=== PATIENT | male | born 1960 | race Caucasian/White ===

== ENCOUNTER 2021-07-13 00:08 | Inpatient (IN) | payer OTHER, SELFPAY ==
[2021-07-13] VITALS (15 sets, daily range): BP systolic 120–165; BP diastolic 79–102; PULSE 98–128; RESP 14–19; TEMP 36.1–37.1; O2SAT 91–96; BMI 22.8; BMI 21.0
--- NOTE | 2021-07-13 00:17 | CTR_ITS ---
PROCEDURE INFORMATION: Exam: CT Head Without Contrast Exam date and time: 07/13/2021 12:17 AM Age: 60 years old Clinical indication: Altered mental status/memory loss; Confusion or disorientation; Patient HX: AMS. Confusion and lethargy. TECHNIQUE: Imaging protocol: Computed tomography of the head without contrast. Radiation optimization: All CT scans at this facility use at least one of these dose optimization techniques: automated exposure control; mA and/or kV adjustment per patient size (includes targeted exams where dose is matched to clinical indication); or iterative reconstruction. COMPARISON: No relevant prior studies available. RADIATION DOSE METRICS: Total DLP (mGy-cm): 787.43 FINDINGS: Brain: Age appropriate atrophy and small vessel ischemic change. No evidence of intracranial hemorrhage, mass effect, midline shift or extra-axial fluid collections. Midline structures are normal. Pena-white matter differentiation is normal. Cerebral ventricles: No ventriculomegaly. Paranasal sinuses: Visualized sinuses are unremarkable. No fluid levels. Mastoid air cells: Visualized mastoid air cells are well aerated. Vasculature: Carotid atherosclerotic calcification. Bones/joints: Unremarkable. No acute fracture. Soft tissues: Unremarkable. CT/CT head wo con* [id number] IMPRESSION: No acute intracranial abnormality. Radiation Dose CTDIVOL = (mGy): DLP = 787.43 (mGy-cm)
--- NOTE | 2021-07-13 00:17 | XRR_ITS ---
PROCEDURE INFORMATION: Exam: XR Chest Exam date and time: 07/13/2021 12:17 AM Age: 60 years old Clinical indication: Patient HX: General weakness. Tachycardic. Ng tube placed in er. ; Additional info: AMS TECHNIQUE: Imaging protocol: XR of the chest. Views: 1 view. COMPARISON: CR Chest 1 [place] [id number] 01/06/2019 8:18 PM FINDINGS: Tubes, catheters and devices: NG tube present, passing beneath the diaphragm. The tip of the tube appears to lie in the proximal body of the stomach. Lungs: No CHF/pulmonary edema. Stable small calcified granuloma in the left mid lung. Visible lungs otherwise appear essentially clear. Pleural spaces: No visible pneumothorax. No definite pleural fluid. Heart/Mediastinum: Heart size is within normal limits. Stable calcified lymph nodes in the left AP window and left hilar region. Vasculature: Mild to moderate aortic tortuosity, similar to the prior exam. Bones/joints: No significant acute finding. XR/XR chest 1V portable [id number] IMPRESSION: 1. No definite CHF or pneumonia. 2. NG tube as above. 3. Other findings discussed above.
--- NOTE | 2021-07-13 00:18 | ECG_ITS ---
[facility] Test Date: 2021-07-13 Pat Name: Daniel Vázquez Department: Room: 259 Gender: Male [employer]: : 1960 Requested By: Sherine Li Order Number: [id number] Alberto MD: Miladis Goldman M.D. Measurements Intervals [place] Rate: 128 P: -5 PA: 137 QRS: 43 QRSD: 92 T: 246 QT: 321 QTc: 469 Interpretive Statements SINUS TACH[address] DEVIATION AND MARKED T-WAVE ABNORMALITY, CONSIDER ANTEROLATERAL ISCHEMIA [-0.5+ mV T WAVE IN I/aVL/V3-V6] ST DEVIATION AND MODERATE T-WAVE ABNORMALITY, CONSIDER INFERIOR ISCHEMIA [-0.1+ mV T WAVE IN II/aVF] Compared to ECG 01/02/2019 14:19:48 T-wave abnormality now present Possible ischemia now present Sinus rhythm no longer present ST (T wave) deviation no longer present Electronically Signed On 07-13-2021 16:13:01 CDT by Miladis Goldman M.D. [id number]
--- NOTE | 2021-07-13 00:27 | ED_ITS ---
HPI - Altered Mental Status General: Chief Complaint: Altered Mental Status Stated Complaint: WEAKNESS Time Seen by Provider: 07/13/21 00:12 Source: family and EMS Mode of arrival: EMS Limitations: altered mental status History of Present Illness: HPI narrative: 60-year-old male has a history of chronic alcoholism along with cirrhosis. Patient has had increasing weakness and confusion. He is only able to tell me his name but no other history. Patient's granddaughter is here and is giving full history. She states that he is a chronic alcoholic and has known cirrhosis and has been having increasing weakness and altered male status for months but is gotten much worse over a day. She states that she concern he had bloody vomitus but is unsure if he actually vomited blood but did see some blood in the house. He has had no known blood in his stool. He is quite jaundiced here and tachycardic. She states that his health has deteriorated over the last 2 months. Patient here is able to only tell me his name and really unable to give me other any other history and is quite frail appearing. Review of Systems General: Reports: ROS unobtainable due to mental status PFSH ED PFSH: Medical History (Updated 07/13/21 @ 04:26 by Lu Lin MD) Alcoholic cirrhosis Alcoholism Hypertension Hyponatremia admission 2019 with sodium as low as 114 due to HCTZ and beer potomania Surgical History (Updated 07/13/21 @ 04:27 by Lu Lin MD) No pertinent past surgical history Family History (Updated 07/13/21 @ 04:28 by Lu Lin MD) Other Dementia Hypertension Rheumatoid arthritis Physical Exam Const: COMMON NORMALS: negative for patient oriented x3 EXAM LIMITATIONS: altered mental status GENERAL APPEARANCE: disheveled, ill appearing and frail appearing HENMT: COMMON NORMALS: normocephalic and atraumatic HEAD & SCALP: normocephalic and atraumatic Eye: COMMON NORMALS: Equal, round and reactive pupils present and EOMs intact bilaterally PUPIL: Yes Equal, round and reactive pupils present Neck/C-Spine: COMMON NORMALS: full ROM and supple Chest: COMMONS NORMALS: normal inspection of the chest and normal palpation of entire chest wall Resp: COMMON NORMALS: normal respiratory effort, No retractions, No use of accessory muscles and clear to auscultation bilaterally AUSCULTATION: clear to auscultation bilaterally Cardio: COMMON NORMALS: regular rate, regular rhythm and No murmurs present (Cardio) RATE: regular rate RHYTHM: regular rhythm GI: COMMON NORMALS: Normal to inspection, nondistended, normoactive bowel sounds present, Soft to palpation, non-tender and no masses PALPATION: Yes Soft to palpation RECTAL EXAM: Yes heme negative stool Extremity: COMMON NORMALS: normal to inspection and full ROM Neuro: COMMON NORMALS: moves all extremities and no focal motor deficits; negative for patient oriented x3 Psych: COMMON NORMALS: cooperative; negative for mental status grossly normal Skin: COMMON NORMALS: no rashes or lesions noted and no wounds NARRATIVE SKIN EXAM: jaundiced GENERAL SKIN EXAM: no rashes or lesions noted Course Vital Signs: Vital signs: Vital Signs Temperature 98.7 F 07/13/21 00:12 Pulse Rate 119 H 07/13/21 04:09 Respiratory Rate 17 07/13/21 04:09 Blood Pressure 165/100 07/13/21 04:09 Pulse Oximetry 95 07/13/21 04:09 MDM - Altered Mental Status MDM Narrative: Medical decision making narrative: Patient presents here with altered mental status. Is likely due to his alcohol withdrawal and likely cirrhosis. Patient's abdominal CT shows no acute findings. I spoke to the hospitalist and will admit. Patient has been stable here in the ER. Lab Data: Labs: Lab Results 07/13/21 07/13/21 07/13/21 Range/Units 00:24 00:24 00:24 WBC 14.5 H (4.0-10.0) 10^3/ uL RBC 3.12 L (4.1-5.3) 10^6/u L Hgb 11.0 L (11.7-16.6) g/dL Hct 31.1 L (42.0-52.0) % MCV 99.7 H (80-94) fl MCH 35.3 H (28.0-34.0) pg MCHC 35.4 (30.0-36.0) g/dL RDW 14.3 (12.1-15.1) % Plt Count 93 L (130-400) 10^3/c mm MPV 9.9 (7.4-10.4) fL Neut % (Auto) 86.4 % Lymph % (Auto) 6.9 % Josephine % (Auto) 4.5 % Eos % (Auto) 0.0 % Baso % (Auto) 0.6 % Neut # (Auto) 12.56 H (1.8-7.7) 10^3/u L Lymph # (Auto) 1.0 (0.8-4.8) 10^3/u L Josephine # (Auto) 0.7 (0.2-0.9) 10^3/u L Eos # (Auto) 0.0 (0.0-0.8) 10^3/u L Baso # (Auto) 0.1 (0.0-0.1) 10^3/u L Nucleated RBC % (a uto) 0 % Nucleated RBCs # 0.0 /100WBC PT (12.1-14.9) SECO NDS INR (0.8-1.2) Sodium 134 L (136-145) mmol/L Potassium 2.8 L* (3.5-5.1) mmol/L Chloride 78 L (98-107) mmol/L Carbon Dioxide 35 H (22-29) mmol/L Anion Gap 23.8 H (5-19) BUN 55 H (8-23) mg/dL Creatinine 1.2 (0.7-1.2) mg/dL GFR Calculation 61.3 L (90-130) mL/min Glucose 145 H (65-115) mg/dL POC Glucose (70-110) mg/dL Calculated Osmolal ity 296 H (285-295) mOsm/k g Lactate 3.4 H (0.5-2.2) mmol/L Calcium 9.8 (8.5-10.5) mg/dL Magnesium 2.1 (1.7-2.3) mg/dL Total Bilirubin 1.9 H (0.15-1.2) mg/dL AST 27 (0-40) U/L ALT 27 (0-41) U/L Alkaline Phosphata se 71 (40-130) IU/L Ammonia (16-60) umol/L Creatine Kinase 9 L (39-308) U/L Troponin T Baselin e (0-15) ng/L Troponin T 120 Min da (0-15) ng/L Delta Troponin T (0-10) ABS# Total Protein 7.6 (6.6-8.7) g/dL Albumin 4.6 (3.5-5.2) g/dL Globulin 3.0 (1.3-4.6) g/dL Lipase 54 (13-60) U/L Urine Color (Yellow) Urine Appearance (CLEAR) Urine pH (5-7) Ur Specific Gravit y (1.005-1.030) Urine Protein (Negative) Urine Glucose (UA) (Normal) Urine Ketones (Negative) Urine Blood (Negative) Urine Nitrate (Negative) Urine Bilirubin (Negative) Urine Urobilinogen (Negative) mg/dL Ur Leukocyte Glenna ase (Negative) Urine RBC (0-2) /hpf Urine WBC (0-5) /hpf Ur Squamous Epith Cells (0-5) /hpf Ur Transition Epit h Cell /hpf Amorphous Sediment Urine Bacteria (NONE) /hpf Hyaline Casts /lpf Salicylates < 0.3 L (3-10) mg/dL Urine Opiates Scre en (Negative) ng/mL Acetaminophen < 5.0 L (10-30) ug/mL Ur Barbiturates Sc reen (Negative) ng/mL Ur Phencyclidine S crn (Negative) ng/mL Ur Amphetamines Sc reen (Negative) ng/mL U Benzodiazepines Scrn (Negative) ng/mL Urine Cocaine Scre en (Negative) ng/mL U Marijuana (THC) Screen (Negative) ng/mL Ethyl Alcohol < 10 (0-10) mg/dL Blood Type Rho(D) Type Antibody Screen 07/13/21 07/13/21 07/13/21 Range/Units 00:24 00:24 00:35 WBC (4.0-10.0) 10^3/ uL RBC (4.1-5.3) 10^6/u L Hgb (11.7-16.6) g/dL Hct (42.0-52.0) % MCV (80-94) fl MCH (28.0-34.0) pg MCHC (30.0-36.0) g/dL RDW (12.1-15.1) % Plt Count (130-400) 10^3/c mm MPV (7.4-10.4) fL Neut % (Auto) % Lymph % (Auto) % Josephine % (Auto) % Eos % (Auto) % Baso % (Auto) % Neut # (Auto) (1.8-7.7) 10^3/u L Lymph # (Auto) (0.8-4.8) 10^3/u L Josephine # (Auto) (0.2-0.9) 10^3/u L Eos # (Auto) (0.0-0.8) 10^3/u L Baso # (Auto) (0.0-0.1) 10^3/u L Nucleated RBC % (a uto) % Nucleated RBCs # /100WBC PT (12.1-14.9) SECO NDS INR (0.8-1.2) Sodium (136-145) mmol/L Potassium (3.5-5.1) mmol/L Chloride (98-107) mmol/L Carbon Dioxide (22-29) mmol/L Anion Gap (5-19) BUN (8-23) mg/dL Creatinine (0.7-1.2) mg/dL GFR Calculation (90-130) mL/min Glucose (65-115) mg/dL POC Glucose 155 H (70-110) mg/dL Calculated Osmolal ity (285-295) mOsm/k g Lactate (0.5-2.2) mmol/L Calcium (8.5-10.5) mg/dL Magnesium (1.7-2.3) mg/dL Total Bilirubin (0.15-1.2) mg/dL AST (0-40) U/L ALT (0-41) U/L Alkaline Phosphata se (40-130) IU/L Ammonia 27 (16-60) umol/L Creatine Kinase (39-308) U/L Troponin T Baselin e 25 H (0-15) ng/L Troponin T 120 Min da (0-15) ng/L Delta Troponin T (0-10) ABS# Total Protein (6.6-8.7) g/dL Albumin (3.5-5.2) g/dL Globulin (1.3-4.6) g/dL Lipase (13-60) U/L Urine Color (Yellow) Urine Appearance (CLEAR) Urine pH (5-7) Ur Specific Gravit y (1.005-1.030) Urine Protein (Negative) Urine Glucose (UA) (Normal) Urine Ketones (Negative) Urine Blood (Negative) Urine Nitrate (Negative) Urine Bilirubin (Negative) Urine Urobilinogen (Negative) mg/dL Ur Leukocyte Glenna ase (Negative) Urine RBC (0-2) /hpf Urine WBC (0-5) /hpf Ur Squamous Epith Cells (0-5) /hpf Ur Transition Epit h Cell /hpf Amorphous Sediment Urine Bacteria (NONE) /hpf Hyaline Casts /lpf Salicylates (3-10) mg/dL Urine Opiates Scre en (Negative) ng/mL Acetaminophen (10-30) ug/mL Ur Barbiturates Sc reen (Negative) ng/mL Ur Phencyclidine S crn (Negative) ng/mL Ur Amphetamines Sc reen (Negative) ng/mL U Benzodiazepines Scrn (Negative) ng/mL Urine Cocaine Scre en (Negative) ng/mL U Marijuana (THC) Screen (Negative) ng/mL Ethyl Alcohol (0-10) mg/dL Blood Type Rho(D) Type Antibody Screen 07/13/21 07/13/21 07/13/21 Range/Units 01:05 01:57 02:20 WBC (4.0-10.0) 10^3/ uL RBC (4.1-5.3) 10^6/u L Hgb (11.7-16.6) g/dL Hct (42.0-52.0) % MCV (80-94) fl MCH (28.0-34.0) pg MCHC (30.0-36.0) g/dL RDW (12.1-15.1) % Plt Count (130-400) 10^3/c mm MPV (7.4-10.4) fL Neut % (Auto) % Lymph % (Auto) % Josephine % (Auto) % Eos % (Auto) % Baso % (Auto) % Neut # (Auto) (1.8-7.7) 10^3/u L Lymph # (Auto) (0.8-4.8) 10^3/u L Josephine # (Auto) (0.2-0.9) 10^3/u L Eos # (Auto) (0.0-0.8) 10^3/u L Baso # (Auto) (0.0-0.1) 10^3/u L Nucleated RBC % (a uto) % Nucleated RBCs # /100WBC PT 13.40 (12.1-14.9) SECO NDS INR 0.99 (0.8-1.2) Sodium (136-145) mmol/L Potassium (3.5-5.1) mmol/L Chloride (98-107) mmol/L Carbon Dioxide (22-29) mmol/L Anion Gap (5-19) BUN (8-23) mg/dL Creatinine (0.7-1.2) mg/dL GFR Calculation (90-130) mL/min Glucose (65-115) mg/dL POC Glucose (70-110) mg/dL Calculated Osmolal ity (285-295) mOsm/k g Lactate (0.5-2.2) mmol/L Calcium (8.5-10.5) mg/dL Magnesium (1.7-2.3) mg/dL Total Bilirubin (0.15-1.2) mg/dL AST (0-40) U/L ALT (0-41) U/L Alkaline Phosphata se (40-130) IU/L Ammonia (16-60) umol/L Creatine Kinase (39-308) U/L Troponin T Baselin e (0-15) ng/L Troponin T 120 Min da (0-15) ng/L Delta Troponin T (0-10) ABS# Total Protein (6.6-8.7) g/dL Albumin (3.5-5.2) g/dL Globulin (1.3-4.6) g/dL Lipase (13-60) U/L Urine Color Hoa (Yellow) Urine Appearance Clear (CLEAR) Urine pH 5 (5-7) Ur Specific Gravit y 1.010 (1.005-1.030) Urine Protein Neg (Negative) Urine Glucose (UA) Norm (Normal) Urine Ketones 1+ H (Negative) Urine Blood 3+ H (Negative) Urine Nitrate Negative (Negative) Urine Bilirubin 1+ H (Negative) Urine Urobilinogen 4 H (Negative) mg/dL Ur Leukocyte Glenna ase Negative (Negative) Urine RBC 0-4 H (0-2) /hpf Urine WBC 0-4 H (0-5) /hpf Ur Squamous Epith Cells 0-4 H (0-5) /hpf Ur Transition Epit h Cell 0-4 /hpf Amorphous Sediment Not Reportable Urine Bacteria 1+ H (NONE) /hpf Hyaline Casts 5-10 H /lpf Salicylates (3-10) mg/dL Urine Opiates Scre en (Negative) ng/mL Acetaminophen (10-30) ug/mL Ur Barbiturates Sc reen (Negative) ng/mL Ur Phencyclidine S crn (Negative) ng/mL Ur Amphetamines Sc reen (Negative) ng/mL U Benzodiazepines Scrn (Negative) ng/mL Urine Cocaine Scre en (Negative) ng/mL U Marijuana (THC) Screen (Negative) ng/mL Ethyl Alcohol (0-10) mg/dL Blood Type A Positive Rho(D) Type Positive Antibody Screen Negative 07/13/21 07/13/21 Range/Units 02:20 03:05 WBC (4.0-10.0) 10^3/ uL RBC (4.1-5.3) 10^6/u L Hgb (11.7-16.6) g/dL Hct (42.0-52.0) % MCV (80-94) fl MCH (28.0-34.0) pg MCHC (30.0-36.0) g/dL RDW (12.1-15.1) % Plt Count (130-400) 10^3/c mm MPV (7.4-10.4) fL Neut % (Auto) % Lymph % (Auto) % Josephine % (Auto) % Eos % (Auto) % Baso % (Auto) % Neut # (Auto) (1.8-7.7) 10^3/u L Lymph # (Auto) (0.8-4.8) 10^3/u L Josephine # (Auto) (0.2-0.9) 10^3/u L Eos # (Auto) (0.0-0.8) 10^3/u L Baso # (Auto) (0.0-0.1) 10^3/u L Nucleated RBC % (a uto) % Nucleated RBCs # /100WBC PT (12.1-14.9) SECO NDS INR (0.8-1.2) Sodium (136-145) mmol/L Potassium (3.5-5.1) mmol/L Chloride (98-107) mmol/L Carbon Dioxide (22-29) mmol/L Anion Gap (5-19) BUN (8-23) mg/dL Creatinine (0.7-1.2) mg/dL GFR Calculation (90-130) mL/min Glucose (65-115) mg/dL POC Glucose (70-110) mg/dL Calculated Osmolal ity (285-295) mOsm/k g Lactate (0.5-2.2) mmol/L Calcium (8.5-10.5) mg/dL Magnesium (1.7-2.3) mg/dL Total Bilirubin (0.15-1.2) mg/dL AST (0-40) U/L ALT (0-41) U/L Alkaline Phosphata se (40-130) IU/L Ammonia (16-60) umol/L Creatine Kinase (39-308) U/L Troponin T Baselin e (0-15) ng/L Troponin T 120 Min da 23.10 H (0-15) ng/L Delta Troponin T -1.90 L (0-10) ABS# Total Protein (6.6-8.7) g/dL Albumin (3.5-5.2) g/dL Globulin (1.3-4.6) g/dL Lipase (13-60) U/L Urine Color (Yellow) Urine Appearance (CLEAR) Urine pH (5-7) Ur Specific Gravit y (1.005-1.030) Urine Protein (Negative) Urine Glucose (UA) (Normal) Urine Ketones (Negative) Urine Blood (Negative) Urine Nitrate (Negative) Urine Bilirubin (Negative) Urine Urobilinogen (Negative) mg/dL Ur Leukocyte Glenna ase (Negative) Urine RBC (0-2) /hpf Urine WBC (0-5) /hpf Ur Squamous Epith Cells (0-5) /hpf Ur Transition Epit h Cell /hpf Amorphous Sediment Urine Bacteria (NONE) /hpf Hyaline Casts /lpf Salicylates (3-10) mg/dL Urine Opiates Scre en Negative (Negative) ng/mL Acetaminophen (10-30) ug/mL Ur Barbiturates Sc reen Negative (Negative) ng/mL Ur Phencyclidine S crn Negative (Negative) ng/mL Ur Amphetamines Sc reen Negative (Negative) ng/mL U Benzodiazepines Scrn Negative (Negative) ng/mL Urine Cocaine Scre en Negative (Negative) ng/mL U Marijuana (THC) Screen Positive H (Negative) ng/mL Ethyl Alcohol (0-10) mg/dL Blood Type Rho(D) Type Antibody Screen Imaging Data^: CT Head: Attestation: I personally reviewed and interpreted this imaging study as follows: Radiologist's impression: [facility] [address] [place] [address] CT Scan Report Signed Patient: Daniel Vázquez Unit #: [id number] : 1960 Age/Sex: 60 / M ADM Date: 07/13/21 Loc: ER Room/Bed: Attending Dr: Ordering Provider/Ordering MD: Sherine Li MD Date of Service: 07/13/21 Procedure(s): CT head wo con* [id number] Accession Number(s): [id number] Report Number: [id number] PROCEDURE INFORMATION: Exam: CT Head Without Contrast Exam date and time: 07/13/2021 12:17 AM Age: 60 years old Clinical indication: Altered mental status/memory loss; Confusion or disorientation; Patient HX: AMS. Confusion and lethargy. TECHNIQUE: Imaging protocol: Computed tomography of the head without contrast. Radiation optimization: All CT scans at this facility use at least one of these dose optimization techniques: automated exposure control; mA and/or kV adjustment per patient size (includes targeted exams where dose is matched to clinical indication); or iterative reconstruction. COMPARISON: No relevant prior studies available. RADIATION DOSE METRICS: Total DLP (mGy-cm): 787.43 FINDINGS: Brain: Age appropriate atrophy and small vessel ischemic change. No evidence of intracranial hemorrhage, mass effect, midline shift or extra-axial fluid collections. Midline structures are normal. Pena-white matter differentiation is normal. Cerebral ventricles: No ventriculomegaly. Paranasal sinuses: Visualized sinuses are unremarkable. No fluid levels. Mastoid air cells: Visualized mastoid air cells are well aerated. Vasculature: Carotid atherosclerotic calcification. Bones/joints: Unremarkable. No acute fracture. Soft tissues: Unremarkable. CT/CT head wo con* [id number] IMPRESSION: No acute intracranial abnormality. Radiation Dose CTDIVOL = (mGy): DLP = 787.43 (mGy-cm) Dictated By: Damian Edge MD Signed By: Damian Edge MD Signed Date/Time: 07/13/21256 DD/ 5 CXR: Attestation: I personally reviewed and interpreted this imaging study as follows: Radiologist's impression: [facility] [address] [place] [address] XRay Report Signed Patient: Daniel Vázquez Unit #: [id number] : [id number] Age/Sex: 60 / M ADM Date: 07/13/21 Loc: ER Room/Bed: Attending Dr: Ordering Provider/Ordering MD: Sherine Li MD Date of Service: 07/13/21 Procedure(s): XR chest 1V portable [id number] Accession Number(s): [id number] Report Number: [id number] PROCEDURE INFORMATION: Exam: XR Chest Exam date and time: 07/13/2021 12:17 AM Age: 60 years old Clinical indication: Patient HX: General weakness. Tachycardic. Ng tube placed in er. ; Additional info: AMS TECHNIQUE: Imaging protocol: XR of the chest. Views: 1 view. COMPARISON: CR Chest 1 [place] [id number] 01/06/2019 8:18 PM FINDINGS: Tubes, catheters and devices: NG tube present, passing beneath the diaphragm. The tip of the tube appears to lie in the proximal body of the stomach. Lungs: No CHF/pulmonary edema. Stable small calcified granuloma in the left mid lung. Visible lungs otherwise appear essentially clear. Pleural spaces: No visible pneumothorax. No definite pleural fluid. Heart/Mediastinum: Heart size is within normal limits. Stable calcified lymph nodes in the left AP window and left hilar region. Vasculature: Mild to moderate aortic tortuosity, similar to the prior exam. Bones/joints: No significant acute finding. XR/XR chest 1V portable [id number] IMPRESSION: 1. No definite CHF or pneumonia. 2. NG tube as above. 3. Other findings discussed above. Dictated By: Thanh Jacob MD Signed By: Thanh Jacob MD Signed Date/Time: 07/13/21237 DD/ 6 CT Abd/Pel: Attestation: I personally reviewed and interpreted this imaging study as follows: Radiologist's impression: [facility] [address] [place] [address] CT Scan Report Signed Patient: Daniel Vázquez Unit #: [id number] : 1960 Age/Sex: 60 / M ADM Date: 07/13/21 Loc: ER Room/Bed: Attending Dr: Ordering Provider/Ordering MD: Sherine Li MD Date of Service: 07/13/21 Procedure(s): CT abdomen pelvis w con* [id number] Accession Number(s): [id number] Report Number: [id number] PROCEDURE INFORMATION: Exam: CT Abdomen And Pelvis With Contrast Exam date and time: 07/13/2021 1:14 AM Age: 60 years old Clinical indication: Patient HX: Hematemesis. Coffe ground contents suctioned from ng tube in er. Per family patient habitually consumes whiskey. ; Additional info: Abd pain TECHNIQUE: Imaging protocol: Computed tomography of the abdomen and pelvis with contrast. Radiation optimization: All CT scans at this facility use at least one of these dose optimization techniques: automated exposure control; mA and/or kV adjustment per patient size (includes targeted exams where dose is matched to clinical indication); or iterative reconstruction. Contrast material: OMNI 300; Contrast volume: 95 ml; Contrast route: INTRAVENOUS (IV); COMPARISON: No relevant prior studies available. RADIATION DOSE METRICS: Total DLP (mGy-cm): 1292.87 FINDINGS: Tubes, catheters and devices: NG tube present, tip in the proximal body of the stomach. Lungs: The lung bases are clear. Liver: There is fatty infiltration of the liver. Gallbladder and bile ducts: No visible gallstones by CT. Ultrasound would be more sensitive for detecting gallstones, if clinically needed. No biliary tree dilation. Pancreas: Unremarkable. Spleen: Unremarkable. Adrenal glands: Unremarkable. Kidneys and ureters: No hydronephrosis of either kidney. No visible ureteral calculus. Stomach and bowel: Possibility of somewhat thickened mucosa/wall in the distal antrum of the stomach. This is a nonspecific appearance, and could be transient on CT, but could also represent evidence for gastritis or peptic ulcer disease. Please correlate clinically. There are no CT findings to strongly suggest diverticulitis. Appendix: The appendix is visualized and appears normal. Intraperitoneal space: No free air, ascites, or bowel distention. Mild, subtle increased attenuation in the central mesenteric fat, especially around the root of the mesentery. This appearance is nonspecific and of unknown significance. Some type of mesenteritis might be considered. Please correlate clinically. Vasculature: No evidence for abdominal aortic aneurysm. Lymph nodes: No retroperitoneal adenopathy. Urinary bladder: Unremarkable as visualized. Reproductive: Essentially unremarkable for age. Bones/joints: Moderate to severe degenerative/arthritic changes throughout the lumbar spine. Moderate bulging disc at L3-L4, causing moderate central canal stenosis. Moderate/severe bulging/protruding discs at L4-L5 and L5-S1. Severe central spinal canal stenosis at L4-L5. Moderate central canal stenosis at L5-S1. Moderate compression deformity of L2, mild compression deformity of L1. These fractures appear to likely be old. Soft tissues: No significant acute finding. CT/CT abdomen pelvis w con* [id number] IMPRESSION: 1. No free air or bowel distention. 2. Possible thickened mucosa/wall in the distal stomach, see above discussion. 3. Normal appendix. 4. Nonspecific mesenteric findings, see above. 5. Moderate to severe degenerative/arthritic changes in the lumbar spine, with significant spinal canal stenosis at several levels. See above details. 6. Presumed old lumbar spine compression fractures, see above. 7. Other findings discussed above. Radiation Dose CTDIVOL = (mGy): DLP = 1292.87 (mGy-cm) Dictated By: Thanh Jacob MD Signed By: Thanh Jacob MD Signed Date/Time: 07/13/21310 DD/ 0309 EKG Data^: EKG 1: Attestation: I personally reviewed and interpreted this EKG as follows: EKG interpretation date: 07/13/21 EKG interpretation time: 00:25 Interpretation: sinus tach hr 128 st depression in lateral leads no st elevation qrs 92 qtc 397 EKG 2: Attestation: I personally reviewed and interpreted this EKG as follows: EKG interpretation date: 07/13/21 EKG interpretation time: 02:30 Interpretation: sinus tach hr [address] st depression laterally qrs 98 qtc 430 Discharge Plan Discharge Patient Disposition: Admitted As Inpatient Admit Provider: Lu Lin Clinical Impression: Alcoholism, Acute upper GI bleed Altered mental status Qualifiers: Altered mental status type: unspecified Qualified Code(s): R41.82 - Altered mental status, unspecified Condition: Stable Coding Level of Care Code ED Pastoral Counselor for g Fwd Exam Comprehensive
[2021-07-13 00:39] LABS: Glucose Point of Care 155 mg/dL (70-110)
[2021-07-13 00:43] LABS: Basophils # 0.1 10^3/uL (0.0-0.1); Basophils % 0.6 %; Hematocrit 31.1 % (42.0-52.0); Lymphocytes % 6.9 %; Mean Corpuscular HGB Conc 35.4 g/dL (30.0-36.0); Mean Corpuscular Hemoglobin 35.3 pg (28.0-34.0); Mean Corpuscular Volume 99.7 fl (80-94); Mean Platelet Volume 9.9 fL (7.4-10.4); Monocytes # 0.7 10^3/uL (0.2-0.9); Monocytes % 4.5 %; Neutrophils # 12.56 10^3/uL (1.8-7.7); Neutrophils % 86.4 %; Nucleated Red Blood Cells % 0 %; Platelet Count 93 10^3/cmm (130-400); Red Blood Count 3.12 10^6/uL (4.1-5.3); Red Cell Distribution Width 14.3 % (12.1-15.1); White Blood Count 14.5 10^3/uL (4.0-10.0)
[2021-07-13 00:57] LABS: Troponin(5th) Baseline 25 ng/L (0-15)
[2021-07-13 01:02] LABS: Alanine Aminotransferase 27 U/L (0-41); Albumin Level 4.6 g/dL (3.5-5.2); Alkaline Phosphatase 71 IU/L (40-130); Ammonia 27 umol/L (16-60); Anion Gap 23.8 (5-19); Aspartate Amino Transferase 27 U/L (0-40); Blood Urea Nitrogen 55 mg/dL (8-23); Calcium 9.8 mg/dL (8.5-10.5); Carbon Dioxide 35 mmol/L (22-29); Chloride 78 mmol/L (98-107); Creatine Phosphokinase 9 U/L (39-308); Glomerular Filtration Rate 61.3 mL/min (90-130); Glucose 145 mg/dL (65-115); Lactate (Lactic Acid level) 3.4 mmol/L (0.5-2.2); Lipase 54 U/L (13-60); Magnesium 2.1 mg/dL (1.7-2.3); Osmolality Calculated 296 mOsm/kg (285-295); Sodium 134 mmol/L (136-145); Total Bilirubin 1.9 mg/dL (0.15-1.2); Total Protein 7.6 g/dL (6.6-8.7)
[2021-07-13] MEDS: sodium chloride 0.9% 1,000 ML 999 ML IV (01:02)
[2021-07-13 01:03] LABS: Acetaminophen < 5.0 ug/mL (10-30); Alcohol Level < 10 mg/dL (0-10); Salicylate < 0.3 mg/dL (3-10)
[2021-07-13 01:04] LABS: Potassium 2.8 mmol/L (3.5-5.1)
--- NOTE | 2021-07-13 01:14 | CTR_ITS ---
PROCEDURE INFORMATION: Exam: CT Abdomen And Pelvis With Contrast Exam date and time: 07/13/2021 1:14 AM Age: 60 years old Clinical indication: Patient HX: Hematemesis. Coffe ground contents suctioned from ng tube in er. Per family patient habitually consumes whiskey. ; Additional info: Abd pain TECHNIQUE: Imaging protocol: Computed tomography of the abdomen and pelvis with contrast. Radiation optimization: All CT scans at this facility use at least one of these dose optimization techniques: automated exposure control; mA and/or kV adjustment per patient size (includes targeted exams where dose is matched to clinical indication); or iterative reconstruction. Contrast material: OMNI 300; Contrast volume: 95 ml; Contrast route: INTRAVENOUS (IV); COMPARISON: No relevant prior studies available. RADIATION DOSE METRICS: Total DLP (mGy-cm): 1292.87 FINDINGS: Tubes, catheters and devices: NG tube present, tip in the proximal body of the stomach. Lungs: The lung bases are clear. Liver: There is fatty infiltration of the liver. Gallbladder and bile ducts: No visible gallstones by CT. Ultrasound would be more sensitive for detecting gallstones, if clinically needed. No biliary tree dilation. Pancreas: Unremarkable. Spleen: Unremarkable. Adrenal glands: Unremarkable. Kidneys and ureters: No hydronephrosis of either kidney. No visible ureteral calculus. Stomach and bowel: Possibility of somewhat thickened mucosa/wall in the distal antrum of the stomach. This is a nonspecific appearance, and could be transient on CT, but could also represent evidence for gastritis or peptic ulcer disease. Please correlate clinically. There are no CT findings to strongly suggest diverticulitis. Appendix: The appendix is visualized and appears normal. Intraperitoneal space: No free air, ascites, or bowel distention. Mild, subtle increased attenuation in the central mesenteric fat, especially around the root of the mesentery. This appearance is nonspecific and of unknown significance. Some type of mesenteritis might be considered. Please correlate clinically. Vasculature: No evidence for abdominal aortic aneurysm. Lymph nodes: No retroperitoneal adenopathy. Urinary bladder: Unremarkable as visualized. Reproductive: Essentially unremarkable for age. Bones/joints: Moderate to severe degenerative/arthritic changes throughout the lumbar spine. Moderate bulging disc at L3-L4, causing moderate central canal stenosis. Moderate/severe bulging/protruding discs at L4-L5 and L5-S1. Severe central spinal canal stenosis at L4-L5. Moderate central canal stenosis at L5-S1. Moderate compression deformity of L2, mild compression deformity of L1. These fractures appear to likely be old. Soft tissues: No significant acute finding. CT/CT abdomen pelvis w con* [id number] IMPRESSION: 1. No free air or bowel distention. 2. Possible thickened mucosa/wall in the distal stomach, see above discussion. 3. Normal appendix. 4. Nonspecific mesenteric findings, see above. 5. Moderate to severe degenerative/arthritic changes in the lumbar spine, with significant spinal canal stenosis at several levels. See above details. 6. Presumed old lumbar spine compression fractures, see above. 7. Other findings discussed above. Radiation Dose CTDIVOL = (mGy): DLP = 1292.87 (mGy-cm)
[2021-07-13 01:19] LABS: INR 0.99 (0.8-1.2)
--- NOTE | 2021-07-13 01:25 | PC.NURSE ---
Gastrocult sample tested; was positive for blood. MD Li notified.
[2021-07-13] MEDS: iohexol 300 mg/mL 100 mL Btl IV (01:29)
[2021-07-13] MEDS: potassium chloride ER 20 mEq Tablet 40 MEQ PO (01:46)
--- NOTE | 2021-07-13 02:31 | ECG_ITS ---
[facility] Test Date: 2021-07-13 Pat Name: Daniel Vázquez Department: Room: Gender: Male Speech Clinician: : 1960 Requested By: Sherine Li Order Number: [id number] Alberto MD: Miladis Goldman M.D. Measurements Intervals [place] Rate: 108 P: -23 MI: 136 QRS: 65 QRSD: 98 T: 265 QT: 366 QTc: 493 Interpretive Statements SINUS TACHYCARDIA ST DEVIATION AND MODERATE T-WAVE ABNORMALITY, CONSIDER ANTEROLATERAL ISCHEMIA [-0.1+ mV T WAVE IN V3-V6] ST DEVIATION AND MODERATE T-WAVE ABNORMALITY, CONSIDER INFERIOR ISCHEMIA [-0.1+ mV T WAVE IN II/aVF] Compared to ECG 01/02/2019 14:19:48 T-wave abnormality now present Possible ischemia now present Sinus rhythm no longer present ST (T wave) deviation no longer present Electronically Signed On 07-13-2021 16:42:46 CDT by Miladis Goldman M.D. [id number]
[2021-07-13] MEDS: LORazepam 2 mg/mL INJ 1 mL IVP (02:35)
--- NOTE | 2021-07-13 02:35 | PC.NURSE ---
Niece Crystal is leaving for the night. Sitter placed outside room for pt safety, as he is confused.
[2021-07-13 02:36] LABS: Add Urine Microscopic? YES; Bilirubin Urine 1+ (Negative); Blood Urine 3+ (Negative); Glucose Urine UA Norm (Normal); Ketones Urine 1+ (Negative); Leukocyte Esterase Urine Negative (Negative); Nitrate Urine Negative (Negative); Protein Urine Neg (Negative); RBC Urine 0-4 /hpf (0-2); Squamous Epithelial Cell Urine 0-4 /hpf (0-5); Transitional Epi Cells Urine 0-4 /hpf; Urine Appearance Clear (CLEAR); Urine Color Amber (Yellow); Urobilinogen Urine 4 mg/dL (Negative); WBC Urine 0-4 /hpf (0-5); pH Urine 5 (5-7)
[2021-07-13 02:37] LABS: Add Urine Culture? No; Amphetamines Screen Urine Negative (Negative); Bacteria Urine 1+ /hpf; Barbiturates Screen Urine Negative (Negative); Benzodiazepines Screen Urine Negative (Negative); Cocaine Screen Urine Negative (Negative); Opiate Screen Urine Negative (Negative); PCP Screen Urine Negative (Negative); THC Screen Urine Positive (Negative)
--- NOTE | 2021-07-13 04:10 | PC.NURSE ---
pt snoring in bed at this time.
--- NOTE | 2021-07-13 04:17 | PM.HP ---
Providers/Chief Complaint Admitting Physician: Lu Lin MD Primary Care Provider: Unknown Chief Complaint: WEAKNESS History of Present Illness Daniel Vázquez is a 60 year old male known to be an alcoholic with a history of alcoholic cirrhosis according to available information. He himself can tell me that his name is Daniel but I am not able to get any other direct answers from him. He occasionally shakes his head yes or no but is quite lethargic. Per ER records he has had increasing weakness and confusion for a while now but has acutely worsened over the last 1 to 2 days. A granddaughter was present in the emergency room and indicated that he had had some bloody vomitus on him although none was seen around the house. No known blood in his stool. In the emergency room stool was checked and was Hemoccult negative per the ER provider. Stool was brown in color. NG tube was placed and coffee-ground material was obtained, black in color. No bright red blood was noted. Patient had CT of the head as well as abdomen and pelvis with results as noted below. Chest x-ray was unremarkable. He continued to be quite altered. He was restless at one point in time and did receive some Ativan. Heart rate was elevated. Blood alcohol level was ten. Historically patient drinks beer. Patient's granddaughter was not available here or on phone at the time of my evaluation limiting information obtainable. What is shown below was obtained from old records. Review of Systems General: Reports: ROS unobtainable due to medical condition and ROS unobtainable due to mental status Medications/Allergies Home Medications Medication Instructions Recorded Confirmed Last Taken Type No Known Home Medications 07/13/21 07/13/21 Unknown History Allergies Allergy/AdvReac Type Severity Reaction Status Date / Time No Known Allergies Allergy Verified 07/13/21 01:12 PFSH Acute PFSH: Medical History (Updated 07/13/21 @ 07:24 by Lu Lin MD) Alcoholic cirrhosis Alcoholism Hypertension Hyponatremia admission 2018 with sodium as low as 114 due to HCTZ and beer potomania Surgical History (Updated 07/13/21 @ 04:27 by Lu Lin MD) No pertinent past surgical history Family History (Updated 07/13/21 @ 04:28 by Lu Lin MD) Other Dementia Hypertension Rheumatoid arthritis Social History (Updated 07/13/21 @ 07:17 by Lu Lin MD) Alcohol intake: current Supplemental [facility] Information: Extent of current alcohol use unknown, unknown if he smokes or uses drugs Vitals/I&O/Wt Last Vital Signs Temp 98.7 F 07/13/21 00:12 Pulse 119 H 07/13/21 04:09 Resp 17 07/13/21 04:09 BP 165/100 07/13/21 04:09 Pulse Ox 95 07/13/21 04:09 07/12/21 07/12/21 07/13/21 14:59 22:59 06:59 Intake Total 1000 / 1000 Balance 1000 / 1000 Weight last 48 hrs Weight 68.039 kg Physical Exam Narrative: EXAM NARRATIVE: Constitutional: Asleep, awakens and will briefly make eye contact, can state his name but not verbally answer other questions. Will shake his head yes or no to a couple of questions but not many. Looks chronically and acutely ill. HEENT: Some bitemporal wasting noted, eyes are sunken a bit, pupils are equally reactive bilaterally, extraocular movements are grossly intact, sclera muddy, nasopharynx is clear, oropharynx with dentures noted, dry mucous membranes Neck: Supple Respiratory: Clear to auscultation bilaterally without any rales rhonchi or wheezes noted, no current accessory muscle use Cardiovascular: Tachycardic, regular rhythm, no obvious murmurs, 2+ radial pulses, 1+ dorsalis pedis pulses bilaterally Abdomen: Soft, nontender, decreased bowel sounds : Normal external genitalia, Martinez catheter in place Extremities: No pitting edema, no calf tenderness, no clubbing Skin: Dry, scattered bruises and abrasions primarily on extensor surfaces Neuro: Face is symmetric, speech was understandable but a little tongue-tied, toes are downgoing bilaterally, no asterixis appreciated nor any other involuntary movements, grossly moves both upper extremities though not cooperative with full examination Psych: Flat affect, lethargic but is oriented to person Urinary Catheter Management^: Martinez: Cath Placed During This Visit: yes Urinary Catheter Date of Insertion: 07/13/21 Urinary Catheter Time of Insertion: 02:00 Data : 07/13/21 00:24 07/13/21 00:24 Other data: Laboratory Results WBC 14.5 10^3/uL (4.0-10.0) H 07/13/21 00:24 RBC 3.12 10^6/uL (4.1-5.3) L 07/13/21 00:24 Hgb 11.0 g/dL (11.7-16.6) L 07/13/21 00:24 Hct 31.1 % (42.0-52.0) L 07/13/21 00:24 MCV 99.7 fl (80-94) H 07/13/21 00:24 MCH 35.3 pg (28.0-34.0) H 07/13/21 00:24 MCHC 35.4 g/dL (30.0-36.0) 07/13/21 00:24 RDW 14.3 % (12.1-15.1) 07/13/21 00:24 Plt Count 93 10^3/cmm (130-400) L 07/13/21 00:24 MPV 9.9 fL (7.4-10.4) 07/13/21 00:24 Neut % (Auto) 86.4 % 07/13/21 00:24 Lymph % (Auto) 6.9 % 07/13/21 00:24 [place] % (Auto) 4.5 % 07/13/21 00:24 Eos % (Auto) 0.0 % 07/13/21 00:24 Baso % (Auto) 0.6 % 07/13/21 00:24 Neut # (Auto) 12.56 10^3/uL (1.8-7.7) H 07/13/21 00:24 Lymph # (Auto) 1.0 10^3/uL (0.8-4.8) 07/13/21 00:24 [place] # (Auto) 0.7 10^3/uL (0.2-0.9) 07/13/21 00:24 Eos # (Auto) 0.0 10^3/uL (0.0-0.8) 07/13/21 00:24 Baso # (Auto) 0.1 10^3/uL (0.0-0.1) 07/13/21 00:24 Nucleated RBC % (auto) 0 % 07/13/21 00:24 Nucleated RBCs # 0.0 /100WBC 07/13/21 00:24 PT 13.40 SECONDS (12.1-14.9) 07/13/21 01:05 INR 0.99 (0.8-1.2) 07/13/21 01:05 Sodium 134 mmol/L (136-145) L 07/13/21 00:24 Potassium 2.8 mmol/L (3.5-5.1) L* 07/13/21 00:24 Chloride 78 mmol/L (98-107) L 07/13/21 00:24 Carbon Dioxide 35 mmol/L (22-29) H 07/13/21 00:24 Anion Gap 23.8 (5-19) H 07/13/21 00:24 BUN 55 mg/dL (8-23) H 07/13/21 00:24 Creatinine 1.2 mg/dL (0.7-1.2) 07/13/21 00:24 GFR Calculation 61.3 mL/min (90-130) L 07/13/21 00:24 Glucose 145 mg/dL (65-115) H 07/13/21 00:24 POC Glucose 155 mg/dL (70-110) H 07/13/21 00:35 Calculated Osmolality 296 mOsm/kg (285-295) H 07/13/21 00:24 Lactate 3.4 mmol/L (0.5-2.2) H 07/13/21 00:24 Calcium 9.8 mg/dL (8.5-10.5) 07/13/21 00:24 Magnesium 2.1 mg/dL (1.7-2.3) 07/13/21 00:24 Total Bilirubin 1.9 mg/dL (0.15-1.2) H 07/13/21 00:24 AST 27 U/L (0-40) 07/13/21 00:24 ALT 27 U/L (0-41) 07/13/21 00:24 Alkaline Phosphatase 71 IU/L (40-130) 07/13/21 00:24 Ammonia 27 umol/L (16-60) 07/13/21 00:24 Creatine Kinase 9 U/L (39-308) L 07/13/21 00:24 Troponin T Baseline 25 ng/L (0-15) H 07/13/21 00:24 Troponin T 120 Minute 23.10 ng/L (0-15) H 07/13/21 03:05 Delta Troponin T -1.90 ABS# (0-10) L 07/13/21 03:05 Total Protein 7.6 g/dL (6.6-8.7) 07/13/21 00:24 Albumin 4.6 g/dL (3.5-5.2) 07/13/21 00:24 Globulin 3.0 g/dL (1.3-4.6) 07/13/21 00:24 Lipase 54 U/L (13-60) 07/13/21 00:24 Urine Color [place] (Yellow) 07/13/21 02:20 Urine Appearance Clear (CLEAR) 07/13/21 02:20 Urine pH 5 (5-7) 07/13/21 02:20 Ur Specific [place] 1.010 (1.005-1.030) 07/13/21 02:20 Urine Protein Neg (Negative) 07/13/21 02:20 Urine Glucose (UA) Norm (Normal) 07/13/21 02:20 Urine Ketones 1+ (Negative) H 07/13/21 02:20 Urine Blood 3+ (Negative) H 07/13/21 02:20 Urine Nitrate Negative (Negative) 07/13/21 02:20 Urine Bilirubin 1+ (Negative) H 07/13/21 02:20 Urine Urobilinogen 4 mg/dL (Negative) H 07/13/21 02:20 Ur Leukocyte Esterase Negative (Negative) 07/13/21 02:20 Urine RBC 0-4 /hpf (0-2) H 07/13/21 02:20 Urine WBC 0-4 /hpf (0-5) H 07/13/21 02:20 Ur Squamous Epith Cells 0-4 /hpf (0-5) H 07/13/21 02:20 Ur Transition Epith Cell 0-4 /hpf 07/13/21 02:20 Amorphous Sediment Not Reportable 07/13/21 02:20 Urine Bacteria 1+ /hpf (NONE) H 07/13/21 02:20 Hyaline Casts 5-10 /lpf H 07/13/21 02:20 Salicylates < 0.3 mg/dL (3-10) L 07/13/21 00:24 Urine Opiates Screen Negative ng/mL (Negative) 07/13/21 02:20 Acetaminophen < 5.0 ug/mL (10-30) L 07/13/21 00:24 Ur Barbiturates Screen Negative ng/mL (Negative) 07/13/21 02:20 Ur Phencyclidine Scrn Negative ng/mL (Negative) 07/13/21 02:20 Ur Amphetamines Screen Negative ng/mL (Negative) 07/13/21 02:20 U Benzodiazepines Scrn Negative ng/mL (Negative) 07/13/21 02:20 Urine Cocaine Screen Negative ng/mL (Negative) 07/13/21 02:20 U Marijuana (THC) Screen Positive ng/mL (Negative) H 07/13/21 02:20 Ethyl Alcohol < 10 mg/dL (0-10) 07/13/21 00:24 Blood Type A Positive 07/13/21 01:57 Rho(D) Type Positive 07/13/21 01:57 Antibody Screen Negative 07/13/21 01:57 Impressions Chest X-Ray 07/13/21 00:17 IMPRESSION: 1. No definite CHF or pneumonia. 2. NG tube as above. 3. Other findings discussed above. Head CT 07/13/21 00:17 IMPRESSION: No acute intracranial abnormality. Radiation Dose CTDIVOL = (mGy): DLP = 787.43 (mGy-cm) Abdomen/Pelvis CT 07/13/21 01:14 IMPRESSION: 1. No free air or bowel distention. 2. Possible thickened mucosa/wall in the distal stomach, see above discussion. 3. Normal appendix. 4. Nonspecific mesenteric findings, see above. 5. Moderate to severe degenerative/arthritic changes in the lumbar spine, with significant spinal canal stenosis at several levels. See above details. 6. Presumed old lumbar spine compression fractures, see above. 7. Other findings discussed above. Radiation Dose CTDIVOL = (mGy): DLP = 1292.87 (mGy-cm) A&P Assessment and plan (1) Acute encephalopathy: Multifactorial, from chronic alcohol use, a degree of alcoholic ketoacidosis, medication administration in the emergency room, possible infection with leukocytosis with left shift noted Status: Acute (2) Acute upper GI bleed: Status: Acute (3) Macrocytic anemia: Status: Acute (4) Thrombocytopenia: Status: Acute (5) Alcoholism: Status: Chronic (6) Alcoholic cirrhosis: Status: Chronic Qualifiers: Ascites presence: without ascites Qualified Code(s): K70.30 - Alcoholic cirrhosis of liver without ascites (7) Hypertension: Status: Chronic Qualifiers: Hypertension type: other secondary hypertension Qualified Code(s): I15.8 - Other secondary hypertension Additional A&P Information Evidence of THC use Inpatient admission Continue NG tube to low intermittent suction PPI IV Serial H&H Has been typed and screened Repeat hemocult of stool Check coags Serial neuro exams Thiamine, folate, multivitamin [facility] protocol Sitter for safety Check TSH Serial troponins and EKGd Empiric antibiotic coverage with vancomycin and Zosyn given leukocytosis with left shift Bloods cultures and procalcitonin IV fluids Check serum ketones and ABG Received potassium replacement in the emergency room Repeat laboratory studies in the morning including magnesium and phosphorus Additional electrolyte replacement as needed Monitor closely for hypoglycemia Ammonia level was checked and was normal SCDs for DVT prophylaxis Monitor platelet count When family available get more information about presentation, goals of care and CODE STATUS as able Martinez catheter was placed in the emergency room I believe to obtain urine specimen, will continue for now until we get a bit more information to allow close monitoring of overall volume status although would like to discontinue as soon as feasible Briefly reviewed plan of care with patient although I am not sure he understood much of any of it Anticipated Disposition: Depending on clinical course but currently anticipate back home with family Code Status: Full code presently as I am unable to discuss with patient or family Attestations Medical Necessity Statement*: Currently anticipate a stay greater than two midnights in a known alcoholic presenting with significant alteration of mental status and looks to be upper GI bleed with coffee-ground emesis in addition to acute multifactorial encephalopathy. Plans are as noted above. At high risk of rapid clinical decline up to and including the possibility of given comorbid conditions and baseline status of late. Coding Level of Care Code Acute Correctional Security Officer for [facility] Fwd Diagnoses Acute encephalopathy G93.40 Acute upper GI bleed K92.2 Macrocytic anemia D53.9 Thrombocytopenia D69.6 Alcoholism F10.20 Alcoholic cirrhosis K70.30 Ascites presence: without ascites Hypertension I15.8 Hypertension type: other secondary hypertension
--- NOTE | 2021-07-13 06:31 | ECG_ITS ---
[facility] Test Date: 2021-07-13 Pat Name: Daniel Vázquez Department: Room: 259 Gender: Male Cork Insulator: : 1960 Requested By: Sherine Li Order Number: [id number] Alberto MD: Miladis Goldman M.D. Measurements Intervals [place] Rate: 120 P: 25 VT: 150 QRS: 60 QRSD: 92 T: 248 QT: 350 QTc: 494 Interpretive Statements SINUS TACHYCARDIA WITH OCCASIONAL SUPRAVENTRICULAR PREMATURE COMPLEXES ST DEVIATION AND MODERATE T-WAVE ABNORMALITY, CONSIDER ANTEROLATERAL ISCHEMIA [-0.1+ mV T WAVE IN V3-V6] ST DEVIATION AND MODERATE T-WAVE ABNORMALITY, CONSIDER INFERIOR ISCHEMIA [-0.1+ mV T WAVE IN II/aVF] Compared to ECG 07/13/2021 02:25:19 No significant changes Electronically Signed On 07-14-2021 12:51:06 CDT by Miladis Goldman M.D. [id number]
--- NOTE | 2021-07-13 08:27 | PC.CHAP ---
Pastoral Care Encounter/Spiritual Assessment Type of Contact [] Declined bed machine operator visit [] Patient/Family/Request visit [] Outpatient visit [] Follow-up visit [] Physician referral [] Code/Alert x[] Routine visit [] Staff referral [] Actively dying [x] Patient sleeping [] Family support [] [] Out of room [] Palliative care [] [] Receiving care in room [] Pre-surgical visit [] Trauma [] Long length of stay [] ICU visit [] Other: Relational/Emotional Strength [] Patient feels connected with others/family/visitors/staff [] Distress [] Loneliness/isolation [] Abandonment Spirituality of Patient [] Person of Lilibeth [] Attends Christianity of their Lilibeth [] Believes in Prayer [] Reads Bible or Hinduism materials [] There are Spiritual issues to be addressed Paper Tube Machine Operator Interventions [] Prayer [] Active listening [] Non-anxious presence [] Spiritual/emotional support [] Crisis/trauma care [] Spiritual counseling [] Bereavement support [] Provided bereavement packet [] Provided Bible/devotional materials [] Provided toy/stuffed animal, coloring book to patient or family member [] Provided Communion [] Anointing/[place]chells [] Salvation [] Completed spiritual assessment [] Other: Impact on Illness or Injury [] Angry [] Fearful [] Anxious [] Often cries [] Exhaustion [] Unable to work [] Unable to attend anabaptism [] Unable to walk/stand [] Unable to read [] Unable to drive [] Unable to eat/drink [] Unable to sleep [] Unable to be with family [] Patient intubated [] Other: Summary Time spent with patient
[2021-07-13] MEDS: pantoprazole 40 mg SDV IVP ×2 (09:26→18:53)
[2021-07-13] MEDS: sodium chlor 0.9% + KCl 20 mEq 20 MEQ/1,000 ML BAG 100 MEQ IV ×2 (09:28→19:28)
[2021-07-13 09:29] LABS: Blood Gas Allen Test Pos; Blood Gas Operator Identificat CAK; Blood Gas Sample Site Brachial, left; Blood Gas Sample Type Arterial; Oxygen Device ROOM AIR
[2021-07-13] MEDS: vancomycin 1,000 MG in sodium chloride 0.9% 250 ML 250 MG IV (09:42)
[2021-07-13] MEDS: thiamine 100 mg Tablet PO (09:55)
[2021-07-13] MEDS: multivitamin therapeutic Tablet 1 TAB PO (09:55)
[2021-07-13] MEDS: folic acid 1 mg Tablet PO (09:55)
[2021-07-13 10:14] LABS: Basophils # 0.1 10^3/uL (0.0-0.1); Basophils % 0.4 %; Hematocrit 26.6 % (42.0-52.0); Hemoglobin 9.3 g/dL (11.7-16.6); Lymphocytes % 7.1 %; Mean Corpuscular Hemoglobin 35.4 pg (28.0-34.0); Mean Corpuscular Volume 101.1 fl (80-94); Mean Platelet Volume 9.4 fL (7.4-10.4); Monocytes # 0.9 10^3/uL (0.2-0.9); Monocytes % 6.2 %; Neutrophils # 11.51 10^3/uL (1.8-7.7); Neutrophils % 84.3 %; Nucleated Red Blood Cells % 0 %; Platelet Count 66 10^3/cmm (130-400); Red Blood Count 2.63 10^6/uL (4.1-5.3); Red Cell Distribution Width 14.5 % (12.1-15.1); White Blood Count 13.7 10^3/uL (4.0-10.0)
[2021-07-13 10:22] LABS: Ketone (Acetest) Serum Negative (Negative)
--- NOTE | 2021-07-13 10:22 | PM.PN ---
Subjective Subjective: Interval history: He is awake, but with sluggish responses, does not know where he is. Does not know where he is. Cannot tell me the year. Denies having pain or discomfort. Denies trouble breathing. Takes several problems to follow some commands. Does not really follow commands to track, although does kind of track my face with shifting from side to side. Inconsistently follows other commands. Lifts his hands and squeezes my hands weakly. After several prompts lifts left leg weakly off the surface of the bed. I could not get him to follow other commands after that. Vitals/I&O/Wt Last Vital Signs Temp 97.6 F 07/13/21 07:42 Pulse 120 H 07/13/21 07:42 Resp 18 07/13/21 07:42 BP 149/81 07/13/21 07:42 Pulse Ox 96 07/13/21 07:42 07/12/21 07/13/21 07/13/21 22:59 06:59 14:59 Intake Total 1000 / 1000 Balance 1000 / 1000 Weight last 48 hrs Weight 62.794 kg Weight 68.039 kg Physical Exam Const: COMMON NORMALS: no acute distress; negative for patient oriented x3 EXAM LIMITATIONS: altered mental status GENERAL APPEARANCE: cooperative (To very limited extent) and frail appearing ORIENTATION/CONSCIOUSNESS: Yes confused HENMT: COMMON NORMALS: oropharynx normal Neck/C-Spine: COMMON NORMALS: no JVD Resp: COMMON NORMALS: normal respiratory effort and clear to auscultation bilaterally AUSCULTATION: clear to auscultation bilaterally Cardio: COMMON NORMALS: no JVD, regular rhythm, S1 normal heart sound present, S2 normal heart sound present and No murmurs present (Cardio) RHYTHM: regular rhythm HEART SOUNDS: S1 normal heart sound present and S2 normal heart sound present GI: COMMON NORMALS: Normal to inspection, nondistended, normoactive bowel sounds present, Soft to palpation and non-tender PALPATION: Yes Soft to palpation Extremity: COMMON NORMALS: no joint enlargement and no pedal edema OTHER: Bruises on shins Neuro: COMMON NORMALS: negative for patient oriented x3 MENINGEAL SIGNS: No nuccal rigidity SPEECH: abnormal speech and Other neuro speech findings (Unable to get much from him difficult to assess whether in fact as aphasia) MOTOR EXAM: Normal motor muscle tone present throughout, Abnormal motor strength present (2+ - 3- throughout) and Other motor observations present (No myoclonus) OTHER: Does not follow commands well to assess tracking well, although does appear to track my face with shifting from side to side. Cannot assess visual edwards. Skin: COMMON NORMALS: no rashes or lesions noted GENERAL SKIN EXAM: no rashes or lesions noted Urinary Catheter Management^: Martinez: Cath Placed During This Visit: yes Urinary Catheter Date of Insertion: 07/13/21 Urinary Catheter Time of Insertion: 02:00 Data : 07/13/21 09:50 07/13/21 00:24 Micro: Microbiology 07/13/21 09:50 Blood Culture - Preliminary Blood SPECIMEN COLLECTED A&P Assessment and plan (1) Acute encephalopathy: Multifactorial, from chronic alcohol use, a degree of alcoholic ketoacidosis, medication administration in the emergency room, possible infection with leukocytosis with left shift noted By comparison from documentation from yesterday, appears lethargic, however, still unable to provide much information, answer questions or follow commands well. Requires several prompts for simple questions and commands. Provides his name. Does not know where he is or what year it is. Denies pain or discomfort. Not a clear source of encephalopathy at this time. Does have noted worsening thrombocytopenia. We will additionally investigate with LDH, haptoglobin, peripheral smear. His medications at this time are unknown. I could not reach his son for additional discussion today, although it appears he did visit him at bedside earlier this morning. Spleen appears unremarkable on CT. With known cirrhosis, however, ammonia is normal. With GI bleeding with cirrhosis may be at risk of SBP, although is covered currently with antibiotics. No ascites noted on CT as well. Continue empiric antibiotics. Follow blood cultures. At this time no obvious infection on chest x-ray, UA, does not appear to show meningeal signs, is afebrile. No headache. No photophobia. Did not see any signs of cellulitis. We'll request additional assessment by MRI of the brain given I cannot complete a good neurological examination to exclude focal abnormality. Monitor for signs of withdrawal. Continue thiamine, folic acid, multivitamin. At this time no seizure-like activity is noted. Monitor for any changes. TSH is normal. Globulin normal. Lipase normal. We'll give gentle IV hydration as he does appear dehydrated, with ketoacidosis, suspect may be in starvation ketosis with liver cirrhosis. Diabetic ketoacidosis not suggested. Requesting tick panel. Check ESR, CRP. At home at least in the past used to be on gabapentin. But does not appear to have had any prescriptions for this in 2020. Toxic encephalopathy another possibility with THC positive urine drug screen. Status: Acute (2) Acute upper GI bleed: Continue PPI. Recheck CBC. Monitor for any worsening of thrombocytopenia. Status: Acute (3) Macrocytic anemia: Status: Acute (4) Thrombocytopenia: As above Status: Acute (5) Alcoholism: As above Status: Chronic (6) Alcoholic cirrhosis: Status: Chronic Qualifiers: Ascites presence: without ascites Qualified Code(s): K70.30 - Alcoholic cirrhosis of liver without ascites (7) Hypertension: Status: Chronic Qualifiers: Hypertension type: other secondary hypertension Qualified Code(s): I15.8 - Other secondary hypertension Additional A&P Information Evidence of THC use Current kidney disease: Creatinine appears at oral bit lower than baseline, currently 1.3. Hypokalemia: Replace EKG abnormalities: Denies chest pain. Troponin with mild rise, no definitive peak. Not suggestive to have acute [place] at this time, but may benefit from additional risk stratification on less urgent basis. Attestations Medical Necessity Statement*: Continue admission for additional assessment of acute encephalopathy in a gentleman with underlying alcoholism, liver cirrhosis, upper GI bleeding. 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
[2021-07-13 10:28] LABS: Lactic Sepsis W/Reflex 3.4 mmol/L (0.5-2.2)
[2021-07-13 10:31] LABS: C Reactive Protein 2.1 mg/L (0.0-4.9)
[2021-07-13 10:32] LABS: Troponin 5 6HR 29.65 ng/L (0-15)
[2021-07-13 10:35] LABS: Troponin 5 6HR Delta 4.65 ng/L (0-12)
[2021-07-13 10:36] LABS: Glucose Point of Care 214 mg/dL (70-110)
[2021-07-13 10:38] LABS: LAB Peripheral Smear Sent for Review; Procalcitonin 0.86 ng/mL (0-0.5)
[2021-07-13 10:41] LABS: Alanine Aminotransferase 23 U/L (0-41); Albumin Level 3.8 g/dL (3.5-5.2); Alkaline Phosphatase 62 IU/L (40-130); Aspartate Amino Transferase 21 U/L (0-40); Blood Urea Nitrogen 57 mg/dL (8-23); Carbon Dioxide 33 mmol/L (22-29); Chloride 81 mmol/L (98-107); Globulin 2.8 g/dL (1.3-4.6); Glomerular Filtration Rate 55.9 mL/min (90-130); Glucose 137 mg/dL (65-115); Magnesium 1.9 mg/dL (1.7-2.3); Osmolality Calculated 296 mOsm/kg (285-295); Phosphorus 3.2 mg/dL (2.5-4.5); Sodium 134 mmol/L (136-145); Total Bilirubin 1.4 mg/dL (0.15-1.2); Total Protein 6.6 g/dL (6.6-8.7)
[2021-07-13 10:50] LABS: Lactate Dehydrogenase 88 U/L (135-225)
[2021-07-13 11:43] LABS: Erythrocyte Sedimentation Rate 43 mm/hr (0-10)
[2021-07-13 11:52] LABS: Reflex Lactate Order REFLEX LACTIC ORDERD
[2021-07-13 13:58] LABS: Hematocrit 26.1 % (42.0-52.0)
[2021-07-13 14:21] LABS: Lactic Acid level (Lactate) 1.2 mmol/L (0.5-2.2)
[2021-07-13] MEDS: piperacillin-tazobactam 3.375 GM in sodium chloride 0.9% (plus) 50 ML IV ×2 (14:35→21:14)
[2021-07-13 16:56] LABS: Basophils # 0.1 10^3/uL (0.0-0.1); Basophils % 0.5 %; Eosinophils % 0.1 %; Hematocrit 25.1 % (42.0-52.0); Hemoglobin 8.6 g/dL (11.7-16.6); Lymphocytes # 1.4 10^3/uL (0.8-4.8); Lymphocytes % 11.2 %; Mean Corpuscular HGB Conc 34.3 g/dL (30.0-36.0); Mean Corpuscular Hemoglobin 34.8 pg (28.0-34.0); Mean Corpuscular Volume 101.6 fl (80-94); Monocytes # 0.9 10^3/uL (0.2-0.9); Monocytes % 7.3 %; Nucleated Red Blood Cells % 0 %; Platelet Count 62 10^3/cmm (130-400); Red Blood Count 2.47 10^6/uL (4.1-5.3); Red Cell Distribution Width 14.6 % (12.1-15.1); White Blood Count 12.8 10^3/uL (4.0-10.0)
[2021-07-13 16:59] LABS: Glucose Point of Care 156 mg/dL (70-110)
[2021-07-13 17:43] LABS: ABG PCO2 51.6 mmHg (35-45); ABG PH Result 7.49 (7.35-7.45); Arterial Blood Gas Hematocrit 30.8 % (42-52); Base Excess ABG 14.3 mmol/L (-2.0-2.0); HCO3 ABG 39.4 mmol/L (22-26); PO2 ABG 28.1 mmHg (80.0-100.0)
[2021-07-13 20:16] LABS: Glucose Point of Care 133 mg/dL (70-110)
[2021-07-14] VITALS (7 sets, daily range): BP systolic 121–150; BP diastolic 70–83; PULSE 91–105; RESP 16–18; TEMP 36.1–36.7; O2SAT 90–99
[2021-07-14] MEDS: vancomycin 1,000 MG in sodium chloride 0.9% 250 ML 250 MG IV (01:34)
[2021-07-14] MEDS: piperacillin-tazobactam 3.375 GM in sodium chloride 0.9% (plus) 50 ML IV ×3 (05:19→21:04)
[2021-07-14] MEDS: sodium chlor 0.9% + KCl 20 mEq 20 MEQ/1,000 ML BAG 100 MEQ IV ×2 (05:19→17:46)
[2021-07-14] MEDS: pantoprazole 40 mg SDV IVP ×2 (05:52→17:38)
[2021-07-14 05:53] LABS: Basophils % 0.4 %; Eosinophils % 0.3 %; Hematocrit 24.7 % (42.0-52.0); Hemoglobin 8.2 g/dL (11.7-16.6); Lymphocytes # 1.2 10^3/uL (0.8-4.8); Lymphocytes % 11.2 %; Mean Corpuscular HGB Conc 33.2 g/dL (30.0-36.0); Mean Corpuscular Volume 105.6 fl (80-94); Mean Platelet Volume 9.6 fL (7.4-10.4); Monocytes # 0.5 10^3/uL (0.2-0.9); Neutrophils # 8.16 10^3/uL (1.8-7.7); Neutrophils % 79.8 %; Nucleated Red Blood Cells % 0 %; Platelet Count 55 10^3/cmm (130-400); Red Blood Count 2.34 10^6/uL (4.1-5.3); Red Cell Distribution Width 14.9 % (12.1-15.1); White Blood Count 10.2 10^3/uL (4.0-10.0)
[2021-07-14 06:07] LABS: INR 0.93 (0.8-1.2)
[2021-07-14 06:16] LABS: Alanine Aminotransferase 17 U/L (0-41); Albumin Level 3.5 g/dL (3.5-5.2); Alkaline Phosphatase 53 IU/L (40-130); Aspartate Amino Transferase 20 U/L (0-40); Blood Urea Nitrogen 53 mg/dL (8-23); Calcium 8.5 mg/dL (8.5-10.5); Carbon Dioxide 33 mmol/L (22-29); Chloride 90 mmol/L (98-107); Globulin 2.4 g/dL (1.3-4.6); Glucose 112 mg/dL (65-115); Magnesium 1.9 mg/dL (1.7-2.3); Osmolality Calculated 303 mOsm/kg (285-295); Phosphorus 2.1 mg/dL (2.5-4.5); Sodium 139 mmol/L (136-145); Total Protein 5.9 g/dL (6.6-8.7)
[2021-07-14 06:33] LABS: Glucose Point of Care 114 mg/dL (70-110)
--- NOTE | 2021-07-14 09:43 | PC.CHAP ---
Pastoral Care Encounter/Spiritual Assessment Type of Contact [] Declined tare man visit [] Patient/Family/Request visit [] Outpatient visit [] Follow-up visit [] Physician referral [] Code/Alert [x] Routine visit [] Staff referral [] Actively dying [] Patient sleeping [] Family support [] [] Out of room [] Palliative care [] [x] Receiving care in room [] Pre-surgical visit [] Trauma [] Long length of stay [] ICU visit [] Other: Relational/Emotional Strength [] Patient feels connected with others/family/visitors/staff [] Distress [] Loneliness/isolation [] Abandonment Spirituality of Patient [] Person of Lilibeth [] Attends Confucianism of their Lilibeth [] Believes in Prayer [] Reads Bible or Yazdanism materials [] There are Spiritual issues to be addressed Chain Maker Hand Interventions [] Prayer [] Active listening [] Non-anxious presence [] Spiritual/emotional support [] Crisis/trauma care [] Spiritual counseling [] Bereavement support [] Provided bereavement packet [] Provided Bible/devotional materials [] Provided toy/stuffed animal, coloring book to patient or family member [] Provided Communion [] Anointing/[place] [] Salvation [] Completed spiritual assessment [] Other: Impact on Illness or Injury [] Angry [] Fearful [] Anxious [] Often cries [] Exhaustion [] Unable to work [] Unable to attend episcopal [] Unable to walk/stand [] Unable to read [] Unable to drive [] Unable to eat/drink [] Unable to sleep [] Unable to be with family [] Patient intubated [] Other: Summary Time spent with patient
--- NOTE | 2021-07-14 10:14 | MR_ITS ---
WS: [id number] MRI BRAIN WITHOUT CONTRAST HISTORY: AMS COMPARISON: None available. TECHNIQUE: Diffusion imaging, multiplanar T1, T2 and FLAIR imaging obtained. MRI evaluation is extremely limited by significant motion artifact on several sequences. No diffusion-weighted abnormality. No evidence for hemorrhage. There is mild bilateral atrophy and chronic ischemic changes in the white matter. No mass effect is i dentified. Ventricles and extra-axial spaces are normal. No inferior displacement of cerebellar tonsils. The sella turcica and pituitary gland are unremarkabl e. Very limited evaluation of the venous structures and arterial structures. Paranasal sinuses: Clear. Mastoid air cells: Normal. Calvarium and scalp: Intact. MR/MR head wo con* [id number] IMPRESSION: 1. Extremely limited evaluation of the brain due to motion artifact. 2. No large infarcts are identified. 3. Mild cerebral atrophy with chronic ischemic disease.
--- NOTE | 2021-07-14 11:13 | P.PN_ITS ---
Subjective Subjective: Interval history: He is much more alert today interactive, when I coming exclaims well who in the world are you? . He does not remember where he is or what year it is. He denies any complaints, however. When asked if he is hungry and could eat something, states yes, says he would like to have a coffee and a couple of beers. He denies any trouble breathing, chest pain or abdominal pain. Vitals/I&O/Wt Last Vital Signs Temp 97.7 F 07/14/21 07:40 Pulse 103 H 07/14/21 07:40 Resp 16 07/14/21 07:40 BP 150/82 07/14/21 07:40 Pulse Ox 95 07/14/21 07:40 07/13/21 07/14/21 07/14/21 22:59 06:59 14:59 Intake Total 1050 / 1300 1008.333 / 2308.333 50 / 50 Output Total 450 / 450 Balance 600 / 850 1008.333 / 1858.333 50 / 50 Weight last 48 hrs Weight 64.495 kg Weight 64.495 kg Weight 62.794 kg Weight 68.039 kg Physical Exam Const: COMMON NORMALS: no acute distress and alert; negative for patient oriented x3 GENERAL APPEARANCE: cooperative and frail appearing ORIENTATION/CONSCIOUSNESS: Yes awake and Yes confused HENMT: COMMON NORMALS: oropharynx normal Neck/C-Spine: COMMON NORMALS: no JVD Resp: COMMON NORMALS: normal respiratory effort and clear to auscultation bilaterally AUSCULTATION: clear to auscultation bilaterally Cardio: COMMON NORMALS: no JVD, regular rhythm, S1 normal heart sound present, S2 normal heart sound present and No murmurs present (Cardio) RHYTHM: regular rhythm HEART SOUNDS: S1 normal heart sound present and S2 normal heart sound present GI: COMMON NORMALS: Normal to inspection, nondistended, normoactive bowel sounds present, Soft to palpation and non-tender PALPATION: Yes Soft to pal pation Extremity: COMMON NORMALS: no joint enlargement and no pedal edema OTHER: Bruises on shins Neuro: COMMON NORMALS: negative for patient oriented x3 SENSORIUM/ORIENTATION: Yes alert MENINGEAL SIGNS: No nuccal rigidity SPEECH: Other neuro speech findings (Minimal dysarthria) MOTOR EXAM: Normal motor muscle tone present throughout, Abnormal motor strength present (Improving, 3 throughout) and Other motor observations present (No myoclonus) Skin: COMMON NORMALS: no rashes or lesions noted GENERAL SKIN EXAM: no rashes or lesions noted Urinary Catheter Management^: Martinez: Cath Placed During This Visit: yes Reason for Continuing Indwelling Catheter: Acute Urinary Retention or Obstruction Urinary Catheter Date of Insertion: 07/13/21 Urinary Catheter Time of Insertion: 02:00 Data : 07/14/21 05:17 07/14/21 05:17 Micro: Microbiology 07/13/21 09:50 Blood Culture - Preliminary Blood NEGATIVE TO DATE 07/13/21 13:32 Blood Culture - Preliminary Blood SPECIMEN COLLECTED A&P Assessment and plan (1) Acute encephalopathy: Improving encephalopathy, today he is much more alert, interactive. Not oriented currently. Does not know where he is or why he is here. Denies any pain or discomfort or any complaints. Asked for some coffee and beer. Discussing with his son he continues to drink alcohol at home. Alcohol withdrawal in addition to dehydration, possibly mild aspiration after noted coffee-ground emesis preadmission, with sepsis, aspiration pneumonia which curre ntly is improving. Leukocytosis decreasing. Tachycardia improving. Suspect combination of metabol ic and toxic encephalopathy with acute infection, continued alcohol intake at home despite liver cirrhosis. Discussed with him that he needs to stop drinking otherwise it will lead to life-threatening complications. Continue supportive care. Continue to reorient. Chronic alcohol use, a degree of alcoholic ketoacidosis Does have noted worsening thrombocytopenia. Does not appear to have hemolysis. Plasmic score low for TTP. Peripheral smear has been requested. Suspect this may be related secondary to bone marrow suppression from continued alcohol intake. Possibly related to sepsis. With GI bleeding with cirrhosis may be at risk of SBP, although is covered currently with antibiotics. No ascites noted on CT as well. Noted thickening of distal stomach wall/mucosa, suspect alcohol induced gastritis. Continue PPI. Trial of clear liquids. Continue empiric antibiotics for possible sepsis present on admission. So far negative blood cultures. Does not appear to show meningeal signs, is afebrile. No headache. No photophobia. MRI brain -motion artifact, generalized chronic atrophy, but otherwise no noted major acute abnormality. Monitor for signs of withdrawal. Continue thiamine, folic acid, multivitamin. Monitor recovery. Consider Warnicke encephalopathy. At this time no seizure-like activity is noted. Monitor for any changes. TSH is normal. Globulin normal. Lipase normal. Dehydration: Continue gentle IV hydration. CLD trial. Requesting tick panel. ESR moderately elevated, CRP normal Prescription of his son is supposed to be taking some medicines for h ypertension, but has not been taking those, and does not take any other medicines. Toxic encephalopathy another possibility with THC positive urine drug screen. PT, OT Status: Acute (2) TERRANCE (acute kidney injury): Appears to have acute kidney injury on chronic kidney disease, creatinine up to 1.7. Stop vancomycin, switch to linezolid for now. Check MRSA PCR. Continue gentle rehydration. Status: Acute (3) Acute upper GI bleed: Continue PPI. Recheck CBC. Monitor for any worsening of thrombocytopenia. Has never had an EGD. I do not suspect variceal bleed at this time, but has never had an evaluation, and discussed with his son would benefit from EGD at least once. Noted thickening of gastric wall, mucosa in the distal stomach. Suspect alcohol induced gastritis. Will need EGD at some point to evaluate and exclude malignancy. Status: Acute (4) Macrocytic anemia: Status: Acute (5) Thrombocytopenia: Does not appear to have hemolysis. Plasma score low for TTP. Possible bone marrow suppression secondary to continued alcohol intake. Possibly secondary to sepsis. Monitor. Status: Acute (6) Alcoholism: As above Status: Chronic (7) Alcoholic cirrhosis: Status: Chronic Qualifiers: Ascites presence: without ascites Qualified Code(s): K70.30 - Alcoholic cirrhosis of liver without ascites (8) Hypertension: Add amlodipine Status: Chronic Qualifiers: Hypertension type: other secondary hypertension Qualified Code(s): I15.8 - Other secondary hypertension Additional A&P Information Evidence of THC use Chronic kidney disease: Baseline creatinine difficulty solid food may be some around 1.5-1.6. Hypokalemia: Continue replacement EKG abnormalities: Denies chest pain. Troponin with mild rise, no definitive peak. Not suggestive to have acute [place] at this time, but may benefit from additional risk stratification on less urgent basis. Discussed his condition and concerns as above with his son. Attestations Medical Necessity Statement*: Continue admission for assessment of management of acute encephalopathy, GI bleeding, and gentleman with chronic alcohol use despite underlying liver cirrhosis, resolving possible sepsis. 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
[2021-07-14 11:32] LABS: Glucose Point of Care 112 mg/dL (70-110)
[2021-07-14] MEDS: linezolid 600 mg Tablet PO (12:11)
[2021-07-14] MEDS: amlodipine 5 mg Tablet PO (12:11)
[2021-07-14] MEDS: folic acid 1 mg Tablet PO (12:12)
[2021-07-14] MEDS: thiamine 100 mg Tablet PO (12:12)
[2021-07-14] MEDS: multivitamin therapeutic Tablet 1 TAB PO (12:12)
--- NOTE | 2021-07-14 13:21 | PC.NURSE ---
Patient's son has been turning off the IV pumps when they alarm rather than alerting nursing. I went in and rounded with the patient and his family and spoke with his son, Dheeraj, and asked that he call nursing when the pumps alarm rather than shut them off. He verbalizes understanding and states he won't turn the pumps off any longer. They deny any further questions or concerns at this time.
--- NOTE | 2021-07-14 14:19 | PC.OT ---
OT unable to complete evaluation as patient was unavailable. Will attempt tomorrow.
[2021-07-14 17:00] LABS: Glucose Point of Care 130 mg/dL (70-110)
[2021-07-14 20:23] LABS: Glucose Point of Care 144 mg/dL (70-110)
[2021-07-15] VITALS (11 sets, daily range): BP systolic 118–136; BP diastolic 73–91; PULSE 95–100; RESP 14–17; TEMP 36.3–37.1; O2SAT 94–97
[2021-07-15] MEDS: linezolid 600 mg Tablet PO ×2 (00:33→12:22)
[2021-07-15] MEDS: sodium chlor 0.9% + KCl 20 mEq 20 MEQ/1,000 ML BAG 100 MEQ IV ×2 (03:18→13:25)
[2021-07-15] MEDS: piperacillin-tazobactam 3.375 GM in sodium chloride 0.9% (plus) 50 ML IV ×3 (05:31→22:29)
[2021-07-15] MEDS: pantoprazole 40 mg SDV IVP ×2 (06:08→17:39)
[2021-07-15 06:15] LABS: Basophils % 0.5 %; Eosinophils # 0.1 10^3/uL (0.0-0.8); Eosinophils % 0.6 %; Hematocrit 21.4 % (42.0-52.0); Lymphocytes # 1.4 10^3/uL (0.8-4.8); Lymphocytes % 15.3 %; Mean Corpuscular HGB Conc 32.7 g/dL (30.0-36.0); Mean Platelet Volume 9.6 fL (7.4-10.4); Monocytes # 0.5 10^3/uL (0.2-0.9); Monocytes % 5.8 %; Neutrophils # 6.51 10^3/uL (1.8-7.7); Neutrophils % 73.6 %; Nucleated Red Blood Cells % 0 %; Platelet Count 50 10^3/cmm (130-400); Red Cell Distribution Width 15.3 % (12.1-15.1); White Blood Count 8.8 10^3/uL (4.0-10.0)
--- NOTE | 2021-07-15 06:34 | PC.NURSE ---
shift note patient rested in bed throughout the night, shift uneventful, patient spoke and speech was clear, c/o wanting something cold to drink, multiple drinks offered to patient and patient stated I would ratherr have a beer . dhaval given and patient drank half of the can. urine remains dark in color. ABT and fluids continue
[2021-07-15 06:41] LABS: Alanine Aminotransferase 14 U/L (0-41); Albumin Level 3.1 g/dL (3.5-5.2); Alkaline Phosphatase 50 IU/L (40-130); Anion Gap 18.9 (5-19); Aspartate Amino Transferase 16 U/L (0-40); Blood Urea Nitrogen 41 mg/dL (8-23); Calcium 8.6 mg/dL (8.5-10.5); Carbon Dioxide 29 mmol/L (22-29); Chloride 98 mmol/L (98-107); Globulin 2.5 g/dL (1.3-4.6); Glomerular Filtration Rate 55.9 mL/min (90-130); Glucose 124 mg/dL (65-115); Osmolality Calculated 308 mOsm/kg (285-295); Sodium 143 mmol/L (136-145); Total Bilirubin 0.7 mg/dL (0.15-1.2); Total Protein 5.6 g/dL (6.6-8.7)
[2021-07-15 06:45] LABS: Glucose Point of Care 163 mg/dL (70-110)
[2021-07-15 06:54] LABS: Potassium 2.9 mmol/L (3.5-5.1)
[2021-07-15] MEDS: potassium chloride oral liq 20 mEq/15 mL UDC 40 MEQ PO (09:21)
[2021-07-15] MEDS: multivitamin therapeutic Tablet 1 TAB PO (09:21)
[2021-07-15] MEDS: thiamine 100 mg Tablet PO (09:21)
[2021-07-15] MEDS: folic acid 1 mg Tablet PO (09:21)
[2021-07-15] MEDS: amlodipine 5 mg Tablet PO (09:21)
[2021-07-15 10:54] LABS: Glucose Point of Care 217 mg/dL (70-110)
[2021-07-15 13:23] LABS: Lyme AB Screen <0.90 index
--- NOTE | 2021-07-15 14:29 | P.PN_ITS ---
Subjective Subjective: Interval history: He is awake, alert, fumbling with the JellO container. Denies any complaints. No headache, chest pain or pressure, no trouble breathing. No abdominal pain. No nausea or vomiting. Asks to have the Jell-O, the apple juice and the Romansh dessert. Says does not want the broth. Does not remember where he is or the year. Vitals/I&O/Wt Last Vital Signs Temp 97.9 F 07/15/21 11:58 Pulse 99 07/15/21 11:58 Resp 16 07/15/21 11:58 BP 118/74 07/15/21 11:58 Pulse Ox 94 07/15/21 11:58 07/14/21 07/15/21 07/15/21 22:59 06:59 14:59 Intake Total 1290 / 1392 1003.333 / 2395.333 1050 / 1050 Output Total 600 / 600 360 / 960 Balance 690 / 792 643.333 / 4713.773 4077 / 1050 Weight last 48 hrs Weight 65.091 kg Weight 64.495 kg Weight 64.495 kg Physical Exam Const: COMMON NORMALS: no acute distress and alert; negative for patient oriented x3 EXAM LIMITATIONS: altered mental status GENERAL APPEARANCE: cooperative and frail appearing ORIENTATION/CONSCIOUSNESS: Yes awake and Yes confused HENMT: COMMON NORMALS: oropharynx normal Neck/C-Spine: COMMON NORMALS: no JVD Resp: COMMON NORMALS: normal respiratory effort and clear to auscultation bilaterally AUSCULTATION: clear to auscultation bilaterally Cardio: COMMON NORMALS: no JVD, regular rhythm, S1 normal heart sound present, S2 normal heart sound present and No murmurs present (Cardio) RHYTHM: regular rhythm HEART SOUNDS: S1 normal heart sound present and S2 normal heart sound present GI: COMMON NORMALS: Normal to inspection, nondistended, normoactive bowel sounds present, Soft to palpation and non-tender PALPATION: Yes Soft to palpation Extremity: COMMON NORMALS: no joint enlargement and no pedal edema OTHER: Bruises on shins Neuro: COMMON NORMALS: negative for patient oriented x3 SENSORIUM/ORIENTATION: Yes alert MENINGEAL SIGNS: No nuccal rigidity SPEECH: Other neuro speech findings (Minimal dysarthria. Loses train of thought.) MOTOR EXAM: Normal motor muscle tone present throughout, Abnormal motor strength present (Improving, 3 throughout) and Other motor observations present (No myoclonus) Skin: COMMON NORMALS: no rashes or lesions noted GENERAL SKIN EXAM: no rashes or lesions noted Urinary Catheter Management^: Martinez: Cath Placed During This Visit: yes Reason for Continuing Indwelling Catheter: Acute Urinary Retention or Obstructi on Urinary Catheter Date of Insertion: 07/13/21 Urinary Catheter Time of Insertion: 02:00 Data : 07/15/21 05:53 07/15/21 05:53 Micro: Microbiology 07/14/21 16:10 MRSA Culture - Final Nose 07/13/21 13:32 Blood Culture - Preliminary Blood NEGATIVE TO DATE 07/13/21 09:50 Blood Culture - Preliminary Blood NEGATIVE TO DATE A&P Assessment and plan (1) Acute encephalopathy: Overall doing little bit better, more alert, interactive. Proactively choosing items of his liking for breakfast. Denies any complaints. Still confused, however. Losing train of thought easily. Not oriented to place or year. Unable to provide history. Continue treatment of possible underlying infection. Continue supportive care. Continue monitoring for alcohol withdrawal. Discussed with his son concern for possible chronic brain damage secondary to continued alcohol intake also in the setting of cirrhosis. Concern of possible Warnicke encephalopathy. Continue thiamine, folic acid. Leukocytosis resolved. Tachycardia improving. Does have noted worsening thrombocytopenia. Does not appear to have hemolysis. Plasmic score low for TTP. Peripheral smear has been requested. Suspect this may be related secondary to bone marrow suppression from continued alcohol intake. Possibly related to sepsis. With GI bleeding with cirrhosis may be at risk of SBP, although is covered c urrently with antibiotics. No ascites noted on CT as well. Noted thickening of distal stomach wall/mucosa, suspect alcohol induced gastritis. Continue PPI. Trial of full liquids. Continue empiric antibiotics for possible sepsis present on admission. So far negative blood cultures. Does not appear to show meningeal signs, is afebrile. No headache. No photophobia. MRI brain -motion artifact, generalized chronic atrophy, but otherwise no noted major acute abnormality. Monitor for signs of withdrawal. Continue thiamine, folic acid, multivitamin. Monitor recovery. Consider Warnicke encephalopathy. At this time no seizure-like activity is noted. Monitor for any changes. TSH is normal. Globulin normal. Lipase normal. Dehydration: Continue gentle IV hydration. Liquid diet trial. Pending tick panel. ESR moderately elevated, CRP normal Prescription of his son is supposed to be taking some medicines for hypertension, but has not been taking those, and does not take any other medicines. Toxic encephalopathy another possibility with THC positive urine drug screen. PT, OT Status: Acute (2) TERRANCE (acute kidney injury): Better, creatinine down to 1.3. Stopped vancomycin on 07/14, switched to linezolid for now. Check MRSA PCR. Continue gentle rehydration. Status: Acute (3) Acute upper GI bleed: Discussed with his son. 1 unit PBC transfusion. Continue PPI. Recheck CBC. Monitor for any worsening of thrombocytopenia. Discussed also with surgery for consideration of EGD to exclude malignancy with thickening of distal stomach, in the setting of chronic alcohol consumption, never has had an EGD. Assessment for other source of bleeding. Assessment for esophageal/gastric varices. Noted thickening of gastric wall, mucosa in the distal stomach. Suspect alcohol induced gastritis. Status: Acute (4) Macrocytic anemia: Status: Acute (5) Thrombocytopenia: Does not appear to have hemolysis. Plasmic score low for TTP. Possible bone marrow suppression secondary to continued alcohol intake. Less likely secondary to sepsis as this is resolving. Monitor. Status: Acute (6) Alcoholism: As above Status: Chronic (7) Alcoholic cirrhosis: Status: Chronic Qualifiers: Ascites presence: without ascites Qualified Code(s): K70.30 - Alcoholic cirrhosis of liver without ascites (8) Hypertension: Add amlodipine Status: Chronic Qualifiers: Hypertension type: other secondary hypertension Qualified Code(s): I15.8 - Other secondary hypertension Additional A&P Information Evidence of THC use Chronic kidney disease: Baseline creatinine difficulty solid food may be some around 1.5-1.6. Hypokalemia: Continue replacement EKG abnormalities: Denies chest pain. Troponin with mild rise, no definitive peak. Not suggestive to have acute DE at this time, but may benefit from additional risk stratification on less urgent basis. Discussed his condition and concerns as above with his son. Attestations Medical Necessity Statement*: Continue admission for assessment of management of acute blood loss anemia, in the setting of suspected bone marrow suppression with chronic alcohol intake, encephalopathy, resolving sepsis. 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
[2021-07-15 14:53] LABS: Retic Production Index 0.21; Reticulocyte % 0.4 % (0.5-2.0)
[2021-07-15 16:49] LABS: Glucose Point of Care 152 mg/dL (70-110)
--- NOTE | 2021-07-15 16:52 | PM.CONSULT ---
Providers/Reason For Consult Consulting Physician/Specialty*: Santana Richards MD Reason for Consult*: Coffee-ground emesis Requesting Physician: Dr. Forrest Attending Physician: Ray Forrest Primary Care Provider: Tristan Flowers History of Present Illness History of Present Illness Chief Complaint: Vomited blood History of present illness: Mr. Daniel Vázquez is a pleasant 60 year old male presented to the emergency department with lethargy, confusion and weakness. It was reported that the patient had some vomitus of bloody aspirate per description of his granddaughter. No evidence of hematochezia. And Hemoccult was tested being negative in the ER. In fact stool was normal colored. Patient had an NG that was placed and showed coffee-ground material. Patient is well-known with history of alcoholic liver cirrhosis and was admitted to the hospitalist service for further evaluation and care. Patient undergone CT scan of the abdomen and pelvis on 07/13/2021 and showed; 1. No free air or bowel distention. 2. Possible thickened mucosa/wall in the distal stomach, see above discussion. 3. Normal appendix. 4. Nonspecific mesenteric findings, see above. 5. Moderate to severe degenerative/arthritic changes in the lumbar spine, with significant spinal canal stenosis at several levels. See above details. 6. Presumed old lumbar spine compression fractures, see above. 7. Other findings discussed above. General surgery was consulted for consideration of EGD. Unfortunately very limited history is obtained from the patient as his lethargic and seems to be confused. Review of Systems General: Reports: 10 or more systems reviewed and unremarkable except in HPI and below Meds/Allergies Home Medications and Allergies Home Medications Medication Instructions Recorded Confirmed Last Taken Type No Known Home Medications 07/13/21 07/13/21 Unknown History Allergies Allergy/AdvReac Type Severity Reaction Status Date / Time No Known Allergies Allergy Verified 07/15/21 17:10 Current Medications Current Medications Generic Name Dose Route Start Last Admin Trade Name Freq PRN Reason Stop Dose Admin Amlodipine Besylate 5 mg 07/14/21 11:35 07/15/21 09:21 Amlodipine 5 Mg Tablet PO 5 mg DAILY BECKIE Administration Folic Acid 1 mg 07/13/21 09:00 07/15/21 09:21 Folic Acid 1 Mg Tablet PO 1 mg DAILY BECKIE Administration Potassium Chloride/Sodium Chloride 20 meq in 1,000 mls @ 100 mls/hr 07/13/21 07:00 07/15/21 13:25 Sodium Chlor 0.9% + Kcl 20 Meq IV 100 mls/hr .Q10H BECKIE Administration Piperacillin Sod/Tazobactam 50 mls @ 12.5 mls/hr 07/13/21 09:00 07/15/21 13:25 Sod 3.375 gm/ Sodium Chloride IV 12.5 mls/hr Q8H BECKIE Administration Protocol Linezolid 600 mg 07/14/21 12:00 07/15/21 12:22 Linezolid 600 Mg Tablet PO 600 mg Q12H BECKIE Administration Protocol Multivitamins Therapeutic 1 tab 07/13/21 09:00 07/15/21 09:21 Multivitamin Therapeutic Tablet PO 1 tab DAILY BECKIE Administration Pantoprazole Sodium 40 mg 07/13/21 06:45 07/15/21 06:08 Pantoprazole 40 Mg Sdv IVP 40 mg Q12H BECKIE Administration Thiamine Mononitrate 100 mg 07/13/21 09:00 07/15/21 09:21 Thiamine 100 Mg Tablet PO 100 mg DAILY BECKIE Administration PFSH Acute PFSH: Medical History Alcoholic cirrhosis Alcoholism Hypertension Hyponatremia admission 2018 with sodium as low as 114 due to HCTZ and beer potomania Surgical History No pertinent past surgical history Family History Other Dementia Hypertension Rheumatoid arthritis Social History Alcohol intake: current Vitals/I&O/Wt Last Vital Signs Temp 97.5 F L 07/15/21 16:00 Pulse 96 07/15/21 16:00 Resp 16 07/15/21 16:00 BP 132/79 07/15/21 16:00 Pulse Ox 95 07/15/21 16:00 07/15/21 07/15/21 07/15/21 06:59 14:59 22:59 Intake Total 1003.333 / 2395.333 1050 / 1050 Output Total 360 / 960 Balance 643.333 / 2030.290 9077 / 1050 Weight last 48 hrs Weight 143 lb 8 oz Weight 142 lb 3 oz Weight 142 lb 3 oz Physical Exam Narrative: EXAM NARRATIVE: Patient is conscious yet confused BMI 22 Head and neck examination PERRLA no masses no cervical lymphadenopathy no jaundice Cardiac examination audible S1-S2 no murmurs no gallops no arrhythmias Chest is clear bilateral,abscence of Rhonchi or wheezes,no surgical emphysema Abdomen nontender nondistended soft no organomegaly guarding or rigidity/no signs of peritonitis Extremities no cyanosis no clubbing no edema Urinary Catheter Management^: Martinez: Cath Placed During This Visit: yes Reason for Continuing Indwelling Catheter: Acute Urinary Retention or Obstruction Urinary Catheter Date of Insertion: 07/13/21 Urinary Catheter Time of Insertion: 02:00 Data Micro: Micro: Microbiology 07/14/21 16:10 MRSA Culture - Fin al Nose 07/13/21 13:32 Blood Culture - Pr eliminary Blood NEGATIVE TO LISA E A&P Assessment and plan (1) Acute upper GI bleed: After limited history physical examination and reviewing the chart and images with my personal interpretation, there is a concerning appearance of proximal gastric varices on the CT scan. And given the fact that there is history of hematemesis in the presence of low hemoglobin and lower platelet count of 50. Concerning for underlying hypersplenism associated with portal hypertension due to liver cirrhosis. Recommend to check serum ammonia to rule out an underlying cause of the confusion Patient would benefit from diagnostic EGD once medically appropriate Thank you for consulting general surgery to participate taking care Mr. Garland Status: Acute Consult Attestations Medical Necessity Statement: Per admitting service Time Spent in Patient Care: (>than 50% of time spent in counselling and/or direct pt care on unit). Coding Level of Care Code Acute Recruiting And Selection Consultant for g Fwd Diagnoses Acute upper GI bleed K92.2
[2021-07-15 18:50] LABS: Basophils # 0.1 10^3/uL (0.0-0.1); Basophils % 0.7 %; Eosinophils # 0.1 10^3/uL (0.0-0.8); Eosinophils % 0.6 %; Hematocrit 21.8 % (42.0-52.0); Hemoglobin 7.4 g/dL (11.7-16.6); Lymphocytes # 1.5 10^3/uL (0.8-4.8); Lymphocytes % 12.5 %; Mean Corpuscular HGB Conc 33.9 g/dL (30.0-36.0); Mean Corpuscular Hemoglobin 36.1 pg (28.0-34.0); Mean Corpuscular Volume 106.3 fl (80-94); Mean Platelet Volume 9.8 fL (7.4-10.4); Monocytes # 0.6 10^3/uL (0.2-0.9); Neutrophils # 9.13 10^3/uL (1.8-7.7); Neutrophils % 78.2 %; Nucleated Red Blood Cells % 0 %; Platelet Count 58 10^3/cmm (130-400); Red Blood Count 2.05 10^6/uL (4.1-5.3); Red Cell Distribution Width 15.1 % (12.1-15.1); White Blood Count 11.7 10^3/uL (4.0-10.0)
[2021-07-15] MEDS: sodium chloride 0.9% (100 ml) 100 ML 50 ML (19:46)
[2021-07-15 20:28] LABS: Glucose Point of Care 181 mg/dL (70-110)
--- NOTE | 2021-07-15 22:30 | PC.NURSE ---
PT CARE TAKEN OVER FROM NURSE JOHN Hinton LPN
[2021-07-16] VITALS (9 sets, daily range): BP systolic 101–141; BP diastolic 66–88; PULSE 82–116; RESP 14–18; TEMP 36.3–37.1; O2SAT 95–98; BMI 21.7
[2021-07-16 00:44] LABS: Hemoglobin 9.7 g/dL (11.7-16.6)
[2021-07-16] MEDS: linezolid 600 mg Tablet PO ×2 (00:52→11:33)
[2021-07-16] MEDS: pantoprazole 40 mg SDV IVP ×2 (06:11→18:47)
[2021-07-16] MEDS: sodium chlor 0.9% + KCl 20 mEq 20 MEQ/1,000 ML BAG 100 MEQ IV (06:11)
[2021-07-16 06:57] LABS: Alanine Aminotransferase 15 U/L (0-41); Albumin Level 3.2 g/dL (3.5-5.2); Alkaline Phosphatase 58 IU/L (40-130); Blood Urea Nitrogen 25 mg/dL (8-23); Calcium 8.6 mg/dL (8.5-10.5); Carbon Dioxide 27 mmol/L (22-29); Chloride 106 mmol/L (98-107); Globulin 2.6 g/dL (1.3-4.6); Glomerular Filtration Rate 75.7 mL/min (90-130); Glucose 131 mg/dL (65-115); Osmolality Calculated 306 mOsm/kg (285-295); Sodium 145 mmol/L (136-145); Total Bilirubin 0.9 mg/dL (0.15-1.2); Total Protein 5.8 g/dL (6.6-8.7)
[2021-07-16 07:03] LABS: Anion Gap 15.4 (5-19); Aspartate Amino Transferase 24 U/L (0-40); Potassium 3.4 mmol/L (3.5-5.1)
[2021-07-16 07:24] LABS: Basophils # 0.1 10^3/uL (0.0-0.1); Basophils % 0.6 %; Eosinophils # 0.1 10^3/uL (0.0-0.8); Eosinophils % 0.5 %; Hemoglobin 9.8 g/dL (11.7-16.6); Lymphocytes # 1.2 10^3/uL (0.8-4.8); Lymphocytes % 10.8 %; Mean Corpuscular HGB Conc 34.1 g/dL (30.0-36.0); Mean Corpuscular Hemoglobin 34.5 pg (28.0-34.0); Mean Corpuscular Volume 101.1 fl (80-94); Mean Platelet Volume 9.2 fL (7.4-10.4); Monocytes # 0.6 10^3/uL (0.2-0.9); Monocytes % 5.1 %; Neutrophils # 8.71 10^3/uL (1.8-7.7); Neutrophils % 79.4 %; Nucleated Red Blood Cells % 0 %; Platelet Count 63 10^3/cmm (130-400); Red Blood Count 2.84 10^6/uL (4.1-5.3); Red Cell Distribution Width 18.4 % (12.1-15.1)
[2021-07-16 07:58] LABS: Hematocrit 28.7 % (42.0-52.0)
[2021-07-16] MEDS: piperacillin-tazobactam 3.375 GM in sodium chloride 0.9% (plus) 50 ML IV ×3 (08:06→22:33)
[2021-07-16] MEDS: folic acid 1 mg Tablet PO (08:06)
[2021-07-16] MEDS: thiamine 100 mg Tablet PO (08:06)
[2021-07-16] MEDS: amlodipine 5 mg Tablet PO (08:06)
[2021-07-16] MEDS: multivitamin therapeutic Tablet 1 TAB PO (08:07)
[2021-07-16 10:43] LABS: Glucose Point of Care 146 mg/dL (70-110)
--- NOTE | 2021-07-16 10:46 | P.PN_ITS ---
Subjective Subjective: Interval history: Today he denies any changes, but appears little bit less able to express his condition. Perhaps slightly more confused. On examination feels abdomen is distended. Vitals/I&O/Wt Last Vital Signs Temp 98.4 F 07/16/21 08:00 Pulse 101 H 07/16/21 08:00 Resp 16 07/16/21 08:00 BP 141/82 07/16/21 08:00 Pulse Ox 96 07/16/21 07:23 07/15/21 07/16/21 07/16/21 22:59 06:59 14:59 Intake Total 150 / 1200 1350 / 2550 50 / 50 Output Total 350 / 350 200 / 550 Balance -200 / 850 1150 / 2000 50 / 50 Weight last 48 hrs Weight 64.637 kg Weight 65.091 kg Physical Exam Const: COMMON NORMALS: no acute distress and alert; negative for patient oriented x3 EXAM LIMITATIONS: altered mental status GENERAL APPEARANCE: cooperative and frail appearing ORIENTATION/CONSCIOUSNESS: Yes awake and Yes confused OTHER: Harder time expressing thoughts HENMT: COMMON NORMALS: oropharynx normal Neck/C-Spine: COMMON NORMALS: no JVD Resp: COMMON NORMALS: normal respiratory effort and clear to auscultation bilaterally AUSCULTATION: clear to auscultation bilaterally Cardio: COMMON NORMALS: no JVD, regular rhythm, S1 normal heart sound present, S2 normal heart sound present and No murmurs present (Cardio) RHYTHM: regular rhythm HEART SOUNDS: S1 normal heart sound present and S2 normal heart sound present GI: COMMON NORMALS: Soft to palpation and non-tender INSPECTION: Yes abdominal distension PALPATION: Yes Soft to palpation Extremity: COMMON NORMALS: no joint enlargement and no pedal edema Neuro: COMMON NORMALS: negative for patient oriented x3 SENSORIUM/ORIENTATION: Yes alert MENINGEAL SIGNS: No nuccal rigidity SPEECH: Other neuro speech findings (Minimal dysarthria. Loses train of thought.) MOTOR EXAM: Normal motor muscle tone present throughout, Abnormal motor strength present (Improving, 3 throughout) and Other motor observations present (No myoclonus) Skin: COMMON NORMALS: no rashes or lesions noted GENERAL SKIN EXAM: no rashes or lesions noted Urinary Catheter Management^: Martinez: Cath Placed During This Visit: yes Reason for Continuing Indwelling Catheter: Acute Urinary Retention or Obstru ction Urinary Catheter Date of Insertion: 07/13/21 Urinary Catheter Time of Insertion: 02:00 Data : 07/16/21 07:00 07/16/21 05:51 Micro: Microbiology 07/14/21 16:10 MRSA Culture - Final Nose A&P Assessment and plan (1) Acute encephalopathy: To get bit of a step back and appears since yesterday, today having a bit more difficult time expressing his thoughts. Still awake, alert, cooperative, answering questions, but trails off, sometimes difficult to understand. Mild slurring. Generally weaker. No appetite. Abdomen today appears distended. Stop IVF. Will check for ascites. No ascites initially, but was also dehydrated, malnourished. Ammonia was normal on presentation, but will repeat. Continue treatment of possible underlying infection. Continue supportive care. Continue monitoring for alcohol withdrawal. Additionally possible chronic brain damage secondary to continued alcohol intake also in the setting of cirrhosis. Concern of possible Warnicke encephalopathy. Continue thiamine, folic acid. Blood counts appear to have leveled off, with some improvement. Thrombocytopenia slightly better. Does not appear to have hemolysis. Plasmic score low for TTP. Peripheral smear has been requested. Suspect this may be related secondary to bone marrow suppression from continued alcohol intake. Possibly related to sepsis. With GI bleeding with cirrhosis may be at risk of SBP, although is covered currently with antibiotics. No ascites noted on CT initially. Noted thickening of distal stomach wall/mucosa, suspect alcohol induced gastritis. Continue PPI. Trial of clear liquids. Continue empiric antibiotics for possible sepsis present on admission. So far negative blood cultures. Does not appear to show meningeal signs, is afebrile. No headache. No photophobia. MRI brain -motion artifact, generalized chronic atrophy, but otherwise no noted major acute abnormality. At this time no seizure-like activity is noted. Monitor for any changes. TSH is normal. Globulin normal. Lipase normal. Pending tick panel. ESR moderately elevated, CRP normal Per son is supposed to be taking some medicines for hypertension, but has not been taking those, and does not take any other medicines. Toxic encephalopathy another possibility with THC positive urine drug screen. PT, OT Status: Acute (2) TERRANCE (acute kidney injury): Better, creatinine down to 1. Stopped vancomycin on 07/14, switched to linezolid for now. Negative MRSA PCR. Consider stopping linezolid. Continue gentle rehydration. Status: Acute (3) Acute upper GI bleed: Received 1 unit PBC transfusion. Continue PPI. Some stabilization of blood counts. Hemoglobin today 9.8. Discussed with surgery, with upper GI bleed at presentation, thickening of distal stomach mucosa, history of alcohol intake, cirrhosis, would benefit from EGD for additional assessment. Tentatively planned over this weekend. Noted thickening of gastric wall, mucosa in the distal stomach. Suspect alcohol induced gastritis. Status: Acute (4) Macrocytic anemia: Status: Acute (5) Thrombocytopenia: Does not appear to have hemolysis. Plasmic score low for TTP. Possible bone marrow suppression secondary to continued alcohol intake. Less likely secondary to sepsis as this is resolving. Monitor. Multifactorial. With pulmonary suppression noted per reticulocyte index. Check B12, folic acid. Perhaps might improve while staying away from alcohol. Status: Acute (6) Alcoholism: As above Status: Chronic (7) Alcoholic cirrhosis: Status: Chronic Qualifiers: Ascites presence: without ascites Qualified Code(s): K70.30 - Alcoholic cirrhosis of liver without ascites (8) Hypertension: Amlodipine Status: Chronic Qualifiers: Hypertension type: other secondary hypertension Qualified Code(s): I15.8 - Other secondary hypertension Additional A&P Information Evidence of THC use Chronic kidney disease: Baseline creatinine difficulty solid food may be some around 1.5-1.6. Dehydration: Received IV hydration, discontinue currently due to abdominal distention. Check for ascites. Hypokalemia: Replace. Add spironolactone. EKG abnormalities: Denies chest pain. Troponin with mild rise, no definitive peak. Not suggestive to have acute ME at this time, but may benefit from a dditional risk stratification on less urgent basis. Attestations Medical Necessity Statement*: Continue admission for assessment of management of acute encephalopathy, anemia in the setting of GI bleeding, pancytopenia, bone marrow suppression due to alcoholism, with underlying liver cirrhosis. Coding Level of Care Code Acute Mastic Sprayer for [facility] Fwd Diagnoses Acute encephalopathy G93.40 TERRANCE (acute kidney injury) N17.9 Acute upper GI bleed K92.2 Macrocytic anemia D53.9 Thrombocytopenia D69.6 Alcoholism F10.20 Alcoholic cirrhosis K70.30 Ascites presence: without ascites Hypertension I15.8 Hypertension type: other secondary hypertension
--- NOTE | 2021-07-16 10:46 | US_ITS ---
WS: [id number] ULTRASOUND ABDOMEN LIMITED CLINICAL INFORMATION: Ascites check COMPARISON: None. FINDINGS: No significant ascites. US/US abdomen limited [id number] IMPRESSION: No significant ascites.
[2021-07-16] MEDS: lidocaine 1% 5 ML in potassium chloride premix 100 ML 50 ML IV (11:33)
[2021-07-16 12:16] LABS: Vitamin B12 1101 pg/mL (232-1245)
[2021-07-16 13:13] LABS: Folate Level 15.5 ng/mL (4.5-32.2)
[2021-07-16 16:36] LABS: Glucose Point of Care 197 mg/dL (70-110)
[2021-07-16] MEDS: ondansetron 2 mg/ML SDV 2 mL 4 MG IVP (20:25)
[2021-07-16] MEDS: LORazepam 2 mg Tablet PO (20:25)
[2021-07-17] VITALS (10 sets, daily range): BP systolic 101–169; BP diastolic 76–113; PULSE 104–115; RESP 16–20; TEMP 36.2–37.1; O2SAT 95–100; BMI 21.3
[2021-07-17] MEDS: linezolid 600 mg Tablet PO (00:27)
[2021-07-17] MEDS: piperacillin-tazobactam 3.375 GM in sodium chloride 0.9% (plus) 50 ML IV ×3 (05:19→22:50)
--- NOTE | 2021-07-17 05:33 | PC.NURSE ---
Patient unable to answer questions, confused, no orientation, will wake up spontaneously but go back to sleep. BP elevated, remains without telemetry d/t no box available. Patient has had 6 or more episodes of emesis throughout shift---green to hall in color with scant amount of tarry stools incontinent. Physician notified no orders at this time. Will continue hourly rounding or more until oncoming nurse takes report. Patient has had very little urine output with output being very concentrated and tea color. No new safety events. Will continue to monitor until end of shift and nurse handoff.
[2021-07-17] MEDS: pantoprazole 40 mg SDV IVP ×2 (06:09→17:53)
--- NOTE | 2021-07-17 07:07 | P.PN_ITS ---
Subjective Subjective: Interval history: Patient overall is about the same. The procedure was explained for patient's son and an informed consent was obtained over the phone. Ultrasound of the abdomen was done and showed No significant ascites. Vitals/I&O/Wt Last Vital Signs Temp 97.5 F L 07/17/21 04:00 Pulse 107 H 07/17/21 04:00 Resp 16 07/17/21 04:00 BP 157/99 07/17/21 04:00 Pulse Ox 96 07/17/21 04:00 07/16/21 07/17/21 07/17/21 22:59 06:59 14:59 Intake Total 50 / 755 50 / 805 Output Total 250 / 250 675 / 925 Balance -200 / 505 -625 / -120 Weight last 48 hrs Weight 140 lb 2 oz Weight 142 lb 8 oz Physical Exam Narrative: EXAM NARRATIVE: Patient is conscious alert confused BMI 21.3 Head and neck examination PERRLA no masses no cervical lymphadenopathy no jaundice Abdomen nontender moderately distended soft no organomegaly guarding or rigidity/no signs of peritonitis Urinary Catheter Management^: Martinez: Cath Placed During This Visit: yes Reason for Continuing Indwelling Catheter: Acute Urinary Retention or Obstructio n Urinary Catheter Date of Insertion: 07/13/21 Urinary Catheter Time of Insertion: 02:00 Data : 07/16/21 07:00 07/16/21 05:51 A&P Assessment and plan (1) Acute upper GI bleed: Plan of care; After thorough history and physical examination and reviewing the chart, plan to perform a diagnostic esophagogastroduodenoscopy with possible biopsy in the GI lab. I discussed with the patient's son Mr. Dheeraj Melara in detail the risk,benefits,alternatives and indications.The risk of aspiration, bleeding, soft tissue injury, perforation of the stomach/esophagus and other potential concomitant complications were explained to the patient's son in details,aslo t he potential need for Thoracic and or Abdominal surgery to repair any complications.The patient's understood this well and did agree to proceed. Also I shared with with the son my concerns about potential fundic gastric varices on the CT scan that may require future intervention. GI service in [facility] area for potential rubber band ligation if and when indicated. Rationale was carefully and clearly discussed with the patient.Appropriate informed consent have been reviewed and signed All questions have been answered and all concerns have been addressed to patient's satisfaction. Thank you for consulting general surgery to participate taking care Mr. Garland Status: Acute Attestations Medical Necessity Statement*: Per admitting service Time Spent in Patient Care: (>than 50% of time spent in counselling and/or direct pt care on unit) . 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
--- NOTE | 2021-07-17 07:30 | PC.NURSE ---
Patient to GI lab at this time.
--- NOTE | 2021-07-17 07:47 | ANES.PREANE2 ---
Pre-Anesthetic Assessment Pre-Anesthetic Assessment: Height/Weight: Height 1.73 m Weight 63.56 kg Temp Pulse Resp BP Pulse Ox 97.5 F L 107 H 16 157/99 96 07/17/21 04:00 07/17/21 04:00 07/17/21 04:00 07/17/21 04:00 07/17/21 04:00 Preop Diagnosis: Hematemesis Proposed Procedure: Operation Date: 07/17/21 08:00 Proposed Procedures p EGD(Not Applicable) - Santana Richards MD Familial anesthetic complications: Unable to obtain hx Last intake: NPO > 8 hrs Social: Social History: Alcohol Exam: Pre-Anes Outpt Exam: alert, clear to auscultation bilaterally and regular rate & rhythm Airway: Cervical ROM: WNL Additional comments: uncooperative with exam CV/HEM: CV/HEM: HTN : Comments: TERRANCE Hepatic: Hepatic: Cirrohsis Comments: No ascites GI: Comments: GI bleed Metabolic: Comments: alcoholism Anesthetic Plan: ASA status: 4 Anesthesia: MAC Risk of > 500 ml blood loss (7ml/kg in children): No Other Pertinent Information: unable to contact son for consent or history Meds/Allergies Current Medications: Current Medications Generic Name Dose Route Start Last Admin Trade Name Freq PRN Reason Stop Dose Admin Amlodipine Besylat e 5 mg 07/14/21 11:35 07/16/21 08:06 Amlodipine 5 Mg Tablet PO 5 mg DAILY BECKIE Administration Folic Acid 1 mg 07/13/21 09:00 07/16/21 08:06 Folic Acid 1 Mg Tablet PO 1 mg DAILY BECKIE Administration Piperacillin Sod/T azobactam 50 mls @ 12.5 mls /hr 07/13/21 09:00 07/17/21 05:19 Sod 3.375 gm/ So dium Chloride IV 12.5 mls/hr Q8H BECKIE Administration Protocol Linezolid 600 mg 07/14/21 12:00 07/17/21 00:27 Linezolid 600 Mg Tablet PO 600 mg Q12H BECKIE Administration Protocol Multivitamins Ther apeutic 1 tab 07/13/21 09:00 07/16/21 08:07 Multivitamin The rapeutic Tablet PO 1 tab DAILY BECKIE Administration Ondansetron HCl 4 mg 07/13/21 06:52 07/16/21 20:25 Ondansetron 2 Mg /Ml Sdv 2 Ml IVP 4 mg Q8H PRN Administration vomiting, or N/V if npo Pantoprazole Sodiu m 40 mg 07/13/21 06:45 07/17/21 06:09 Pantoprazole 40 Mg Sdv IVP 40 mg Q12H BECKIE Administration Thiamine Mononitra te 100 mg 07/13/21 09:00 07/16/21 08:06 Thiamine 100 Mg Tablet PO 100 mg DAILY BECKIE Administration PFSH Anesthesia PFSH: Medical History Alcoholic cirrhosis Alcoholism Hypertension Hyponatremia admission 2018 with sodium as low as 114 due to HCTZ and beer potomania Surgical History No pertinent past surgical history Family History Other Dementia Hypertension Rheumatoid arthritis Social History Alcohol intake: current Supplemental PFSH Information: Extent of current alcohol use unknown, unknown if he smokes or uses drugs Data Anesthesia CBC & Chem 7: 07/16/21 07:00 07/16/21 05:51 Other Labs: Laboratory Results - last 48 hr 07/13/21 07/13/21 07/15/21 01:57 09:50 05:53 WBC Corrected WBC RBC Hgb Hct 21.0 L MCV MCH MCHC RDW Plt Count MPV Gran % Neut % (Auto) Lymph % (Auto) [place] % (Auto) Eos % (Auto) Baso % (Auto) Reticulocyte % (Auto) 0.4 L Neut # (Auto) Lymph # (Auto) [place] # (Auto) Eos # (Auto) Baso # (Auto) Absolute Gran (auto) Nucleated RBC % (auto) Nucleated RBCs # Retic Production Index 0.21 Sodium Potassium Chloride Carbon Dioxide Anion Gap BUN Creatinine GFR Calculation Glucose POC Glucose Calculated Osmolality Calcium Magnesium Total Bilirubin AST ALT Alkaline Phosphatase Total Protein Albumin Globulin Vitamin B12 Folate Lyme Ab (Western Blot) <0.90 Blood Type A Positive Rho(D) Type Positive Antibody Screen Negative Crossmatch See Detail 07/15/21 07/15/21 07/15/21 10:51 16:45 18:44 WBC 11.7 H Corrected WBC RBC 2.05 L Hgb 7.4 L Hct 21.8 L MCV 106.3 H MCH 36.1 H MCHC 33.9 RDW 15.1 Plt Count 58 L MPV 9.8 Gran % Neut % (Auto) 78.2 Lymph % (Auto) 12.5 [place] % (Auto) 5.0 Eos % (Auto) 0.6 Baso % (Auto) 0.7 Reticulocyte % (Auto) Neut # (Auto) 9.13 H Lymph # (Auto) 1.5 [place] # (Auto) 0.6 Eos # (Auto) 0.1 Baso # (Auto) 0.1 Absolute Gran (auto) Nucleated RBC % (auto) 0 Nucleated RBCs # 0.0 Retic Production Index Sodium Potassium Chloride Carbon Dioxide Anion Gap BUN Creatinine GFR Calculation Glucose POC Glucose 217 H 152 H Calculated Osmolality Calcium Magnesium Total Bilirubin AST ALT Alkaline Phosphatase Total Protein Albumin Globulin Vitamin B12 Folate Lyme Ab (Western Blot) Blood Type Rho(D) Type Antibody Screen Crossmatch 07/15/21 07/16/21 07/16/21 20:12 00:20 05:51 WBC Cancelled Corrected WBC Cancelled RBC Cancelled Hgb 9.7 L D Cancelled Hct Cancelled MCV Cancelled MCH Cancelled MCHC Cancelled RDW Cancelled Plt Count Cancelled MPV Cancelled Gran % Cancelled Neut % (Auto) Cancelled Lymph % (Auto) Cancelled [place] % (Auto) Cancelled Eos % (Auto) Cancelled Baso % (Auto) Cancelled Reticulocyte % (Auto) Neut # (Auto) Cancelled Lymph # (Auto) Cancelled [place] # (Auto) Cancelled Eos # (Auto) Cancelled Baso # (Auto) Cancelled Absolute Gran (auto) Cancelled Nucleated RBC % (auto) Cancelled Nucleated RBCs # Cancelled Retic Production Index Sodium Potassium Chloride Carbon Dioxide Anion Gap BUN Creatinine GFR Calculation Glucose POC Glucose 181 H Calculated Osmolality Calcium Magnesium Total Bilirubin AST ALT Alkaline Phosphatase Total Protein Albumin Globulin Vitamin B12 Folate Lyme Ab (Western Blot) Blood Type Rho(D) Type Antibody Screen Crossmatch 07/16/21 07/16/21 07/16/21 05:51 07:00 10:33 WBC 11.0 H Corrected WBC RBC 2.84 L Hgb 9.8 L Hct 28.7 L D MCV 101.1 H MCH 34.5 H MCHC 34.1 RDW 18.4 H Plt Count 63 L MPV 9.2 Gran % Neut % (Auto) 79.4 Lymph % (Auto) 10.8 [place] % (Auto) 5.1 Eos % (Auto) 0.5 Baso % (Auto) 0.6 Reticulocyte % (Auto) Neut # (Auto) 8.71 H Lymph # (Auto) 1.2 [place] # (Auto) 0.6 Eos # (Auto) 0.1 Baso # (Auto) 0.1 Absolute Gran (auto) Nucleated RBC % (auto) 0 Nucleated RBCs # 0.0 Retic Production Index Sodium 145 Potassium 3.4 L Chloride 106 Carbon Dioxide 27 Anion Gap 15.4 BUN 25 H Creatinine 1.0 GFR Calculation 75.7 L Glucose 131 H POC Glucose 146 H Calculated Osmolality 306 H Calcium 8.6 Magnesium 2.0 Total Bilirubin 0.9 AST 24 ALT 15 Alkaline Phosphatase 58 Total Protein 5.8 L Albumin 3.2 L Globulin 2.6 Vitamin B12 Folate Lyme Ab (Western Blot) Blood Type Rho(D) Type Antibody Screen Crossmatch 07/16/21 07/16/21 07/16/21 10:57 10:57 16:32 WBC Corrected WBC RBC Hgb Hct MCV MCH MCHC RDW Plt Count MPV Gran % Neut % (Auto) Lymph % (Auto) [place] % (Auto) Eos % (Auto) Baso % (Auto) Reticulocyte % (Auto) Neut # (Auto) Lymph # (Auto) [place] # (Auto) Eos # (Auto) Baso # (Auto) Absolute Gran (auto) Nucleated RBC % (auto) Nucleated RBCs # Retic Production Index Sodium Potassium Chloride Carbon Dioxide Anion Gap BUN Creatinine GFR Calculation Glucose POC Glucose 197 H Calculated Osmolality Calcium Magnesium Total Bilirubin AST ALT Alkaline Phosphatase Total Protein Albumin Globulin Vitamin B12 1101 Folate 15.5 Lyme Ab (Western Blot) Blood Type Rho(D) Type Antibody Screen Crossmatch Cardiac Studies: No Data to Display
[2021-07-17] MEDS: sodium chloride 0.9% 1,000 ML 30 ML IV (07:55)
[2021-07-17 09:50] LABS: Basophils # 0.1 10^3/uL (0.0-0.1); Basophils % 0.7 %; Eosinophils % 0.1 %; Hematocrit 33.3 % (42.0-52.0); Lymphocytes # 1.7 10^3/uL (0.8-4.8); Mean Corpuscular Hemoglobin 33.4 pg (28.0-34.0); Mean Corpuscular Volume 101.2 fl (80-94); Mean Platelet Volume 9.7 fL (7.4-10.4); Monocytes % 6.1 %; Neutrophils # 13.46 10^3/uL (1.8-7.7); Neutrophils % 80.2 %; Nucleated Red Blood Cells # 0.1 /100WBC; Nucleated Red Blood Cells % 0.3 %; Platelet Count 102 10^3/cmm (130-400); Red Blood Count 3.29 10^6/uL (4.1-5.3); White Blood Count 16.8 10^3/uL (4.0-10.0)
--- NOTE | 2021-07-17 10:06 | PC.OT ---
OT TREATMENT ATTEMPTED TWICE THIS A.M. PATIENT IS TOO LETHARGIC TO STAY AWAKE FOR TREATMENT.
[2021-07-17 10:11] LABS: Ammonia 24 umol/L (16-60)
[2021-07-17 10:40] LABS: Glucose Point of Care 131 mg/dL (70-110)
[2021-07-17 10:47] LABS: Alanine Aminotransferase 16 U/L (0-41); Albumin Level 3.2 g/dL (3.5-5.2); Alkaline Phosphatase 72 IU/L (40-130); Anion Gap 15.1 (5-19); Aspartate Amino Transferase 24 U/L (0-40); Blood Urea Nitrogen 33 mg/dL (8-23); Calcium 9.3 mg/dL (8.5-10.5); Carbon Dioxide 28 mmol/L (22-29); Chloride 106 mmol/L (98-107); Globulin 3.1 g/dL (1.3-4.6); Glomerular Filtration Rate 38.4 mL/min (90-130); Glucose 133 mg/dL (65-115); Osmolality Calculated 309 mOsm/kg (285-295); Potassium 4.1 mmol/L (3.5-5.1); Sodium 145 mmol/L (136-145); Total Bilirubin 0.9 mg/dL (0.15-1.2); Total Protein 6.3 g/dL (6.6-8.7)
[2021-07-17 11:31] LABS: Glucose Point of Care 200 mg/dL (70-110)
--- NOTE | 2021-07-17 12:00 | ANE.PACU2 ---
Inpatient post-anesthesia follow up: Airway intact: Yes Vital signs: Temperature 98.6 F Pulse Rate [Right] 128 Pulse Rate 101 Respiratory Rate 16 Blood Pressure 143/76 Pulse Oximetry 95 Oxygen Delivery Me thod Room Air Oxygen Flow Rate 3 Fraction of Inspir ed Oxygen Hydration adequate: Yes Nausea and vomiting: No Pain level: 1 Mental status: Baseline
[2021-07-17 17:55] LABS: Glucose Point of Care 143 mg/dL (70-110)
--- NOTE | 2021-07-17 18:50 | PC.NURSE ---
Bladder scan completed which showed no urine in the bladder at this time. Patient Martinez catheter is draining but patient has only had 100 mls of urine out today. Dr. Forrest notified and stats will monitor overnight.
--- NOTE | 2021-07-17 19:24 | PC.NURSE ---
Report to Radha VALENTINO at this time.
--- NOTE | 2021-07-17 20:27 | P.PN_ITS ---
Subjective Subjective: Interval history: He is alert, not oriented to place or time, provides limited review of systems. Denies chest pain or pressure. Denies trouble breathing. Poor appetite and reports some abdominal tenderness. Vitals/I&O/Wt Last Vital Signs Temp 97.8 F 07/17/21 20:00 Pulse 115 H 07/17/21 20:00 Resp 17 07/17/21 20:00 BP 145/87 07/17/21 20:00 Pulse Ox 97 07/17/21 20:00 07/17/21 07/17/21 07/17/21 06:59 14:59 22:59 Intake Total 50 / 805 150 / 150 200 / 350 Output Total 675 / 925 100 / 100 Balance -625 / -120 150 / 150 100 / 250 Weight last 48 hrs Weight 63.56 kg Weight 64.637 kg Physical Exam Const: COMMON NORMALS: no acute distress and alert; negative for patient oriented x3 EXAM LIMITATIONS: altered mental status GENERAL APPEARANCE: cooperative and frail appearing ORIENTATION/CONSCIOUSNESS: Yes awake and Yes confused HENMT: COMMON NORMALS: oropharynx normal Neck/C-Spine: COMMON NORMALS: no JVD Resp: COMMON NORMALS: normal respiratory effort and clear to auscultation bilaterally AUSCULTATION: clear to auscultation bilaterally Cardio: COMMON NORMALS: no JVD, regular rhythm, S1 normal heart sound present, S2 normal heart sound present and No murmurs present (Cardio) RHYTHM: regular rhythm HEART SOUNDS: S1 normal heart sound present and S2 normal heart sound present GI: COMMON NORMALS: Soft to palpation INSPECTION: Yes normal to inspection PALPATION: Yes Soft to palpation and Yes Tenderness to palpation present (GI) (mildly) Extremity: COMMON NORMALS: no joint enlargement and no pedal edema Neuro: COMMON NORMALS: negative for patient oriented x3 SENSORIUM/ORIENTATION: Yes alert MENINGEAL SIGNS: No nuccal rigidity SPEECH: Other neuro speech findings (Minimal dysarthria. Loses train of thought.) MOTOR EXAM: Normal motor muscle tone present throughout, Abnormal motor strength present (Improving, 3 throughout) and Other motor observations present (No myoclonus) Skin: COMMON NORMALS: no rashes or lesions noted GENERAL SKIN EXAM: no rashes or lesions noted Urinary Catheter Management^: Martinez: Cath Placed During This Visit: yes Reason for Continuing Indwelling Catheter: Acute Urinary Retention or Obst ruction Urinary Catheter Date of Insertion: 07/13/21 Urinary Catheter Time of Insertion: 02:00 Data : 07/17/21 09:33 07/17/21 09:33 A&P Assessment and plan (1) Acute encephalopathy: Abdominal tenderness. Repeated ultrasound for ascites check, no ascites, however, with GI bleed, may be still at risk of SBP. Continue Zosyn. No growth on blood culture so far. Bone marrow appears to be rebounding, with improvement in platelet level, hemoglobin, as well as noted increasing WBC count. Worsening renal function: Consider hepatorenal syndrome. As below. Rechecked ammonia level and is normal. So far no additional improvement in mental status beyond limited improvement compared to admission. Continue treatment of possible underlying infection. Continue supportive care. Continue monitoring for alcohol withdrawal. Additionally possible chronic brain damage secondary to continued alcohol intake also in the setting of cirrhosis. Concern of possible Warnicke encephalopathy. Continue thiamine, folic acid. Blood counts appear to have leveled off, with some improvement. Thrombocytopenia better. Does not appear to have hemolysis. Plasmic score low for TTP. Peripheral smear has been requested. Suspect this may be related secondary to bone marrow suppression from continued alcohol intake. Possibly related to sepsis. Continue empiric antibiotics for possible sepsis present on admission. So far negative blood cultures. Does not appear to show meningeal signs, is afebrile. No headache. No photophobia. MRI brain -motion artifact, generalized chronic atrophy, but otherwise no noted major acute abnormality. At this time no seizure-like activity is noted. Monitor for any changes. TSH is normal. Globulin normal. Lipase normal. Pending tick panel. ESR moderately elevated, CRP normal Per son is supposed to be taking some medicines for hypertension, but has not been taking those, and does not take any other medicines. Toxic encephalopathy another possibility with THC positive urine drug screen. PT, OT Status: Acute (2) TERRANCE (acute kidney injury): Creatinine worsened today up to 1.8. I do not see any obvious nephrotoxins. He has not received any Aldactone either. This is discontinued. We will change from Protonix to famotidine. Possibly hepatorenal syndrome. Will give a dose of albumin. Consider repeat tomorrow. Continue gentle rehydration. Status: Acute (3) Acute upper GI bleed: Received 1 unit PBC transfusion. Continue PPI. Some stabilization of blood counts. Hemoglobin today 9.8. Discussed with surgery, with upper GI bleed at presentation, thickening of distal stomach mucosa, history of alcohol intake, cirrhosis, would benefit from EGD for additional assessment. Tentatively planned over this weekend. Noted thickening of gastric wall, mucosa in the distal stomach. Suspect alcohol induced gastritis. Status: Acute (4) Macrocytic anemia: Status: Acute (5) Thrombocytopenia: Does not appear to have hemolysis. Plasmic score low for TTP. Possible bone marrow suppression secondary to continued alcohol intake. Less likely secondary to sepsis as this is resolving. Monitor. Multifactorial. With pulmonary suppression noted per reticulocyte index. Check B12, folic acid. Perhaps might improve while staying away from alcohol. Status: Acute (6) Alcoholism: As above Status: Chronic (7) Alcoholic cirrhosis: Status: Chronic Qualifiers: Ascites presence: without ascites Qualified Code(s): K70.30 - Alcoholic cirrhosis of liver without ascites (8) Hypertension: Amlodipine Status: Chronic Qualifiers: Hypertension type: other secondary hypertension Qualified Code(s): I15.8 - Other secondary hypertension Additional A&P Information Evidence of THC use Chronic kidney disease: Baseline creatinine difficulty solid food may be somewhere around 1.5-1.6. Dehydration: Received IV hydration, discontinue currently due to abdominal distention. No significant ascites on ultrasound check. Hypokalemia: Replace. Spironolactone discontinued without any doses given due to noted again worsening in renal function. EKG abnormalities: Denies chest pain. Troponin with mild rise, no definitive peak. Not suggestive to have acute NE at this time, but may benefit from additional risk stratification on less urgent basis. Attestations Medical Necessity Statement*: Continue admission for assessment management of persistent encephalopathy, possible SBP, with underlying liver cirrhosis, continued alcohol intake, acute kidney injury on chronic kidney disease. Coding Level of Care Code Acute Field Marketing Coordinator for [facility] Fwd Diagnoses Acute encephalopathy G93.40 TERRANCE (acute kidney injury) N17.9 Acute upper GI bleed K92.2 Macrocytic anemia D53.9 Thrombocytopenia D69.6 Alcoholism F10.20 Alcoholic cirrhosis K70.30 Ascites presence: without ascites Hypertension I15.8 Hypertension type: other secondary hypertension
[2021-07-17 20:38] LABS: Glucose Point of Care 154 mg/dL (70-110)
[2021-07-17] MEDS: famotidine 20 mg/2 mL INJ IVP (21:14)
[2021-07-17 21:23] LABS: E. Chaffeensis AB IGG <1:64; E. Chaffeensis AB IGM <1:20
[2021-07-18] VITALS (7 sets, daily range): BP systolic 126–150; BP diastolic 76–88; PULSE 95–111; RESP 14–18; TEMP 36.4–37; O2SAT 94–97
--- NOTE | 2021-07-18 05:19 | PC.NURSE ---
Patient alert and oriented to self at times. Patient sentences unclear and confused. VSS, fidgety and all over bed, pulling off telemetry. Patient is incontinent, fecal sample obtained. Little to no urine being produce and no urine in bladder. Urine output is very concentrated and dark. Patient has not slept throughout the night. Remains on CIWA however ativan has fallen off MAR. No new events throughout shift, no safety events over night, room clutter free, call light within reach, frequent rounding and turning as patient tolerates without lashing out and thrashing. Will continue to monitor until oncoming nurse receives handoff at shift change.
[2021-07-18] MEDS: piperacillin-tazobactam 3.375 GM in sodium chloride 0.9% (plus) 50 ML IV ×3 (05:30→21:12)
[2021-07-18 06:40] LABS: Glucose Point of Care 135 mg/dL (70-110)
[2021-07-18] MEDS: multivitamin therapeutic Tablet 1 TAB PO (08:32)
[2021-07-18] MEDS: amlodipine 5 mg Tablet PO (08:32)
[2021-07-18] MEDS: thiamine 100 mg Tablet PO (08:32)
[2021-07-18] MEDS: famotidine 20 mg/2 mL INJ IVP ×2 (08:32→19:49)
[2021-07-18] MEDS: folic acid 1 mg Tablet PO (08:32)
[2021-07-18 10:29] LABS: Basophils # 0.1 10^3/uL (0.0-0.1); Basophils % 0.5 %; Eosinophils # 0.1 10^3/uL (0.0-0.8); Eosinophils % 0.9 %; Hematocrit 27.8 % (42.0-52.0); Hemoglobin 9.1 g/dL (11.7-16.6); Lymphocytes % 11.2 %; Mean Corpuscular HGB Conc 32.7 g/dL (30.0-36.0); Mean Corpuscular Volume 103.7 fl (80-94); Mean Platelet Volume 9.1 fL (7.4-10.4); Monocytes # 0.5 10^3/uL (0.2-0.9); Monocytes % 5.2 %; Neutrophils # 7.29 10^3/uL (1.8-7.7); Neutrophils % 79.7 %; Nucleated Red Blood Cells % 0 %; Platelet Count 93 10^3/cmm (130-400); Red Blood Count 2.68 10^6/uL (4.1-5.3); Red Cell Distribution Width 19.3 % (12.1-15.1); White Blood Count 9.2 10^3/uL (4.0-10.0)
[2021-07-18 10:55] LABS: Glucose Point of Care 133 mg/dL (70-110)
--- NOTE | 2021-07-18 11:15 | PC.CHAP ---
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 visit [] Patient/Family/Request visit [] Outpatient visit [] Follow-up visit [] Physician referral [] Code/Alert [x] Routine visit [] Staff referral [] Actively dying [] Patient sleeping [] Family support [] [] Out of room [] Palliative care [] [] Receiving care in room [] Pre-surgical visit [] Trauma [] Long length of stay [] ICU visit [] Other: Relational/Emotional Strength [x] Patient feels connected with others/family/visitors/staff [] Distress [] Loneliness/isolation [] Abandonment Spirituality of Patient [x] Person of Lilibeth [] Attends Oriental Orthodox of their Lilibeth [x] Believes in Prayer [] Reads Bible or Rastafarian materials [] There are Spiritual issues to be addressed Hazmat Cdl Driver Interventions [x] Prayer [x] Active listening [x] Non-anxious presence [x] Spiritual/emotional support [] Crisis/trauma care [] Spiritual counseling [] Bereavement support [] Provided bereavement packet [] Provided Bible/devotional materials [] Provided toy/stuffed animal, coloring book to patient or family member [] Provided Communion [] Anointing/[place] [] Salvation [x] Completed spiritual assessment [] Other: Impact on Illness or Injury [] Angry [] Fearful [] Anxious [] Often cries [] Exhaustion [] Unable to work [] Unable to attend latter-day [] Unable to walk/stand [] Unable to read [] Unable to drive [] Unable to eat/drink [] Unable to sleep [] Unable to be with family [] Patient intubated [] Other: Summary Hazmat Cdl Driver prayed with patient. Time spent with patient 9 minutes.
[2021-07-18 11:16] LABS: Alanine Aminotransferase 13 U/L (0-41); Albumin Level 3.6 g/dL (3.5-5.2); Alkaline Phosphatase 55 IU/L (40-130); Anion Gap 15.2 (5-19); Aspartate Amino Transferase 23 U/L (0-40); Blood Urea Nitrogen 38 mg/dL (8-23); Calcium 8.8 mg/dL (8.5-10.5); Carbon Dioxide 28 mmol/L (22-29); Chloride 108 mmol/L (98-107); Globulin 2.1 g/dL (1.3-4.6); Glomerular Filtration Rate 27.6 mL/min (90-130); Glucose 131 mg/dL (65-115); Osmolality Calculated 317 mOsm/kg (285-295); Potassium 3.2 mmol/L (3.5-5.1); Sodium 148 mmol/L (136-145); Total Bilirubin 0.7 mg/dL (0.15-1.2); Total Protein 5.7 g/dL (6.6-8.7)
--- NOTE | 2021-07-18 12:24 | P.PN_ITS ---
Subjective Subjective: Interval history: He does not remember where he is called here it is. He drank apple juice, had a little bit of Jell-O. Did not want broth. No vomiting today. Has had bowel movements, with decreasing melena. He is still somewhat bothered by discomfort in his belly. He loses train of thought easily, trails off to some things I cannot understand. Vitals/I&O/Wt Last Vital Signs Temp 98.4 F 07/18/21 11:23 Pulse 102 H 07/18/21 11:23 Resp 18 07/18/21 11:23 BP 126/79 07/18/21 11:23 Pulse Ox 96 07/18/21 11:23 07/17/21 07/18/21 07/18/21 22:59 06:59 14:59 Intake Total 200 / 350 250 / 600 240 / 240 Output Total 100 / 100 100 / 200 Balance 100 / 250 150 / 400 240 / 240 Weight last 48 hrs Weight 73.845 kg Weight 63.56 kg Physical Exam Const: COMMON NORMALS: no acute distress and alert; negative for patient oriented x3 EXAM LIMITATIONS: altered mental status GENERAL APPEARANCE: cooperative and frail appearing ORIENTATION/CONSCIOUSNESS: Yes awake and Yes confused OTHER: No additional improvement in encephalopathy. Not back to baseline. HENMT: COMMON NORMALS: oropharynx normal Neck/C-Spine: COMMON NORMALS: no JVD Resp: COMMON NORMALS: normal respiratory effort and clear to auscultation bilaterally AUSCULTATION: clear to auscultation bilaterally Cardio: COMMON NORMALS: no JVD, regular rhythm, S1 normal heart sound present, S2 normal heart sound present and No murmurs present (Cardio) RHYTHM: regular rhythm HEART SOUNDS: S1 normal heart sound present and S2 normal heart sound present GI: COMMON NORMALS: Soft to palpation INSPECTION: Yes normal to inspection PALPATION: Yes Soft to palpation and Yes Tenderness to palpation present (GI) (mildly) Extremity: COMMON NORMALS: no joint enlargement and no pedal edema Neuro: COMMON NORMALS: negative for patient oriented x3 SENSORIUM/ORIENTATION: Yes alert MENINGEAL SIGNS: No nuccal rigidity SPEECH: Other neuro speech findings (Minimal dysarthria. Loses train of thought.) MOTOR EXAM: Normal motor muscle tone present throughout, Abnormal motor strength present (Improving, 3 throughout) and Other motor observations present (No myoclonus) Skin: COMMON NORMALS: no rashes or lesions noted GENERAL SKIN EXAM: no rashes or lesions noted Urinary Catheter Management^: Martinez: Cath Placed During This Visit: yes Reason for Continuing Indwelling Catheter: Accurate Measurement of Urinary Output in Critically Ill Patients Urinary Catheter Date of Insertion: 07/13/21 Urinary Catheter Time of Insertion: 02:00 Data : 07/18/21 10:09 07/18/21 10:09 Micro: Microbiology 07/13/21 09:50 Blood Culture - Final Blood NO GROWTH AFTER 5 DAYS 07/18/21 04:28 Occult Blood (FIT) - Final Stool 07/17/21 21:57 Blood Culture - Preliminary Blood SPECIMEN COLLECTED 07/17/21 21:50 Blood Culture - Preliminary Blood SPECIMEN COLLECTED A&P Assessment and plan (1) Acute encephalopathy: Encephalopathy persists. So far no additional improvement beyond initial improvement from presentation. No appears to be also going to acute kidney injury, and with worsening sodium level. Possibly contributing to metabolic encephalopathy. Some abdominal discomfort, tenderness. Nonspecific mesenteritis noted on CT abdomen pelvis at presentation. If not improving consider repeat noncontrast study. Bone marrow appears to be rebounding, with improvement in platelet level, hemoglobin, as well as WBC count. Rechecked ammonia level and is normal. Continue treatment of possible underlying infection. Discussed with his son, SBP less likely, but cannot be entirely excluded. Continue Zosyn. Continue supportive care. Continue monitoring for alcohol withdrawal. Additionally possible chronic brain damage secondary to continued alcohol intake also in the setting of cirrhosis. Concern of possible Warnicke encephalopathy. Continue thiamine, folic acid. Thrombocytopenia better. Does not appear to have hemolysis. Plasmic score low for TTP. Peripheral smear has been requested. Suspect this may be related secondary to bone marrow suppression from continued alcohol intake. Possibly related to sepsis. Continue empiric antibiotics for possible sepsis present on admission. So far negative blood cultures. Repeated on 07/17 due to leukocytosis. Tick panel partially back, negative Lyme, early Wilda serologies. Rickettsia pending. Does not appear to show meningeal signs, is afebrile. No headache. No photophobia. MRI brain -motion artifact, generalized chronic atrophy, but otherwise no noted major acute abnormality. At this time no seizure-like activity is noted. Monitor for any changes. TSH is normal. Globulin normal. Lipase normal. ESR moderately elevated, CRP normal Per son is supposed to be taking some medicines for hypertension, but has not been taking those, and does not take any other medicines. Toxic encephalopathy another possibility with THC positive urine drug screen. PT, OT Status: Acute (2) TERRANCE (acute kidney injury): Creatinine worsened up to 2.4. I suspect he might have contrast-induced nephropathy, as he does not appear to have other nephrotoxic agents currently. Was transiently on vancomycin initially. Additional volume challenge with albumin repeat today. Less likely hepatorenal syndrome. He has not received any Aldactone either before it was discontinued. Changed from Protonix to famotidine. Renal ultrasound obtained, unremarkable. Continue gentle rehydration. Status: Acute (3) Acute upper GI bleed: Melanotic stools decreasing. Hemoglobin with some fluctuation, but overall pulmonary function appears to be returning. Improvement in platelet counts. Hemoglobin 9.1. Received 1 unit PBC transfusion. PPI changed to famotidine. EGD with esophagitis, gastritis. Noted thickening of gastric wall, mucosa in the distal stomach. Suspect alcohol induced gastritis. Status: Acute (4) Macrocytic anemia: Status: Acute (5) Thrombocytopenia: Does not appear to have hemolysis. Plasmic score low for TTP. Peripheral smear was requested. Bone marrow suppression suggested at that time with reticulocyte index. Suspected secondary to EtOH. Currently improving. Less likely secondary to sepsis. Monitor. B12, folic acid levels normal. Status: Acute (6) Alcoholism: As above Status: Chronic (7) Alcoholic cirrhosis: Status: Chronic Qualifiers: Ascites presence: without ascites Qualified Code(s): K70.30 - Alcoholic cirrhosis of liver without ascites (8) Hypertension: Amlodipine Status: Chronic Qualifiers: Hypertension type: other secondary hypertension Qualified Code(s): I15.8 - Other secondary hypertension Additional A&P Information Evidence of THC use Chronic kidney disease: Baseline creatinine difficulty solid food may be somewhere around 1.5-1.6. Dehydration: Has been having poor appetite. Poor oral intake. Son states that a lot of times this to make him eat something at home, otherwise see wound. Sodium up to 148 no ascites noted on ultrasound check. Resume some gentle IV hydration. Monitor for signs of third spacing. Hypokalemia: Replace. Spironolactone discontinued without any doses given due to noted again worsening in renal function. EKG abnormalities: Denies chest pain. Troponin with mild rise, no definitive peak. Not suggestive to have acute [place] at this time, but may benefit from additional risk stratification on less urgent basis. Attestations Medical Necessity Statement*: Continue admission for assessment of management of worsening renal function with acute kidney injury on chronic disease, and gentleman with ongoing metabolic encephalopathy, possibly toxic encephalopathy, with underlying liver cirrhosis. Coding Level of Care Code Acute [employer] Director for [facility] Fwd Exam Comprehensive Diagnoses Acute encephalopathy G93.40 TERRANCE (acute kidney injury) N17.9 Acute upper GI bleed K92.2 Macrocytic anemia D53.9 Thrombocytopenia D69.6 Alcoholism F10.20 Alcoholic cirrhosis K70.30 Ascites presence: without ascites Hypertension I15.8 Hypertension type: other secondary hypertension
[2021-07-18] MEDS: dextrose 5% 1,000 ML 30 ML IV (14:03)
[2021-07-18] MEDS: lidocaine 1% 5 ML in potassium chloride premix 100 ML 50 ML IV (14:49)
[2021-07-18 16:51] LABS: Glucose Point of Care 123 mg/dL (70-110)
--- NOTE | 2021-07-18 17:24 | PC.NUTR ---
Nutrition assessment completed for LOS. 34% average intake of clear liquid meals since admit. Abd tenderness/discomfort per MD notes. Recommend Ensure Clear or Boost breeze with meals to provide additional kcal/protein while on Clear liquid diet. When medically appropriate, recommend advance diet as tolerated to better meet nutritional needs. Recommend encourage po intake and provide preferences as appropriate. See full RD assessment for further details.
--- NOTE | 2021-07-18 19:21 | PC.NURSE ---
Report to Fanny VALENTINO at this time
--- NOTE | 2021-07-18 20:20 | USR_ITS ---
PROCEDURE INFORMATION: Exam: US Retroperitoneal; Complete; Kidneys and Bladder Exam date and time: 07/18/2021 8:20 PM Age: 60 years old Clinical indication: Abnormal findings; Abnormal lab test; Abnormal kidney function lab tests; Additional info: Pedro, patient has adan cath TECHNIQUE: Imaging protocol: Real-time ultrasound of the retroperitoneum with image documentation. Complete exam focused on the kidneys and bladder. COMPARISON: US abdomen limited [id number] 07/16/2021 1:13 PM FINDINGS: Right kidney: Normal. No stones. No hydronephrosis. Left kidney: Normal. No stones. No hydronephrosis. Urinary bladder: Unremarkable. US/US renal BI* [id number] IMPRESSION: Unremarkable kidneys and bladder.
[2021-07-19 03:48] VITALS: BP 147/91; PULSE 99; RESP 18; TEMP 36.5; O2SAT 98
[2021-07-19] MEDS: piperacillin-tazobactam 3.375 GM in sodium chloride 0.9% (plus) 50 ML IV ×3 (05:45→23:38)
[2021-07-19 07:26] LABS: Basophils # 0.1 10^3/uL (0.0-0.1); Basophils % 0.7 %; Eosinophils # 0.1 10^3/uL (0.0-0.8); Eosinophils % 1.5 %; Hematocrit 28.4 % (42.0-52.0); Hemoglobin 9.1 g/dL (11.7-16.6); Lymphocytes # 0.9 10^3/uL (0.8-4.8); Lymphocytes % 10.7 %; Mean Corpuscular Hemoglobin 33.6 pg (28.0-34.0); Mean Corpuscular Volume 104.8 fl (80-94); Mean Platelet Volume 8.8 fL (7.4-10.4); Monocytes # 0.5 10^3/uL (0.2-0.9); Monocytes % 5.4 %; Neutrophils # 6.71 10^3/uL (1.8-7.7); Neutrophils % 79.9 %; Nucleated Red Blood Cells % 0 %; Platelet Count 107 10^3/cmm (130-400); Red Blood Count 2.71 10^6/uL (4.1-5.3); Red Cell Distribution Width 19.4 % (12.1-15.1); White Blood Count 8.4 10^3/uL (4.0-10.0)
[2021-07-19 07:44] LABS: Alanine Aminotransferase 10 U/L (0-41); Albumin Level 3.8 g/dL (3.5-5.2); Alkaline Phosphatase 51 IU/L (40-130); Anion Gap 17.2 (5-19); Aspartate Amino Transferase 21 U/L (0-40); Blood Urea Nitrogen 29 mg/dL (8-23); Calcium 8.9 mg/dL (8.5-10.5); Carbon Dioxide 27 mmol/L (22-29); Chloride 109 mmol/L (98-107); Globulin 2.1 g/dL (1.3-4.6); Glucose 130 mg/dL (65-115); Osmolality Calculated 318 mOsm/kg (285-295); Potassium 3.2 mmol/L (3.5-5.1); Sodium 150 mmol/L (136-145); Total Bilirubin 0.7 mg/dL (0.15-1.2); Total Protein 5.9 g/dL (6.6-8.7)
[2021-07-19 08:12] VITALS: BP 161/97; PULSE 73; RESP 16; TEMP 36.6; O2SAT 95
[2021-07-19] MEDS: famotidine 20 mg/2 mL INJ IVP ×2 (08:30→19:55)
[2021-07-19] MEDS: thiamine 100 mg Tablet PO (08:30)
[2021-07-19] MEDS: amlodipine 5 mg Tablet PO (08:30)
[2021-07-19 10:14] LABS: Magnesium 1.7 mg/dL (1.7-2.3)
[2021-07-19] MEDS: lidocaine 1% 5 ML in potassium chloride premix 100 ML 25 ML IV (10:35)
[2021-07-19 10:45] LABS: Glucose Point of Care 142 mg/dL (70-110)
[2021-07-19 10:45] LABS: Glucose Point of Care 134 mg/dL (70-110)
[2021-07-19 11:37] LABS: Glucose Point of Care 164 mg/dL (70-110)
[2021-07-19 11:47] VITALS: BP 123/81; PULSE 98; RESP 14; TEMP 36.8; O2SAT 98
--- NOTE | 2021-07-19 13:05 | PM.PN ---
Subjective Subjective: Interval history: Daniel awakens easily but appears confused. He cannot tell me the date, really where he is. He can tell me he does not have any discomfort, and we can have a brief conversation. Medications: Reviewed: Yes Vitals/I&O/Wt Last Vital Signs Temp 98.2 F 07/19/21 11:47 Pulse 98 07/19/21 11:47 Resp 14 07/19/21 11:47 BP 123/81 07/19/21 11:47 Pulse Ox 98 07/19/21 11:47 07/18/21 07/19/21 07/19/21 22:59 06:59 14:59 Intake Total 555 / 845 50 / 895 50 / 50 Output Total 350 / 350 275 / 625 Balance 205 / 495 -225 / 270 50 / 50 Weight last 48 hrs Weight 70.987 kg Weight 73.845 kg Physical Exam Narrative: EXAM NARRATIVE: General exam is a confused male in no distress. Neck is supple no lymphadenopathy thyromegaly Cardiovascular regular rate and rhythm without murmur Lungs clear Abdomen slightly protuberant. Bowel sounds are noted Extremities no cyanosis clubbing or edema Urinary Catheter Management^: Martinez: Cath Placed During This Visit: yes Reason for Continuing Indwelling Catheter: Acute Urinary Retention or Obstruction Urinary Catheter Date of Insertion: 07/13/21 Urinary Catheter Time of Insertion: 02:00 Data : 07/19/21 06:38 07/19/21 06:38 Micro: Microbiology 07/17/21 21:57 Blood Culture - Preliminary Blood NEGATIVE TO DATE 07/17/21 21:50 Blood Culture - Preliminary Blood NEGATIVE TO DATE 07/13/21 13:32 Blood Culture - Final Blood NO GROWTH AFTER 5 DAYS 07/13/21 09:50 Blood Culture - Final Blood NO GROWTH AFTER 5 DAYS A&P Assessment and plan (1) Acute encephalopathy: Continues to be encephalopathic. This may be secondary to alcoholism or possibly Warnicke's. He is not back to baseline. Hypernatremia could be contributing. MRI head no acute changes. Ammonia level has been checked and normal. TSH, folate, B12 level all normal. Continue Zosyn secondary to concern of possible infection on admission. This could have played a role with encephalopathy. Cultures are negative to date Continue empiric antibiotics for possible sepsis present on admission. So far negative blood cultures. Tick panel negative other than [place] spotted fever titer which is pending Status: Acute (2) TERRANCE (acute kidney injury): Renal function improving. Creatinine down to 1.6. Avoid nephrotoxic agents. Protonix changed to famotidine. Renal ultrasound without obstruction. Status: Acute (3) Acute upper GI bleed: Melanotic stools resolved. Hemoglobin stable at 9.1. EGD with esophagitis and gastritis and currently on Pepcid. Received 1 unit packed red blood cells during this hospitalization. Diagnosis consistent with alcoholic gastritis Status: Acute (4) Macrocytic anemia: Status: Acute (5) Thrombocytopenia: No evidence of hemolysis. Likely secondary to alcoholism. Some evidence of bone marrow suppression from alcohol. Status: Acute (6) Alcoholism: As above Status: Chronic (7) Alcoholic cirrhosis: Status: Chronic Qualifiers: Ascites presence: without ascites Qualified Code(s): K70.30 - Alcoholic cirrhosis of liver without ascites (8) Hypertension: Amlodipine Status: Chronic Qualifiers: Hypertension type: other secondary hypertension Qualified Code(s): I15.8 - Other secondary hypertension Additional A&P Information Nonspecific mesenteritis. No significant ascites on ultrasound or CT. Hypernatremia. Increase D5W. Check BMP later this afternoon. THC use Dehydration, resolved Hypokalemia. Persistent. Replace with potassium IV, and reevaluate with lab work this afternoon. SCDs for DVT prophylaxis Full code Attestations Medical Necessity Statement*: Needs continued hospital stay for treatment of acute encephalopathy and hypernatremia pending improvement and ultimately placement. Coding Level of Care Code Acute Director Counseling Bureau for [facility] Diagnoses Acute encephalopathy G93.40 TERRANCE (acute kidney injury) N17.9 Acute upper GI bleed K92.2 Macrocytic anemia D53.9 Thrombocytopenia D69.6 Alcoholism F10.20 Alcoholic cirrhosis K70.30 Ascites presence: without ascites Hypertension I15.8 Hypertension type: other secondary hypertension
--- NOTE | 2021-07-19 13:24 | PC.NURSE ---
A friend stopped by today for this patient named Tristan Escamilla [phone]. Tristan states that he used to take care of the patient at his home. Patient did talk with Tristan an asked as though he knew him. They had a conversation about big screen TV that the patient has at his house. Tristan states that if we need him to come and visit with the patient to just call him.
[2021-07-19] MEDS: dextrose 5% 1,000 ML 50 ML IV ×2 (14:40→23:42)
[2021-07-19 17:15] LABS: Glucose Point of Care 155 mg/dL (70-110)
[2021-07-19 17:36] LABS: Anion Gap 17.2 (5-19); Blood Urea Nitrogen 26 mg/dL (8-23); Carbon Dioxide 27 mmol/L (22-29); Chloride 109 mmol/L (98-107); Glomerular Filtration Rate 55.9 mL/min (90-130); Glucose 105 mg/dL (65-115); Osmolality Calculated 315 mOsm/kg (285-295); Potassium 3.2 mmol/L (3.5-5.1); Sodium 150 mmol/L (136-145)
[2021-07-19 17:44] VITALS: BP 120/77; PULSE 105; RESP 16; TEMP 36.9; O2SAT 98
--- NOTE | 2021-07-19 19:26 | PC.NURSE ---
Report to Celia VALENTINO at this time. Patient was given a bed bath today. Patient had 2 large liquid bowel movements.
--- NOTE | 2021-07-19 19:35 | PC.NURSE ---
Spoke with patient's son gera regarding shaving patient. Son states that the patient usually only has a mustache and that it is oaky to shave the rest off.
[2021-07-19 19:55] VITALS: BP 127/77; PULSE 106; RESP 17; TEMP 36.8; O2SAT 94
[2021-07-19 20:09] LABS: Glucose Point of Care 130 mg/dL (70-110)
[2021-07-19] MEDS: potassium chloride oral liq 20 mEq/15 mL UDC 40 MEQ PO (23:38)
[2021-07-20] VITALS (7 sets, daily range): BP systolic 116–155; BP diastolic 62–89; PULSE 78–113; RESP 16–20; TEMP 36.4–36.7; O2SAT 95–100
[2021-07-20] MEDS: lidocaine 1% 5 ML in potassium chloride premix 100 ML 25 ML IV
[2021-07-20] MEDS: piperacillin-tazobactam 3.375 GM in sodium chloride 0.9% (plus) 50 ML IV ×3 (05:34→23:24)
--- NOTE | 2021-07-20 06:11 | PC.NURSE ---
patient got a total bed bath due to finger painting himself with his BM. bedding and gown changed.
[2021-07-20 06:42] LABS: Glucose Point of Care 128 mg/dL (70-110)
[2021-07-20] MEDS: amlodipine 5 mg Tablet PO (08:23)
[2021-07-20] MEDS: famotidine 20 mg/2 mL INJ IVP ×2 (08:23→20:05)
[2021-07-20] MEDS: multivitamin therapeutic Tablet 1 TAB PO (08:23)
[2021-07-20] MEDS: thiamine 100 mg Tablet PO (08:23)
[2021-07-20] MEDS: folic acid 1 mg Tablet PO (08:24)
--- NOTE | 2021-07-20 09:36 | PC.OT ---
OT tx attempted at 0830. Pt lying in bed with eyes closed and minimally responds to therapists voice. Nurse present and reports pt did not sleep all night. OT tx to be attempted again later today if possible.
[2021-07-20 10:03] LABS: Basophils % 0.3 %; Eosinophils # 0.2 10^3/uL (0.0-0.8); Eosinophils % 1.8 %; Hematocrit 29.2 % (42.0-52.0); Hemoglobin 9.3 g/dL (11.7-16.6); Lymphocytes # 1.2 10^3/uL (0.8-4.8); Mean Corpuscular HGB Conc 31.8 g/dL (30.0-36.0); Mean Corpuscular Hemoglobin 33.7 pg (28.0-34.0); Mean Corpuscular Volume 105.8 fl (80-94); Mean Platelet Volume 9.3 fL (7.4-10.4); Monocytes # 0.6 10^3/uL (0.2-0.9); Monocytes % 6.2 %; Neutrophils # 7.05 10^3/uL (1.8-7.7); Neutrophils % 77.6 %; Nucleated Red Blood Cells % 0 %; Platelet Count 111 10^3/cmm (130-400); Red Blood Count 2.76 10^6/uL (4.1-5.3); Red Cell Distribution Width 19.1 % (12.1-15.1); White Blood Count 9.1 10^3/uL (4.0-10.0)
--- NOTE | 2021-07-20 10:24 | PM.PN ---
Subjective Subjective: Interval history: Daniel awakens when I entered the room. He can answer few questions but appears confused. He denies any complaints. Medications: Reviewed: Yes Vitals/I&O/Wt Last Vital Signs Temp 97.8 F 07/20/21 08:00 Pulse 90 07/20/21 08:00 Resp 18 07/20/21 08:00 BP 138/89 07/20/21 08:00 Pulse Ox 96 07/20/21 08:00 07/19/21 07/20/21 07/20/21 22:59 06:59 14:59 Intake Total 155 / 943.5 606.667 / 1550.167 50 / 50 Output Total 500 / 500 200 / 700 Balance -345 / 443.5 406.667 / 850.167 50 / 50 Weight last 48 hrs Weight 70.171 kg Weight 70.987 kg Physical Exam Narrative: EXAM NARRATIVE: General exam no distress Neck is supple no lymphadenopathy thyromegaly Cardiovascular regular rate and rhythm without murmur Lungs clear Abdomen slightly protuberant. Bowel sounds are noted Extremities no cyanosis clubbing or edema Urinary Catheter Management^: Martinez: Cath Placed During This Visit: yes Reason for Continuing Indwelling Catheter: Acute Urinary Retention or Obstruction Urinary Catheter Date of Insertion: 07/13/21 Urinary Catheter Time of Insertion: 02:00 Data : 07/20/21 09:50 07/19/21 16:33 A&P Assessment and plan (1) Acute encephalopathy: Continues to be encephalopathic. This may be secondary to alcoholism or possibly Wernicke's. He is not back to baseline. Hypernatremia could be contributing. Awaiting repeat sodium level today. MRI head no acute changes. Ammonia level has been checked and normal. TSH, folate, B12 level all normal. Continue Zosyn secondary to concern of possible infection on admission. This could have played a role with encephalopathy. Cultures are negative to date Continue empiric antibiotics for possible sepsis present on admission. So far negative blood cultures. Tick panel negative other than [place] spotted fever titer which is still pending Status: Acute (2) TERRANCE (acute kidney injury): Renal function improving. Creatinine down to 1.3 yesterday. Awaiting laboratory today.. Avoid nephrotoxic agents. Protonix changed to famotidine. Renal ultrasound without obstruction. Status: Acute (3) Acute upper GI bleed: Melanotic stools resolved. Hemoglobin is stable. EGD with esophagitis and gastritis and currently on Pepcid. Received 1 unit packed red blood cells during this hospitalization. Diagnosis consistent with alcoholic gastritis Status: Acute (4) Macrocytic anemia: Status: Acute (5) Thrombocytopenia: No evidence of hemolysis. Likely secondary to alcoholism. Some evidence of bone marrow suppression from alcohol. Platelet count is stable. Status: Acute (6) Alcoholism: As above Status: Chronic (7) Alcoholic cirrhosis: Status: Chronic Qualifiers: Ascites presence: without ascites Qualified Code(s): K70.30 - Alcoholic cirrhosis of liver without ascites (8) Hypertension: Amlodipine. Fair control. Status: Chronic Qualifiers: Hypertension type: other secondary hypertension Qualified Code(s): I15.8 - Other secondary hypertension Additional A&P Information Nonspecific mesenteritis. No significant ascites on ultrasound or CT. Hypernatremia. D5W increased yesterday. Awaiting level today. THC use Dehydration, resolved Hypokalemia. Persistent. Replace with potassium IV, and reevaluate with lab work this afternoon. SCDs for DVT prophylaxis Full code Needs placement secondary to persistent encephalopathy. Attestations Medical Necessity Statement*: Needs continued hospitalization for management hyponatremia, adjustment of medication. Will need placement. Coding Level of Care Code Acute Documentation Supervisor for [facility] Fwd Diagnoses Acute encephalopathy G93.40 TERRANCE (acute kidney injury) N17.9 Acute upper GI bleed K92.2 Macrocytic anemia D53.9 Thrombocytopenia D69.6 Alcoholism F10.20 Alcoholic cirrhosis K70.30 Ascites presence: without ascites Hypertension I15.8 Hypertension type: other secondary hypertension
[2021-07-20 10:29] LABS: Alanine Aminotransferase 12 U/L (0-41); Albumin Level 3.3 g/dL (3.5-5.2); Alkaline Phosphatase 52 IU/L (40-130); Aspartate Amino Transferase 20 U/L (0-40); Blood Urea Nitrogen 18 mg/dL (8-23); Calcium 8.7 mg/dL (8.5-10.5); Carbon Dioxide 26 mmol/L (22-29); Chloride 112 mmol/L (98-107); Globulin 2.1 g/dL (1.3-4.6); Glomerular Filtration Rate 75.7 mL/min (90-130); Glucose 124 mg/dL (65-115); Magnesium 1.5 mg/dL (1.7-2.3); Osmolality Calculated 305 mOsm/kg (285-295); Sodium 146 mmol/L (136-145); Total Bilirubin 0.6 mg/dL (0.15-1.2); Total Protein 5.4 g/dL (6.6-8.7)
[2021-07-20 11:52] LABS: Glucose Point of Care 102 mg/dL (70-110)
[2021-07-20] MEDS: dextrose 5% 1,000 ML 30 ML IV (13:39)
[2021-07-20 16:32] LABS: RMSF IGG DETECTED; RMSF IGM NOT DETECTED
[2021-07-20 17:37] LABS: Glucose Point of Care 134 mg/dL (70-110)
[2021-07-20 18:42] LABS: Anion Gap 11.8 (5-19); Blood Urea Nitrogen 18 mg/dL (8-23); Calcium 8.7 mg/dL (8.5-10.5); Carbon Dioxide 28 mmol/L (22-29); Chloride 107 mmol/L (98-107); Glomerular Filtration Rate 85.5 mL/min (90-130); Glucose 133 mg/dL (65-115); Osmolality Calculated 300 mOsm/kg (285-295); Potassium 3.8 mmol/L (3.5-5.1); Sodium 143 mmol/L (136-145)
[2021-07-20 20:45] LABS: Glucose Point of Care 131 mg/dL (70-110)
[2021-07-21] VITALS: BP 138/73; PULSE 102; RESP 16; TEMP 36.8; O2SAT 97
[2021-07-21 03:56] VITALS: BP 158/76; PULSE 100; RESP 16; TEMP 36.7; O2SAT 95
[2021-07-21] MEDS: piperacillin-tazobactam 3.375 GM in sodium chloride 0.9% (plus) 50 ML IV ×3 (05:26→22:16)
[2021-07-21 05:44] LABS: Basophils # 0.1 10^3/uL (0.0-0.1); Basophils % 0.4 %; Eosinophils # 0.1 10^3/uL (0.0-0.8); Hematocrit 28.6 % (42.0-52.0); Hemoglobin 9.2 g/dL (11.7-16.6); Lymphocytes # 1.1 10^3/uL (0.8-4.8); Lymphocytes % 7.6 %; Mean Corpuscular HGB Conc 32.2 g/dL (30.0-36.0); Mean Corpuscular Hemoglobin 34.1 pg (28.0-34.0); Mean Corpuscular Volume 105.9 fl (80-94); Mean Platelet Volume 9.8 fL (7.4-10.4); Monocytes # 0.9 10^3/uL (0.2-0.9); Monocytes % 6.3 %; Neutrophils # 11.78 10^3/uL (1.8-7.7); Neutrophils % 83.9 %; Nucleated Red Blood Cells % 0 %; Platelet Count 118 10^3/cmm (130-400)
[2021-07-21 05:58] LABS: Alanine Aminotransferase 14 U/L (0-41); Albumin Level 3.2 g/dL (3.5-5.2); Alkaline Phosphatase 58 IU/L (40-130); Aspartate Amino Transferase 24 U/L (0-40); Blood Urea Nitrogen 18 mg/dL (8-23); Calcium 8.5 mg/dL (8.5-10.5); Carbon Dioxide 24 mmol/L (22-29); Chloride 108 mmol/L (98-107); Globulin 2.4 g/dL (1.3-4.6); Glucose 115 mg/dL (65-115); Magnesium 1.7 mg/dL (1.7-2.3); Osmolality Calculated 297 mOsm/kg (285-295); Sodium 142 mmol/L (136-145); Total Bilirubin 0.5 mg/dL (0.15-1.2); Total Protein 5.6 g/dL (6.6-8.7)
[2021-07-21 06:14] LABS: Anion Gap 13.8 (5-19); Potassium 3.8 mmol/L (3.5-5.1)
[2021-07-21 06:28] LABS: Glucose Point of Care 121 mg/dL (70-110)
[2021-07-21 08:00] VITALS: BP 182/94; PULSE 120; RESP 22; TEMP 37; O2SAT 100
[2021-07-21] MEDS: multivitamin therapeutic Tablet 1 TAB PO (08:11)
[2021-07-21] MEDS: amlodipine 5 mg Tablet PO (08:11)
[2021-07-21] MEDS: famotidine 20 mg/2 mL INJ IVP ×2 (08:11→20:22)
[2021-07-21] MEDS: folic acid 1 mg Tablet PO (08:11)
[2021-07-21] MEDS: thiamine 100 mg Tablet PO (08:11)
--- NOTE | 2021-07-21 08:49 | PM.PN ---
Subjective Subjective: Interval history: Daniel is a little bit more awake. He still appears very weak. Currently being fed. Medications: Reviewed: Yes Vitals/I&O/Wt Last Vital Signs Temp 98.1 F 07/21/21 03:56 Pulse 100 07/21/21 03:56 Resp 16 07/21/21 03:56 BP 158/76 07/21/21 03:56 Pulse Ox 95 07/21/21 03:56 07/20/21 07/21/21 07/21/21 22:59 06:59 14:59 Intake Total 1343 / 1513 50 / 1563 Output Total 300 / 300 100 / 400 Balance 1043 / 1213 -50 / 1163 Weight last 48 hrs Weight 70.08 kg Weight 70.171 kg Physical Exam Narrative: EXAM NARRATIVE: General exam no distress Neck is supple no lymphadenopathy thyromegaly Cardiovascular regular rate and rhythm without murmur Lungs clear Abdomen slightly protuberant. Bowel sounds are noted Extremities no cyanosis clubbing or edema Urinary Catheter Management^: Martinez: Cath Placed During This Visit: yes Reason for Continuing Indwelling Catheter: Acute Urinary Retention or Obstruction Urinary Catheter Date of Insertion: 07/13/21 Urinary Catheter Time of Insertion: 02:00 Data : 07/21/21 05:08 07/21/21 05:08 A&P Assessment and plan (1) Acute encephalopathy: Continues to be encephalopathic. This may be secondary to alcoholism or possibly Wernicke's. He is not back to baseline. Hypernatremia is resolved. He is a little bit more alert but still confused, and still needing total care. MRI head no acute changes. Ammonia level has been checked and normal. TSH, folate, B12 level all normal. Continue Zosyn secondary to concern of possible infection on admission. This could have played a role with encephalopathy. Cultures are negative to date. Likely will not need at discharge. Continue empiric antibiotics for possible sepsis present on admission. So far negative blood cultures. Tick panel negative other than [place] spotted fever titer which is still pending Status: Acute (2) TERRANCE (acute kidney injury): Resolved. Avoid nephrotoxic agents. Protonix changed to famotidine. Renal ultrasound without obstruction. Status: Acute (3) Acute upper GI bleed: Melanotic stools resolved. Hemoglobin is stable. EGD with esophagitis and gastritis and currently on Pepcid. Received 1 unit packed red blood cells during this hospitalization. Diagnosis consistent with alcoholic gastritis Status: Acute (4) Macrocytic anemia: Status: Acute (5) Thrombocytopenia: No evidence of hemolysis. Likely secondary to alcoholism. Some evidence of bone marrow suppression from alcohol. Platelet count is stable. Status: Acute (6) Alcoholism: As above Status: Chronic (7) Alcoholic cirrhosis: Status: Chronic Qualifiers: Ascites presence: without ascites Qualified Code(s): K70.30 - Alcoholic cirrhosis of liver without ascites (8) Hypertension: Amlodipine. Fair control. Status: Chronic Qualifiers: Hypertension type: other secondary hypertension Qualified Code(s): I15.8 - Other secondary hypertension Additional A&P Information Nonspecific mesenteritis. No significant ascites on ultrasound or CT. Hypernatremia. Resolved THC use Dehydration, resolved Hypokalemia. Persistent. Replace with potassium IV, and reevaluate with lab work this afternoon. SCDs for DVT prophylaxis Full code Needs placement secondary to persistent encephalopathy. Discontinue Martinez Attestations Medical Necessity Statement*: Needs continued hospital stay pending placement. Coding Level of Care Code Acute [employer] Develop[employer] Machine Operator for [facility] Fwd Diagnoses Acute encephalopathy G93.40 TERRANCE (acute kidney injury) N17.9 Acute upper GI bleed K92.2 Macrocytic anemia D53.9 Thrombocytopenia D69.6 Alcoholism F10.20 Alcoholic cirrhosis K70.30 Ascites presence: without ascites Hypertension I15.8 Hypertension type: other secondary hypertension
--- NOTE | 2021-07-21 09:08 | PC.NURSE ---
Nurse notified of bp: 182/94 Nurse notified of Pulse: 120
[2021-07-21 11:49] LABS: Glucose Point of Care 105 mg/dL (70-110)
[2021-07-21 12:00] VITALS: BP 148/89; PULSE 100; RESP 17; TEMP 37; O2SAT 93
[2021-07-21 16:00] VITALS: BP 123/80; PULSE 108; RESP 18; TEMP 36.4; O2SAT 95
[2021-07-21 18:09] LABS: Glucose Point of Care 99 mg/dL (70-110)
[2021-07-21 20:00] VITALS: BP 110/72; PULSE 118; RESP 16; TEMP 36.8; O2SAT 94
[2021-07-21 20:49] LABS: Glucose Point of Care 181 mg/dL (70-110)
[2021-07-22] VITALS (8 sets, daily range): BP systolic 108–143; BP diastolic 70–84; PULSE 65–119; RESP 16–18; TEMP 36.2–37.1; O2SAT 93–97
[2021-07-22 04:02] LABS: Basophils % 0.2 %; Eosinophils # 0.1 10^3/uL (0.0-0.8); Eosinophils % 0.5 %; Lymphocytes # 1.1 10^3/uL (0.8-4.8); Lymphocytes % 7.6 %; Mean Corpuscular HGB Conc 33.3 g/dL (30.0-36.0); Mean Corpuscular Hemoglobin 34.6 pg (28.0-34.0); Mean Corpuscular Volume 103.8 fl (80-94); Mean Platelet Volume 10.4 fL (7.4-10.4); Monocytes # 0.8 10^3/uL (0.2-0.9); Neutrophils # 12.81 10^3/uL (1.8-7.7); Nucleated Red Blood Cells % 0 %; Platelet Count 133 10^3/cmm (130-400); White Blood Count 14.9 10^3/uL (4.0-10.0)
[2021-07-22 04:29] LABS: Alanine Aminotransferase 86 U/L (0-41); Albumin Level 2.9 g/dL (3.5-5.2); Alkaline Phosphatase 423 IU/L (40-130); Anion Gap 12.4 (5-19); Aspartate Amino Transferase 214 U/L (0-40); Blood Urea Nitrogen 20 mg/dL (8-23); Calcium 8.3 mg/dL (8.5-10.5); Carbon Dioxide 26 mmol/L (22-29); Chloride 110 mmol/L (98-107); Globulin 2.5 g/dL (1.3-4.6); Glomerular Filtration Rate 75.7 mL/min (90-130); Glucose 104 mg/dL (65-115); Osmolality Calculated 303 mOsm/kg (285-295); Potassium 3.4 mmol/L (3.5-5.1); Sodium 145 mmol/L (136-145); Total Bilirubin 2.2 mg/dL (0.15-1.2); Total Protein 5.4 g/dL (6.6-8.7)
[2021-07-22] MEDS: piperacillin-tazobactam 3.375 GM in sodium chloride 0.9% (plus) 50 ML IV ×2 (05:33→14:16)
[2021-07-22 06:33] LABS: Glucose Point of Care 109 mg/dL (70-110)
--- NOTE | 2021-07-22 08:33 | US_ITS ---
WS: [id number] RIGHT UPPER QUADRANT ULTRASOUND HISTORY: increasing LFT's COMPARISON: 07/18/2021 Liver: 18.7 cm in length. Moderately enlarged liver. Diffuse coarsened echotexture. The entire liver is not well seen due to hepatic steatosis and attenuation. No mass or bile duct dilatation. Gallbladder: Slightly contracted gallbladder. There is a stone present within the lumen. Gallbladder wall is top normal at 3 mm. CBD: 0.6 cm Pancreas: Obscured by bowel gas. Right kidney: 11.1 cm in length. Normal size and echogenicity. No hydronephrosis or mass. Aorta and IVC: Not visualized. There is a small amount of ascites in the RIGHT abdomen surrounding the liver and in Morison's pouch. US/US gall bladder [id number] IMPRESSION: 1. Cholelithiasis without evidence for acute cholecystitis. 2. Marked hepatic steatosis and moderate hepatomegaly. 3. Small amount of ascites in the RIGHT abdomen. Ascites was not present on a prior ultrasound of 07/16/[address] of 07/13/2021.
--- NOTE | 2021-07-22 11:00 | PC.CHAP ---
Pastoral Care Encounter/Spiritual Assessment Type of Contact [] Declined dock operations supervisor visit [] Patient/Family/Request visit [] Outpatient visit [] Follow-up visit [] Physician referral [] Code/Alert [x] Routine visit [] Staff referral [] Actively dying [] Patient sleeping [] Family support [] [] Out of room [] Palliative care [] [x] Receiving care in room [] Pre-surgical visit [] Trauma [] Long length of stay [] ICU visit [] Other: Relational/Emotional Strength [x] Patient feels connected with others/family/visitors/staff [] Distress [] Loneliness/isolation [] Abandonment Spirituality of Patient [] Person of Lilibeth [] Attends Oriental Orthodox of their Lilibeth [] Believes in Prayer [] Reads Bible or Mu-Ism materials [] There are Spiritual issues to be addressed Senior Environmental Consultant Interventions [] Prayer [] Active listening [] Non-anxious presence [] Spiritual/emotional support [] Crisis/trauma care [] Spiritual counseling [] Bereavement support [] Provided bereavement packet [] Provided Bible/devotional materials [] Provided toy/stuffed animal, coloring book to patient or family member [] Provided Communion [] Anointing/[place] [] Salvation [] Completed spiritual assessment [] Other: Impact on Illness or Injury [] Angry [] Fearful [] Anxious [] Often cries [] Exhaustion [] Unable to work [] Unable to attend yarsanism [] Unable to walk/stand [] Unable to read [] Unable to drive [] Unable to eat/drink [] Unable to sleep [] Unable to be with family [] Patient intubated [] Other: Summary negative response about his health Time spent with patient 5 mins
[2021-07-22] MEDS: folic acid 1 mg Tablet PO (11:27)
[2021-07-22] MEDS: thiamine 100 mg Tablet PO (11:27)
[2021-07-22] MEDS: potassium chloride ER 20 mEq Tablet 40 MEQ PO (11:27)
[2021-07-22] MEDS: multivitamin therapeutic Tablet 1 TAB PO (11:27)
[2021-07-22] MEDS: amlodipine 5 mg Tablet PO (11:28)
[2021-07-22] MEDS: famotidine 20 mg/2 mL INJ IVP ×2 (11:47→20:44)
[2021-07-22 12:53] LABS: Glucose Point of Care 111 mg/dL (70-110)
--- NOTE | 2021-07-22 15:36 | PM.PN ---
Subjective Subjective: Interval history: Daniel reports he is doing okay today. Confusion persists but he is more verbal. Medications: Reviewed: Yes Vitals/I&O/Wt Last Vital Signs Temp 98.7 F 07/22/21 15:29 Pulse 77 07/22/21 15:29 Resp 17 07/22/21 15:29 BP 143/77 07/22/21 15:29 Pulse Ox 94 07/22/21 15:29 07/22/21 07/22/21 07/22/21 06:59 14:59 22:59 Intake Total 50 / 390 290 / 290 Output Total 250 / 450 Balance -200 / -60 290 / 290 Weight last 48 hrs Weight 71.668 kg Weight 70.08 kg Physical Exam Narrative: EXAM NARRATIVE: General exam no distress Neck is supple no lymphadenopathy thyromegaly Cardiovascular regular rate and rhythm without murmur Lungs clear Abdomen slightly protuberant. Bowel sounds are noted Extremities no cyanosis clubbing or edema Urinary Catheter Management^: Martinez: Cath Placed During This Visit: yes, but has since been removed by the nurse Reason for Continuing Indwelling Catheter: Acute Urinary Retention or Obstruction Urinary Catheter Date of Insertion: 07/13/21 Urinary Catheter Time of Insertion: 02:00 Date Urinary Catheter Removed: 07/22/21 Time Urinary Catheter Discontinued: 06:17 Data : 07/22/21 02:45 07/22/21 02:45 A&P Assessment and plan (1) Acute encephalopathy: Continues to be encephalopathic. This may be secondary to alcoholism or possibly Wernicke's. He is not back to baseline. Hypernatremia is resolved. He has improved with still needs total care. MRI head no acute changes. Ammonia level has been checked and normal. TSH, folate, B12 level all normal. Continue Zosyn secondary to concern of possible infection on admission. This could have played a role with encephalopathy. Cultures are negative to date. Likely will not need at discharge. Continue empiric antibiotics for possible sepsis present on admission. So far negative blood cultures. Discontinue Zosyn at this time. Tick panel negative other than [place] spotted fever titer. This is come back today and IgG is positive. Even though IgM is negative we will go ahead and give a course of doxycycline. Status: Acute (2) TERRANCE (acute kidney injury): Resolved. Avoid nephrotoxic agents. Protonix changed to famotidine. Renal ultrasound without obstruction. Status: Acute (3) Acute upper GI bleed: Melanotic stools resolved. Hemoglobin is stable. EGD with esophagitis and gastritis and currently on Pepcid. Received 1 unit packed red blood cells during this hospitalization. Diagnosis consistent with alcoholic gastritis Status: Acute (4) Macrocytic anemia: Status: Acute (5) Thrombocytopenia: No evidence of hemolysis. Likely secondary to alcoholism. Some evidence of bone marrow suppression from alcohol. Platelet count is stable. Status: Acute (6) Alcoholism: As above LFTs worse today. Gallbladder ultrasound shows fatty liver, cholelithiasis. No evidence of dilated ducts or cholecystitis. Very small amount of ascites. Status: Chronic (7) Alcoholic cirrhosis: Status: Chronic Qualifiers: Ascites presence: without ascites Qualified Code(s): K70.30 - Alcoholic cirrhosis of liver without ascites (8) Hypertension: Amlodipine. Fair control. Status: Chronic Qualifiers: Hypertension type: other secondary hypertension Qualified Code(s): I15.8 - Other secondary hypertension Additional A&P Information Nonspecific mesenteritis. No significant ascites on ultrasound or CT. Mild hypokalemia, supplement Hypernatremia. Resolved THC use Dehydration, resolved Hypokalemia. Persistent. Replace with potassium IV, and reevaluate with lab work this afternoon. SCDs for DVT prophylaxis Full code Needs placement secondary to persistent encephalopathy. Attestations Medical Necessity Statement*: Need hospitalization pending placement. Coding Level of Care Code Acute Custom Leather Products Maker for [facility] Fwd Diagnoses Acute encephalopathy G93.40 TERRANCE (acute kidney injury) N17.9 Acute upper GI bleed K92.2 Macrocytic anemia D53.9 Thrombocytopenia D69.6 Alcoholism F10.20 Alcoholic cirrhosis K70.30 Ascites presence: without ascites Hypertension I15.8 Hypertension type: other secondary hypertension
[2021-07-22 16:51] LABS: Glucose Point of Care 147 mg/dL (70-110)
[2021-07-22] MEDS: doxycycline 100 mg Tablet PO (18:21)
[2021-07-22 20:27] LABS: Glucose Point of Care 159 mg/dL (70-110)
[2021-07-23 03:50] VITALS: BP 148/82; PULSE 105; RESP 16; TEMP 36.4; O2SAT 98
--- NOTE | 2021-07-23 06:04 | PC.NURSE ---
shift note patient rested throughout the night, incontinent of B&B, dependent on staff for positioning and hygiene. no s/s of pain noted.
[2021-07-23 06:05] LABS: Basophils # 0.1 10^3/uL (0.0-0.1); Basophils % 0.5 %; Eosinophils # 0.2 10^3/uL (0.0-0.8); Hematocrit 27.3 % (42.0-52.0); Hemoglobin 8.8 g/dL (11.7-16.6); Lymphocytes # 1.1 10^3/uL (0.8-4.8); Lymphocytes % 9.9 %; Mean Corpuscular HGB Conc 32.2 g/dL (30.0-36.0); Mean Corpuscular Hemoglobin 34.5 pg (28.0-34.0); Mean Corpuscular Volume 107.1 fl (80-94); Mean Platelet Volume 10.1 fL (7.4-10.4); Monocytes # 0.6 10^3/uL (0.2-0.9); Monocytes % 5.6 %; Neutrophils # 8.76 10^3/uL (1.8-7.7); Neutrophils % 81.1 %; Nucleated Red Blood Cells % 0 %; Platelet Count 174 10^3/cmm (130-400); Red Blood Count 2.55 10^6/uL (4.1-5.3); Red Cell Distribution Width 19.2 % (12.1-15.1); White Blood Count 10.8 10^3/uL (4.0-10.0)
[2021-07-23 06:20] LABS: Alanine Aminotransferase 62 U/L (0-41); Albumin Level 2.7 g/dL (3.5-5.2); Alkaline Phosphatase 353 IU/L (40-130); Anion Gap 13.1 (5-19); Aspartate Amino Transferase 98 U/L (0-40); Blood Urea Nitrogen 17 mg/dL (8-23); Calcium 8.1 mg/dL (8.5-10.5); Carbon Dioxide 25 mmol/L (22-29); Chloride 112 mmol/L (98-107); Globulin 2.7 g/dL (1.3-4.6); Glomerular Filtration Rate 85.5 mL/min (90-130); Glucose 117 mg/dL (65-115); Osmolality Calculated 307 mOsm/kg (285-295); Potassium 3.1 mmol/L (3.5-5.1); Sodium 147 mmol/L (136-145); Total Bilirubin 1.1 mg/dL (0.15-1.2); Total Protein 5.4 g/dL (6.6-8.7)
[2021-07-23 06:30] LABS: Glucose Point of Care 118 mg/dL (70-110)
[2021-07-23 08:00] VITALS: BP 123/73; PULSE 105; RESP 16; TEMP 36.6; O2SAT 97
[2021-07-23] MEDS: doxycycline 100 mg Tablet PO ×2 (09:45→18:04)
[2021-07-23] MEDS: folic acid 1 mg Tablet PO (09:45)
[2021-07-23] MEDS: thiamine 100 mg Tablet PO (09:45)
[2021-07-23] MEDS: multivitamin therapeutic Tablet 1 TAB PO (09:45)
[2021-07-23] MEDS: famotidine 20 mg/2 mL INJ IVP ×2 (09:45→21:24)
[2021-07-23] MEDS: amlodipine 5 mg Tablet PO (09:45)
[2021-07-23 10:42] LABS: Glucose Point of Care 236 mg/dL (70-110)
[2021-07-23] MEDS: potassium chloride ER 20 mEq Tablet 40 MEQ PO ×2 (11:30→12:39)
[2021-07-23 12:00] VITALS: BP 138/91; PULSE 105; RESP 16; TEMP 36.6; O2SAT 99
--- NOTE | 2021-07-23 14:01 | PM.PN ---
Subjective Subjective: Interval history: Daniel reports he is doing okay. Confusion is evident. Medications: Reviewed: Yes Vitals/I&O/Wt Last Vital Signs Temp 97.9 F 07/23/21 12:00 Pulse 105 H 07/23/21 12:00 Resp 16 07/23/21 12:00 BP 138/91 07/23/21 12:00 Pulse Ox 99 07/23/21 12:00 07/22/21 07/23/21 07/23/21 22:59 06:59 14:59 Intake Total 290 / 580 Balance 290 / 580 Weight last 48 hrs Weight 69.626 kg Weight 71.668 kg Physical Exam Narrative: EXAM NARRATIVE: General exam no distress Neck is supple no lymphadenopathy thyromegaly Cardiovascular regular rate and rhythm without murmur Lungs clear Abdomen nontender. Positive bowel sounds. Extremities no cyanosis clubbing or edema Urinary Catheter Management^: Martinez: Cath Placed During This Visit: yes, but has since been removed by the nurse Reason for Continuing Indwelling Catheter: Acute Urinary Retention or Obstruction Urinary Catheter Date of Insertion: 07/13/21 Urinary Catheter Time of Insertion: 02:00 Date Urinary Catheter Removed: 07/22/21 Time Urinary Catheter Discontinued: 06:17 Data : 07/23/21 05:20 07/23/21 05:20 Micro: Microbiology 07/17/21 21:57 Blood Culture - Final Blood NO GROWTH AFTER 5 DAYS 07/17/21 21:50 Blood Culture - Final Blood NO GROWTH AFTER 5 DAYS A&P Assessment and plan (1) Acute encephalopathy: Continues to be encephalopathic. This may be secondary to alcoholism or possibly Wernicke's. He is not back to baseline. Improved but still needs intermediate facility care MRI head no acute changes. Ammonia level has been checked and normal. TSH, folate, B12 level all normal. Zosyn initiated on admission has been discontinued Tick panel negative other than [place] spotted fever titer. This is come back today and IgG is positive. Even though IgM is negative we will go ahead and give a course of doxycycline. Status: Acute (2) TERRANCE (acute kidney injury): Resolved. Avoid nephrotoxic agents. Protonix changed to famotidine. Renal ultrasound without obstruction. Status: Acute (3) Acute upper GI bleed: Melanotic stools resolved. Hemoglobin is stable. EGD with esophagitis and gastritis and currently on Pepcid. Received 1 unit packed red blood cells during this hospitalization. Diagnosis consistent with alcoholic gastritis Status: Acute (4) Macrocytic anemia: Status: Acute (5) Thrombocytopenia: No evidence of hemolysis. Likely secondary to alcoholism. Some evidence of bone marrow suppression from alcohol. Platelet count is stable. Status: Acute (6) Alcoholism: As above . Gallbladder ultrasound shows fatty liver, cholelithiasis. No evidence of dilated ducts or cholecystitis. Very small amount of ascites. Liver function testing improved Status: Chronic (7) Alcoholic cirrhosis: Status: Chronic Qualifiers: Ascites presence: without ascites Qualified Code(s): K70.30 - Alcoholic cirrhosis of liver without ascites (8) Hypertension: Amlodipine. Fair control. Status: Chronic Qualifiers: Hypertension type: other secondary hypertension Qualified Code(s): I15.8 - Other secondary hypertension Additional A&P Information Nonspecific mesenteritis. No significant ascites on ultrasound or CT. Mild hypokalemia, supplement Hypernatremia. Some recurrence. Increase p.o. fluid intake. Discussed with nursing. THC use Dehydration, resolved Hypokalemia. Persistent. Replace with potassium IV, and reevaluate with lab work this afternoon. SCDs for DVT prophylaxis Full code Needs placement secondary to persistent encephalopathy. BMP tomorrow to recheck sodium. Increase fluids. Attestations Medical Necessity Statement*: Needs continued hospitalization pending placement. Coding Level of Care Code Acute Clerical Aide Teacher for [facility] Fwd Diagnoses Acute encephalopathy G93.40 TERRANCE (acute kidney injury) N17.9 Acute upper GI bleed K92.2 Macrocytic anemia D53.9 Thrombocytopenia D69.6 Alcoholism F10.20 Alcoholic cirrhosis K70.30 Ascites presence: without ascites Hypertension I15.8 Hypertension type: other secondary hypertension
--- NOTE | 2021-07-23 15:10 | PC.CHAP ---
Pastoral Care Encounter/Spiritual Assessment Type of Contact [] Declined stroke belt sander operator visit [] Patient/Family/Request visit [] Outpatient visit [xx] Follow-up visit [] Physician referral [] Code/Alert [xx] Routine visit [] Staff referral [] Actively dying [] Patient sleeping [] Family support [] [] Out of room [] Palliative care [] [] Receiving care in room [] Pre-surgical visit [] Trauma [xx] Long length of stay [] ICU visit [] Other: Relational/Emotional Strength [] Patient feels connected with others/family/visitors/staff [] Distress [] Loneliness/isolation [] Abandonment Spirituality of Patient [] Person of Lilibeth [] Attends Gnosticism of their Lilibeth [] Believes in Prayer [] Reads Bible or Gnosticist materials [xx] There are Spiritual issues to be addressed. Not Nondenominational and did not want prayer Replenishment Buyer Interventions [] Prayer [xx] Active listening [xx] Non-anxious presence [] Spiritual/emotional support [] Crisis/trauma care [] Spiritual counseling [] Bereavement support [] Provided bereavement packet [] Provided Bible/devotional materials [] Provided toy/stuffed animal, coloring book to patient or family member [] Provided Communion [] Anointing/[place] [] Salvation [] Completed spiritual assessment [] Other: Impact on Illness or Injury [] Angry [] Fearful [] Anxious [] Often cries [] Exhaustion [] Unable to work [] Unable to attend cheondoism [] Unable to walk/stand [] Unable to read [] Unable to drive [] Unable to eat/drink [] Unable to sleep [] Unable to be with family [] Patient intubated [] Other: Summary Patient confused and not too coherent. Slow of speech. He did ask stroke belt sander operator to find him some ice. Replenishment Buyer mentioned this to nurse who said she would get him some of allowed. Time spent with patient 4 minutes
[2021-07-23 16:00] VITALS: BP 137/83; PULSE 103; RESP 16; TEMP 36.8; O2SAT 98
[2021-07-23 16:42] LABS: Glucose Point of Care 140 mg/dL (70-110)
[2021-07-23 19:39] VITALS: BP 133/84; PULSE 106; RESP 16; TEMP 36.7; O2SAT 97
[2021-07-23 20:41] LABS: Glucose Point of Care 99 mg/dL (70-110)
[2021-07-23 23:59] VITALS: BP 129/85; PULSE 101; RESP 18; TEMP 36.7; O2SAT 96
[2021-07-24] VITALS (8 sets, daily range): BP systolic 116–159; BP diastolic 73–79; PULSE 97–107; RESP 16–18; TEMP 36.6–36.8; O2SAT 95–99
[2021-07-24 06:23] LABS: Glucose Point of Care 92 mg/dL (70-110)
[2021-07-24 07:05] LABS: Alanine Aminotransferase 43 U/L (0-41); Albumin Level 2.8 g/dL (3.5-5.2); Alkaline Phosphatase 297 IU/L (40-130); Anion Gap 13.4 (5-19); Aspartate Amino Transferase 49 U/L (0-40); Blood Urea Nitrogen 13 mg/dL (8-23); Calcium 8.1 mg/dL (8.5-10.5); Carbon Dioxide 23 mmol/L (22-29); Chloride 110 mmol/L (98-107); Globulin 2.6 g/dL (1.3-4.6); Glomerular Filtration Rate 136.5 mL/min (90-130); Glucose 84 mg/dL (65-115); Magnesium 1.6 mg/dL (1.7-2.3); Osmolality Calculated 295 mOsm/kg (285-295); Potassium 3.4 mmol/L (3.5-5.1); Sodium 143 mmol/L (136-145); Total Bilirubin 0.8 mg/dL (0.15-1.2); Total Protein 5.4 g/dL (6.6-8.7)
--- NOTE | 2021-07-24 07:30 | PM.PN ---
Subjective Subjective: Interval history: Daniel reports he is doing okay. Still with some confusion. Medications: Reviewed: Yes Vitals/I&O/Wt Last Vital Signs Temp 98.2 F 07/24/21 07:18 Pulse 100 07/24/21 07:18 Resp 17 07/24/21 07:18 BP 147/77 07/24/21 07:18 Pulse Ox 98 07/24/21 07:18 07/23/21 07/24/21 07/24/21 22:59 06:59 14:59 Intake Total 100 / 100 Balance 100 / 100 Weight last 48 hrs Weight 71.577 kg Weight 69.626 kg Physical Exam Narrative: EXAM NARRATIVE: General exam no distress Neck is supple no lymphadenopathy thyromegaly Cardiovascular regular rate and rhythm without murmur Lungs clear Abdomen nontender. Positive bowel sounds. Extremities no cyanosis clubbing or edema Urinary Catheter Management^: Martinez: Cath Placed During This Visit: yes, but has since been removed by the nurse Reason for Continuing Indwelling Catheter: Acute Urinary Retention or Obstruction Urinary Catheter Date of Insertion: 07/13/21 Urinary Catheter Time of Insertion: 02:00 Date Urinary Catheter Removed: 07/22/21 Time Urinary Catheter Discontinued: 06:17 Data : 07/23/21 05:20 07/24/21 05:59 A&P Assessment and plan (1) Acute encephalopathy: Continues to be encephalopathic. This may be secondary to alcoholism or possibly Wernicke's. He is not back to baseline. Improved but still needs detention facility care. Awaiting placement. MRI head no acute changes. Ammonia level has been checked and normal. TSH, folate, B12 level all normal. Zosyn initiated on admission has been discontinued Tick panel negative other than [place] spotted fever titer. This is come back today and IgG is positive. Even though IgM is negative course of doxycycline was initiated. Status: Acute (2) TERRANCE (acute kidney injury): Resolved. Avoid nephrotoxic agents. Protonix changed to famotidine. Renal ultrasound without obstruction. Status: Acute (3) Acute upper GI bleed: Melanotic stools resolved. Hemoglobin is stable. EGD with esophagitis and gastritis and currently on Pepcid. Received 1 unit packed red blood cells during this hospitalization. Diagnosis consistent with alcoholic gastritis Status: Acute (4) Macrocytic anemia: Status: Acute (5) Thrombocytopenia: No evidence of hemolysis. Likely secondary to alcoholism. Some evidence of bone marrow suppression from alcohol. Platelet count is stable. Status: Acute (6) Alcoholism: As above . Gallbladder ultrasound shows fatty liver, cholelithiasis. No evidence of dilated ducts or cholecystitis. Very small amount of ascites. Liver function testing improved further Status: Chronic (7) Alcoholic cirrhosis: Status: Chronic Qualifiers: Ascites presence: without ascites Qualified Code(s): K70.30 - Alcoholic cirrhosis of liver without ascites (8) Hypertension: Amlodipine. Fair control. Status: Chronic Qualifiers: Hypertension type: other secondary hypertension Qualified Code(s): I15.8 - Other secondary hypertension Additional A&P Information Nonspecific mesenteritis. No significant ascites on ultrasound or CT. Mild hypokalemia, supplement Hypernatremia. Improved with increased p.o. fluid intake. THC use Dehydration, resolved Hypokalemia. Persistent. Replace with potassium IV, and reevaluate with lab work this afternoon. SCDs for DVT prophylaxis Full code Needs placement secondary to persistent encephalopathy. Attestations Medical Necessity Statement*: Needs continued hospitalization pending placement. Coding Level of Care Code Acute Auto Bumper Straightener for [facility] Fwd Diagnoses Acute encephalopathy G93.40 TERRANCE (acute kidney injury) N17.9 Acute upper GI bleed K92.2 Macrocytic anemia D53.9 Thrombocytopenia D69.6 Alcoholism F10.20 Alcoholic cirrhosis K70.30 Ascites presence: without ascites Hypertension I15.8 Hypertension type: other secondary hypertension
[2021-07-24] MEDS: famotidine 20 mg Tablet PO ×2 (10:59→17:30)
[2021-07-24] MEDS: doxycycline 100 mg Tablet PO ×2 (10:59→17:30)
[2021-07-24] MEDS: folic acid 1 mg Tablet PO (11:00)
[2021-07-24] MEDS: thiamine 100 mg Tablet PO (11:00)
[2021-07-24] MEDS: amlodipine 5 mg Tablet PO (11:00)
[2021-07-24] MEDS: multivitamin therapeutic Tablet 1 TAB PO (11:00)
[2021-07-24 11:04] LABS: Glucose Point of Care 96 mg/dL (70-110)
[2021-07-24 17:14] LABS: Glucose Point of Care 110 mg/dL (70-110)
[2021-07-24 20:44] LABS: Glucose Point of Care 123 mg/dL (70-110)
[2021-07-25 03:07] VITALS: BP 148/73; PULSE 92; RESP 18; TEMP 36.7; O2SAT 98
[2021-07-25 06:34] LABS: Glucose Point of Care 97 mg/dL (70-110)
[2021-07-25 08:00] VITALS: BP 129/71; PULSE 100; RESP 16; TEMP 36.6; O2SAT 98
[2021-07-25] MEDS: famotidine 20 mg Tablet PO ×2 (08:00→16:37)
[2021-07-25] MEDS: amlodipine 5 mg Tablet PO (08:00)
[2021-07-25] MEDS: thiamine 100 mg Tablet PO (08:00)
[2021-07-25] MEDS: folic acid 1 mg Tablet PO (08:00)
[2021-07-25] MEDS: multivitamin therapeutic Tablet 1 TAB PO (08:00)
[2021-07-25] MEDS: doxycycline 100 mg Tablet PO ×2 (08:00→16:37)
[2021-07-25 11:59] LABS: Glucose Point of Care 98 mg/dL (70-110)
[2021-07-25 12:00] VITALS: BP 115/73; PULSE 100; RESP 16; TEMP 37.1; O2SAT 100
[2021-07-25 12:56] LABS: Basophils % 0.5 %; Eosinophils # 0.1 10^3/uL (0.0-0.8); Eosinophils % 1.2 %; Hematocrit 29.3 % (42.0-52.0); Hemoglobin 9.6 g/dL (11.7-16.6); Lymphocytes # 1.2 10^3/uL (0.8-4.8); Mean Corpuscular HGB Conc 32.8 g/dL (30.0-36.0); Mean Corpuscular Hemoglobin 34.5 pg (28.0-34.0); Mean Corpuscular Volume 105.4 fl (80-94); Mean Platelet Volume 10.1 fL (7.4-10.4); Monocytes # 0.7 10^3/uL (0.2-0.9); Monocytes % 7.4 %; Neutrophils # 6.77 10^3/uL (1.8-7.7); Neutrophils % 76.3 %; Nucleated Red Blood Cells % 0 %; Platelet Count 252 10^3/cmm (130-400); Red Blood Count 2.78 10^6/uL (4.1-5.3); Red Cell Distribution Width 18.7 % (12.1-15.1); White Blood Count 8.9 10^3/uL (4.0-10.0)
--- NOTE | 2021-07-25 13:00 | PM.PN ---
Subjective Subjective: Interval history: He is awake, alert, he cannot exactly tell me where he is, does not remember the year. Denies any current complaints. Does not seem to be very hungry, denies that he will have more of his lunch. Vitals/I&O/Wt Last Vital Signs Temp 97.8 F 07/25/21 08:00 Pulse 100 07/25/21 08:00 Resp 16 07/25/21 08:00 BP 129/71 07/25/21 08:00 Pulse Ox 98 07/25/21 08:00 07/24/21 07/25/21 07/25/21 22:59 06:59 14:59 Intake Total 100 / 100 Output Total 1050 / 1050 Balance -950 / -950 Weight last 48 hrs Weight 81.374 kg Weight 71.577 kg Physical Exam Const: COMMON NORMALS: no acute distress and alert; negative for patient oriented x3 EXAM LIMITATIONS: altered mental status GENERAL APPEARANCE: cooperative and frail appearing ORIENTATION/CONSCIOUSNESS: Yes awake and Yes confused OTHER: Not back to baseline. HENMT: COMMON NORMALS: oropharynx normal Neck/C-Spine: COMMON NORMALS: no JVD Resp: COMMON NORMALS: normal respiratory effort and clear to auscultation bilaterally AUSCULTATION: clear to auscultation bilaterally Cardio: COMMON NORMALS: no JVD, regular rhythm, S1 normal heart sound present, S2 normal heart sound present and No murmurs present (Cardio) RHYTHM: regular rhythm HEART SOUNDS: S1 normal heart sound present and S2 normal heart sound present GI: COMMON NORMALS: Soft to palpation INSPECTION: Yes normal to inspection PALPATION: Yes Soft to palpation and Yes Tenderness to palpation present (GI) (mildly) Extremity: COMMON NORMALS: no joint enlargement and no pedal edema Neuro: COMMON NORMALS: moves all extremities; negative for patient oriented x3 SENSORIUM/ORIENTATION: Yes alert SPEECH: Other neuro speech findings (Minimal dysarthria. Loses train of thought.) MOTOR EXAM: Normal motor muscle tone present throughout, Abnormal motor strength present (Improving, 3 throughout) and Other motor observations present (No myoclonus) Skin: COMMON NORMALS: no rashes or lesions noted GENERAL SKIN EXAM: no rashes or lesions noted Urinary Catheter Management^: Martinez: Cath Placed During This Visit: yes, but has since been removed by the nurse Reason for Continuing Indwelling Catheter: Acute Urinary Retention or Obstruction Urinary Catheter Date of Insertion: 07/13/21 Urinary Catheter Time of Insertion: 02:00 Date Urinary Catheter Removed: 07/22/21 Time Urinary Catheter Discontinued: 06:17 Data : 07/25/21 12:16 07/24/21 05:59 A&P Assessment and plan (1) Acute encephalopathy: He is doing better since last time I had seen him. He is awake, alert, but remains not oriented. Has not come back to his prior baseline. Does not appear at this time to have ongoing infection. Continues on doxycycline for possible RMSF after abnormal serologic test, although did not show other symptoms. Awaiting placement. MRI head no acute changes. Ammonia normal. TSH, folate, B12 level all normal. Zosyn initiated on admission has been discontinued Status: Acute (2) TERRANCE (acute kidney injury): Resolved. Status: Acute (3) Acute upper GI bleed: Improving. Melanotic stools resolved. Hemoglobin is stable. EGD with esophagitis and gastritis and currently on Pepcid. Received 1 unit packed red blood cells during this hospitalization. Diagnosis consistent with alcoholic gastritis Status: Acute (4) Macrocytic anemia: Status: Acute (5) Thrombocytopenia: Resolved. No evidence of hemolysis. Likely secondary to alcoholism. Some evidence of bone marrow suppression from alcohol. Platelet count is stable. Status: Acute (6) Alcoholism: As above Gallbladder ultrasound shows fatty liver, cholelithiasis. No evidence of dilated ducts or cholecystitis. Very small amount of ascites. Liver function testing improved further Status: Chronic (7) Alcoholic cirrhosis: Status: Chronic Qualifiers: Ascites presence: without ascites Qualified Code(s): K70.30 - Alcoholic cirrhosis of liver without ascites (8) Hypertension: Amlodipine. Fair control. Status: Chronic Qualifiers: Hypertension type: other secondary hypertension Qualified Code(s): I15.8 - Other secondary hypertension Additional A&P Information Nonspecific mesenteritis. No significant ascites on ultrasound or CT. Mild hypokalemia, supplement Hypernatremia. Improved with increased p.o. fluid intake. THC use Dehydration, resolved Hypokalemia. Persistent. Replace with potassium IV, and reevaluate with lab work this afternoon. SCDs for DVT prophylaxis Full code Needs placement secondary to persistent encephalopathy. Attestations Medical Necessity Statement*: Continue admission for close management of persistent encephalopathy, treatment of possible tick related illness, arrangements for posthospitalization rehabilitation. Coding Level of Care Code Acute Traffic Checker for [facility] Fwd Diagnoses Acute encephalopathy G93.40 TERRANCE (acute kidney injury) N17.9 Acute upper GI bleed K92.2 Macrocytic anemia D53.9 Thrombocytopenia D69.6 Alcoholism F10.20 Alcoholic cirrhosis K70.30 Ascites presence: without ascites Hypertension I15.8 Hypertension type: other secondary hypertension
[2021-07-25 13:09] LABS: Alanine Aminotransferase 32 U/L (0-41); Alkaline Phosphatase 273 IU/L (40-130); Anion Gap 11.1 (5-19); Aspartate Amino Transferase 37 U/L (0-40); Blood Urea Nitrogen 9 mg/dL (8-23); Calcium 8.4 mg/dL (8.5-10.5); Carbon Dioxide 25 mmol/L (22-29); Chloride 109 mmol/L (98-107); Globulin 3.1 g/dL (1.3-4.6); Glomerular Filtration Rate 136.5 mL/min (90-130); Glucose 87 mg/dL (65-115); Osmolality Calculated 292 mOsm/kg (285-295); Potassium 3.1 mmol/L (3.5-5.1); Sodium 142 mmol/L (136-145); Total Bilirubin 0.6 mg/dL (0.15-1.2); Total Protein 6.1 g/dL (6.6-8.7)
[2021-07-25 16:00] VITALS: BP 150/88; PULSE 99; TEMP 36.6; O2SAT 100
[2021-07-25 17:17] LABS: Glucose Point of Care 102 mg/dL (70-110)
[2021-07-25 20:00] VITALS: BP 149/89; PULSE 95; RESP 16; TEMP 36.7; O2SAT 100
[2021-07-25 20:09] LABS: Glucose Point of Care 93 mg/dL (70-110)
[2021-07-26] VITALS (7 sets, daily range): BP systolic 134–156; BP diastolic 81–91; PULSE 75–101; RESP 16; TEMP 36.4–36.8; O2SAT 98–100; BMI 22.8
[2021-07-26 05:33] LABS: Basophils # 0.1 10^3/uL (0.0-0.1); Basophils % 0.7 %; Eosinophils # 0.1 10^3/uL (0.0-0.8); Eosinophils % 1.8 %; Hematocrit 24.6 % (42.0-52.0); Lymphocytes # 1.4 10^3/uL (0.8-4.8); Lymphocytes % 19.4 %; Mean Corpuscular HGB Conc 32.5 g/dL (30.0-36.0); Mean Corpuscular Hemoglobin 33.9 pg (28.0-34.0); Mean Corpuscular Volume 104.2 fl (80-94); Mean Platelet Volume 9.9 fL (7.4-10.4); Monocytes # 0.5 10^3/uL (0.2-0.9); Monocytes % 6.1 %; Neutrophils # 5.26 10^3/uL (1.8-7.7); Neutrophils % 71.5 %; Nucleated Red Blood Cells % 0 %; Platelet Count 230 10^3/cmm (130-400); Red Blood Count 2.36 10^6/uL (4.1-5.3); Red Cell Distribution Width 18.3 % (12.1-15.1); White Blood Count 7.4 10^3/uL (4.0-10.0)
[2021-07-26 06:30] LABS: Glucose Point of Care 109 mg/dL (70-110)
--- NOTE | 2021-07-26 06:32 | PC.NURSE ---
Shift Summary: Patient rested in bed most of the night with no acute events. No change noted in patient during shift.
[2021-07-26] MEDS: multivitamin therapeutic Tablet 1 TAB PO (09:09)
[2021-07-26] MEDS: doxycycline 100 mg Tablet PO ×2 (09:09→17:50)
[2021-07-26] MEDS: famotidine 20 mg Tablet PO ×2 (09:09→17:50)
[2021-07-26] MEDS: amlodipine 5 mg Tablet PO (09:09)
[2021-07-26] MEDS: folic acid 1 mg Tablet PO (09:09)
[2021-07-26] MEDS: thiamine 100 mg Tablet PO (09:09)
[2021-07-26 11:12] LABS: Glucose Point of Care 98 mg/dL (70-110)
--- NOTE | 2021-07-26 11:48 | PC.NUTR ---
Nutrition note: Changed supplement from Ensure Clear to Ensure Plus per nurse request. Will follow up 07/27/21.
--- NOTE | 2021-07-26 12:51 | PC.NURSE ---
redness noted to groin. barrier cream applied.
--- NOTE | 2021-07-26 13:09 | P.DS_ITS ---
Discharge Providers Date of Admission: 07/13/21 03:30 Date of Discharge: July 26, 2021 Attending Provider at Admission: Lu Lin MD Attending Provider at Discharge: Hilario Alvarez MD Primary Care Provider: Tristan Flowers Diagnoses at Discharge Discharge Diagnosis (1) Acute encephalopathy: Status: Acute (2) TERRANCE (acute kidney injury): Status: Acute (3) Acute upper GI bleed: Status: Acute (4) Macrocytic anemia: Status: Acute (5) Thrombocytopenia: Status: Acute (6) Alcoholism: Status: Chronic (7) Alcoholic cirrhosis: Status: Chronic Qualifiers: Ascites presence: without ascites Qualified Code(s): K70.30 - Alcoholic cirrhosis of liver without ascites (8) Hypertension: Status: Chronic Qualifiers: Hypertension type: other secondary hypertension Qualified Code(s): I15.8 - Other secondary hypertension Reason for Visit Reason for Visit: WEAKNESS Hospital Course Hospital Course Daniel is a 60-year-old white male who originally presented on July 13. He presented with a history of coffee ground material in his NG, lethargy, significant alcohol intake, and history of alcoholic cirrhosis. Proton pump inhibitor was initiated, empiric antibiotic coverage with vancomycin and Zosyn, and CIWA protocol initiated. Thrombocytopenia worsened during his hospital stay as well as some renal insufficiency. Medication adjustments occurred but this was likely secondary to alcohol induced bone marrow suppression and the acute kidney injury responded to fluids. Medication was adjusted for this as well such as discontinue his vancomycin, changing to linezolid. Consultation with surgery occurred on July 15, and endoscopy on July 17. At that point gastritis with no active bleeding was found. He continued to improve throughout the rest of his hospitalization but also continued to have confusion consistent with encephalopathy. Later in his hospital course his tick titers came back and [place] spotted fever immunoglobulin G was elevated and doxycycline was initiated. However, this was not thought to likely be the cause of his encephalopathy. By the end of his hospital stay he was alert and cooperative b ut not oriented. Creatinine was 0.6 on July 25. Ammonia level was checked during his hospital stay 2 times and both were normal. Patient did receive significant antibiotics during his hospital course that were amended to only doxycycline within. Contemplation of SBP occurred with no significant ascites was present on admission. Gallbladder ultrasound demonstrated cholelithiasis with no evidence of cholecystitis. Renal ultrasound was unremarkable. Had MRI demonstrated no evidence of CVA, some mild atrophy was noted. CT scan of abdomen and pelvis when he came in demonstrated thickened mucosal wall distal stomach, nonspecific mesenteritis. Physical Exam Narrative: EXAM NARRATIVE: General exam no apparent distress Neck is supple Cardiovascular regular rate and rhythm Lungs clear Abdomen is soft Extremities no cyanosis clubbing or edema Urinary Catheter Management^: Martinez: Cath Placed During This Visit: yes, but has since been removed by the nurse Reason for Continuing Indwelling Catheter: Acute Urinary Retention or Obstruction Urinary Catheter Date of Insertion: 07/13/21 Urinary Catheter Time of Insertion: 02:00 Date Urinary Catheter Removed: 07/22/21 Time Urinary Catheter Discontinued: 06:17 Discharge Data Data Completed and Pending: Completed Studies During Hospitalization Category Date Time Status CT abdomen pelvis w con* [id number] Urge nt Cat Scan 07/13/21 01:[address] head wo con* 7 0450 Urgent Cat Scan 07/13/21 00:17 Completed XR chest 1V andry ble [id number] Urgent Exams 07/13/21 00:17 Completed MR head wo con* 7 0551 Routine MRI 07/14/21 10:14 Completed Pathology: Surgic al [PTH] Routine Pth 07/17/21 08:19 Completed US abdomen limite d [id number] Routine Ultrasound 07/16/21 10:46 Completed US gall bladder 7 6705 Routine Ultrasound 07/22/21 08:33 Completed US renal BI* [id number] Routine Ultrasound 07/18/21 20:20 Completed Pending at discharge Category Date Time Status Basic Metabolic P melania Routine Lab 07/26/21 08:03 Ordered Hemoglobin and He matocrit Routine Lab 07/26/21 08:04 Ordered Magnesium Routine Lab 07/26/21 08:03 Ordered SARS Covid-2 Anti gen Routine Lab 07/26/21 12:38 Uncollected MR head wo con* 7 0551 Routine MRI 07/14/21 10:15 Unverified Labs from last 24 hours 07/26/21 07/26/21 07/26/21 10:59 06:25 05:22 WBC 7.4 RBC 2.36 L Hgb 8.0 L Hct 24.6 L MCV 104.2 H MCH 33.9 MCHC 32.5 RDW 18.3 H Plt Count 230 MPV 9.9 Neut % (Auto) 71.5 Lymph % (Auto) 19.4 Mcduffie % (Auto) 6.1 Eos % (Auto) 1.8 Baso % (Auto) 0.7 Neut # (Auto) 5.26 Lymph # (Auto) 1.4 Mcduffie # (Auto) 0.5 Eos # (Auto) 0.1 Baso # (Auto) 0.1 Nucleated RBC % (a uto) 0 Nucleated RBCs # 0.0 Sodium Potassium Chloride Carbon Dioxide Anion Gap BUN Creatinine GFR Calculation Glucose POC Glucose 98 109 Calculated Osmolal ity Calcium Total Bilirubin AST ALT Alkaline Phosphata se Total Protein Albumin Globulin 07/25/21 07/25/21 07/25/21 20:06 17:09 12:16 WBC RBC Hgb Hct MCV MCH MCHC RDW Plt Count MPV Neut % (Auto) Lymph % (Auto) Mcduffie % (Auto) Eos % (Auto) Baso % (Auto) Neut # (Auto) Lymph # (Auto) Mcduffie # (Auto) Eos # (Auto) Baso # (Auto) Nucleated RBC % (a uto) Nucleated RBCs # Sodium 142 Potassium 3.1 L Chloride 109 H Carbon Dioxide 25 Anion Gap 11.1 BUN 9 Creatinine 0.6 L GFR Calculation 136.5 H Glucose 87 POC Glucose 93 102 Calculated Osmolal ity 292 Calcium 8.4 L Total Bilirubin 0.6 AST 37 ALT 32 Alkaline Phosphata se 273 H Total Protein 6.1 L Albumin 3.0 L Globulin 3.1 Vitals: Last Vital Signs Temp 97.6 F 07/26/21 12:00 Pulse 93 07/26/21 12:00 Resp 16 07/26/21 12:00 BP 136/91 07/26/21 12:00 Pulse Ox 98 07/26/21 12:00 Discharge Plan Discharge Patient Disposition: Xfer SNF Condition: Stable Prescriptions: New multivitamin with folic acid [Thera] 400 mcg Tablet 1 tab PO DAILY Qty: 30 RF: 0 thiamine mononitrate (vit B1) [Vitamin B-1 (mononitrate)] 100 mg Tablet 100 mg PO DAILY Qty: 30 RF: 0 amlodipine 5 mg Tablet 5 mg PO DAILY Qty: 30 RF: 0 famotidine 20 mg Tablet 20 mg PO BID Qty: 60 RF: 0 folic acid 1 mg Tablet 1 mg PO DAILY Qty: 30 RF: 0 doxycycline monohydrate 100 mg Tablet 100 mg PO BID Qty: 10 RF: 0 No Action No Known Home Medications RF: 0 Discharge Orders: Discharge Order (Routine); Ordered 07/26/21 Ordered By: Hilario Alvarez Referrals: Tristan Flowers FNP [Primary Care Provider] - 4-7 days Discharge Diet: As Directed Patient Instructions: GI Discharge Instructions Activity Restrictions/Additional Instructions: Dysphagia level 2 diet Follow-up with primary care provider at [facility] in the next 3 to 5 days CBC and CMP in 3 days Avoid all alcohol. Take all medicine as prescribed. Discharge Attestations Time Spent in Discharge Care*: greater than 30 min Quality Metrics Clinical Quality Measures During this hospital stay, did patient experience: None Coding Level of Care Code Acute Chg FW DC note Diagnoses Acute encephalopathy G93.40 TERRANCE (acute kidney injury) N17.9 Acute upper GI bleed K92.2 Macrocytic anemia D53.9 Thrombocytopenia D69.6 Alcoholism F10.20 Alcoholic cirrhosis K70.30 Ascites presence: without ascites Hypertension I15.8 Hypertension type: other secondary hypertension
[2021-07-26 13:56] LABS: SARS Covid-2 Antigen Negative (Negative)
[2021-07-26 14:02] LABS: Hematocrit 27.5 % (42.0-52.0); Hemoglobin 9.2 g/dL (11.7-16.6)
[2021-07-26 14:34] LABS: Blood Urea Nitrogen 5 mg/dL (8-23); Calcium 8.4 mg/dL (8.5-10.5); Carbon Dioxide 23 mmol/L (22-29); Chloride 104 mmol/L (98-107); Glucose 113 mg/dL (65-115); Magnesium 1.4 mg/dL (1.7-2.3); Osmolality Calculated 282 mOsm/kg (285-295); Sodium 137 mmol/L (136-145)
[2021-07-26 14:37] LABS: Anion Gap 13.1 (5-19); Potassium 3.1 mmol/L (3.5-5.1)
[2021-07-26] MEDS: potassium chloride ER 20 mEq Tablet 40 MEQ PO (14:52)
[2021-07-26] MEDS: magnesium sulfate premix 2 GM/50 ML PIGGYBACK IV (14:52)
--- NOTE | 2021-07-26 15:39 | PC.NURSE ---
Report called to [facility] [phone]. Report given to CHICHO Martinez. Patient waiting on ride to SNF. PCS faxed to [facility].
[2021-07-26 17:09] LABS: Glucose Point of Care 103 mg/dL (70-110)
[2021-07-26 20:28] LABS: Glucose Point of Care 95 mg/dL (70-110)
[2021-07-27 03:55] VITALS: BP 156/77; PULSE 90; RESP 16; TEMP 36.8; O2SAT 97
[2021-07-27 06:39] LABS: Glucose Point of Care 99 mg/dL (70-110)
--- NOTE | 2021-07-27 07:09 | PC.NURSE ---
Shift report: No acute events over night. Rested well.
--- NOTE | 2021-07-27 08:39 | PC.NURSE ---
patient taken to private vehicle via wheelchair and assisted into vehicle by and CHICHO Nova. Patient's seat belt put on patient in vehicle. patient's family transporting patient to SNF.
[2021-07-27 08:42] VITALS: BP 156/77; PULSE 90; RESP 16; TEMP 36.8; O2SAT 97
--- NOTE | 2021-07-27 13:40 | PC.NURSE ---
Report given to [facility], spoke with HEBER Rousseau
== END 2021-07-27 08:42 | disposition skilled nursing facility (03) | DRG 377 ==
LOC: ER 03:51 → MEDSURG 04:39
PROVIDERS: Internal Medicine; Surgery; Admitting Provider Hospitalist; Emergency Provider Emergency Medicine; PCP Nurse Practitioner Family; Visit Provider Internal Medicine
PROC: 0DJ08ZZ Inspection of Upper Intestinal Tract, Via Natural or Artificial Opening Endoscopic (ICD-10-PCS; CPT 43235; principal; 2021-07-17 08:00)
DX: K92.2 Gastrointestinal hemorrhage, unspecified (principal); G92 Toxic encephalopathy; J69.0 Pneumonitis due to inhalation of food and vomit; K65.2 Spontaneous bacterial peritonitis; F10.239 Alcohol dependence with withdrawal, unspecified; E87.2 Acidosis; D62 Acute posthemorrhagic anemia; N17.9 Acute kidney failure, unspecified; E46 Unspecified protein-calorie malnutrition; K65.4 Sclerosing mesenteritis; A77.0 Spotted fever due to Rickettsia rickettsii; K29.20 Alcoholic gastritis without bleeding; K70.30 Alcoholic cirrhosis of liver without ascites; I12.9 Hypertensive chronic kidney disease with stage 1 through stage 4 chronic kidney disease, or unspecified chronic kidney disease; N18.9 Chronic kidney disease, unspecified; D69.59 Other secondary thrombocytopenia; F12.90 Cannabis use, unspecified, uncomplicated; E87.6 Hypokalemia; E86.0 Dehydration; Z68.24 Body mass index [BMI] 24.0-24.9, adult; Z91.128 Patient's intentional underdosing of medication regimen for other reason; D75.89 Other specified diseases of blood and blood-forming organs; K80.20 Calculus of gallbladder without cholecystitis without obstruction; N14.1 Nephropathy induced by other drugs, medicaments and biological substances; T50.8X5A Adverse effect of diagnostic agents, initial encounter; K21.00 Gastro-esophageal reflux disease with esophagitis, without bleeding
CPT/HCPCS: 36415; 36416; 36430; 36600; 43239; 51702; 70450; 70551; 71045; 74177; 76705; 76770; 76857; 80048; 80053; 80306; 80307; 80500; 81001; 82009; 82140; 82274; 82550; 82607; 82746; 82803; 82962; 83010; 83605; 83615; 83690; 83735; 84100; 84145; 84443; 84484; 85014; 85018; 85025; 85045; 85610; 85651; 85730; 86140; 86618; 86666; 86757; 86850; 86900; 86920; 87040; 87426; 87641; 88305; 92523; 92526; 92610; 93005; 96361; 96372; 96374; 97161; 97166; 97530; 97535; 99285; C9113; J2060; J2405; J2543; J2704; J3370; J3411; J3475; J3480; J3490; J7030; J7050; P9016; P9047; Q9967

== ENCOUNTER → 2021-08-23 10:33 | Outpatient (BNVA) | payer OTHER, SELFPAY | PROVIDERS: PCP Registered Nurse; Visit Provider Registered Nurse | DX: I15.8 Other secondary hypertension (principal); R60.0 Localized edema | CPT/HCPCS: 80048; 83880 ==

== ENCOUNTER → 2021-11-23 15:05 | Outpatient (BNVA) | payer OTHER, SELFPAY | PROVIDERS: PCP Registered Nurse; Referring Provider Registered Nurse; Visit Provider Orthopaedic Surgery | DX: M48.061 Spinal stenosis, lumbar region without neurogenic claudication (principal); M54.16 Radiculopathy, lumbar region; M48.56XA Collapsed vertebra, not elsewhere classified, lumbar region, initial encounter for fracture; M51.36 Other intervertebral disc degeneration, lumbar region | CPT/HCPCS: 72110 ==

== ENCOUNTER 2022-07-01 08:11 | Day surgery (SDC) | payer OTHER, SELFPAY ==
[2022-06-30 12:34] VITALS: BMI 28.8
[2022-07-01] VITALS (12 sets, daily range): BP systolic 151–172; BP diastolic 81–131; PULSE 75–104; RESP 16–20; TEMP 36.1–36.8; O2SAT 95–100
--- NOTE | 2022-07-01 | SCC_ITS ---
Procedure: 1. L4/5 laminectomy with partial facetectomy 2. L5/S1 laminectomy with partial facetectomy 34.3 seconds of fluoroscopic guidance, for a cumulative dose of 17.58 mGy, was provided to Dr. Crane by the radiology department. C-arm images of the lumbar spine were saved for the patient's permanent record. [facility]
--- NOTE | 2022-07-01 | XR_ITS ---
WS: [id number] Lumbar spine, C-arm fluoroscopy, 07/01/2022 Clinical Data: decompression Comparison: None. Findings: Dr. Crane performed a lumbar decompression. XR/XR lumbar spine 2-3V* [id number] Impression: Lumbar decompression.
--- NOTE | 2022-07-01 07:18 | P.HP_ITS ---
Providers/Chief Complaint Primary Care Provider: THEA Smith Chief Complaint: LUMBAR SPINE DECOMPRESSION L4/5 L5/S1 88407/[id number] History of Present Illness Daniel Vázquez is a 61 year old male ?L4/5 GERARDO injection at [facility] received 12/14/2021.? He rates his pain? 8/10 at todays visit. He states the injections provided no relief. He states his lower back pain has been gradually getting worse. He reports weakness, numbness and tingling in his bilateral lower extremities. He presents to clinic with cane for ambulation. He states his back pain is not as bad as his lower extremity pain and numbness.? Review of Systems General: Reports: 10 or more systems reviewed and unremarkable except in HPI and below Const: Denies: fever(s) Eyes: Denies: eye discharge ENMT: Denies: throat pain Card: Denies: chest pain Resp: Denies: dyspnea GI: Denies: nausea or vomiting : Denies: urinary incontinence Musc: Reports: back pain and limited range of motion Skin/Breast: Denies: rash Neuro: Reports: numbness in extremities and weakness in extremities Psych: Denies: anxiety Endo: Denies: polyuria Yung/Lymph: Denies: easy bruising All/Imm: Denies: facial swelling Medications/Allergies Home Medications Medication Instructions Recorded Confirmed Last Taken Type folic acid 1 mg tablet 1 mg PO DAILY #30 tabs 07/26/21 06/30/22 Unknown Rx losartan 25 mg tablet 25 mg PO DAILY #90 tabs 09/16/21 06/30/22 Unknown Rx Allergies Allergy/AdvReac Type Severity Reaction Status Date / Time NKDA Allergy Unknown Unknown Uncoded 05/24/22 13:06 PFSH Acute PFSH: Medical History Alcoholic cirrhosis Alcoholism Hypertension Hyponatremia admission 2019 with sodium as low as 114 due to HCTZ and beer potomania Surgical History No pertinent past surgical history Family History Other Dementia Hypertension Rheumatoid arthritis Social History Smoking and tobacco status: light tobacco smoker smokeless tobacco Alcohol intake: current Adopted: No Caregiver/support person: No Lives independently: No Household members: children Current gender identity: Male Vitals/I&O/Wt Weight last 48 hrs Weight 190 lb Physical Exam Const: COMMON NORMALS: no acute distress and alert; negative for patient oriented x3 EXAM LIMITATIONS: altered mental status GENERAL APPEARANCE: cooperative and frail appearing ORIENTATION/CONSCIOUSNESS: Yes awake and Yes confused OTHER: Not back to baseline. HENMT: COMMON NORMALS: oropharynx normal Neck/C-Spine: COMMON NORMALS: no JVD Resp: COMMON NORMALS: normal respiratory effort and clear to auscultation bilaterally AUSCULTATION: clear to auscultation bilaterally Cardio: COMMON NORMALS: no JVD, regular rhythm, S1 normal heart sound present, S2 normal heart sound present and No murmurs present (Cardio) RHYTHM: regular rhythm HEART SOUNDS: S1 normal heart sound present and S2 normal heart sound present GI: COMMON NORMALS: Soft to palpation INSPECTION: Yes normal to inspection PALPATION: Yes Soft to palpation and Yes Tenderness to palpation present (GI) (mildly) Extremity: COMMON NORMALS: no joint enlargement and no pedal edema Neuro: COMMON NORMALS: moves all extremities; negative for patient oriented x3 SENSORIUM/ORIENTATION: Yes alert SPEECH: Other neuro speech findings (Minimal dysarthria. Loses train of thought.) MOTOR EXAM: Normal motor muscle tone present throughout, Abnormal motor strength present (Improving, 3 throughout) and Other motor observations present (No myoclonus) Skin: COMMON NORMALS: no rashes or lesions noted GENERAL SKIN EXAM: no rashes or lesions noted Urinary Catheter Management: Martinez: Cath Placed During This Visit: yes, but has since been removed by the nurse Reason for Continuing Indwelling Catheter: Acute Urinary Retention or Obstruction Urinary Catheter Date of Insertion: 07/13/21 Urinary Catheter Time of Insertion: 02:00 Date Urinary Catheter Removed: 07/22/21 Time Urinary Catheter Discontinued: 06:17 A&P Assessment and plan (1) Lumbar stenosis with neurogenic claudication: L4/5 and L5/S1 MIS decompression Status: Acute Attestations Medical Necessity Statement*: failed conservative tx Coding Level of Care Code 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
--- NOTE | 2022-07-01 08:30 | ANES.PREANE2 ---
Pre-Anesthetic Assessment Height/Weight: Height 1.73 m Weight 86.183 kg Preop Diagnosis: Lumbar stenosis with neurogenic claudication Operation Date: 07/01/22 10:05 Proposed Procedures p Lumbar Spine Decompression wants to stand on the left side(Bilateral) - Jez Crane DO Familial anesthetic complications: none Was Beta Nathaly taken within 24 hours: N/A Was Clonidine taken within 24 hours: N/A Last intake: Nothing to eat/drink since 06/30/22 Last chewing tobacco at 0700 07/01/22, did not swallow tobacco Social Alcohol and Tobacco Exam alert, oriented x 3, clear to auscultation bilaterally and regular rate & rhythm Airway Submandibular: within normal limits Cervical ROM: within normal limits Mallampati: Class II Dentition: false Pulmonary Denies KAMALJIT, COPD CV/HEM METS > 4 Denies arrhythmia, CAD, [place] hx Macrocytic anemia Hepatic Cirrhosis (Alchoholic cirrhosis ) GI Gastroesophageal Reflux Disease (Well controlled ) Metabolic None reported Musc/skel Lower Back Pain Compression fx L2 Lumbar stenosis Neuropsych Neuropathy (Tingling in hands and feet ) Lumbar stenosis with claudication Anesthetic Plan ASA status: 3 (61 year old male with hx of alchohol abuse, tobacco use, neuropathy, and liver cirrhosis ) Anesthesia: Anesthesia Evaluation and General Other: We discussed risk and benefits of general anesthesia including PONV, sore throat (sometimes severe), corneal abrasion, positioning and peripheral nerve injuries, life threatening allergic reaction, post operative ICU admission requiring prolonged intubation, aspiration, stroke, heart attack, , and rare incidences of recall. Patient consents to proceed with general anesthesia. Risk of > 500 ml blood loss (7ml/kg in children): No Medications/Allergies Home Medications Medication Instructions Recorded Confirmed Last Taken Type folic acid 1 mg tablet 1 mg PO DAILY #30 tabs 07/26/21 06/30/22 06/30/22 Rx losartan 25 mg tablet 25 mg PO DAILY #90 tabs 09/16/21 06/30/22 06/30/22 Rx Allergies Allergy/AdvReac Type Severity Reaction Status Date / Time NKDA Allergy Unknown Unknown Uncoded 05/24/22 13:06 [facility] Anesthesia Medical History Alcoholic cirrhosis Alcoholism Hypertension Hyponatremia admission 2018 with sodium as low as 114 due to HCTZ and beer potomania Surgical History No pertinent past surgical history Family History Other Dementia Hypertension Rheumatoid arthritis Social History Smoking and tobacco status: light tobacco smoker smokeless tobacco Alcohol intake: current Adopted: No Caregiver/support person: No Lives independently: No Household members: children Current gender identity: Male Data Anesthesia Cardiac Studies: No Data to Display
[2022-07-01] MEDS: sodium chloride 0.9% 1,000 ML 30 ML IV (08:57)
[2022-07-01 09:42] LABS: Blood Urea Nitrogen 7 mg/dL (8-23); Calcium 8.9 mg/dL (8.5-10.5); Carbon Dioxide 24 mmol/L (22-29); Chloride 98 mmol/L (98-107); Glomerular Filtration Rate 113.9 mL/min (90-130); Glucose 124 mg/dL (65-115); Osmolality Calculated 281 mOsm/kg (285-295); Sodium 136 mmol/L (136-145)
[2022-07-01 09:50] LABS: Anion Gap 18.5 (5-19); Potassium 4.5 mmol/L (3.5-5.1)
[2022-07-01] MEDS: ceFAZolin 2,000 MG in sodium chloride 0.9% (plus) 50 ML 100 MG IV (10:34)
--- NOTE | 2022-07-01 12:33 | PM.OP ---
Operative Report Date of procedure: July 01, 2022 Pre-op diagnosis: Preop Diagnosis Lumbar stenosis with neurogenic claudication Post-op diagnosis: same Procedure done: 1. L4/5 laminectomy with partial facetectomy 2. L5/S1 laminectomy with partial facetectomy Surgeon: Jez Crane Estimated blood loss (mL): 10 Procedure: 1. L4/5 laminectomy with partial facetectomy 2. L5/S1 laminectomy with partial facetectomy Patient is brought to the operative suite. After undergoing anesthesia they are placed in the prone position. All areas of impingement are well padded. Patient is then prepped and draped in the normal sterile fashion. A skin incision is made over the L4/5 level. This is confirmed under c-arm guidance. A series of dilators are passed and the tubular retractor is docked on the L4 lamina. A bovie is used to clear the soft tissue off the lamina and the L 4/5 facet joint. A high speed orlin is then used to perform the laminectomy and take down the medial aspect of the L 4/5 facet joint. A kerrison rongeure was then used to take down the remaining lamina and smooth the edged of the laminectomy up to the point where the ligamentum flavum attaches. Attention was then brought to the medial aspect of the facet joint. The remaining medial aspect of the superior and inferior aspect of the facet joint were taken down with the kerrison from the pedicle of L4 to L 5. The facet joint had significant hypertrophy. Attention was then brought to the Ligamentum Flavum. The ligament was taken down from the lamina of L4 to L5 and out medially to the remaining facet joint. The ligament was thick. The dura was then exposed. The dura was in good repair. The L4 nerve was then traced with a curette out the L4/5 foramen and found to be adequately decompressed. The L5 nerve was traced with a curette around the L5 pedicle. The lateral recess was opened with a kerrison helping to further decompress the L5 nerve. The tubular retractor was then tilted to the contralateral side. The bovie was used to take down the soft tissue on the spinous process. The high speed orlin was used to take down the spinous process and then the contralateral lamina of L4. The kerrison rongeur was used to take down the remaining lamina to the point where the ligamentum flavum attached and the ligamentum flavum was taken down from L4 to L5. The kerrison rongeur was then used to reach across and take down the medial aspect of the contralateral L4/5 facet joint.The currete was used to trace the contralateral L4 nerve out the L4/5 foramen to make sure it was decompressed adequatesly and the L5 was traced around the L5 pedicle. The lateral recess was opened further with the kerrison to ensure the L5 is adequately decompressed. Wound is then irrigated copiously with saline and surgiflo is used to stop any bleeding. The tubular retractor is removed and A skin incision is made over the L5/S1 level. This is confirmed under c-arm guidance. A series of dilators are passed and the tubular retractor is docked on the L5 lamina. A bovie is used to clear the soft tissue off the lamina and the L 5/S1 facet joint. A high speed orlin is then used to perform the laminectomy and take down the medial aspect of the L 5/S1 facet joint. A kerrison rongeure was then used to take down the remaining lamina and smooth the edged of the laminectomy up to the point where the ligamentum flavum attaches. Attention was then brought to the medial aspect of the facet joint. The remaining medial aspect of the superior and inferior aspect of the facet joint were taken down with the kerrison from the pedicle of L5 to S1. The facet joint had significant hypertrophy. Attention was then brought to the Ligamentum Flavum. The ligament was taken down from the lamina of L5 to S1 and out medially to the remaining facet joint. The ligament was thick. The dura was then exposed. The dura was in good repair. The L5 nerve was then traced with a curette out the L5/S1 foramen and found to be adequately decompressed. The S1 nerve was traced with a curette around the S1 pedicle. The lateral recess was opened with a kerrison helping to further decompress the S1 nerve. The tubular retractor was then tilted to the contralateral side. The bovie was used to take down the soft tissue on the spinous process. The high speed orlin was used to take down the spinous process and then the contralateral lamina of L5. The kerrison rongeur was used to take down the remaining lamina to the point where the ligamentum flavum attached and the ligamentum flavum was taken down from L5 to s1. The kerrison rongeur was then used to reach across and take down the medial aspect of the contralateral L5/s1 facet joint.The currete was used to trace the contralateral L5 nerve out the L5/S1 foramen to make sure it was decompressed adequatesly and the S1 was traced around the s1 pedicle. The lateral recess was opened further with the kerrison to ensure the S1 is adequately decompressed. Wound is then irrigated copiously with saline and surgiflo is used to stop any bleeding. The tubular retractor is removed and the wound is closed with vicryl and monocryl suture. Glue is then used to protect the wound. A sterile dressing is then placed. Patient was then placed in the supine position and transferred to the PACU in stable condition.
[2022-07-01] MEDS: HYDROcodone-acetaminophen 5-325 mg Tablet 1 TAB PO ×2 (13:24)
--- NOTE | 2022-07-01 13:30 | ANE.PACU2 ---
Inpatient post-anesthesia follow up: Airway intact: Yes Vital signs: Temperature 97 F Pulse Rate 81 Respiratory Rate 18 Blood Pressure 151/81 Pulse Oximetry 96 Oxygen Delivery Me thod Room Air Oxygen Flow Rate 3 Fraction of Inspir ed Oxygen Hydration adequate: Yes Nausea and vomiting: No Pain level: 5 Mental status: Baseline
== END 2022-07-01 13:45 | disposition home or self-care (01) ==
PROVIDERS: Anesthesiology; PCP Registered Nurse; Visit Provider Orthopaedic Surgery
PROC: (CPT 63005; principal; 2022-07-01 10:05)
DX: M48.062 Spinal stenosis, lumbar region with neurogenic claudication (principal); F17.220 Nicotine dependence, chewing tobacco, uncomplicated; K21.9 Gastro-esophageal reflux disease without esophagitis; I10 Essential (primary) hypertension
CPT/HCPCS: 63047; 63048; 36415; 72100; 76000; 80048; J1100; J2370; J2405; J2704; J2710; J3010; J3490; J7030

== ENCOUNTER 2023-05-09 16:04 | Inpatient (IN) | payer OTHER, SELFPAY ==
[2023-05-09] VITALS (7 sets, daily range): BP systolic 78–123; BP diastolic 58–89; PULSE 95–108; RESP 12–19; TEMP 36.4; O2SAT 92–97; BMI 25.8
--- NOTE | 2023-05-09 16:39 | W.ED.WEAKNES ---
HPI - Weakness General: Chief complaint: Weakness Stated complaint: Weakness Time Seen by Provider: 05/09/23 16:25 Source: EMS Mode of arrival: EMS Limitations: altered mental status History of Present Illness: This 62-year-old male with a history of hypertension and lumbar spinal stenosis was brought in by EMS for evaluation after the daughter found him at home covered with feces. Patient is very lethargic and unable to provide any useful history. He could barely tell me his name and date of . He is confused, hypotensive and tachycardic. Report obtained from EMS is scanty. There is no family here to provide additional history. Review of Systems General: Reports: ROS unobtainable due to mental status PFSH ED PFSH: Medical History Alcoholic cirrhosis Alcoholism Hypertension Hyponatremia admission 2019 with sodium as low as 114 due to HCTZ and beer potomania Surgical History No pertinent past surgical history Family History Other Dementia Hypertension Rheumatoid arthritis Social History Smoking and tobacco status: never smoked Alcohol intake: current Substance/Drug Use: never Adopted: No Caregiver/support person: No Lives independently: No Household members: children Do you think of yourself as: Straight/Heterosexual Current gender identity: Male Physical Exam Const: GENERAL APPEARANCE: disheveled, lethargic, ill appearing and frail appearing ORIENTATION/CONSCIOUSNESS: Yes lethargic OTHER: Lethargic and unable to provide any history. Oriented to person only. HENMT: COMMON NORMALS: normocephalic HEAD & SCALP: normocephalic Eye: COMMON NORMALS: EOMs intact bilaterally Neck/C-Spine: COMMON NORMALS: full ROM and supple Chest: COMMONS NORMALS: normal inspection of the chest Resp: COMMON NORMALS: normal respiratory effort, No retractions, No use of accessory muscles and clear to auscultation bilaterally AUSCULTATION: clear to auscultation bilaterally Cardio: COMMON NORMALS: regular rhythm RATE: tachycardic RHYTHM: regular rhythm GI: COMMON NORMALS: Normal to inspection, nondistended, normoactive bowel sounds present and non-tender : COMMON NORMALS: Yes no CVA tenderness BLADDER/KIDNEY EXAM: Yes no CVA tenderness Back/Pelvis: COMMON NORMALS: no CVA tenderness and no thoracic nor lumbar tenderness Extremity: GENERAL: Yes normal exam except as noted Neuro: COMMON NORMALS: no focal motor deficits SENSORIUM/ORIENTATION: Yes lethargic Psych: COMMON NORMALS: mental status grossly normal and cooperative Course Reevaluation(s): Reevaluation #1: I was able to get hold of patient's son (Dheeraj) who tells me that patient is a chronic alcoholic and would occasionally become hyponatremic, become confused and deconditoned. Son notes that patient has gone through these cycles multiple times in the past. He does not eat much, drinks all the time and refuses to take care of himself. He could go for weeks without showering. Because of his history of spinal stenosis, patient has poor ambulation and mostly stays around the house. The last time Dheeraj saw him was about a week ago and at that time he was not eating much and was not taking care of himself either. Consultations: Consultation #1: Case discussed with Dr. Medel who accepted patient for admission. Vital Signs: Vital signs: Vital Signs Temperature 97.5 F L 05/09/23 16:05 Pulse Rate 102 H 05/09/23 20:38 Respiratory Rate 17 05/09/23 20:38 Blood Pressure 101/61 05/09/23 20:38 Pulse Oximetry 94 05/09/23 20:38 Oxygen Delivery Me thod Room Air 05/09/23 21:00 MDM - Weakness Medical Decision Making Medical decision making: Patient was brought in after daughter found him on the couch with urine and feces all over him. He is hypotensive and altered. He is unable to provide any useful history. Work-up reveals acute renal failure with hyponatremia and hypokalemia. His white count is markedly elevated. IV fluids were given and blood cultures drawn. IV antibiotics started. He will be admitted for further evaluation and treatment. Case discussed with Dr. Medel who accepted patient for admission. Lab Data 05/09/23 16:21 05/09/23 16:21 Laboratory Results WBC 25.4 10^3/uL (4.0-10.0) H 05/09/23 16:21 RBC 4.15 10^6/uL (4.1-5.3) 05/09/23 16:21 Hgb 15.2 g/dL (11.7-16.6) 05/09/23 16:21 Hct 42.2 % (42.0-52.0) 05/09/23 16:21 MCV 101.7 fl (80-94) H 05/09/23 16:21 MCH 36.6 pg (28.0-34.0) H 05/09/23 16:21 MCHC 36.0 g/dL (30.0-36.0) 05/09/23 16:21 RDW 15.6 % (12.1-15.1) H 05/09/23 16:21 Plt Count 177 10^3/cmm (130-400) 05/09/23 16:21 MPV 10.8 fL (7.4-10.4) H 05/09/23 16:21 Neut % (Auto) 92.0 % 05/09/23 16:21 Lymph % (Auto) 3.4 % 05/09/23 16:21 Schuyler % (Auto) 2.6 % 05/09/23 16:21 Eos % (Auto) 0.2 % 05/09/23 16:21 Baso % (Auto) 0.6 % 05/09/23 16:21 Neut # (Auto) 23.38 10^3/uL (1.8-7.7) H 05/09/23 16:21 Lymph # (Auto) 0.9 10^3/uL (0.8-4.8) 05/09/23 16:21 Schuyler # (Auto) 0.7 10^3/uL (0.2-0.9) 05/09/23 16:21 Eos # (Auto) 0.0 10^3/uL (0.0-0.8) 05/09/23 16:21 Baso # (Auto) 0.1 10^3/uL (0.0-0.1) 05/09/23 16:21 Nucleated RBC % (auto) 0.1 % 05/09/23 16:21 Nucleated RBCs # 0.0 /100WBC 05/09/23 16:21 PT 12.70 SECONDS (12.1-14.9) 05/09/23 16:21 INR 0.93 (0.8-1.2) 05/09/23 16:21 Sodium 127 mmol/L (136-145) L 05/09/23 16:21 Potassium 2.9 mmol/L (3.5-5.1) L 05/09/23 16:21 Chloride 60 mmol/L (98-107) L 05/09/23 16:21 Carbon Dioxide 41 mmol/L (22-29) H 05/09/23 16:21 Anion Gap 28.9 (5-19) H 05/09/23 16:21 BUN 110 mg/dL (8-23) H* D 05/09/23 16:21 Creatinine 5.1 mg/dL (0.7-1.2) H 05/09/23 16:21 GFR Calculation 11.5 mL/min (90-130) L 05/09/23 16:21 Glucose 134 mg/dL (65-115) H 05/09/23 16:21 Calculated Osmolality 301 mOsm/kg (285-295) H 05/09/23 16:21 Lactic Acid 4.0 mmol/L (0.5-2.2) H 05/09/23 16:21 Calcium 8.8 mg/dL (8.5-10.5) 05/09/23 16:21 Total Bilirubin 1.7 mg/dL (0.15-1.2) H 05/09/23 16:21 AST 32 U/L (0-40) 05/09/23 16:21 ALT 17 U/L (0-41) 05/09/23 16:21 Alkaline Phosphatase 109 U/L (40-130) 05/09/23 16:21 Total Protein 8.8 g/dL (6.6-8.7) H 05/09/23 16:21 Albumin 4.2 g/dL (3.5-5.2) 05/09/23 16:21 Globulin 4.6 g/dL (1.3-4.6) 05/09/23 16:21 Lipase 77 U/L (13-60) H 05/09/23 16:21 EKG Data EKG 1: Interpretation: 1725 hrs.: A-fib, rate of 108, normal axis, normal QRS, no STEMI. Critical Care Time Critical Care Time: Critical Care Time: Yes Total Critical Care Time: 56 Attestation: Patient is tachycardic, hypotensive and altered. He required 2 peripheral IV lines, IV bolus, blood cultures and IV antibiotics. Blood tests revealed acute renal failure with hyponatremia and hypokalemia. He will be admitted to [facility]. Discharge Plan Discharge Patient Disposition: Admitted As Inpatient Admit Provider: Yovana Gambino Clinical Impression: Sepsis, Sepsis associated hypotension, Acute hypokalemia, Acute renal failure (ARF), Chronic hyponatremia Condition: Stable Coding Level of Care Code ED Surveillance Inspector for Ivett Hennessy
--- NOTE | 2023-05-09 16:44 | XRR_ITS ---
PROCEDURE INFORMATION: Exam: XR Chest Exam date and time: 05/09/2023 4:55 PM Age: 62 years old Clinical indication: Other: Weakness; Additional info: Hypotension TECHNIQUE: Imaging protocol: Radiologic exam of the chest. Views: 1 view. COMPARISON: CR XR chest 1V portable [id number] 07/13/2021 12:46 AM FINDINGS: Lungs: Unremarkable. No consolidation. Pleural spaces: Unremarkable. No pleural effusion. No pneumothorax. Heart/Mediastinum: Unremarkable. No cardiomegaly. Bones/joints: Unremarkable. XR/XR chest 1V portable [id number] IMPRESSION: No acute findings.
[2023-05-09 17:04] LABS: Basophils # 0.1 10^3/uL (0.0-0.1); Basophils % 0.6 %; Eosinophils % 0.2 %; Hematocrit 42.2 % (42.0-52.0); Hemoglobin 15.2 g/dL (11.7-16.6); Lymphocytes # 0.9 10^3/uL (0.8-4.8); Lymphocytes % 3.4 %; Mean Corpuscular Hemoglobin 36.6 pg (28.0-34.0); Mean Corpuscular Volume 101.7 fl (80-94); Mean Platelet Volume 10.8 fL (7.4-10.4); Monocytes # 0.7 10^3/uL (0.2-0.9); Monocytes % 2.6 %; Neutrophils # 23.38 10^3/uL (1.8-7.7); Nucleated Red Blood Cells % 0.1 %; Platelet Count 177 10^3/cmm (130-400); Red Blood Count 4.15 10^6/uL (4.1-5.3); Red Cell Distribution Width 15.6 % (12.1-15.1); White Blood Count 25.4 10^3/uL (4.0-10.0)
[2023-05-09] MEDS: sodium chloride 0.9% 1,000 ML 999 ML IV ×4 (17:05→23:18)
[2023-05-09 17:54] LABS: INR 0.93 (0.8-1.2)
[2023-05-09 18:02] LABS: Alanine Aminotransferase 17 U/L (0-41); Albumin Level 4.2 g/dL (3.5-5.2); Alkaline Phosphatase 109 U/L (40-130); Calcium 8.8 mg/dL (8.5-10.5); Chloride 60 mmol/L (98-107); Globulin 4.6 g/dL (1.3-4.6); Glomerular Filtration Rate 11.5 mL/min (90-130); Glucose 134 mg/dL (65-115); Lipase 77 U/L (13-60); Sodium 127 mmol/L (136-145); Total Bilirubin 1.7 mg/dL (0.15-1.2); Total Protein 8.8 g/dL (6.6-8.7)
[2023-05-09 18:09] LABS: Osmolality Calculated 301 mOsm/kg (285-295)
[2023-05-09 18:10] LABS: Anion Gap 28.9 (5-19); Aspartate Amino Transferase 32 U/L (0-40); Carbon Dioxide 41 mmol/L (22-29)
[2023-05-09 18:13] LABS: Blood Urea Nitrogen 110 mg/dL (8-23); Potassium 2.9 mmol/L (3.5-5.1)
[2023-05-09] MEDS: vancomycin 1,000 MG in sodium chloride 0.9% 250 ML 250 MG IV (18:30)
[2023-05-09] MEDS: cefepime 2,000 MG in sodium chloride 0.9% (plus) 50 ML 100 MG IV (18:31)
[2023-05-09 19:26] LABS: Reflex Lactate Order REFLEX LACTIC ORDERD
[2023-05-09 20:15] LABS: Alcohol Level < 10 mg/dL (0-10)
--- NOTE | 2023-05-09 21:40 | PC.NURSE ---
Spoke with Dr. Gambino regarding patient with bp 87/[address] Gambino gave orders for 2L bolus of NS and start fluids at 100ml/hr after that.
--- NOTE | 2023-05-09 23:01 | PC.NURSE ---
Spoke to regarding low potassium of 2.9 no replacement given in ED. ordered IV potassium X 2 doses.
[2023-05-09] MEDS: potassium chloride premix 100 ML 25 MEQ IV (23:19)
--- NOTE | 2023-05-09 23:21 | PM.HP ---
Providers/Chief Complaint Admitting Physician: Yovana Gambino MD Primary Care Provider: THEA Smith Chief Complaint: altered mental status History of Present Illness Daniel Vázquez is a 62 year old male with h/o chronic alcoholism, alcoholic cirrhosis, HTN, acute encephalopathy, lumbar spinal stenosis, non compliant behavior, LE edema was BIB EMS after daughter found him unresposive at home and covered with feces. As per the ER, he was unresponsive on arrival and found to be hypotensive, tachycardic and with WBC of 25, Creatinine of 5.1. As per the ER physician he was able to get hold of patient's son (Dheeraj) who tells him that patient is a chronic alcoholic and would occasionally become hyponatremic, become confused and deconditoned.? Son notes that patient has gone through these cycles multiple times in the past.? He does not eat much, drinks all the time and refuses to take care of himself.? He could go for weeks without showering. Because of his history of spinal stenosis, patient has poor ambulation and mostly stays around the house.? The last time Dheeraj saw him was about a week ago and at that time he was not eating much and was not taking care of himself either. On being further evaluated after IV fluids, he was still drowsy, not oriented, hence was unable to obtain history. Review of Systems General: Reports: ROS unobtainable due to mental status Medications/Allergies Home Medications Medication Instructions Recorded Confirmed Last Taken Type folic acid 1 mg tablet 1 mg PO DAILY #30 tabs 07/26/21 08/23/22 06/30/22 Rx hydrocodone 5 mg-acetaminophen 325 1 - 2 tab PO .Q4-6H #40 tabs 07/01/22 08/23/22 Unknown Rx mg tablet losartan 50 mg tablet See Rx Instructions .Route 02/03/23 Unknown Rx .COMPLEX #90 tabs Allergies Allergy/AdvReac Type Severity Reaction Status Date / Time NKDA Allergy Unknown Unknown Uncoded 05/09/23 16:12 PFSH Acute PFSH: Medical History Alcoholic cirrhosis Alcoholism Hypertension Hyponatremia admission 2018 with sodium as low as 114 due to HCTZ and beer potomania Surgical History No pertinent past surgical history Family History Other Dementia Hypertension Rheumatoid arthritis Social History Smoking and tobacco status: never smoked Alcohol intake: current Substance/Drug Use: never Adopted: No Caregiver/support person: No Lives independently: No Household members: children Do you think of yourself as: Straight/Heterosexual Current gender identity: Male Vitals/I&O/Wt Last Vital Signs Temp 97.5 F L 05/09/23 16:05 Pulse 99 05/09/23 21:37 Resp 17 05/09/23 21:37 BP 87/59 05/09/23 21:37 Pulse Ox 94 05/09/23 20:38 O2 Del Method Room Air 05/09/23 21:37 05/09/23 05/09/23 05/10/23 14:59 22:59 06:59 Intake Total 1599.7 / 1599.7 Balance 1599.7 / 1599.7 Weight last 48 hrs Weight 77.111 kg Physical Exam Narrative: awake, but not alert, oriented to self, disheveled, frail Chest clear to ascultation B/L CVS S1S2 normal, no murmurs heard Abd soft NT ND normal bowel sounds Ext b/l ankle edema, skin lacerations and ecchymosis seen. Urinary Catheter Management: Martinez: Cath Placed During This Visit: yes Urinary Catheter Date of Insertion: 05/09/23 Urinary Catheter Time of Insertion: 19:47 Data 05/09/23 16:21 05/09/23 16:21 CXR: My impression: no acute cardio-pulmonary abnormalities. EKG 1: My Interpretation: normal A&P Assessment and plan (1) Acute hypokalemia: likely secondary to alcoholic ketoacidosis (2) Acute renal failure (ARF): secondary to alcoholic ketoacidosis and dehydration. (3) Fluctuating mental status: seconday to alcoholic encephalopathy (4) Acute encephalopathy: due to alcoholic intoxication and cirrhosis (5) Alcoholic cirrhosis: Qualifiers: Ascites presence: without ascites Qualified Code(s): K70.30 - Alcoholic cirrhosis of liver without ascites (6) Altered mental status: Qualifiers: Altered mental status type: unspecified Qualified Code(s): R41.82 - Altered mental status, unspecified Plan Admit to [facility] will give IV pantoprazole 40mg bid po MVI daily PO thiamine 100mg daily PO folate daily Serial neuro exams IV fluids normal saline at 100ml/hr recheck labs in am Leucocytosis with left shift likely secondary to alcohol intoxication, no signs of active infection.but will give IV cefepime 1g q12h Attestations Medical Necessity Statement*: altered mental status and hemodynamically unstable Time Spent in Patient Care: 30 Coding Level of Care Code 91548 Diagnoses Acute hypokalemia E87.6 Acute renal failure (ARF) N17.9 Fluctuating mental status R41.82 Acute encephalopathy G93.40 Alcoholic cirrhosis K70.30 Ascites presence: without ascites Altered mental status R41.82 Altered mental status type: unspecified Time Spent (min) 30
[2023-05-10] VITALS (38 sets, daily range): BP systolic 78–145; BP diastolic 46–98; PULSE 75–99; RESP 11–25; TEMP 36.2; O2SAT 86–100
[2023-05-10] MEDS: pantoprazole 40 mg SDV IVP ×3 (00:42→22:40)
[2023-05-10] MEDS: sodium chloride 0.9% 1,000 ML 100 ML IV (00:43)
[2023-05-10 05:41] LABS: Basophils # 0.1 10^3/uL (0.0-0.1); Basophils % 0.3 %; Eosinophils % 0.1 %; Hematocrit 31.9 % (42.0-52.0); Hemoglobin 11.2 g/dL (11.7-16.6); Lymphocytes # 0.8 10^3/uL (0.8-4.8); Lymphocytes % 3.8 %; Mean Corpuscular HGB Conc 35.1 g/dL (30.0-36.0); Mean Corpuscular Hemoglobin 36.4 pg (28.0-34.0); Mean Corpuscular Volume 103.6 fl (80-94); Mean Platelet Volume 9.9 fL (7.4-10.4); Monocytes # 0.6 10^3/uL (0.2-0.9); Monocytes % 2.8 %; Neutrophils # 18.23 10^3/uL (1.8-7.7); Nucleated Red Blood Cells % 0 %; Platelet Count 118 10^3/cmm (130-400); Red Blood Count 3.08 10^6/uL (4.1-5.3); Red Cell Distribution Width 15.8 % (12.1-15.1); White Blood Count 19.8 10^3/uL (4.0-10.0)
[2023-05-10 06:01] LABS: Lactic Acid level (Lactate) 1.6 mmol/L (0.5-2.2)
[2023-05-10 06:03] LABS: Ammonia 15 umol/L (16-60)
[2023-05-10 06:13] LABS: Alanine Aminotransferase 14 U/L (0-41); Albumin Level 3.1 g/dL (3.5-5.2); Alkaline Phosphatase 80 U/L (40-130); Anion Gap 19.8 (5-19); Aspartate Amino Transferase 23 U/L (0-40); Calcium 7.5 mg/dL (8.5-10.5); Carbon Dioxide 36 mmol/L (22-29); Chloride 79 mmol/L (98-107); Globulin 3.2 g/dL (1.3-4.6); Glomerular Filtration Rate 15.6 mL/min (90-130); Glucose 104 mg/dL (65-115); Magnesium 1.5 mg/dL (1.7-2.3); NT Pro B Type Natriuretic Pept 1738 pg/mL (0-125); Osmolality Calculated 306 mOsm/kg (285-295); Phosphorus 3.2 mg/dL (2.5-4.5); Sodium 132 mmol/L (136-145); Total Protein 6.3 g/dL (6.6-8.7)
[2023-05-10 06:17] LABS: Blood Urea Nitrogen 102 mg/dL (8-23); Potassium 2.8 mmol/L (3.5-5.1)
--- NOTE | 2023-05-10 06:24 | PC.NURSE ---
Spoke with regarding patients critical labs of BUN 102 nd Potassium 2.8. ordered to give 2nd dose of IV potassium now and start daily PO potassium 40MEQ x 4 doses and recheck potassium at noon today.
[2023-05-10] MEDS: cefepime 1,000 MG in sodium chloride 0.9% (plus) 50 ML 100 MG IV (06:25)
--- NOTE | 2023-05-10 07:52 | PC.NURSE ---
Patient pulled out left ac IV. He is unable to tell me his name, date of , and told me he believes he is in [place]. When nurse asked him to pull himself up in bed he mimed doing it.
[2023-05-10] MEDS: potassium chloride ER 20 mEq Tablet 40 MEQ PO (08:47)
[2023-05-10] MEDS: thiamine 100 mg Tablet PO (08:47)
[2023-05-10] MEDS: folic acid 1 mg Tablet PO (08:47)
[2023-05-10] MEDS: multivitamin therapeutic Tablet 1 TAB PO (08:47)
--- NOTE | 2023-05-10 08:50 | CT_ITS ---
WS: [id number] CT CHEST, ABDOMEN AND PELVIS NONCONTRAST. HISTORY: Acute renal insufficiency, possible aspiration pneumonia. TECHNIQUE: Contiguous 5 mm axial imaging performed through the chest, abdomen and pelvis without IV c ontrast, oral contrast has not been provided. Coronal and sagittal reformats chest. Coronal and sagit marianela reformats through the abdomen and pelvis. All CT scans at [facility] use at least one of these dose optimization techniques: automated exposure control; mA and/or kV adjustment per patient s ize (includes targeted exams where dose is matched to clinical indication); or iterative reconstructi on. CONTRAST: None DLP: 598.22 mGy.cm COMPARISON: 07/13/[address]: Vague area of mild increased attenuation and haziness at the RIGHT lung base may be an area of pneumonitis. There is very mild pleural thickening or atelectasis along the confluence of the RIG HT fissures. Benign granuloma LEFT upper lobe. Mild atherosclerosis aorta. Normal size pulmonary júnior ry. Heart is normal size. No adenopathy. Straightening of the thoracic spine. No destructive bone les ions. Abdomen CT: Normal size liver and spleen. Cholelithiasis without acute cholecystitis. Normal size johnson creas. Normal bile duct and adrenal glands. Mild atherosclerosis aorta with no aneurysm. Mild bilater al perinephric stranding with no obstruction. LEFT kidney is mildly atrophied at 8.0 cm in length. RI GHT kidney normal length 9.7 cm. Possible very distal 2 mm RIGHT ureteral calcification not causing o bstruction. Nonobstructing bilateral renal calcifications. Mild perinephric stranding. No obstruction of either kidney. Stomach is moderately distended with air and fluid. No small bowel obstruction. Normal appendix. Mild fluid and air distention of the ascending colon. No transition point. No obstruction. No ascites or free air. Mesenteric panniculitis. There is mild hazy attenuation in the central mesentery with a few very smal l lymph nodes. Pelvic CT: Well-distended urinary bladder. In the dependent portion of the bladder is increased densi ty which are probably small bladder stones or gravel-like deposition. These may be recently passed ca lcifications from the RIGHT ureter. There may be a 2 mm residual calcifications very distal RIGHT ure ter. No adenopathy within the pelvis. Straightening of the normal lumbar lordosis. 60% anterior compression fracture L2. Mild anterior wedg ing of L1. Sclerotic changes involving the femoral heads. Early changes of osteonecrosis. CT/[place] [id number] IMPRESSION: 1. Urinary bladder calcifications. Some these calcifications are closely assoc iated with the distal RIGHT ureter. Possible 2 mm calcification remains in the distal RIGHT ureter but no obstruction. 2. No renal obstruction. 3. Cholelithiasis without acute cholecystitis. 4. No GI tract obstruction. 5. Normal appendix. 6. Stable mesenteric panniculitis. 7. Bilateral femoral head changes of early osteonecrosis.
--- NOTE | 2023-05-10 09:10 | CT_ITS ---
WS: [id number] CT HEAD NONCONTRAST HISTORY: Ams TECHNIQUE: Contiguous axial imaging performed through the brain in 2.5 mm imaging. Bone and soft tiss ue windows. Sagittal and coronal reformats reviewed. All CT scans at [facility] use at least one of these dose optimization techniques: automated exposure control; mA and/or kV adjustment per pa tient size (includes targeted exams where dose is matched to clinical indication); or iterative recon struction. DLP: 1250.03 mGy.cm COMPARISON: 07/13/2021. Study is compromised by significant motion artifact. No acute blood products are identified. Small areas of hemorrhage within either be obscured with this amount of motion. Moderate symmetric atrophy bilaterally with extensive small vessel ischemic type changes throughout t he white matter. The extent of atrophy and white matter disease is greater than expected for age. Ventricles: Ventriculomegaly is mild on the basis of atrophy. No inferior displacement of cerebellar tonsils. Paranasal sinuses: As visualized are clear. Mastoid air cells: Well pneumatized. Calvarium and scalp: Skull is intact with no soft tissue edema or swelling. CT/CT head wo con* [id number] IMPRESSION: 1. Study is compromised by significant motion artifact. 2. No areas of hemorrhage or edema are identified. 3. Moderate atrophy and small vessel ischemic disease. More than expected for a patient of this age.
[2023-05-10 09:36] LABS: Iron 102 ug/dL (59-158); Percent Saturation 58.9 % (20-50); Thyroid Stimulating Hormone 0.85 uIU/mL (0.27-4.20); Total Iron Binding Capacity 173 mcg/dl; Unsaturated Iron Binding 71 ug/dL (112-347); Vitamin B12 591 pg/mL (232-1245)
--- NOTE | 2023-05-10 09:52 | PC.PHAR ---
PHARMACY TO DOSE CONSULT - ZOSYN The patient's current renal function of 19.5 gives the indication of 3.375g every 12 hours. If renal function improves above 20, we will extend to every 8 hour dosing. Regardless, this will be an extended-infusion, over 4 hours. Please let us know if there is anything else we can do in the care of this patient. Thanks, Yusuf Odom, Pharm.D
[2023-05-10] MEDS: potassium chloride ER 20 mEq Tablet 80 MEQ PO (10:41)
--- NOTE | 2023-05-10 10:55 | PC.NURSE ---
Patient unable to hold anything down. Just had emesis of breakfast this morning when I tried to give him his potassium tablets. Not alert nor oriented. Two IVs needed via ultrasound. pump servicer supervisor called.
[2023-05-10] MEDS: folic acid 1 MG, multivitamin inj 10 ML, thiamine 100 MG in sodium chloride 0.9% 1,000 ML 252.8 MG IV (11:17)
[2023-05-10 12:09] LABS: Glucose Urine UA Norm (Normal); Protein Urine 1+ (Negative); Urine Appearance Cloudy (CLEAR); Urine Color Brown (Yellow); pH Urine 5 (5-7)
[2023-05-10 12:10] LABS: Add Urine Culture? No; Add Urine Microscopic? YES; Amorphous Sediment Urine 3+ /hpf; Bacteria Urine 2+ /hpf; Bilirubin Urine 2+ (Negative); Blood Urine 3+ (Negative); Ketones Urine 1+ (Negative); Leukocyte Esterase Urine 1+ (Negative); Nitrate Urine Negative (Negative); RBC Urine >100 /hpf (0-2); Urobilinogen Urine 1 mg/dL (Negative); WBC Urine 15-25 /hpf (0-5)
[2023-05-10 12:11] LABS: Amphetamines Screen Urine Negative (Negative); Barbiturates Screen Urine Negative (Negative); Benzodiazepines Screen Urine Negative (Negative); Cocaine Screen Urine Negative (Negative); Opiate Screen Urine Negative (Negative); PCP Screen Urine Negative (Negative); THC Screen Urine Negative (Negative)
[2023-05-10 12:16] LABS: Potassium, Radom Urine 47 mmol/L; Urine Creatinine 178 mg/dL (39-259)
[2023-05-10 12:18] LABS: Urine Random Chloride 10 mmol/L; Urine Random Sodium 19 mmol/L
[2023-05-10] MEDS: piperacillin-tazobactam 3.375 GM in sodium chloride 0.9% (plus) 50 ML IV ×2 (12:56→22:40)
[2023-05-10] MEDS: sodium chlor 0.9% + KCl 20 mEq 20 MEQ/1,000 ML BAG 75 MEQ IV ×2 (12:56→16:04)
--- NOTE | 2023-05-10 13:00 | XR_ITS ---
WS: [id number] XR chest 1V portable [id number] REASON FOR EXAM: Post PICC placement FINDINGS: Left arm PICC line placement. Left arm PICC line tip is within the superior vena cava at the cavoatri al junction. XR/XR chest 1V portable [id number] IMPRESSION: Right arm PICC line with the tip in the superior vena cava.
[2023-05-10 13:04] LABS: Calcium 7.5 mg/dL (8.5-10.5); Carbon Dioxide 35 mmol/L (22-29); Chloride 80 mmol/L (98-107); Glomerular Filtration Rate 14.8 mL/min (90-130); Glucose 108 mg/dL (65-115); Osmolality Calculated 310 mOsm/kg (285-295); Sodium 133 mmol/L (136-145)
[2023-05-10 13:10] LABS: Anion Gap 20.5 (5-19)
[2023-05-10 13:11] LABS: Potassium 2.5 mmol/L (3.5-5.1)
[2023-05-10 13:12] LABS: Blood Urea Nitrogen 107 mg/dL (8-23)
[2023-05-10 13:17] LABS: HIV 1 & 2 Antibody Non-Reactive (Non-Reactiv); HIV 1 & 2 Antigen Non-Reactive (Non-Reactiv)
[2023-05-10 13:25] LABS: Hepatitis A Antibody IgM Non-Reactive (Nonreactive)
--- NOTE | 2023-05-10 13:30 | PC.NURSE ---
Triple lumen PICC placed to right basilic vein with difficulty. Referral from hospitalist made for PICC placement due to poor peripheral access and probable need for pressors. Informed consent obtained from patient. Pt able to state name, , and verbalized understanding of procedure. Right arm basilic vein assessed and noted to be 3 mm. Able to obtain access x2 but unable to pass guide wire. Third attempt proximal to other attempts successful at passing guide wire. Moderate difficulty getting catheter to pass beyond clavicular area. Chest xray shows tip in SVC near cavoatrial junction, in good position for use per radiologist. Trimmed cath length 41 cm with 1 cm external length noted. Mid-arm circumference 29 cm measured 10 cm from right AC. Line secured with stat lock. Insertion site covered with Biopatch and TSM. Report given to bedside nurse, Farida.
[2023-05-10 14:01] LABS: Hepatitis B Core AB, Total Non-Reactive (Nonreactive); Hepatitis B Surface Antigen Non-Reactive (Nonreactive); Hepatitis C Virus Antibody Non-Reactive (Nonreactive)
[2023-05-10 14:26] LABS: Hepatitis B Surface AB 3.5 (11.5-1000)
[2023-05-10] MEDS: FUROsemide 10 mg/mL SDV 10mL 100 MG IVP (17:43)
--- NOTE | 2023-05-10 18:15 | P.PN_ITS ---
Subjective Subjective: Patient admitted overnight. Seen multiple times in a day. Today morning when first seen patient was awake, alert to self and being in the hospital. Slow to respond. Having episode of emesis after having his clear liquid diet. Not sure why he is in the hospital. States he does not consume alcohol anymore. Overnight patient has had no urine output. Vitals appreciated for systolic blood pressures ranging from high 70 systolics to low 100s systolics. Mean arterial pressure has been as low as 56 mmHg. Has remained stable on room air. Patient complaining of nausea without abdominal pain. During the day because of hypotension patient was transitioned to the ICU for Levophed drip for better renal perfusion, given fluid boluses and PICC line was placed for poor IV access. Vitals/I&O/Wt Last Vital Signs Temp 97.5 F L 05/09/23 16:05 Pulse 94 05/10/23 16:25 Resp 11 L 05/10/23 16:25 BP 140/98 05/10/23 16:25 Pulse Ox 100 05/10/23 16:25 O2 Del Method Room Air 05/10/23 12:00 05/10/23 05/10/23 05/10/23 06:59 14:59 22:59 Intake Total 2100 / 3699.7 1530 / 1530 240.08 / 1770.08 Balance 2100 / 3699.7 1530 / 1530 240.08 / 1770.08 Weight last 48 hrs Weight 77.111 kg Physical Exam Narrative: General: No acute distress, slow to respond, AO x2, alert and oriented to self a nd being in the hospital, on room air, pallor present HEENT: PERRLA, pupils bilaterally equal and reactive Chest: Bilateral Novosel breath sounds all over lung edwards without any added sounds CVS: S1-S2 regular, no murmurs, no tachycardia, no gallops, no rubs Abdomen: Soft, nontender, no organomegaly, bowel sounds present, morbidly obese Neuro: Moving all limbs, power 3/5 Urinary Catheter Management: Martinez: Cath Placed During This Visit: yes Reason for Continuing Indwelling Catheter: Accurate Measurement of Urinary Output in Critically Ill Patients Urinary Catheter Date of Insertion: 05/09/23 Urinary Catheter Time of Insertion: 19:47 Data 05/10/23 05:30 05/10/23 12:30 Micro: Microbiology 05/09/23 12:30 Blood Culture - Preliminary Blood SPECIMEN COLLECTED 05/09/23 05:30 Blood Culture - Preliminary Blood SPECIMEN COLLECTED A&P Assessment and plan (1) Septic shock: Ruled on admission with hypotension, leukocytosis, elevated lactate with endorgan damage of renal failure. Source unknown for now. Check MRSA swab, blood culture, urinalysis, CT chest abdomen pelvis. Check echocardiogram. For now start patient on IV Zosyn. Patient already received vancomycin on admission. Will check Vanco random level in AM. If low will start on vancomycin. If MRSA negative will discontinue vancomycin. Lactate has resolved since then. Patient has received around 3 l of IV fluids since admission. Banana bag. After that normal saline with 20 mEq of potassium at 70 cc/h. (2) Acute renal failure (ARF): With oliguria. Most likely in setting of ATN. Check urine lites, urine analysis, urine creatinine, urine eosinophils. CT chest abdomen pelvis to rule out obstructive nephropathy. Martinez catheterization. Fluid as above. After maintaining mean artery pressure of around 70 we will try 100 mg of IV Lasix. Strict and proper charting. Nephrology consult. Check hepatitis panel, CPK, HIV. (3) Acute encephalopathy: Most likely in setting of chronic alcohol abuse. Cannot rule out Warnicke's. Patient does have septic shock right now. Continue to monitor. CIWA protocol. Check ammonia levels. (4) Acute hypokalemia: In setting of acute renal failure. IV fluid as above. 80 mg of oral potassium. Monitor BMP every 6 hours. (5) Chronic hyponatremia: Fluid as above. (6) Oliguria: (7) Macrocytic anemia: (8) Thrombocytopenia: Most likely in setting of chronic alcohol abuse with liver cirrhosis. No site of bleeding. Continue to monitor daily. (9) Alcoholic cirrhosis: Qualifiers: Ascites presence: without ascites Qualified Code(s): K70.30 - Alcoholic cirrhosis of liver without ascites (10) Hypertension: Qualifiers: Hypertension type: other secondary hypertension Qualified Code(s): I15.8 - Other secondary hypertension Plan Full code. Clear liquid diet. Heparin 5000 every 12 hourly. Protonix for PUD prophylaxis. Transfer to ICU. Attestations Medical Necessity Statement*: Requires further hospitalization of management of acute renal failure with oliguria in setting of shock Coding Level of Care Code Critical Care >/= 30 minutes Critical care time (in minutes): 90 The high probability of a clinically significant, sudden or life threatening deterioration, as referenced in this documentation, required my full and direct attention, intervention and personal management. The critical care time shown is in addition to time spent performing any reported separately billable procedures and includes the following: [x] Data and vital sign review and interpretation [x ] Patient assessment, examination and intervention [x] Medication orders and management [x] Patient/Family updates as able [x] Care Coordination and Documentation. Diagnoses Septic shock A41.9; R65.21 Acute renal failure (ARF) N17.9 Acute encephalopathy G93.40 Acute hypokalemia E87.6 Chronic hyponatremia E87.1 Oliguria R34 Macrocytic anemia D53.9 Thrombocytopenia D69.6 Alcoholic cirrhosis K70.30 Ascites presence: without ascites Hypertension I15.8 Hypertension type: other secondary hypertension
--- NOTE | 2023-05-10 18:18 | USCV_ITS ---
Daniel Vázquez Age: 62 Gender: M : 1960 Exam Date: 05/10/2023 19:24 Ordering Phys: Rishi Christianson MD Technologist: GRIFFIN [place]am Location[place] [facility] [place]: ETOH withdrawl, shock. Patient is unresponsive in ICU-9 BP: 140 / 98 HR: 117 Rhythm: Sinus Technical Quality: Adequate MEASUREMENTS (Male / Female) Normal Values 2D ECHO LV Diastolic Diameter PLAX 4.2 cm 4.2 - 5.9 / 3.9 - 5.3 cm LV Systolic Diameter PLAX 2.7 cm IVS Diastolic Thickness 1.1 cm 0.6 - 1.0 / 0.6 - 0.9 cm IVS Systolic Thickness 1.8 cm LVPW Diastolic Thickness 1.7 cm 0.6 - 1.0 / 0.6 - 0.9 cm LVPW Systolic Thickness 1.6 cm LVOT Diameter 1.8 cm LV Ejection Fraction 2D Teich 66.5 % LV Ejection Fraction MOD 2C 61.7 % LV Ejection Fraction 2C AL 63.8 % LA Diameter 2.7 cm LA Width 2.8 cm LA Height 3.2 cm RA Width 3.3 cm RA Height 4.0 cm Aorta at Sinotubular Diameter 3.0 cm IVC Diameter 1.2 cm M-MODE Aortic Annulus Diameter 3.1 cm LA Ao Ratio MM 0.9 MV E Point Septal Separation 0.0 cm DOPPLER AV Peak Velocity 102.0 cm/s LVOT Peak Velocity 80.0 cm/s AV Area Cont Eq vti 1.9 cm squared AV Area Cont Eq pk 2.1 cm squared MV Peak Velocity 74.0 cm/s MV Area PHT 3.3 cm squared Mitral E to A Ratio 0.9 MV E' Velocity 31.0 cm/s Mitral E to MV E' Ratio 9.8 Mitral E to LV E' Lateral Ratio 8.2 Mitral E to LV E' Septal Ratio 12.2 TV Peak E Velocity 52.0 cm/s PV Peak Velocity 74.0 cm/s RV Acceleration Time 0.1 s RV Ejection Time 0.3 s RV AcT/ET 0.2 FINDINGS Left Ventricle Normal left ventricular size, systolic function and wall thickness, with no regional wall motion abnormalities. Left ventricular ejection fraction is estimated at 70 %. Normal diastolic function. Right Ventricle Normal right ventricular size and systolic function. RVSP could not be calculated due to incomplete tricuspid regurgitation velocity profile. Right Atrium Normal right atrial size. Left Atrium Normal left atrial size. Mitral Valve Structurally normal mitral valve. No mitral valve stenosis. No significant mitral valve regurgitation. Aortic Valve Structurally normal trileaflet aortic valve. No aortic valve stenosis. No aortic valve regurgitation. Tricuspid Valve Structurally normal tricuspid valve. No tricuspid valve stenosis. Trace tricuspid valve regurgitation. Pulmonic Valve Structurally normal pulmonic valve. No pulmonary valve stenosis. Pericardium No pericardial effusion. Aorta Normal size aortic root and proximal ascending aorta. IVC Normal IVC dimension with >50% respiratory change of the inferior vena cava. CONCLUSIONS 1. Normal left ventricular size, systolic function and wall thickness, with no regional wall motion abnormalities. Left ventricular ejection fraction is estimated at 70 %. Normal diastolic function. 2. Normal right ventricular size and systolic function. 3. No significant valvular abnormality. 4. No prior similar studies to compare. Miladis Goldman MD (Electronically Signed) Final Date: 11 May 2023 10:55 S
[2023-05-10 18:37] LABS: Anion Gap 17.4 (5-19); Carbon Dioxide 34 mmol/L (22-29); Chloride 84 mmol/L (98-107); Creatine Phosphokinase 20 U/L (39-308); Glomerular Filtration Rate 16.1 mL/min (90-130); Glucose 140 mg/dL (65-115); Osmolality Calculated 307 mOsm/kg (285-295); Sodium 133 mmol/L (136-145)
[2023-05-10 18:42] LABS: Blood Urea Nitrogen 94 mg/dL (8-23); Potassium 2.4 mmol/L (3.5-5.1)
[2023-05-10 19:11] LABS: Ammonia 32 umol/L (16-60); Anion Gap 16.7 (5-19); Calcium 6.9 mg/dL (8.5-10.5); Carbon Dioxide 32 mmol/L (22-29); Chloride 90 mmol/L (98-107); Glucose 141 mg/dL (65-115); Osmolality Calculated 309 mOsm/kg (285-295); Potassium 3.7 mmol/L (3.5-5.1); Sodium 135 mmol/L (136-145)
[2023-05-10 19:22] LABS: Blood Urea Nitrogen 88 mg/dL (8-23)
--- NOTE | 2023-05-10 20:02 | PC.NURSE ---
Spoke to Dr. Gambino. Reported current potassium level of 3.7. Orders to hold the one time dose of oral KCL.
--- NOTE | 2023-05-10 21:51 | PM.CONSULT ---
Providers/Reason For Consult Consulting Physician/Specialty*: [facility]/Nephrology Reason for Consult*: TERRANCE Attending Physician: Rishi Christiasnon MD Primary Care Provider: THEA Smith History of Present Illness History of Present Illness Daniel Vázquez is a 62 year old male Patient is a 62-year-old male with past medical history of alcoholic liver disease, cirrhosis, hypertension was brought to the emergency department 05/09/2023 after he was found unresponsive at home and covered in feces. In the ER he was found to be hypotensive tachycardic with WBC count of 25,000 and has TERRANCE with a creatinine of 5.1. His baseline creatinine is normal at 0.7 previously. Other lab data significant for sodium of 127 potassium of 2.9 BUN of 110. Has metabolic alkalosis with a bicarb of 41 on presentation. He received IV fluids and currently on low-dose pressors and his renal function has improved, creatinine of 3.[address]uric. [address] chest abdomen pelvis was done that showed no evidence of renal obstruction urinary bladder calcifications, possible pneumonitis and pleural thickening. Review of Systems Narrative: cannot obtain Medications/Allergies Home Medications Medication Instructions Recorded Confirmed Last Taken Type folic acid 1 mg tablet 1 mg PO DAILY #30 tabs 07/26/21 05/10/23 06/30/22 Rx hydrocodone 5 mg-acetaminophen 325 1 - 2 tab PO .Q4-6H #40 tabs 07/01/22 05/10/23 Unknown Rx mg tablet losartan 50 mg tablet See Rx Instructions .Route 02/03/23 05/10/23 Unknown Rx .COMPLEX #90 tabs Allergies Allergy/AdvReac Type Severity Reaction Status Date / Time No Known Allergies Allergy Verified 05/10/23 07:59 Current Medications Generic Name Dose Route Start Last Admin Trade Name Freq PRN Reason Stop Dose Admin Folic Acid 1 mg 05/10/23 09:00 05/10/23 08:47 Folic Acid 1 Mg Tablet PO 1 mg DAILY BECKIE Administration Potassium Chloride/Sodium Chloride 20 meq in 1,000 mls @ 75 mls/hr 05/10/23 09:00 05/10/23 16:04 Sodium Chlor 0.9% + Kcl 20 Meq IV 75 mls/hr .[id number] BECKIE Administration Piperacillin Sod/Tazobactam 50 mls @ 12.5 mls/hr 05/10/23 10:00 05/10/23 12:56 Sod 3.375 gm/ Sodium Chloride IV 12.5 mls/hr Q12H BECKIE Administration Norepinephrine Bitartrate 4 mg 254 mls @ 0 mls/hr 05/10/23 14:00 05/10/23 19:00 / Dextrose IV 2 mcg/min .Q0M BECKIE 7.62 mls/hr Titration Protocol Per Protocol Multivitamins Therapeutic 1 tab 05/10/23 09:00 05/10/23 08:47 Multivitamin Therapeutic Tablet PO 1 tab DAILY BECKIE Administration Pantoprazole Sodium 40 mg 05/09/23 23:15 05/10/23 10:43 Pantoprazole 40 Mg Sdv IVP 40 mg Q12H BECKIE Administration Thiamine Mononitrate 100 mg 05/10/23 09:00 05/10/23 08:47 Thiamine 100 Mg Tablet PO 100 mg DAILY BECKIE Administration PFSH Acute PFSH: Medical History (Updated 05/10/23 @ 18:21 by Rishi Christianson MD) Alcoholic cirrhosis Alcoholism Hypertension Hyponatremia admission 2018 with sodium as low as 114 due to HCTZ and beer potomania Lumbar stenosis with neurogenic claudication Nontraumatic compression fracture of L2 vertebra Spinal stenosis of lumbar region with radiculopathy Surgical History (Updated 05/10/23 @ 18:21 by Rishi Christianson MD) History of back surgery No pertinent past surgical history Family History Other Dementia Hypertension Rheumatoid arthritis Social History Smoking and tobacco status: never smoked Alcohol intake: current Substance/Drug Use: never Adopted: No Caregiver/support person: No Lives independently: No Household members: children Do you think of yourself as: Straight/Heterosexual Current gender identity: Male Vitals/I&O/Wt Last Vital Signs Temp 97.5 F L 05/09/23 16:05 Pulse 94 05/10/23 16:25 Resp 11 L 05/10/23 16:25 BP 140/98 05/10/23 16:25 Pulse Ox 100 05/10/23 16:25 O2 Del Method Room Air 05/10/23 12:00 05/10/23 05/10/23 05/10/23 06:59 14:59 22:59 Intake Total 2100 / 3699.7 1530 / 1530 303.707 / 1833.707 Output Total 550 / 550 Balance 2100 / 3699.7 1530 / 1530 -246.293 / 1283.707 Weight last 48 hrs Weight 77.111 kg Physical Exam Narrative: lethargic Urinary Catheter Management: Martinez: Cath Placed During This Visit: yes Reason for Continuing Indwelling Catheter: Accurate Measurement of Urinary Output in Critically Ill Patients Urinary Catheter Date of Insertion: 05/09/23 Urinary Catheter Time of Insertion: 19:47 Data 05/10/23 05:30 05/10/23 18:46 Micro: Microbiology 05/09/23 12:30 Blood Culture - Preliminary Blood SPECIMEN COLLECTED 05/09/23 05:30 Blood Culture - Preliminary Blood SPECIMEN COLLECTED A&P Assessment and plan (1) Acute renal failure (ARF): Plan 1. Acute kidney injury: Likely ATN from sepsis and hypotension. Baseline creatinine is normal at 0.7 previously, presented with creatinine of 5.1, renal function improving with fluid resuscitation and low-dose pressors. Agree with keeping MAP higher for now. Avoid nephrotoxins and IV contrast studies. No indication for renal replacement therapy. No obstruction on CT. UA with 1+ protein and 3+ blood. Will repeat UA after TERRANCE resolved. Normal CK levels. 2. Possible sepsis: Await cultures, on broad-spectrum antibiotics. 3. Hyponatremia: acute on chronic , hypovolemic , improved with fluid resuscitation, monitor 4. Metabolic alkalosis: Improving 6. Alcoholic liver disease with cirrhosis Patient evaluated using audiovisual cart. Time spent 45 minutes. Consult Attestations Medical Necessity Statement: per medicine Coding Level of Care Code Acute Code for Chg Fwd Diagnoses Acute renal failure (ARF) N17.9
[2023-05-11] VITALS (174 sets, daily range): BP systolic 74–143; BP diastolic 26–97; PULSE 64–113; RESP 12–28; TEMP 36.3–36.4; O2SAT 79–100
[2023-05-11 03:42] LABS: Basophils # 0.1 10^3/uL (0.0-0.1); Basophils % 0.4 %; Eosinophils # 0.1 10^3/uL (0.0-0.8); Eosinophils % 0.8 %; Hematocrit 27.4 % (42.0-52.0); Hemoglobin 9.6 g/dL (11.7-16.6); Lymphocytes # 1.5 10^3/uL (0.8-4.8); Lymphocytes % 9.2 %; Mean Corpuscular Hemoglobin 37.1 pg (28.0-34.0); Mean Corpuscular Volume 105.8 fl (80-94); Mean Platelet Volume 10.1 fL (7.4-10.4); Monocytes # 0.5 10^3/uL (0.2-0.9); Monocytes % 2.9 %; Neutrophils # 13.67 10^3/uL (1.8-7.7); Neutrophils % 84.7 %; Nucleated Red Blood Cells % 0 %; Platelet Count 113 10^3/cmm (130-400); Red Blood Count 2.59 10^6/uL (4.1-5.3); Red Cell Distribution Width 15.7 % (12.1-15.1); White Blood Count 16.1 10^3/uL (4.0-10.0)
[2023-05-11 04:08] LABS: Alanine Aminotransferase 12 U/L (0-41); Albumin Level 2.7 g/dL (3.5-5.2); Alkaline Phosphatase 84 U/L (40-130); Anion Gap 13.8 (5-19); Aspartate Amino Transferase 21 U/L (0-40); Calcium 8.1 mg/dL (8.5-10.5); Carbon Dioxide 36 mmol/L (22-29); Chloride 92 mmol/L (98-107); Chol HDL Ratio 3.03 mg/dL (1.0-5.00); Cholesterol 121 mg/dL (0-200); Glomerular Filtration Rate 20.4 mL/min (90-130); Glucose 95 mg/dL (65-115); HDL Cholesterol 40 mg/dL (60-100); LDL Cholesterol Calculated 55 mg/dL (50-129); Osmolality Calculated 316 mOsm/kg (285-295); Sodium 139 mmol/L (136-145); Total Bilirubin 0.8 mg/dL (0.15-1.2); Total Protein 5.7 g/dL (6.6-8.7); Triglycerides 131 mg/dL (0-150); VLDL Cholestrol Calculation 26 mg/dL (0-30)
[2023-05-11 04:11] LABS: Blood Urea Nitrogen 91 mg/dL (8-23); Potassium 2.8 mmol/L (3.5-5.1)
[2023-05-11 04:13] LABS: Estmated Average Glucose 117; Hemoglobin A1C 5.7 % (4.0-6.0)
[2023-05-11 04:20] LABS: Vancomycin Random 12.8 ug/mL (20.0-40.0)
[2023-05-11 04:21] LABS: Folate Level > 20.0 ng/mL (4.5-32.2)
[2023-05-11] MEDS: sodium chlor 0.9% + KCl 20 mEq 20 MEQ/1,000 ML BAG 75 MEQ IV ×2 (04:39→17:26)
[2023-05-11] MEDS: potassium chloride premix 100 ML 25 MEQ IV ×2 (04:39→08:30)
[2023-05-11] MEDS: thiamine 100 mg Tablet PO (08:32)
[2023-05-11] MEDS: multivitamin therapeutic Tablet 1 TAB PO (08:32)
[2023-05-11] MEDS: folic acid 1 mg Tablet PO (08:32)
[2023-05-11] MEDS: piperacillin-tazobactam 3.375 GM in sodium chloride 0.9% (plus) 50 ML IV ×2 (09:40→20:23)
--- NOTE | 2023-05-11 10:19 | PC.PHAR ---
PHARMACY TO DOSE CONSULT - ZOSYN The patient's CrCl has improved to >20, meaning we can increase the frequency of the Zosyn to every 8 hours. We will still be running the extended-infusion regimen over 4 hours. Pharmacy will continue to monitor this patient's renal function and make adjustments as needed. Please let us know if there is anything else we can do in the care of this patient. Thanks, Yusuf Odom, Pharm.D
[2023-05-11] MEDS: pantoprazole 40 mg SDV IVP ×2 (10:37→23:21)
[2023-05-11] MEDS: FUROsemide 10 mg/mL SDV 10mL 100 MG IVP (10:39)
[2023-05-11] MEDS: doxycycline 100 MG in sodium chloride 0.9% (plus) 100 ML IV ×2 (10:52→23:21)
[2023-05-11] MEDS: midodrine 5 mg TABLET PO ×3 (10:52→20:23)
--- NOTE | 2023-05-11 13:30 | P.PN_ITS ---
Subjective Subjective: No acute events overnight. Patient has remained on Levophed of 2. Today morning mean arterial pressure of 69 the systolic blood pressure in the mid 90s. Patient did have his clear liquid diet today morning without episode of emesis. As per the nurse patient did wake up to have complete conversation though during examination is sleeping but wakes up to verbal stimulus. Documented urine output of around 2 L yesterday. Blood work appreciated for improving leukocytosis of 16,000, hemoglobin slightly lower than yesterday of 9.6 but seems to be at baseline, stable thrombocytopenia, improving creatinine of 3.1, uremia with BUN of 91, persistent hypokalemia 2.8, improving hyponatremia, hyperosmolar, improving calcium with Vanco random of 12.8. Vitals/I&O/Wt Last Vital Signs Temp 97.2 F L 05/10/23 19:00 Pulse 102 H 05/11/23 12:00 Resp 14 05/11/23 12:00 BP 105/62 05/11/23 12:00 Pulse Ox 95 05/11/23 12:00 O2 Del Method Room Air 05/10/23 12:00 05/10/23 05/11/23 05/11/23 22:59 06:59 14:59 Intake Total 353.707 / 1883.707 993.75 / 2877.457 2388.10 / 2388.10 Output Total 1250 / 1250 800 / 2050 Balance -896.293 / 633.707 193.75 / 794.428 2537.10 / 2388.10 Weight last 48 hrs Weight 77.111 kg Physical Exam Narrative: General: No acute distress, slow to respond, AO x2, alert and oriented to self and being in the hospital, on room air, pallor present HEENT: PERRLA, pupils bilaterally equal and reactive Chest: Bilateral Novosel breath sounds all over lung edwards without any added sounds CVS: S1-S2 regular, no murmurs, no tachycardia, no gallops, no rubs Abdomen: Soft, nontender, no organomegaly, bowel sounds present, morbidly obese Neuro: Moving all limbs, power 3/5 Urinary Catheter Management: Martinez: Cath Placed During This Visit: yes Reason for Continuing Indwelling Catheter: Accurate Measurement of Urinary Output in Critically Ill Patients Urinary Catheter Date of Insertion: 05/09/23 Urinary Catheter Time of Insertion: 19:47 Data 05/11/23 02:42 05/11/23 02:42 Micro: Microbiology 05/09/23 12:30 Blood Culture - Preliminary Blood NEGATIVE TO DATE 05/09/23 05:30 Blood Culture - Preliminary Blood NEGATIVE TO DATE A&P Assessment and plan (1) Septic shock: Ruled on admission with hypotension, leukocytosis, elevated lactate with endorgan damage of renal failure. Source unknown for now. MRSA swab pending, blood culture negative, appreciate CT abdomen chest pelvis results. Echocardiogram shows an EF of 70% with no diastolic dysfunction. Vancomycin random level low. Continue Zosyn. Add vancomycin. If MRSA swab is negative will discontinue vancomycin. Continue with NS with 20 mEq of potassium at 75 cc/h. Continue with Levophed of 2. Target mean arterial pressure around 70. Start on midodrine 5 mg 3 times daily. Check tick panel. Add empiric doxycycline 100 mg IV every 12 hourly. (2) Acute renal failure (ARF): With oliguria. Most likely in setting of ATN. Urine output improving. Around 2 L yesterday. Repeat urine lites, urine analysis, urine creatinine, urine eosinophils. Martinez catheterization. Fluid as above. Repeat IV Lasix 100 mg one-time. Strict and proper charting. Nephrology consult appreciated. Continue to monitor BMP every 8 hourly. (3) Acute encephalopathy: Most likely in setting of chronic alcohol abuse along with uremia. Cannot rule out Warnicke's. Patient does have septic shock right now. Continue to monitor. CIWA protocol if needed. Not in alcohol withdrawal currently. (4) Acute hypokalemia: In setting of acute renal failure. IV fluid as above. 80 mg of oral potassium. Monitor BMP every 8 hours. Will replete accordingly. (5) Chronic hyponatremia: Resolving. (6) Oliguria: Resolved. (7) Macrocytic anemia: Baseline hemoglobin around 8.5-9.6. No active site of bleeding for now. Appreciate vitamin B12, folate and iron panel. Monitor daily. (8) Thrombocytopenia: Most likely in setting of chronic alcohol abuse with liver cirrhosis. No site of bleeding. Continue to monitor daily. (9) Alcoholic cirrhosis: Qualifiers: Ascites presence: without ascites Qualified Code(s): K70.30 - Alcoholic cirrhosis of liver without ascites (10) Hypertension: Qualifiers: Hypertension type: other secondary hypertension Qualified Code(s): I15.8 - Other secondary hypertension Plan Full code. Renal nondialysis clear liquid diet along with Nepro protein shakes with each meal. Heparin 5000 every 12 hourly. Protonix for PUD prophylaxis. Continue with ICU care. Tried to call patient's son for update but unable to get in touch. Discussed with Ms. Jackson over the phone. Explained the need for further hospitalization because of acute renal failure, concerns of noncompliance and safety on discharge back to home. As per Ms. Jackson this is patient's own choice to live in current status. He was discharged to SNF on last discharge from the hospital but the discharge himself out of SNF after becoming better and continues to remain at home by himself in current living conditions at his own accord. We discussed if patient wants to live at current situations going forward for, it w ould be best to discuss further goals of care of complete treatment versus hospice once he is in his normal mentation. She verbalized understanding and is agreeable. All the questions were answered. Attestations Medical Necessity Statement*: Requires further hospitalization for management of acute renal failure, septic shock, acute encephalopathy Coding Level of Care Code Critical Care >/= 30 minutes Critical care time (in minutes): 60 The high probability of a clinically significant, sudden or life threatening deterioration, as referenced in this documentation, required my full and direct attention, intervention and personal management. The critical care time shown is in addition to time spent performing any reported separately billable procedures and includes the following: [x] Data and vital sign review and interpretation [x ] Patient assessment, examination and intervention [x] Medication orders and management [x] Patient/Family updates as able [x] Care Coordination and Documentation. Diagnoses Septic shock A41.9; R65.21 Acute renal failure (ARF) N17.9 Acute encephalopathy G93.40 Acute hypokalemia E87.6 Chronic hyponatremia E87.1 Oliguria R34 Macrocytic anemia D53.9 Thrombocytopenia D69.6 Alcoholic cirrhosis K70.30 Ascites presence: without ascites Hypertension I15.8 Hypertension type: other secondary hypertension
--- NOTE | 2023-05-11 13:45 | PC.PHAR ---
Vanc Trough to be drawn before 3rd dose assuming renal function stays stable.... will continue to monitor Patient: Floor: Age: 62 yo Serum creatinine: 3.1 mg/dL Height: 67.7 Inches Weight (kg): 77 IBW (kg): 67.71 Dosing wt(kg): 77 Estimated Creatinine clearance (ml/min): 23.1 CRCL method: Cockcroft and Gault using ibw(default). Drug selected: Vancomycin Loading dose (mg): Vd (liters): 53.9 (factor used: 0.7 L/kg) Justice (hr-1): 0.024 Half life (hrs): 28.88 CLvanco=?? 1.294 L/hr Recommended dose: 1250 mg Interval: 36 hrs Infusion time (hrs): 1 Predicted peak (mcg/mL): 39.6 Predicted trough (mcg/mL): 17.10 Total body weight is being used for vancomycin dosing. Renal function is stable [ ] /unstable [ ] Recommendations: Give Vancomycin 1250 mg q 36 hrs with an expected Cpeak of 39.6 mcg/ml and an expected Ctrough of 17.10 mcg/ml AUC 0-24 /CAMILLE Data: CAMILLE 0.5 mcg/mL:?? AUC/CAMILLE:? 1288.0 CAMILLE 1.0 mcg/mL:?? AUC/CAMILLE:? 644.0 --------- CAMILLE 1.5 mcg/mL:?? AUC/CAMILLE:? 429.3 CAMILLE 2.0 mcg/mL:?? AUC/CAMILLE:? 322.0 Renal dosing of other antibiotics (review renal dosing of other medications and list guidelines here): Thank you for the consult, will continue to follow. Signature:
--- NOTE | 2023-05-11 13:46 | PC.PHAR ---
Vanc trough to be drawn prior to 3rd dose assuming stable renal function Patient: Floor: Age: 62 yo Serum creatinine: 3.1 mg/dL Height: 67.7 Inches Weight (kg): 77 IBW (kg): 67.71 Dosing wt(kg): 77 Estimated Creatinine clearance (ml/min): 23.1 CRCL method: Cockcroft and Gault using ibw(default). Drug selected: Vancomycin Loading dose (mg): Vd (liters): 53.9 (factor used: 0.7 L/kg) Justice (hr-1): 0.024 Half life (hrs): 28.88 CLvanco=?? 1.294 L/hr Recommended dose: 1250 mg Interval: 36 hrs Infusion time (hrs): 1 Predicted peak (mcg/mL): 39.6 Predicted trough (mcg/mL): 17.10 Total body weight is being used for vancomycin dosing. Recommendations: Give Vancomycin 1250 mg q 36 hrs with an expected Cpeak of 39.6 mcg/ml and an expected Ctrough of 17.10 mcg/ml AUC 0-24 /CAMILLE Data: CAMILLE 0.5 mcg/mL:?? AUC/CAMILLE:? 1288.0 CAMILLE 1.0 mcg/mL:?? AUC/CAMILLE:? 644.0 --------- CAMILLE 1.5 mcg/mL:?? AUC/CAMILLE:? 429.3 CAMILLE 2.0 mcg/mL:?? AUC/CAMILLE:? 322.0 Renal dosing of other antibiotics (review renal dosing of other medications and list guidelines here): Thank you for the consult, will continue to follow. Signature: Claudia VegaD
--- NOTE | 2023-05-11 14:03 | PM.PN ---
Subjective Subjective: s/p IV lasix UOP picked up on low dose levophed Medications: Reviewed: Yes Vitals/I&O/Wt Last Vital Signs Temp 97.2 F L 05/10/23 19:00 Pulse 102 H 05/11/23 12:00 Resp 14 05/11/23 12:00 BP 105/62 05/11/23 12:00 Pulse Ox 95 05/11/23 12:00 O2 Del Method Room Air 05/10/23 12:00 05/10/23 05/11/23 05/11/23 22:59 06:59 14:59 Intake Total 353.707 / 1883.707 993.75 / 2877.457 2388.10 / 2388.10 Output Total 1250 / 1250 800 / 2050 Balance -896.293 / 633.707 193.75 / 904.541 9783.10 / 2388.10 Weight last 48 hrs Weight 77.111 kg Physical Exam Narrative: no distress , on 2L NC S1S2 RRR per report Lungs clear per report No edema Urinary Catheter Management: Martinez: Cath Placed During This Visit: yes Reason for Continuing Indwelling Catheter: Accurate Measurement of Urinary Output in Critically Ill Patients Urinary Catheter Date of Insertion: 05/09/23 Urinary Catheter Time of Insertion: 19:47 Data 05/11/23 02:42 05/11/23 02:42 Micro: Microbiology 05/09/23 12:30 Blood Culture - Preliminary Blood NEGATIVE TO DATE 05/09/23 05:30 Blood Culture - Preliminary Blood NEGATIVE TO DATE A&P Assessment and plan (1) Acute renal failure (ARF): Plan 1. Acute kidney injury: Likely ATN from sepsis and hypotension. Baseline creatinine is normal at 0.7 previously, presented with creatinine of 5.1, renal function improving with fluid resuscitation and low-dose pressors. Agree with keeping MAP higher for now. Avoid nephrotoxins and IV contrast studies. No indication for renal replacement therapy. No obstruction on CT. UA with 1+ protein and 3+ blood. Will repeat UA after TERRANCE resolved. Normal CK levels. Cr improving. 2. Possible sepsis: Await cultures, on broad-spectrum antibiotics. 3. Hyponatremia: acute on chronic , hypovolemic , improved with fluid resuscitation, monitor 4. Metabolic alkalosis 5. Hypokal;emia : K being repleted 6. Alcoholic liver disease with cirrhosis Patient evaluated using audiovisual cart. Time spent 45 minutes. Attestations Medical Necessity Statement*: per medicine Coding Level of Care Code Acute Code for Chg Fwd Diagnoses Acute renal failure (ARF) N17.9
[2023-05-11 14:37] LABS: Anion Gap 12.8 (5-19); Calcium 8.3 mg/dL (8.5-10.5); Carbon Dioxide 34 mmol/L (22-29); Chloride 95 mmol/L (98-107); Glomerular Filtration Rate 26.1 mL/min (90-130); Glucose 123 mg/dL (65-115); Osmolality Calculated 312 mOsm/kg (285-295); Potassium 3.8 mmol/L (3.5-5.1); Sodium 138 mmol/L (136-145)
[2023-05-11] MEDS: heparin 5,000 unit/mL INJ 1 mL 5000 UNIT SUBCUT (14:48)
[2023-05-11] MEDS: vancomycin 1,250 MG/250 ML PIGGYBACK 200 MG IV (14:49)
[2023-05-11 15:21] LABS: Blood Urea Nitrogen 81 mg/dL (8-23)
[2023-05-11 15:35] LABS: Potassium, Radom Urine 16 mmol/L; Urine Creatinine 23 mg/dL (39-259); Urine Random Chloride 106 mmol/L; Urine Random Sodium 104 mmol/L
[2023-05-11 16:01] LABS: Urine Appearance SL Hazy (CLEAR); Urine Color Yellow (Yellow); pH Urine 5 (5-7)
[2023-05-11 16:02] LABS: Add Urine Microscopic? YES; Bacteria Urine R /hpf; Bilirubin Urine Neg (Negative); Blood Urine 3+ (Negative); Glucose Urine UA Norm (Normal); Ketones Urine Negative (Negative); Leukocyte Esterase Urine Negative (Negative); Mucus Urine 1+ /hpf; Nitrate Urine Negative (Negative); Protein Urine Neg (Negative); Squamous Epithelial Cell Urine RARE /hpf (0-5); Urobilinogen Urine Norm (Negative)
[2023-05-11 16:03] LABS: Fine Granular Casts Urine 0-4 /lpf; Hyaline Casts Urine 0-4 /lpf; Triple Phosphate Crystal Urine 0-4 /hpf; Uric Acid Crystals Urine 0-4 /hpf
[2023-05-11 16:18] LABS: Eosinophil Urine No Eosinophils Seen; Urine Eosinophil Count 0 (0-0)
[2023-05-11 22:41] LABS: Anion Gap 16.5 (5-19); Blood Urea Nitrogen 71 mg/dL (8-23); Calcium 8.1 mg/dL (8.5-10.5); Carbon Dioxide 32 mmol/L (22-29); Chloride 95 mmol/L (98-107); Glucose 102 mg/dL (65-115); Osmolality Calculated 311 mOsm/kg (285-295); Potassium 3.5 mmol/L (3.5-5.1); Sodium 140 mmol/L (136-145)
[2023-05-12] VITALS (156 sets, daily range): BP systolic 69–128; BP diastolic 47–89; PULSE 67–114; RESP 10–32; TEMP 36.1–36.4; O2SAT 91–100
[2023-05-12] MEDS: heparin 5,000 unit/mL INJ 1 mL 5000 UNIT SUBCUT ×2 (01:36→14:06)
[2023-05-12 03:25] LABS: Basophils # 0.1 10^3/uL (0.0-0.1); Basophils % 0.7 %; Eosinophils # 0.3 10^3/uL (0.0-0.8); Eosinophils % 2.4 %; Hematocrit 27.7 % (42.0-52.0); Hemoglobin 9.5 g/dL (11.7-16.6); Lymphocytes % 16.1 %; Mean Corpuscular HGB Conc 34.3 g/dL (30.0-36.0); Mean Corpuscular Hemoglobin 36.8 pg (28.0-34.0); Mean Corpuscular Volume 107.4 fl (80-94); Mean Platelet Volume 9.9 fL (7.4-10.4); Monocytes # 0.5 10^3/uL (0.2-0.9); Monocytes % 3.9 %; Neutrophils # 8.84 10^3/uL (1.8-7.7); Neutrophils % 72.3 %; Nucleated Red Blood Cells % 0 %; Platelet Count 88 10^3/cmm (130-400); Red Blood Count 2.58 10^6/uL (4.1-5.3); Red Cell Distribution Width 15.9 % (12.1-15.1); White Blood Count 12.2 10^3/uL (4.0-10.0)
[2023-05-12] MEDS: piperacillin-tazobactam 3.375 GM in sodium chloride 0.9% (plus) 50 ML IV ×3 (03:41→20:44)
[2023-05-12 03:48] LABS: Alanine Aminotransferase 15 U/L (0-41); Albumin Level 2.7 g/dL (3.5-5.2); Alkaline Phosphatase 82 U/L (40-130); Anion Gap 15.6 (5-19); Aspartate Amino Transferase 27 U/L (0-40); Blood Urea Nitrogen 70 mg/dL (8-23); Calcium 8.2 mg/dL (8.5-10.5); Carbon Dioxide 33 mmol/L (22-29); Chloride 97 mmol/L (98-107); Glucose 102 mg/dL (65-115); Osmolality Calculated 315 mOsm/kg (285-295); Potassium 3.6 mmol/L (3.5-5.1); Sodium 142 mmol/L (136-145); Total Bilirubin 0.6 mg/dL (0.15-1.2); Total Protein 5.7 g/dL (6.6-8.7)
[2023-05-12] MEDS: sodium chlor 0.9% + KCl 20 mEq 20 MEQ/1,000 ML BAG 75 MEQ IV (05:56)
[2023-05-12] MEDS: multivitamin therapeutic Tablet 1 TAB PO (08:05)
[2023-05-12] MEDS: midodrine 5 mg TABLET PO ×2 (08:05→11:27)
[2023-05-12] MEDS: thiamine 100 mg Tablet PO (08:06)
[2023-05-12] MEDS: folic acid 1 mg Tablet PO (08:06)
[2023-05-12] MEDS: doxycycline 100 MG in sodium chloride 0.9% (plus) 100 ML IV ×2 (10:47→23:29)
[2023-05-12] MEDS: pantoprazole 40 mg SDV IVP ×2 (10:47→23:29)
--- NOTE | 2023-05-12 11:15 | P.PN_ITS ---
Subjective Subjective: UOP increased Remians on levophed Medications: Reviewed: Yes Vitals/I&O/Wt Last Vital Signs Temp 97.5 F L 05/12/23 09:00 Pulse 93 05/12/23 09:00 Resp 15 05/12/23 09:00 BP 87/56 05/12/23 09:00 Pulse Ox 96 05/12/23 09:00 O2 Del Method Nasal Cannula 05/11/23 19:00 O2 Flow Rate 2 05/11/23 19:00 05/11/23 05/12/23 05/12/23 22:59 06:59 14:59 Intake Total 1989.499 / 4377.599 1087.5 / 5465.099 628.933 / 628.933 Output Total 1900 / 1900 1400 / 3300 Balance 89.499 / 2477.599 -312.5 / 2165.099 628.933 / 628.933 Physical Exam Narrative: no distress , on 2L NC S1S2 RRR per report Lungs clear per report No edema Urinary Catheter Management: Martinez: Cath Placed During This Visit: yes Reason for Continuing Indwelling Catheter: Accurate Measurement of Urinary Output in Critically Ill Patients Urinary Catheter Date of Insertion: 05/09/23 Urinary Catheter Time of Insertion: 19:47 Data 05/12/23 02:48 05/12/23 02:48 Micro: Microbiology 05/10/23 11:11 MRSA Culture - Final Nose 05/09/23 12:30 Blood Culture - Preliminary Blood NEGATIVE TO DATE A&P Assessment and plan (1) Acute renal failure (ARF): Plan 1. Acute kidney injury: Likely ATN from sepsis and hypotension. Baseline creatinine is normal at 0.7 previously, presented with creatinine of 5.1, renal function improving with fluid resuscitation and low-dose pressors. Agree with keeping MAP higher for now. Avoid nephrotoxins and IV contrast studies. No indication for renal replacement therapy. No obstruction on CT. UA with 1+ p rotein and 3+ blood. Will repeat UA after TERRANCE resolved. Normal CK levels. Cr and UOP improving. 2. Possible sepsis: Await cultures, on broad-spectrum antibiotics. 3. Hyponatremia: acute on chronic , hypovolemic , improved with fluid resuscitation, monitor 4. Metabolic alkalosis 5. Hypokal;emia : K being repleted 6. Alcoholic liver disease with cirrhosis Patient evaluated using audiovisual cart. Time spent 45 minutes. Attestations 2 Medical Necessity Statement*: per medicine Coding Level of Care Code Acute Code for Chg Fwd Diagnoses Acute renal failure (ARF) N17.9
[2023-05-12 11:32] LABS: Anion Gap 16.3 (5-19); Blood Urea Nitrogen 60 mg/dL (8-23); Carbon Dioxide 29 mmol/L (22-29); Chloride 96 mmol/L (98-107); Glomerular Filtration Rate 35.9 mL/min (90-130); Glucose 115 mg/dL (65-115); Osmolality Calculated 304 mOsm/kg (285-295); Potassium 3.3 mmol/L (3.5-5.1); Sodium 138 mmol/L (136-145)
[2023-05-12] MEDS: midodrine 5 mg TABLET 10 MG PO ×2 (14:06→20:44)
--- NOTE | 2023-05-12 17:11 | P.PN_ITS ---
Subjective Subjective: Seen multiple times in the day. No acute events overnight. Patient seems to be doing better. On examination sitting up in bed today. Awake and alert to self and being in the hospital. Slow to respond. Advance to mechanical soft diet today without nausea. Denies any pain. Having multiple bowel movements. Continues to remain on Levophed of 4 which was weaned down to 2 during my examination and then later weaned off around 2 PM. Mean arterial pressure being maintained in low 60s currently. Urine output improving. 3.3 L net yesterday. Over 700 cc from 6 AM to 11 AM. Blood work appreciated resolving leukocytosis, hemoglobin to be stable, improving BMP with stable sodium level, mild hypokalemia, resolving creatinine of 1.9 and BUN of 60 today. Vitals/I&O/Wt Last Vital Signs Temp 97.5 F L 05/12/23 09:00 Pulse 70 05/12/23 16:20 Resp 16 05/12/23 16:20 BP 106/58 05/12/23 16:20 Pulse Ox 97 05/12/23 16:20 O2 Del Method Nasal Cannula 05/11/23 19:00 O2 Flow Rate 2 05/11/23 19:00 05/12/23 05/12/23 05/12/23 06:59 14:59 22:59 Intake Total 1087.5 / 5465.099 1037.894 / 1037.894 530 / 1567.894 Output Total 1400 / 3300 Balance -312.5 / 2165.099 1037.894 / 1037.894 530 / 1567.894 Physical Exam Narrative: General: No acute distress, slow to respond, AO x2, alert and oriented to self and being in the hospital, on room air, pallor present HEENT: PERRLA, pupils bilaterally equal and reactive Chest: Bilateral Novosel breath sounds all over lung edwards without any added sounds CVS: S1-S2 regular, no murmurs, no tachycardia, no gallops, no rubs Abdomen: Soft, nontender, no organomegaly, bowel sounds present, morbidly obese Neuro: Moving all limbs, power 3/5 Urinary Catheter Management: Martinez: Cath Placed During This Visit: yes Reason for Continuing Indwelling Catheter: Accurate Measurement of Urinary Output in Critically Ill Patients Urinary Catheter Date of Insertion: 05/09/23 Urinary Catheter Time of Insertion: 19:47 Data 05/12/23 02:48 05/12/23 10:52 Micro: Microbiology 05/12/23 Unknown C.difficile Toxin B Gene (PCR) - Final Stool - Stool Aspirate 05/10/23 11:11 MRSA Culture - Final Nose 05/09/23 12:30 Blood Culture - Preliminary Blood NEGATIVE TO DATE A&P Assessment and plan (1) Septic shock: Ruled on admission with hypotension, leukocytosis, elevated lactate with endorgan damage of renal failure. Source unknown for now. MRSA swab pending, blood culture negative, appreciate CT abdomen chest pelvis results. Echocardiogram shows an EF of 70% with no diastolic dysfunction. Vancomycin random level low. Continue Zosyn. Add vancomycin. If MRSA swab is negative will discontinue vancomycin. Continue with NS with 20 mEq of potassium at 75 cc/h. Continue with Levophed of 2. Target mean arterial pressure around 70. Start on midodrine 5 mg 3 times daily. Check tick panel. Add empiric doxycycline 100 mg IV every 12 hourly. (2) Acute renal failure (ARF): With oliguria. Most likely in setting of ATN. Urine output improving. Around 2 L yesterday. Repeat urine lites, urine analysis, urine creatinine, urine eosinophils. Martinez catheterization. Fluid as above. Repeat IV Lasix 100 mg one-time. Strict and proper charting. Nephrology consult appreciated. Continue to monitor BMP every 8 hourly. (3) Acute encephalopathy: Most likely in setting of chronic alcohol abuse along with uremia. Cannot rule out Warnicke's. Patient does have septic shock right now. Continue to monitor. CIWA protocol if needed. Not in alcohol withdrawal currently. (4) Acute hypokalemia: In setting of acute renal failure. IV fluid as above. 80 mg of oral potassium. Monitor BMP every 8 hours. Will replete accordingly. (5) Chronic hyponatremia: Resolving. (6) Oliguria: Resolved. (7) Macrocytic anemia: Baseline hemoglobin around 8.5-9.6. No active site of bleeding for now. Appreciate vitamin B12, folate and iron panel. Monitor daily. (8) Thrombocytopenia: Most likely in setting of chronic alcohol abuse with liver cirrhosis. No site of bleeding. Continue to monitor daily. (9) Alcoholic cirrhosis: Qualifiers: Ascites presence: without ascites Qualified Code(s): K70.30 - Alcoholic cirrhosis of liver without ascites (10) Hypertension: Qualifiers: Hypertension type: other secondary hypertension Qualified Code(s): I15.8 - Other secondary hypertension Plan Full code. Renal nondialysis clear liquid diet along with Nepro protein shakes with each meal. Heparin 5000 every 12 hourly. Protonix for PUD prophylaxis. Continue with ICU care. Plan for the day: Continue with normal saline with 20 mg of potassium at 75 cc/h. Hold off on Lasix as urine output improving by itself. Increase midodrine to 10 mg 3 times daily. Wean off Levophed keeping mean arterial pressure over 65. Continue with IV vancomycin as MRSA is positive, Zosyn for overall 5-day course. Continue with doxycycline for overall 7-day course. Follow-up blood cultures and tick panel. Rule out C. difficile. Advance diet to soft mechanical diet. PT/OT evaluation. Continue with Martinez catheterization. Discharge plan: Most likely patient will need home health versus SNF depending on PT evaluation. Case management alerted. Tried to call patient's son for update but unable to get in touch. Discussed with Ms. Jackson over the phone. Explained the need for further hospitalization because of acute renal failure, concerns of noncompliance and safety on discharge back to home. As per Ms. Jackson this is patient's own choice to live in current status. He was discharged to SNF on last discharge from the hospital but the discharge himself out of SNF after becoming better and continues to r emain at home by himself in current living conditions at his own accord. We discussed if patient wants to live at current situations going forward for, it would be best to discuss further goals of care of complete treatment versus hospice once he is in his normal mentation. She verbalized understanding and is agreeable. All the questions were answered. Attestations Medical Necessity Statement*: Requires further hospitalization for management of acute renal failure with hyponatremia, hypokalemia and high anion gap metabolic acidosis, uremia in a patient with alcohol abuse while safe discharge planning is sought. Coding Level of Care Code Critical Care >/= 30 minutes Critical care time (in minutes): 60 The high probability of a clinically significant, sudden or life threatening deterioration, as referenced in this documentation, required my full and direct attention, intervention and personal management. The critical care time shown is in addition to time spent performing any reported separately billable procedures and includes the following: [x] Data and vital sign review and interpretation [x ] Patient assessment, examination and intervention [x] Medication orders and management [x] Patient/Family updates as able [x] Care Coordination and Documentation. Diagnoses Septic shock A41.9; R65.21 Acute renal failure (ARF) N17.9 Acute encephalopathy G93.40 Acute hypokalemia E87.6 Chronic hyponatremia E87.1 Oliguria R34 Macrocytic anemia D53.9 Thrombocytopenia D69.6 Alcoholic cirrhosis K70.30 Ascites presence: without ascites Hypertension I15.8 Hypertension type: other secondary hypertension
--- NOTE | 2023-05-12 18:01 | PC.NURSE ---
Patient incontinent of bowel multiple times every shift. Complete linen changes and january care given, bottom is red, patient refuses to turn
[2023-05-12 18:02] LABS: Anion Gap 15.7 (5-19); Blood Urea Nitrogen 53 mg/dL (8-23); Carbon Dioxide 28 mmol/L (22-29); Chloride 104 mmol/L (98-107); Glomerular Filtration Rate 35.9 mL/min (90-130); Glucose 78 mg/dL (65-115); Osmolality Calculated 309 mOsm/kg (285-295); Potassium 4.7 mmol/L (3.5-5.1); Sodium 143 mmol/L (136-145)
[2023-05-12] MEDS: sodium chloride 0.9% 1,000 ML 75 ML IV (18:12)
[2023-05-12 19:28] LABS: Anion Gap 14.7 (5-19); Blood Urea Nitrogen 56 mg/dL (8-23); Calcium 7.5 mg/dL (8.5-10.5); Carbon Dioxide 30 mmol/L (22-29); Chloride 100 mmol/L (98-107); Glucose 103 mg/dL (65-115); Osmolality Calculated 308 mOsm/kg (285-295); Potassium 3.7 mmol/L (3.5-5.1); Sodium 141 mmol/L (136-145)
[2023-05-13] VITALS (108 sets, daily range): BP systolic 87–156; BP diastolic 47–97; PULSE 69–174; RESP 8–32; TEMP 36.7–37; O2SAT 92–100
[2023-05-13] MEDS: heparin 5,000 unit/mL INJ 1 mL 5000 UNIT SUBCUT ×2 (01:59→13:20)
[2023-05-13] MEDS: vancomycin 1,250 MG/250 ML PIGGYBACK 200 MG IV (01:59)
[2023-05-13] MEDS: piperacillin-tazobactam 3.375 GM in sodium chloride 0.9% (plus) 50 ML IV ×3 (03:22→23:20)
[2023-05-13 04:35] LABS: Basophils # 0.1 10^3/uL (0.0-0.1); Basophils % 0.5 %; Eosinophils # 0.3 10^3/uL (0.0-0.8); Eosinophils % 2.5 %; Hematocrit 25.2 % (42.0-52.0); Hemoglobin 8.2 g/dL (11.7-16.6); Lymphocytes # 1.9 10^3/uL (0.8-4.8); Lymphocytes % 14.6 %; Mean Corpuscular HGB Conc 32.5 g/dL (30.0-36.0); Mean Corpuscular Hemoglobin 35.5 pg (28.0-34.0); Mean Corpuscular Volume 109.1 fl (80-94); Mean Platelet Volume 10.4 fL (7.4-10.4); Monocytes # 0.5 10^3/uL (0.2-0.9); Monocytes % 3.6 %; Neutrophils # 9.67 10^3/uL (1.8-7.7); Neutrophils % 74.4 %; Nucleated Red Blood Cells % 0 %; Platelet Count 87 10^3/cmm (130-400); Red Blood Count 2.31 10^6/uL (4.1-5.3); Red Cell Distribution Width 16.1 % (12.1-15.1)
[2023-05-13 04:54] LABS: Alanine Aminotransferase 14 U/L (0-41); Albumin Level 2.4 g/dL (3.5-5.2); Alkaline Phosphatase 75 U/L (40-130); Anion Gap 16.2 (5-19); Aspartate Amino Transferase 23 U/L (0-40); Blood Urea Nitrogen 53 mg/dL (8-23); Calcium 7.5 mg/dL (8.5-10.5); Carbon Dioxide 28 mmol/L (22-29); Chloride 99 mmol/L (98-107); Globulin 2.8 g/dL (1.3-4.6); Glomerular Filtration Rate 35.9 mL/min (90-130); Glucose 90 mg/dL (65-115); Osmolality Calculated 304 mOsm/kg (285-295); Potassium 3.2 mmol/L (3.5-5.1); Sodium 140 mmol/L (136-145); Total Bilirubin 0.4 mg/dL (0.15-1.2); Total Protein 5.2 g/dL (6.6-8.7)
[2023-05-13] MEDS: sodium chloride 0.9% 1,000 ML 75 ML IV (06:20)
[2023-05-13] MEDS: folic acid 1 mg Tablet PO (08:24)
[2023-05-13] MEDS: thiamine 100 mg Tablet PO (08:24)
[2023-05-13] MEDS: midodrine 5 mg TABLET 10 MG PO ×3 (08:24→20:40)
[2023-05-13] MEDS: multivitamin therapeutic Tablet 1 TAB PO (08:24)
--- NOTE | 2023-05-13 08:39 | P.PN_ITS ---
Subjective Subjective: off pressors Medications: Reviewed: Yes Vitals/I&O/Wt Last Vital Signs Temp 97.0 F L 05/12/23 19:00 Pulse 104 H 05/13/23 08:00 Resp 15 05/13/23 08:00 BP 105/84 05/13/23 08:00 Pulse Ox 100 05/13/23 08:00 O2 Del Method Room Air 05/12/23 19:00 O2 Flow Rate 2 05/11/23 19:00 05/12/23 05/13/23 05/13/23 22:59 06:59 14:59 Intake Total 1787.191 / 2825.085 1310 / 4135.085 350 / 350 Output Total 600 / 600 700 / 1300 Balance 1187.191 / 2225.085 610 / 2835.085 350 / 350 Physical Exam Narrative: no distress , on 2L NC S1S2 RRR per report Lungs clear per report No edema Urinary Catheter Management: Martinez: Cath Placed During This Visit: yes Reason for Continuing Indwelling Catheter: Accurate Measurement of Urinary Output in Critically Ill Patients Urinary Catheter Date of Insertion: 05/09/23 Urinary Catheter Time of Insertion: 19:47 Data 05/13/23 03:42 05/13/23 03:42 Micro: Microbiology 05/12/23 Unknown C.difficile Toxin B Gene (PCR) - Final Stool - Stool Aspirate A&P Assessment and plan (1) Acute renal failure (ARF): Plan 1. Acute kidney injury: Likely ATN from sepsis and hypotension. Baseline creatinine is normal at 0.7 previously, presented with creatinine of 5.1, renal function improving with fluid resuscitation and low-dose pressors. Off pressors now. . Avoid nephrotoxins and IV contrast studies. No obstruction on CT. UA with 1+ protein and 3+ blood. Will repeat UA after TERRANCE resolved. Normal CK levels. Cr and UOP improving. 2. Possible sepsis: Await cultures, on broad-spectrum antibiotics. 3. Hyponatremia: acute on chronic , hypovolemic , improved with fluid resusc itation, monitor 4. Metabolic alkalosis 5. Hypokalemia : K being repleted 6. Alcoholic liver disease with cirrhosis Patient evaluated using audiovisual cart. Time spent 20 minutes. Attestations Medical Necessity Statement*: per medicine Coding Level of Care Code Acute Code for Chg Fwd Diagnoses Acute renal failure (ARF) N17.9
[2023-05-13 10:59] LABS: Lyme AB Screen <0.90 index
[2023-05-13] MEDS: pantoprazole 40 mg SDV IVP ×2 (11:17→23:10)
[2023-05-13] MEDS: potassium chloride ER 20 mEq Tablet 80 MEQ PO (11:17)
[2023-05-13] MEDS: loperamide 2 mg Capsule 4 MG PO (11:17)
[2023-05-13] MEDS: collagenase oint 30 gm 1 APPLIC TOPICAL (11:21)
[2023-05-13] MEDS: FUROsemide 10 mg/mL SDV 4mL 40 MG IVP (11:23)
--- NOTE | 2023-05-13 13:39 | PC.NURSE ---
Patient transferred to [place] at approximately 1330.
--- NOTE | 2023-05-13 15:37 | PM.PN ---
Subjective Subjective: No events overnight. Patient has remained hemodynamic stable and afebrile. Off Levophed. Today morning a lot more awake and alert. Able to have conversation. Alert oriented to self, being in the hospital, reason to being in the hospital. He states he is probably in the hospital because he did not take care of him as well as he should. Probably did not eat as well as he should. Document urine output last 24 hours 1300 cc. Blood work appreciated for stable CBC, CMP improving with mild hypokalemia 3.2 today. Resolving TERRANCE with creatinine improving to 1.9. Patient remains on room air. Medications: Reviewed: Yes Vitals/I&O/Wt Last Vital Signs Temp 98.1 F 05/13/23 15:19 Pulse 83 05/13/23 15:19 Resp 17 05/13/23 15:19 BP 116/72 05/13/23 15:19 Pulse Ox 99 05/13/23 15:19 O2 Del Method Room Air 05/12/23 19:00 O2 Flow Rate 2 05/11/23 19:00 05/13/23 05/13/23 05/13/23 06:59 14:59 22:59 Intake Total 1310 / 4135.085 830 / 830 Output Total 700 / 1300 Balance 610 / 2835.085 830 / 830 Physical Exam Narrative: General: No acute distress, slow to respond, AO x2, alert and oriented to self and being in the hospital, on room air, pallor present HEENT: PERRLA, pupils bilaterally equal and reactive Chest: Bilateral Novosel breath sounds all over lung edwards without any added sounds CVS: S1-S2 regular, no murmurs, no tachycardia, no gallops, no rubs Abdomen: Soft, nontender, no organomegaly, bowel sounds present, morbidly obese Neuro: Moving all limbs, power 3/5 Urinary Catheter Management: Martinez: Cath Placed During This Visit: yes Reason for Continuing Indwelling Catheter: Accurate Measurement of Urinary Output in Critically Ill Patients Urinary Catheter Date of Insertion: 05/09/23 Urinary Catheter Time of Insertion: 19:47 Data 05/13/23 03:42 05/13/23 03:42 Micro: Microbiology 05/12/23 Unknown C.difficile Toxin B Gene (PCR) - Final Stool - Stool Aspirate A&P Assessment and plan (1) Septic shock: Resolved. Ruled on admission with hypotension, leukocytosis, elevated lactate with endorgan damage of renal failure. Source unknown for now. MRSA swab pending, blood culture negative, appreciate CT abdomen chest pelvis results. Echocardiogram shows an EF of 70% with no diastolic dysfunction. MRSA positive. Patient does have mild cellulitis of the right hip. Continue with vancomycin and Zosyn for now. Will overall finish a 5-day course of antibiotics. Tick panel awaited. Continue with doxycycline. Switch to oral doxycycline 100 mg twice daily. Normal saline 75 cc/h. (2) Hypotension: Most likely in setting of chronic alcohol abuse. Continue with midodrine 10 mg 3 times daily. Goal blood pressure less than 140/90 mmHg with mean over 65. (3) Acute renal failure (ARF): Resolving. Urine output improving. Continue with IV fluid as above. Monitor BMP daily now. IV Lasix 40 mg one-time today. Nephrology recommendations appreciated. Repeat hypokalemia with 80 mg of oral potassium. Qualifiers: Acute renal failure type: with acute tubular necrosis Qualified Code(s): N17.0 - Acute kidney failure with tubular necrosis (4) Acute encephalopathy: Resolving. PT/OT evaluation. Out of bed to chair. Most likely in setting of chronic alcohol abuse along with uremia. Cannot rule out Warnicke's. Patient does have septic shock right now. Continue to monitor. CIWA protocol if needed. Not in alcohol withdrawal currently. (5) Acute hypokalemia: Monitor daily. Oral 80 mg of potassium. (6) Chronic hyponatremia: Resolved. (7) Oliguria: Resolved. (8) Macrocytic anemia: Baseline hemoglobin around 8.5-9.6. No active site of bleeding for now. Appreciate vitamin B12, folate and iron panel. Monitor daily. (9) Thrombocytopenia: Most likely in setting of chronic alcohol abuse with liver cirrhosis. No site of bleeding. Continue to monitor daily. (10) Alcoholic cirrhosis: Qualifiers: Ascites presence: without ascites Qualified Code(s): K70.30 - Alcoholic cirrhosis of liver without ascites (11) Hypertension: Qualifiers: Hypertension type: other secondary hypertension Qualified Code(s): I15.8 - Other secondary hypertension (12) Physical deconditioning: (13) Goals of care, counseling/discussion: Discussed with patient in detail. Discussed that unfortunately patient is extremely deconditioned most likely in setting of chronic alcohol abuse and noncompliance along with lifestyle choices. Patient states he understands and this is the choice of the way of living he would want to go ahead and continue doing. We did discuss that it would possibly mean that patient can require multiple recurrent admissions going forward because of deconditioning which would not improve without compliance to medications and abstinence for alcohol. Options discussed for hospice versus continued treatment. Patient states she would like to continue treatment and is agreeable to multiple admissions if and when needed. Plan Full code. Renal nondialysis clear liquid diet along with Nepro protein shakes with each meal. Heparin 5000 every 12 hourly. Protonix for PUD prophylaxis. Transfer to [facility]. Discharge plan: Discussed in detail with patient. Discussed that unfortunately patient is too deconditioned to take care of her lives by himself. Patient is agreeable to go to SNF for short while. Case management alerted. Tried to call patient's son for update but unable to get in touch. Discussed with Ms. Jackson over the phone. Explained the need for further hospitalization because of acute renal failure, concerns of noncompliance and safety on discharge back to home. As per Ms. Jackson this is patient's own choice to live in current status. He was discharged to SNF on last discharge from the hospital but the discharge himself out of SNF after becoming better and continues to remain at home by himself in current living conditions at his own accord. We discussed if patient wants to live at current situations going forward for, it would be best to discuss further goals of care of complete treatment versus hospice once he is in his normal mentation. She verbalized understanding and is agreeable. All the questions were answered. Attestations Medical Necessity Statement*: Requires further hospitalization for management of acute renal failure in setting of chronic alcohol abuse, dehydration, physical deconditioning while safe discharge planning is sought. Diagnoses Septic shock A41.9; R65.21 Hypotension I95.9 Acute renal failure (ARF) N17.0 Acute renal failure type: with acute tubular necrosis Acute encephalopathy G93.40 Acute hypokalemia E87.6 Chronic hyponatremia E87.1 Oliguria R34 Macrocytic anemia D53.9 Thrombocytopenia D69.6 Alcoholic cirrhosis K70.30 Ascites presence: without ascites Hypertension I15.8 Hypertension type: other secondary hypertension Physical deconditioning R53.81 Goals of care, counseling/discussion Z71.89
[2023-05-13] MEDS: doxycycline 100 mg Tablet PO (18:14)
[2023-05-13] MEDS: sodium chloride 0.9% 1,000 ML 0.75 ML IV (21:33)
[2023-05-14] MEDS: heparin 5,000 unit/mL INJ 1 mL 5000 UNIT SUBCUT ×2 (01:08→14:12)
[2023-05-14 03:31] VITALS: BP 105/62; PULSE 88; RESP 18; TEMP 36.7; O2SAT 98
--- NOTE | 2023-05-14 05:24 | PC.NURSE ---
CONFUSION Having some confusion this morning. Pulled his peripheral PIID out. Still has PICC in place. Refusing to wear telemetry now. Told me it was no Fing heart monitor, It tells you how much hand lotion to use Has been awake all night watching TV and up to now has been oriented and cooperative
[2023-05-14 05:34] LABS: Basophils # 0.1 10^3/uL (0.0-0.1); Basophils % 0.4 %; Eosinophils # 0.3 10^3/uL (0.0-0.8); Eosinophils % 1.7 %; Hematocrit 25.6 % (42.0-52.0); Hemoglobin 8.4 g/dL (11.7-16.6); Lymphocytes # 1.7 10^3/uL (0.8-4.8); Mean Corpuscular HGB Conc 32.8 g/dL (30.0-36.0); Mean Corpuscular Hemoglobin 35.9 pg (28.0-34.0); Mean Corpuscular Volume 109.4 fl (80-94); Mean Platelet Volume 10.5 fL (7.4-10.4); Monocytes # 0.9 10^3/uL (0.2-0.9); Monocytes % 5.6 %; Neutrophils # 13.28 10^3/uL (1.8-7.7); Neutrophils % 79.7 %; Nucleated Red Blood Cells % 0 %; Platelet Count 89 10^3/cmm (130-400); Red Blood Count 2.34 10^6/uL (4.1-5.3); Red Cell Distribution Width 16.4 % (12.1-15.1); White Blood Count 16.7 10^3/uL (4.0-10.0)
[2023-05-14 06:01] LABS: Alanine Aminotransferase 16 U/L (0-41); Albumin Level 2.4 g/dL (3.5-5.2); Alkaline Phosphatase 81 U/L (40-130); Anion Gap 17.8 (5-19); Aspartate Amino Transferase 25 U/L (0-40); Blood Urea Nitrogen 42 mg/dL (8-23); Calcium 7.2 mg/dL (8.5-10.5); Carbon Dioxide 23 mmol/L (22-29); Chloride 101 mmol/L (98-107); Globulin 2.8 g/dL (1.3-4.6); Glomerular Filtration Rate 40.8 mL/min (90-130); Glucose 95 mg/dL (65-115); Osmolality Calculated 296 mOsm/kg (285-295); Potassium 3.8 mmol/L (3.5-5.1); Sodium 138 mmol/L (136-145); Total Bilirubin 0.6 mg/dL (0.15-1.2); Total Protein 5.2 g/dL (6.6-8.7)
[2023-05-14 07:32] VITALS: BP 129/51; PULSE 91; RESP 18; TEMP 36.8; O2SAT 98
[2023-05-14] MEDS: piperacillin-tazobactam 3.375 GM in sodium chloride 0.9% (plus) 50 ML IV (08:17)
[2023-05-14] MEDS: doxycycline 100 mg Tablet PO ×2 (08:18→17:34)
[2023-05-14] MEDS: collagenase oint 30 gm 1 APPLIC TOPICAL (08:18)
[2023-05-14] MEDS: thiamine 100 mg Tablet PO (08:18)
[2023-05-14] MEDS: multivitamin therapeutic Tablet 1 TAB PO (08:18)
[2023-05-14] MEDS: folic acid 1 mg Tablet PO (08:18)
[2023-05-14] MEDS: sodium chloride 0.9% 1,000 ML 0.75 ML IV (11:26)
[2023-05-14] MEDS: pantoprazole 40 mg SDV IVP ×2 (11:26→23:08)
[2023-05-14 12:00] VITALS: BP 101/62; BP 129/51; PULSE 91; RESP 18; TEMP 36.8
[2023-05-14] MEDS: vancomycin 1,250 MG/250 ML PIGGYBACK 200 MG IV (14:13)
--- NOTE | 2023-05-14 14:32 | P.PN_ITS ---
Subjective Subjective: No acute events overnight. Patient has remained hemodynamically stable and afebrile. Denies any nausea, vomiting, headache. Remains on room air. Sitting up in chair today. Able to have conversation but does have episodes of confusions. Blood work appreciated for a stable CBC, creatinine improving to 1.7, BUN improving to 42, electrolytes stable, less hyperosmolar. Medications: Reviewed: Yes Vitals/I&O/Wt Last Vital Signs Temp 98.3 F 05/14/23 12:00 Pulse 91 05/14/23 12:00 Resp 18 05/14/23 12:00 BP 129/51 05/14/23 12:00 Pulse Ox 98 05/14/23 07:32 O2 Del Method Room Air 05/12/23 19:00 O2 Flow Rate 2 05/11/23 19:00 05/13/23 05/14/23 05/14/23 22:59 06:59 14:59 Intake Total 1260 / 2090 250 / 2340 379.229 / 379.229 Output Total 1500 / 1500 200 / 1700 Balance -240 / 590 50 / 640 379.229 / 379.229 Physical Exam Narrative: General: No acute distress, slow to respond, AO x2, alert and oriented to self and being in the hospital, on room air, pallor present HEENT: PERRLA, pupils bilaterally equal and reactive Chest: Bilateral Novosel breath sounds all over lung edwards without any added sounds CVS: S1-S2 regular, no murmurs, no tachycardia, no gallops, no rubs Abdomen: Soft, nontender, no organomegaly, bowel sounds present, morbidly obese Neuro: Moving all limbs, power 3/5 Skin: Does have superficial grade 2 ulcer in the right groin, not foul-smelling or draining Urinary Catheter Management: Martinez: Cath Placed During This Visit: yes Reason for Continuing Indwelling Catheter: Other Urinary Catheter Date of Insertion: 05/09/23 Urinary Catheter Time of Insertion: 19:47 Data 05/14/23 04:55 05/14/23 04:55 A&P Assessment and plan (1) Septic shock: Resolved. Ruled on admission with hypotension, leukocytosis, elevated lactate with endorgan damage of renal failure. Source unknown for now. MRSA swab positive, blood culture negative, appreciate CT abdomen chest pelvis results. Echocardiogram shows an EF of 70% with no diastolic dysfunction. MRSA positive. Patient does have mild cellulitis of the right hip. Patient has remained hemodynamically stable and afebrile. Does have leuk ocytosis though. Hold off on IV vancomycin and Zosyn for now. Continue doxycycline to finish a 7-day course. Last dose on 05/17. Tick panel pending. Normal saline 75 cc/h. (2) Hypotension: Most likely in setting of chronic alcohol abuse. Continue with midodrine 10 mg 3 times daily. Well-controlled. Goal blood pressure less than 140/90 mmHg with mean over 65. (3) Acute renal failure (ARF): Resolving. Urine output improving. Continue with IV fluid as above. Monitor BMP daily now. Hold off on Lasix for now. Nephrology recommendations appreciated. Electrolytes stable. Qualifiers: Acute renal failure type: with acute tubular necrosis Qualified Code(s): N17.0 - Acute kidney failure with tubular necrosis (4) Acute encephalopathy: Resolving. Continue with PT/OT. Out of bed to chair. Most likely in setting of chronic alcohol abuse along with uremia. Cannot rule out Warnicke's. Start on IV thiamine 500 mg daily for 3 days. Continue to monitor. CIWA protocol if needed. Not in alcohol withdrawal currently. (5) Acute hypokalemia: Stable currently. Monitor daily. (6) Chronic hyponatremia: Resolved. (7) Oliguria: Resolved. (8) Macrocytic anemia: Baseline hemoglobin around 8.5-9.6. No active site of bleeding for now. Appreciate vitamin B12, folate and iron panel. Monitor daily. (9) Thrombocytopenia: Most likely in setting of chronic alcohol abuse with liver cirrhosis. No site of bleeding. Continue to monitor daily. (10) Alcoholic cirrhosis: Qualifiers: Ascites presence: without ascites Qualified Code(s): K70.30 - Alcoholic cirrhosis of liver without ascites (11) Hypertension: Qualifiers: Hypertension type: other secondary hypertension Qualified Code(s): I15.8 - Other secondary hypertension (12) Physical deconditioning: (13) Goals of care, counseling/discussion: Discussed with patient in detail. Discussed that unfortunately patient is extremely deconditioned most likely in setting of chronic alcohol abuse and noncompliance along with lifestyle choices. Patient states he understands and this is the choice of the way of living he would want to go ahead and continue doing. We did discuss that it would possibly mean that patient can require multiple recurrent admissions going forward because of deconditioning which would not improve without compliance to medications and abstinence for alcohol. Options discussed for hospice versus continued treatment. Patient states she would like to continue treatment and is agreeable to multiple admissions if and when needed. Plan Full code. Renal nondialysis clear liquid diet along with Nepro protein shakes with each meal. Heparin 5000 every 12 hourly. Protonix for PUD prophylaxis. [facility] Discharge plan: Discussed in detail with patient. Discussed that unfortunately patient is too deconditioned to take care of her lives by himself. Patient is agreeable to go to SNF for short while. Case management alerted. Tried to call patient's son for update but unable to get in touch. Discussed with Ms. Jackson over the phone. Explained the need for further hospitalization because of acute renal failure, concerns of noncompliance and safety on discharge back to home. As per Ms. Jackson this is patient's own choice to live in current status. He was discharged to SNF on last discharge from the hospital but the discharge himself out of SNF after becoming better and continues to remain at home by himself in current living conditions at his own accord. We discussed if patient wants to live at current situations going forward for, it would be best to discuss further goals of care of complete treatment versus hospice once he is in his normal mentation. She verbalized understanding and is agreeable. All the questions were answered. Attestations Medical Necessity Statement*: Requires further hospitalization for management of resolving acute renal fail ure, hypotension in setting of chronic alcohol abuse, physical deconditioning while safe discharge planning is sought. Diagnoses Septic shock A41.9; R65.21 Hypotension I95.9 Acute renal failure (ARF) N17.0 Acute renal failure type: with acute tubular necrosis Acute encephalopathy G93.40 Acute hypokalemia E87.6 Chronic hyponatremia E87.1 Oliguria R34 Macrocytic anemia D53.9 Thrombocytopenia D69.6 Alcoholic cirrhosis K70.30 Ascites presence: without ascites Hypertension I15.8 Hypertension type: other secondary hypertension Physical deconditioning R53.81 Goals of care, counseling/discussion Z71.89
[2023-05-14] MEDS: midodrine 5 mg TABLET 10 MG PO ×2 (15:14→21:06)
[2023-05-14 15:37] VITALS: BP 101/64; PULSE 18; RESP 106; TEMP 36.8; O2SAT 98
[2023-05-14 21:00] VITALS: BP 124/84; PULSE 91; RESP 15; O2SAT 100
[2023-05-14] MEDS: ALPRAZolam 0.5 mg Tablet 0.25 MG PO (21:06)
[2023-05-15] VITALS (7 sets, daily range): BP systolic 113–135; BP diastolic 67–79; PULSE 78–107; RESP 16–19; TEMP 36.6–37; O2SAT 93–97
[2023-05-15] MEDS: sodium chloride 0.9% 1,000 ML 75 ML IV (00:37)
[2023-05-15] MEDS: heparin 5,000 unit/mL INJ 1 mL 5000 UNIT SUBCUT ×2 (02:25→13:23)
[2023-05-15 05:02] LABS: Basophils # 0.1 10^3/uL (0.0-0.1); Basophils % 0.4 %; Eosinophils # 0.3 10^3/uL (0.0-0.8); Hematocrit 25.3 % (42.0-52.0); Hemoglobin 8.2 g/dL (11.7-16.6); Lymphocytes # 1.6 10^3/uL (0.8-4.8); Lymphocytes % 9.8 %; Mean Corpuscular HGB Conc 32.4 g/dL (30.0-36.0); Mean Platelet Volume 11.2 fL (7.4-10.4); Monocytes # 0.7 10^3/uL (0.2-0.9); Monocytes % 4.3 %; Neutrophils # 13.12 10^3/uL (1.8-7.7); Neutrophils % 80.6 %; Nucleated Red Blood Cells % 0 %; Platelet Count 97 10^3/cmm (130-400); Red Blood Count 2.28 10^6/uL (4.1-5.3); Red Cell Distribution Width 16.7 % (12.1-15.1); White Blood Count 16.3 10^3/uL (4.0-10.0)
[2023-05-15 05:26] LABS: Alanine Aminotransferase 13 U/L (0-41); Albumin Level 2.3 g/dL (3.5-5.2); Alkaline Phosphatase 83 U/L (40-130); Aspartate Amino Transferase 20 U/L (0-40); Blood Urea Nitrogen 40 mg/dL (8-23); Carbon Dioxide 23 mmol/L (22-29); Chloride 104 mmol/L (98-107); Globulin 2.9 g/dL (1.3-4.6); Glomerular Filtration Rate 43.7 mL/min (90-130); Glucose 93 mg/dL (65-115); Osmolality Calculated 297 mOsm/kg (285-295); Sodium 139 mmol/L (136-145); Total Bilirubin 0.5 mg/dL (0.15-1.2); Total Protein 5.2 g/dL (6.6-8.7)
[2023-05-15] MEDS: folic acid 1 mg Tablet PO (08:29)
[2023-05-15] MEDS: multivitamin therapeutic Tablet 1 TAB PO (08:29)
[2023-05-15] MEDS: midodrine 5 mg TABLET 10 MG PO ×3 (08:29→20:06)
[2023-05-15] MEDS: doxycycline 100 mg Tablet PO ×2 (08:29→17:32)
--- NOTE | 2023-05-15 09:08 | PM.PN ---
Subjective Subjective: no new complaints Medications: Reviewed: Yes Vitals/I&O/Wt Last Vital Signs Temp 98.2 F 05/15/23 07:58 Pulse 85 05/15/23 07:58 Resp 16 05/15/23 07:58 BP 113/77 05/15/23 07:58 Pulse Ox 97 05/15/23 07:58 O2 Del Method Room Air 05/15/23 03:48 O2 Flow Rate 2 05/11/23 19:00 05/14/23 05/15/23 05/15/23 22:59 06:59 14:59 Intake Total 0 / 379.229 903.75 / 1282.979 Output Total 500 / 500 250 / 750 Balance -500 / -120.771 653.75 / 532.979 Physical Exam Narrative: no distress , on 2L NC S1S2 RRR per report Lungs clear per report No edema Urinary Catheter Management: Martinez: Cath Placed During This Visit: yes Reason for Continuing Indwelling Catheter: Other Urinary Catheter Date of Insertion: 05/09/23 Urinary Catheter Time of Insertion: 19:47 Data 05/15/23 04:46 05/15/23 04:46 Micro: Microbiology 05/09/23 05:30 Blood Culture - Final Blood NO GROWTH AFTER 5 DAYS A&P Assessment and plan (1) Acute renal failure (ARF): Qualifiers: Acute renal failure type: with acute tubular necrosis Qualified Code(s): N17.0 - Acute kidney failure with tubular necrosis Plan 1. Acute kidney injury: Likely ATN from sepsis and hypotension. Baseline creatinine is normal at 0.7 previously, presented with creatinine of 5.1, renal function improving with fluid resuscitation and low-dose pressors. Off pressors now. . Avoid nephrotoxins and IV contrast studies. No obstruction on CT. UA with 1+ protein and 3+ blood. Will repeat UA after TERRANCE resolved. Normal CK levels. Cr and UOP improving. 2. Possible sepsis: Await cultures, on broad-spectrum antibiotics. 3. Hyponatremia: acute on chronic , hypovolemic , improved with fluid resuscitation, monitor 4. Metabolic alkalosis 5. Hypokalemia : K being repleted 6. Alcoholic liver disease with cirrhosis Patient evaluated using audiovisual cart. Time spent 20 minutes. Attestations Medical Necessity Statement*: per medicine Coding Level of Care Code Acute Code for Chg Fwd Diagnoses Acute renal failure (ARF) N17.0 Acute renal failure type: with acute tubular necrosis
--- NOTE | 2023-05-15 10:08 | US_ITS ---
WS: [id number] Abdominal ultrasound, limited. History: Evaluate for ascites. Comparison: None. All 4 quadrants are imaged by ultrasound to evaluate for ascites. There is no peritoneal fluid identi fied. US/US abdomen lmt fluid [id number] IMPRESSION: No peritoneal ascites.
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
[2023-05-15 15:24] LABS: Ammonia 18 umol/L (16-60)
[2023-05-15] MEDS: potassium chloride ER 20 mEq Tablet 40 MEQ PO (20:09)
[2023-05-16] MEDS: heparin 5,000 unit/mL INJ 1 mL 5000 UNIT SUBCUT ×2 (02:12→13:54)
[2023-05-16 04:38] VITALS: BP 114/78; PULSE 86; RESP 18; TEMP 36.8; O2SAT 94
[2023-05-16 06:12] LABS: Basophils # 0.1 10^3/uL (0.0-0.1); Basophils % 0.4 %; Eosinophils # 0.4 10^3/uL (0.0-0.8); Eosinophils % 1.7 %; Hematocrit 26.6 % (42.0-52.0); Hemoglobin 9.2 g/dL (11.7-16.6); Mean Corpuscular HGB Conc 34.6 g/dL (30.0-36.0); Mean Corpuscular Hemoglobin 37.6 pg (28.0-34.0); Mean Corpuscular Volume 108.6 fl (80-94); Mean Platelet Volume 10.9 fL (7.4-10.4); Monocytes # 0.9 10^3/uL (0.2-0.9); Monocytes % 4.3 %; Neutrophils # 17.69 10^3/uL (1.8-7.7); Neutrophils % 80.9 %; Nucleated Red Blood Cells % 0 %; Platelet Count 206 10^3/cmm (130-400); Red Blood Count 2.45 10^6/uL (4.1-5.3); Red Cell Distribution Width 16.9 % (12.1-15.1); White Blood Count 21.9 10^3/uL (4.0-10.0)
[2023-05-16 06:15] LABS: Alanine Aminotransferase 11 U/L (0-41); Albumin Level 2.7 g/dL (3.5-5.2); Alkaline Phosphatase 110 U/L (40-130); Anion Gap 16.4 (5-19); Aspartate Amino Transferase 22 U/L (0-40); Blood Urea Nitrogen 37 mg/dL (8-23); Calcium 7.2 mg/dL (8.5-10.5); Carbon Dioxide 24 mmol/L (22-29); Chloride 104 mmol/L (98-107); Globulin 3.2 g/dL (1.3-4.6); Glomerular Filtration Rate 47.1 mL/min (90-130); Glucose 100 mg/dL (65-115); Osmolality Calculated 301 mOsm/kg (285-295); Potassium 3.4 mmol/L (3.5-5.1); Sodium 141 mmol/L (136-145); Total Bilirubin 0.7 mg/dL (0.15-1.2); Total Protein 5.9 g/dL (6.6-8.7)
[2023-05-16 06:32] LABS: Magnesium 0.9 mg/dL (1.7-2.3)
[2023-05-16 07:16] VITALS: BP 111/72; PULSE 95; RESP 17; TEMP 37; O2SAT 99
[2023-05-16] MEDS: doxycycline 100 mg Tablet PO ×2 (08:48→17:38)
[2023-05-16] MEDS: midodrine 5 mg TABLET 10 MG PO ×3 (08:49→20:48)
[2023-05-16] MEDS: multivitamin therapeutic Tablet 1 TAB PO (08:49)
[2023-05-16] MEDS: folic acid 1 mg Tablet PO (08:49)
--- NOTE | 2023-05-16 10:49 | PM.PN ---
Subjective Subjective: no new complaints Medications: Reviewed: Yes Vitals/I&O/Wt Last Vital Signs Temp 98.6 F 05/16/23 07:16 Pulse 95 05/16/23 07:16 Resp 17 05/16/23 07:16 BP 111/72 05/16/23 07:16 Pulse Ox 99 05/16/23 07:16 O2 Del Method Room Air 05/16/23 07:16 O2 Flow Rate 2 05/16/23 08:00 05/15/23 05/16/23 05/16/23 22:59 06:59 14:59 Intake Total 240 / 1480 120 / 120 Balance 240 / 1480 120 / 120 Physical Exam Narrative: no distress , on 2L NC S1S2 RRR per report Lungs clear per report No edema Urinary Catheter Management: Martinez: Cath Placed During This Visit: yes, but has since been removed by the nurse Reason for Continuing Indwelling Catheter: Decision to DC Catheter Urinary Catheter Date of Insertion: 05/09/23 Urinary Catheter Time of Insertion: 19:47 Date Urinary Catheter Removed: 05/15/23 Time Urinary Catheter Discontinued: 10:09 Data 05/16/23 05:31 05/16/23 05:31 Micro: Microbiology 05/09/23 12:30 Blood Culture - Final Blood NO GROWTH AFTER 5 DAYS A&P Assessment and plan (1) Acute renal failure (ARF): Qualifiers: Acute renal failure type: with acute tubular necrosis Qualified Code(s): N17.0 - Acute kidney failure with tubular necrosis Plan 1. Acute kidney injury: Likely ATN from sepsis and hypotension. Baseline creatinine is normal at 0.7 previously, presented with creatinine of 5.1, renal function improving with fluid resuscitation and low-dose pressors. Off pressors now. . Avoid nephrotoxins and IV contrast studies. No obstruction on CT. UA with 1+ protein and 3+ blood. Will repeat UA after TERRANCE resolved. Normal CK levels. Cr and UOP improving. 2. Possible sepsis: Await cultures, on broad-spectrum antibiotics. 3. Hyponatremia: acute on chronic , hypovolemic , improved with fluid resuscitation, monitor 4. Metabolic alkalosis 5. Hypokalemia : K being repleted 6. Alcoholic liver disease with cirrhosis Patient evaluated using audiovisual cart. Time spent 20 minutes. Attestations Medical Necessity Statement*: per medicine Coding Level of Care Code Acute Code for Chg Fwd Diagnoses Acute renal failure (ARF) N17.0 Acute renal failure type: with acute tubular necrosis
[2023-05-16 11:51] VITALS: BP 111/76; PULSE 94; RESP 18; TEMP 36.4; O2SAT 100
[2023-05-16 16:00] VITALS: BP 143/80; PULSE 84; RESP 16; TEMP 36.4; O2SAT 99
[2023-05-16] MEDS: magnesium lactate 84 mg Tablet PO (17:38)
[2023-05-16] MEDS: magnesium sulfate premix 4 GM/100 ML PREMIX IV (17:38)
[2023-05-16 19:30] VITALS: BP 110/71; PULSE 85; RESP 17; TEMP 36.4; O2SAT 97
[2023-05-16] MEDS: linezolid 600 mg Tablet PO (19:55)
[2023-05-16] MEDS: ciprofloxacin 500 mg Tablet PO (20:48)
--- NOTE | 2023-05-16 21:01 | P.PN_ITS ---
Subjective Subjective: Today he appears calm and cooperative. He states he is doing all right this morning. He seems to have no recollection of seeing me yesterday. Asking him if I saw him yesterday he states I do not think so . On speaking further he states I remember seeing you sometime . He is unable to tell me the year. He cannot tell me the reason he is in the hospital. Group [facility] through the conversation he expresses concern that he had his walker here from home which now does not seem to be there, that he would like to use it to get up. Nursing staff are checking on whether his walker was here. Otherwise he denies pain or discomfort. Denies any headache, no neck pain, no chest pain or pressure. No shortness of breath. No abdominal pain, nausea or vomiting. Denies difficulty urinating, then states that he needs to urinate. Assisted him with obtaining a fresh urinal. Vitals/I&O/Wt Last Vital Signs Temp 97.6 F 05/16/23 19:30 Pulse 85 05/16/23 19:30 Resp 17 05/16/23 19:30 BP 110/71 05/16/23 19:30 Pulse Ox 97 05/16/23 19:30 O2 Del Method Room Air 05/16/23 16:00 O2 Flow Rate 2 05/16/23 08:00 05/16/23 05/16/23 05/16/23 06:59 14:59 22:59 Intake Total 600 / 600 340 / 940 Output Total 300 / 300 Balance 300 / 300 340 / 640 Physical Exam Const: COMMON NORMALS: negative for patient oriented x3 GENERAL APPEARANCE: cooperative ORIENTATION/CONSCIOUSNESS: Yes awake HENMT: COMMON NORMALS: oropharynx normal Neck/C-Spine: COMMON NORMALS: no JVD Resp: COMMON NORMALS: normal respiratory effort and clear to auscultation bilaterally AUSCULTATION: clear to auscultation bilaterally Cardio: COMMON NORMALS: no JVD, regular rhythm, S1 normal heart sound present, S2 normal heart sound present and No murmurs present (Cardio) RHYTHM: regular rhythm HEART SOUNDS: S1 normal heart sound present and S2 normal heart sound present GI: COMMON NORMALS: Normal to inspection, nondistended, normoactive bowel sounds present, Soft to palpation and non-tender PALPATION: Yes Soft to palpation Neuro: COMMON NORMALS: moves all extremities; negative for patient oriented x3 Skin: OTHER: Wound on right lateral hip, about 4 cm in length, no tunneling or undermining, minimal surface discharge, no necrotic slough at base, no significant surrounding erythema. Sacral wound with moisture/shear damage minimal erythema, no surrounding cellulitis. Urinary Catheter Management: Martinez: Cath Placed During This Visit: yes, but has since been removed by the nurse Reason for Continuing Indwelling Catheter: Decision to DC Catheter Urinary Catheter Date of Insertion: 05/09/23 Urinary Catheter Time of Insertion: 19:47 Date Urinary Catheter Removed: 05/15/23 Time Urinary Catheter Discontinued: 10:09 Data 05/16/23 05:31 05/16/23 05:31 A&P Assessment and plan (1) Acute encephalopathy: Appears to have short term memory difficulties. Does not recall seeing me. Not oriented. Is not able to tell me about his conditions. Check magnesium, noted severely decreased at 0.9. He has removed his IVs, started oral supplement, nurse was able to obtain IV, requesting 4 gram IV supplement. Checking if we have a one-to-one sitter available to help prevent him from pulling the IV again. Continue oral supplement. Follow-up with level. Additional assessment with ultrasound as above to assess for SBP, no ascites noted. Ammonia checked and noted to 18. 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 Continue thiamine supplementation for now. We will continue to reassess mental status to see if showing improvement with treatment. Martinez removed Continue with PT/OT. Out of bed to chair. Discussed again with case management for now continue to reassess mental status. Continued consideration of post discharge plans. CIWA protocol if needed. Not in alcohol withdrawal currently. At times noted inappropriate behavior or comments with female staff. No further instances today. (2) Leukocytosis: Noted worsened leukocytosis up to 21.9, predominantly neutrophilic 17.69. He is able to give review of systems, does not appear to have any new source of infection. Possibly secondary to superimposed cellulitis with moisture and shear injury on his bottom. Restart empiric antibiotic coverage, as IV access is unreliable we will start with ciprofloxacin and linezolid by mouth with MRSA coverage given noted positive MRSA carriage on nasal PCR. Abdominal ultrasound obtained to assess for possible ascites/SBP. No ascites noted on US. Previously had received treatment with Zosyn, vancomycin for possible cellulitis. These have since been stopped. Noted transient improvement in leukocytosis, now with worsening again. Leukocytosis with persistence. Continues on doxycycline for possible tickborne illness, tick panel is pending. Liver parameters noted normal. Platelets not worse than usual. Reassess CBC, WBC count. Reassess if any additional symptoms to suggest any persistent infection. He has pulled out his PICC line. (3) Septic shock: Resolved. Stop IV fluid. Was thought to be possibly secondary to cellulitis, had received vancomycin and Zosyn which had since been stopped. Continues on doxycycline for now. Tick panel is pending. Liver parameters are normal. Platelets do not appear to be worse than usual at 97. Abdomen appeared distended, obtained ultrasound to assess for ascites to assess for possible SBP. Discussed with him and his son, results with no ascites noted. Ruled on admission with hypotension, leukocytosis, elevated lactate with endorgan damage of renal failure. MRSA swab positive, blood culture negative, appreciate CT abdomen chest pelvis results. Echocardiogram shows an EF of 70% with no diastolic dysfunction. MRSA positive. Patient does have mild cellulitis of the right hip. Patient has remained hemodynamically stable and afebrile. Does have leukocytosis though. Hold off on IV vancomycin and Zosyn for now. Continue doxycycline to finish a 7-day course. Last dose on 05/17. Tick panel pending. Off normal saline (4) Hypotension: Resolved. Most likely in setting of chronic alcohol abuse. Continue with midodrine 10 mg 3 times daily. Well-controlled. Goal blood pressure less than 140/90 mmHg with mean over 65. (5) Acute renal failure (ARF): Gradually improving. Creatinine today noted 1.5. BUN down to 37. IV fluids have been discontinued. Monitor BMP daily now. Hold off on Lasix for now. Nephrology recommendations appreciated. Electrolytes stable. Qualifiers: Acute renal failure type: with acute tubular necrosis Qualified Code(s): N17.0 - Acute kidney failure with tubular necrosis (6) Acute hypokalemia: Potassium better but still low at 3.4. Give additional potassium replacement. Noted severe hypomagnesemia, replace. Give additional potassium 40 mg. Recheck chemistry. Check magnesium. (7) Chronic hyponatremia: Resolved. (8) Oliguria: Resolved. (9) Macrocytic anemia: Baseline hemoglobin around 8.5-9.6. No active site of bleeding for now. Appreciate normal vitamin B12, folate, without evidence of iron deficiency. Possibly ACD. Monitor daily. (10) Thrombocytopenia: Most likely in setting of chronic alcohol abuse with liver cirrhosis. No site of bleeding. Continue to monitor daily. (11) Alcoholic cirrhosis: Qualifiers: Ascites presence: without ascites Qualified Code(s): K70.30 - Alcoholic cirrhosis of liver without ascites (12) Hypertension: Qualifiers: Hypertension type: other secondary hypertension Qualified Code(s): I15.8 - Other secondary hypertension (13) Physical deconditioning: (14) Goals of care, counseling/discussion: Plan Right hip wound: Continue wound care. Foam dressing. Discussed with nursing, jacobo Pavon. Sacral wound: Appears to have moisture damage/shear wound, keep dry. Concern for superimposed cellulitis. Start antibiotics as above. Called his son for update though could not reach him this evening. Attestations Medical Necessity Statement*: Continue admission for assessment management of suspected acute blood possibly chronic progressive encephalopathy, treatment of severe hypomagnesemia, cellulitis. Post discharge planning. Diagnoses Acute encephalopathy G93.40 Leukocytosis D72.829 Septic shock A41.9; R65.21 Hypotension I95.9 Acute renal failure (ARF) N17.0 Acute renal failure type: with acute tubular necrosis Acute hypokalemia E87.6 Chronic hyponatremia E87.1 Oliguria R34 Macrocytic anemia D53.9 Thrombocytopenia D69.6 Alcoholic cirrhosis K70.30 Ascites presence: without ascites Hypertension I15.8 Hypertension type: other secondary hypertension Physical deconditioning R53.81 Goals of care, counseling/discussion Z71.89
[2023-05-16] MEDS: potassium chloride ER 20 mEq Tablet 40 MEQ PO (21:48)
[2023-05-16 23:17] VITALS: BP 121/69; PULSE 72; RESP 16; TEMP 36.5; O2SAT 97
[2023-05-16] MEDS: pantoprazole 40 mg SDV IVP (23:33)
[2023-05-17] MEDS: heparin 5,000 unit/mL INJ 1 mL 5000 UNIT SUBCUT ×2 (01:20→12:52)
[2023-05-17 03:59] VITALS: BP 121/74; PULSE 82; RESP 16; TEMP 36.6; O2SAT 99
[2023-05-17 04:49] LABS: Basophils # 0.1 10^3/uL (0.0-0.1); Basophils % 0.4 %; Eosinophils # 0.5 10^3/uL (0.0-0.8); Eosinophils % 2.8 %; Hematocrit 26.6 % (42.0-52.0); Lymphocytes # 2.4 10^3/uL (0.8-4.8); Mean Corpuscular HGB Conc 33.8 g/dL (30.0-36.0); Mean Corpuscular Hemoglobin 36.4 pg (28.0-34.0); Mean Corpuscular Volume 107.7 fl (80-94); Mean Platelet Volume 9.8 fL (7.4-10.4); Monocytes # 0.9 10^3/uL (0.2-0.9); Monocytes % 5.2 %; Nucleated Red Blood Cells % 0 %; Platelet Count 326 10^3/cmm (130-400); Red Blood Count 2.47 10^6/uL (4.1-5.3); Red Cell Distribution Width 16.9 % (12.1-15.1)
[2023-05-17 05:05] LABS: Alanine Aminotransferase 12 U/L (0-41); Albumin Level 2.6 g/dL (3.5-5.2); Alkaline Phosphatase 120 U/L (40-130); Anion Gap 18.4 (5-19); Aspartate Amino Transferase 22 U/L (0-40); Blood Urea Nitrogen 34 mg/dL (8-23); Calcium 7.4 mg/dL (8.5-10.5); Carbon Dioxide 21 mmol/L (22-29); Chloride 98 mmol/L (98-107); Globulin 3.4 g/dL (1.3-4.6); Glucose 92 mg/dL (65-115); Magnesium 1.9 mg/dL (1.7-2.3); Osmolality Calculated 285 mOsm/kg (285-295); Potassium 3.4 mmol/L (3.5-5.1); Sodium 134 mmol/L (136-145); Total Bilirubin 0.6 mg/dL (0.15-1.2)
--- NOTE | 2023-05-17 07:28 | P.PN_ITS ---
Subjective Subjective: no new complaints Medications: Reviewed: Yes Vitals/I&O/Wt Last Vital Signs Temp 97.8 F 05/17/23 03:59 Pulse 82 05/17/23 03:59 Resp 16 05/17/23 03:59 BP 121/74 05/17/23 03:59 Pulse Ox 99 05/17/23 03:59 O2 Del Method Room Air 05/17/23 03:59 O2 Flow Rate 2 05/16/23 08:00 05/16/23 05/17/23 05/17/23 22:59 06:59 14:59 Intake Total 340 / 940 Output Total 300 / 600 Balance 340 / 640 -300 / 340 Physical Exam Narrative: no distress , on 2L NC S1S2 RRR per report Lungs clear per report No edema Urinary Catheter Management: Martinez: Cath Placed During This Visit: yes, but has since been removed by the nurse Reason for Continuing Indwelling Catheter: Decision to DC Catheter Urinary Catheter Date of Insertion: 05/09/23 Urinary Catheter Time of Insertion: 19:47 Date Urinary Catheter Removed: 05/15/23 Time Urinary Catheter Discontinued: 10:09 Data 05/17/23 04:39 05/17/23 04:39 A&P Assessment and plan (1) Acute renal failure (ARF): Qualifiers: Acute renal failure type: with acute tubular necrosis Qualified Code(s): N17.0 - Acute kidney failure with tubular necrosis Plan 1. Acute kidney injury: Likely ATN from sepsis and hypotension. Baseline creatinine is normal at 0.7 previously, presented with creatinine of 5.1, renal function improving with fluid resuscitation and low-dose pressors. Off pressors now. . Avoid nephrotoxins and IV contrast studies. No obstruction on CT. UA with 1+ protein and 3+ blood. Will repeat UA after TERRANCE resolved. Normal CK levels. Cr and UOP improving. 2. Possible sepsis: Await cultures, on broad-spectrum antibiotics. 3. Hyponatremia: acute on chronic , hypovolemic , improved with fluid resuscitation, monitor 5. Hypokalemia : K being repleted 6. Alcoholic liver disease with cirrhosis Patient evaluated using audiovisual cart. Time spent 20 minutes. Attestations Medical Necessity Statement*: per medicine Coding Level of Care Code Acute Code for [facility] Fwd Diagnoses Acute renal failure (ARF) N17.0 Acute renal failure type: with acute tubular necrosis
[2023-05-17 07:58] VITALS: BP 106/63; PULSE 91; RESP 18; TEMP 36.7; O2SAT 99
[2023-05-17] MEDS: doxycycline 100 mg Tablet PO ×2 (08:51→18:37)
[2023-05-17] MEDS: midodrine 5 mg TABLET 10 MG PO ×3 (08:51→20:13)
[2023-05-17] MEDS: linezolid 600 mg Tablet PO ×2 (08:52→20:12)
[2023-05-17] MEDS: folic acid 1 mg Tablet PO (08:52)
[2023-05-17] MEDS: multivitamin therapeutic Tablet 1 TAB PO (08:52)
[2023-05-17] MEDS: thiamine 100 mg Tablet PO (08:53)
[2023-05-17] MEDS: magnesium lactate 84 mg Tablet PO ×2 (08:53→18:37)
[2023-05-17] MEDS: ciprofloxacin 500 mg Tablet PO ×2 (10:21→20:12)
[2023-05-17] MEDS: magnesium sulfate premix 2 GM/50 ML PIGGYBACK IV (10:22)
[2023-05-17] MEDS: pantoprazole 40 mg SDV IVP ×2 (11:51→22:44)
[2023-05-17 12:00] VITALS: BP 118/73; PULSE 92; RESP 17; TEMP 36.4; O2SAT 100
[2023-05-17 15:09] VITALS: BP 127/72; PULSE 93; RESP 16; TEMP 36.3; O2SAT 100
[2023-05-17 20:07] VITALS: BP 123/79; PULSE 93; RESP 18; TEMP 36.4; O2SAT 98
--- NOTE | 2023-05-17 21:21 | P.PN_ITS ---
Subjective Subjective: At the time of my visit he is about to get up with physical therapy. Requiring significant assistance to get up from bed and transfer to the chair. Feeling very weak. Blood pressure check, 122/80. Tachycardia during transfer, with sitting down heart rates back to 90s. Vitals/I&O/Wt Last Vital Signs Temp 97.6 F 05/17/23 20:07 Pulse 93 05/17/23 20:07 Resp 18 05/17/23 20:07 BP 123/79 05/17/23 20:07 Pulse Ox 98 05/17/23 20:07 O2 Del Method Room Air 05/17/23 15:09 O2 Flow Rate 2 05/16/23 08:00 05/17/23 05/17/23 05/17/23 06:59 14:59 22:59 Intake Total 770 / 770 480 / 1250 Output Total 300 / 600 350 / 350 Balance -300 / 340 420 / 420 480 / 900 Physical Exam Const: COMMON NORMALS: negative for patient oriented x3 GENERAL APPEARANCE: cooperative ORIENTATION/CONSCIOUSNESS: Yes awake HENMT: COMMON NORMALS: oropharynx normal Neck/C-Spine: COMMON NORMALS: no JVD Resp: COMMON NORMALS: normal respiratory effort and clear to auscultation bilaterally AUSCULTATION: clear to auscultation bilaterally Cardio: COMMON NORMALS: no JVD, regular rhythm, S1 normal heart sound present, S2 normal heart sound present and No murmurs present (Cardio) RHYTHM: regular rhythm HEART SOUNDS: S1 normal heart sound present and S2 normal heart sound present GI: COMMON NORMALS: Normal to inspection, nondistended, normoactive bowel sounds present, Soft to palpation and non-tender PALPATION: Yes Soft to palpation Neuro: COMMON NORMALS: moves all extremities; negative for patient oriented x3 Skin: OTHER: Wound on right lateral hip, about 4 cm in length, no tunneling or undermining, minimal surface discharge, no necrotic slough at base, no significant surrounding erythema. Sacral wound with moisture/shear damage minimal erythema, no surrounding cellulitis. Urinary Catheter Management: Martinez: Cath Placed During This Visit: yes, but has since been removed by the nurse Reason for Continuing Indwelling Catheter: Decision to DC Catheter Urinary Catheter Date of Insertion: 05/09/23 Urinary Catheter Time of Insertion: 19:47 Date Urinary Catheter Removed: 05/15/23 Time Urinary Catheter Discontinued: 10:09 Data 05/17/23 04:39 05/17/23 04:39 A&P Assessment and plan (1) Acute encephalopathy: Appears to have short term memory difficulties. Does not recall seeing me. Not oriented. Is not able to tell me about his conditions. Magnesium improving with replacement. Today noted 1.9. Given additional 2 g. Per discussion w nursing staff he has remained calm today, one-to-one sitter has been discontinued. Additional assessment with ultrasound as above to assess for SBP, no ascites noted. Ammonia checked and noted to 18. 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 Continue thiamine supplementation for now. We will continue to reassess mental status to see if showing improvement with treatment. Martinez removed Very deconditioned. Discussed with therapy. Discussed with case management. Continue with PT/OT. Out of bed to chair. Discussed again with case management for now continue to reassess mental status. Continued consideration of post discharge plans. CIWA protocol if needed. Not in alcohol withdrawal currently. At times noted inappropriate behavior or comments with female staff. No further instances today. (2) Leukocytosis: Leukocytosis today noted with some improvement down to 18,000. Predominant neutrophilic 13.5. Possibly response to antibiotic. We will continue. Therapy for now. Suspect possible cellulitis of the gluteal fold contributing to persistent leukocytosis. He is able to give review of systems, does not appear to have any new source of infection. Possibly secondary to superimposed cellulitis with moisture and shear injury on his bottom. Restart empiric antibiotic coverage, as IV access is unreliable we will start with ciprofloxacin and linezolid by mouth with MRSA coverage given noted positive MRSA carriage on nasal PCR. Abdominal ultrasound obtained to assess for possible ascites/SBP. No ascites noted on US. Previously had received treatment with Zosyn, vancomycin for possible cellulitis. These have since been stopped. Noted transient improvement in leukocytosis, now with worsening again. Leukocytosis with persistence. Continues on doxycycline for possible tickborne illness, tick panel is pending. Liver parameters noted normal. Platelets not worse than usual. Reassess CBC, WBC count. Reassess if any additional symptoms to suggest any persistent infection. He has pulled out his PICC line. (3) Septic shock: Resolved. Stop IV fluid. Was thought to be possibly secondary to cellulitis, had received vancomycin and Zosyn which had since been stopped. Continues on doxycycline for now. Tick panel is pending. Liver parameters are normal. Platelets do not appear to be worse than usual at 97. Abdomen appeared distended, obtained ultrasound to assess for ascites to assess for possible SBP. Discussed with him and his son, results with no ascites noted. Ruled on admission with hypotension, leukocytosis, elevated lactate with endorgan damage of renal failure. MRSA swab positive, blood culture negative, appreciate CT abdomen chest pelvis results. Echocardiogram shows an EF of 70% with no diastolic dysfunction. MRSA positive. Patient does have mild cellulitis of the right hip. Patient has remained hemodynamically stable and afebrile. Does have leukocy tosis though. Stop doxycycline to finish a 7-day course. Last dose on 05/17. Tick panel pending. Off normal saline (4) Hypotension: Resolved. Most likely in setting of chronic alcohol abuse. Continue with midodrine 10 mg 3 times daily. Well-controlled. Goal blood pressure less than 140/90 mmHg with mean over 65. (5) Acute renal failure (ARF): Gradually improving. Creatinine continues to trend down, BUN 34, creatinine 1.4. IV fluids have been discontinued. Monitor BMP daily now. Hold off on Lasix for now. Nephrology documentation appreciated. Electrolytes stable. Qualifiers: Acute renal failure type: with acute tubular necrosis Qualified Code(s): N17.0 - Acute kidney failure with tubular necrosis (6) Acute hypokalemia: Potassium better but still low at 3.4. Give additional potassium replacement. Noted severe hypomagnesemia, replace. Give additional potassium 40 mg. Recheck chemistry. Check magnesium. (7) Chronic hyponatremia: Resolved. (8) Oliguria: Resolved. (9) Macrocytic anemia: Baseline hemoglobin around 8.5-9.6. No active site of bleeding for now. Appreciate normal vitamin B12, folate, without evidence of iron deficiency. Possibly ACD. Monitor daily. (10) Thrombocytopenia: Most likely in setting of chronic alcohol abuse with liver cirrhosis. No site of bleeding. Continue to monitor daily. (11) Alcoholic cirrhosis: Qualifiers: Ascites presence: without ascites Qualified Code(s): K70.30 - Alcoholic cirrhosis of liver without ascites (12) Hypertension: Qualifiers: Hypertension type: other secondary hypertension Qualified Code(s): I15.8 - Other secondary hypertension (13) Physical deconditioning: (14) Goals of care, counseling/discussion: Plan Right hip wound: Continue wound care. Foam dressing. Discussed with nursing, jacobo Pavon. Sacral wound: Appears to have moisture damage/shear wound, keep dry. Concern for superimposed cellulitis. Start antibiotics as above. Attestations Medical Necessity Statement*: Continue admission for assessment management of suspected acute but possibly chronic progressive encephalopathy, treatment of severe hypomagnesemia, cellulitis.? Post discharge planning. Diagnoses Acute encephalopathy G93.40 Leukocytosis D72.829 Septic shock A41.9; R65.21 Hypotension I95.9 Acute renal failure (ARF) N17.0 Acute renal failure type: with acute tubular necrosis Acute hypokalemia E87.6 Chronic hyponatremia E87.1 Oliguria R34 Macrocytic anemia D53.9 Thrombocytopenia D69.6 Alcoholic cirrhosis K70.30 Ascites presence: without ascites Hypertension I15.8 Hypertension type: other secondary hypertension Physical deconditioning R53.81 Goals of care, counseling/discussion Z71.89
[2023-05-17 23:49] VITALS: BP 121/75; PULSE 92; RESP 20; TEMP 36.7; O2SAT 97
[2023-05-18 01:39] LABS: Basophils % 0.2 %; Eosinophils # 0.2 10^3/uL (0.0-0.8); Eosinophils % 1.2 %; Hematocrit 26.3 % (42.0-52.0); Hemoglobin 8.9 g/dL (11.7-16.6); Lymphocytes # 2.3 10^3/uL (0.8-4.8); Lymphocytes % 13.8 %; Mean Corpuscular HGB Conc 33.8 g/dL (30.0-36.0); Mean Corpuscular Hemoglobin 35.9 pg (28.0-34.0); Mean Platelet Volume 9.5 fL (7.4-10.4); Monocytes # 0.7 10^3/uL (0.2-0.9); Monocytes % 4.2 %; Neutrophils # 12.98 10^3/uL (1.8-7.7); Neutrophils % 79.3 %; Nucleated Red Blood Cells % 0 %; Platelet Count 351 10^3/cmm (130-400); Red Blood Count 2.48 10^6/uL (4.1-5.3); Red Cell Distribution Width 16.5 % (12.1-15.1); White Blood Count 16.4 10^3/uL (4.0-10.0)
[2023-05-18 02:00] LABS: Alanine Aminotransferase 11 U/L (0-41); Albumin Level 2.5 g/dL (3.5-5.2); Alkaline Phosphatase 128 U/L (40-130); Anion Gap 15.6 (5-19); Aspartate Amino Transferase 18 U/L (0-40); Blood Urea Nitrogen 35 mg/dL (8-23); Calcium 7.7 mg/dL (8.5-10.5); Carbon Dioxide 22 mmol/L (22-29); Chloride 100 mmol/L (98-107); Globulin 3.4 g/dL (1.3-4.6); Glomerular Filtration Rate 47.1 mL/min (90-130); Glucose 114 mg/dL (65-115); Magnesium 1.8 mg/dL (1.7-2.3); Osmolality Calculated 287 mOsm/kg (285-295); Potassium 3.6 mmol/L (3.5-5.1); Sodium 134 mmol/L (136-145); Total Bilirubin 0.6 mg/dL (0.15-1.2); Total Protein 5.9 g/dL (6.6-8.7)
[2023-05-18] MEDS: heparin 5,000 unit/mL INJ 1 mL 5000 UNIT SUBCUT ×2 (02:40→14:14)
[2023-05-18 04:00] VITALS: BP 109/71; PULSE 84; RESP 18; TEMP 36.4; O2SAT 97
[2023-05-18 08:00] VITALS: BP 110/72; PULSE 83; RESP 15; TEMP 36.6; O2SAT 97
[2023-05-18] MEDS: thiamine 100 mg Tablet PO (08:29)
[2023-05-18] MEDS: ciprofloxacin 500 mg Tablet PO ×2 (08:29→20:26)
[2023-05-18] MEDS: linezolid 600 mg Tablet PO ×2 (08:29→20:26)
[2023-05-18] MEDS: folic acid 1 mg Tablet PO (08:29)
[2023-05-18] MEDS: magnesium lactate 84 mg Tablet PO ×2 (08:29→17:24)
[2023-05-18] MEDS: multivitamin therapeutic Tablet 1 TAB PO (08:29)
[2023-05-18] MEDS: midodrine 5 mg TABLET 10 MG PO ×3 (08:29→20:26)
[2023-05-18] MEDS: pantoprazole 40 mg SDV IVP (11:29)
--- NOTE | 2023-05-18 12:07 | PM.PN ---
Subjective Subjective: no complaints Vitals/I&O/Wt Last Vital Signs Temp 97.8 F 05/18/23 08:00 Pulse 83 05/18/23 08:00 Resp 15 05/18/23 08:00 BP 110/72 05/18/23 08:00 Pulse Ox 97 05/18/23 08:00 O2 Del Method Room Air 05/17/23 15:09 O2 Flow Rate 2 05/18/23 08:00 05/17/23 05/18/23 05/18/23 22:59 06:59 14:59 Intake Total 680 / 1450 120 / 1570 220 / 220 Balance 680 / 1100 120 / 1220 220 / 220 Physical Exam Const: COMMON NORMALS: no acute distress and alert Neuro: SENSORIUM/ORIENTATION: Yes alert Urinary Catheter Management: Martinez: Cath Placed During This Visit: yes, but has since been removed by the nurse Reason for Continuing Indwelling Catheter: Decision to DC Catheter Urinary Catheter Date of Insertion: 05/09/23 Urinary Catheter Time of Insertion: 19:47 Date Urinary Catheter Removed: 05/15/23 Time Urinary Catheter Discontinued: 10:09 Data 05/18/23 01:30 05/18/23 01:30 Other data: seen via telemedicine with assistance of RN at bedside A&P Assessment and plan (1) TERRANCE (acute kidney injury): Plan 1. Acute kidney injury, improved, nonoliguric 2. Mild hyponatremia, stable 3. Anemia, Hb stable Will sign off. Please call if needed Attestations Medical Necessity Statement*: per primary service Time Spent in Patient Care: less than 15 minutes Coding Level of Care Code Acute Code for [facility] Diagnoses TERRANCE (acute kidney injury) N17.9
[2023-05-18 15:16] VITALS: BP 119/78; PULSE 75; RESP 18; TEMP 36.7; O2SAT 100
[2023-05-18 19:32] VITALS: BP 133/84; PULSE 90; RESP 16; TEMP 36.6; O2SAT 99
--- NOTE | 2023-05-18 19:54 | P.PN_ITS ---
Subjective Subjective: He appears slightly more alert and interactive today. Today he is able to tell me he is in the hospital. He does not get there correctly but states it is 1923. When asked about his medical conditions he tells me he takes high blood pressure medicines, does not seem to remember that he has liver cirrhosis and is surprised when I tell him about it. He otherwise tells me that his bottom has been raw . Vitals/I&O/Wt Last Vital Signs Temp 97.9 F 05/18/23 19:32 Pulse 90 05/18/23 19:32 Resp 16 05/18/23 19:32 BP 133/84 05/18/23 19:32 Pulse Ox 99 05/18/23 19:32 O2 Del Method Room Air 05/18/23 15:16 O2 Flow Rate 2 05/18/23 08:00 05/18/23 05/18/23 05/18/23 06:59 14:59 22:59 Intake Total 120 / 1570 340 / 340 240 / 580 Balance 120 / 1220 340 / 340 240 / 580 Physical Exam Const: COMMON NORMALS: negative for patient oriented x3 GENERAL APPEARANCE: cooperative ORIENTATION/CONSCIOUSNESS: Yes awake HENMT: COMMON NORMALS: oropharynx normal Neck/C-Spine: COMMON NORMALS: no JVD Resp: COMMON NORMALS: normal respiratory effort and clear to auscultation bilaterally AUSCULTATION: clear to auscultation bilaterally Cardio: COMMON NORMALS: no JVD, regular rhythm, S1 normal heart sound present, S2 normal heart sound present and No murmurs present (Cardio) RHYTHM: regular rhythm HEART SOUNDS: S1 normal heart sound present and S2 normal heart sound present GI: COMMON NORMALS: Normal to inspection, nondistended, normoactive bowel patrick nds present, Soft to palpation and non-tender PALPATION: Yes Soft to palp ation Neuro: COMMON NORMALS: moves all extremities; negative for patient oriented x3 Skin: OTHER: Wound on right lateral hip, about 4 cm in length, no tunneling or undermining, minimal surface discharge, no necrotic slough at base, no significant surrounding erythema. Sacral wound with moisture/shear damage minimal erythema, no surrounding cellulitis. Urinary Catheter Management: Martinez: Cath Placed During This Visit: yes, but has since been removed by the nurse Reason for Continuing Indwelling Catheter: Decision to DC Catheter Urinary Catheter Date of Insertion: 05/09/23 Urinary Catheter Time of Insertion: 19:47 Date Urinary Catheter Removed: 05/15/23 Time Urinary Catheter Discontinued: 10:09 Data 05/18/23 01:30 05/18/23 01:30 Micro: Microbiology 05/18/23 08:40 C.difficile Toxin B Gene (PCR) - Final Stool Routine Collection A&P Assessment and plan (1) Acute encephalopathy: Slightly better today in terms of encephalopathy. Oriented to being in the hospital. Does not you get the year correctly but getting closer. Still not able to tell me much about his medical conditions apart from remembering that he takes a blood pressure medicine. Does tell me that his bottom is raw . Is surprised to learn that he has liver cirrhosis. Leukocytosis appears to be improving. Continue antibiotics. Magnesium rechecked is 1.8. We will give additional replacement. Continue thiamine, folic acid, multivitamin. Discussed with case management. Discussed with his son. Son is considering as per discussion with family if he continues to improve possibly looking into finding placement. Assessment with ultrasound as above to assess for SBP, no ascites noted. Ammonia was not elevated. 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 Continue thiamine supplementation for now. We will continue to reassess mental status to see if showing improvement with treatment. Very deconditioned. Discussed with case management. Continue with PT/OT. Out of bed to chair. Discussed again with case management for now continue to reassess mental status. Continued consideration of post discharge plans. CIWA protocol if needed. Not in alcohol withdrawal currently. So far no further inappropriate behavior or comments with female staff. (2) Leukocytosis: Leukocytosis appears to be showing improvement, down to 16.4. Continue antibiotic coverage. He is able to give review of systems, does not appear to have any new source of infection. Possibly secondary to superimposed cellulitis with moisture and shear injury on his bottom. Restart empiric antibiotic coverage, as IV access is unreliable we will start with ciprofloxacin and linezolid by mouth with MRSA coverage given noted positive MRSA carriage on nasal PCR. Abdominal ultrasound obtained to assess for possible ascites/SBP. No ascites noted on US. Previously had received treatment with Zosyn, vancomycin for possible cellulitis. These have since been stopped. Noted transient improvement in leukocytosis, now with worsening again. Leukocytosis with persistence. Continues on doxycycline for possible tickborne illness, tick panel is pending. Liver parameters noted normal. Platelets not worse than usual. Reassess CBC, WBC count. Reassess if any additional symptoms to suggest any persistent infection. He has pulled out his PICC line. (3) Septic shock: Resolved. Stop IV fluid. Was thought to be possibly secondary to cellulitis, had received vancomycin and Zosyn which had since been stopped. Continues on doxycycline for now. Tick panel is pending. Liver parameters are normal. Platelets do not appear to be worse than usual at 97. Abdomen appeared distended, obtained ultrasound to assess for ascites to assess for possible SBP. Discussed with him and his son, results with no ascites noted. Ruled on admission with hypotension, leukocytosis, elevated lactate with endor chris damage of renal failure. MRSA swab positive, blood culture negative, appreciate CT abdomen chest pelvis results. Echocardiogram shows an EF of 70% with no diastolic dysfunction. MRSA positive. Patient does have mild cellulitis of the right hip. Patient has remained hemodynamically stable and afebrile. Does have leukocytosis though. Stop doxycycline to finish a 7-day course. Last dose on 05/17. Tick panel pending. Off normal saline (4) Hypotension: Resolved. Most likely in setting of chronic alcohol abuse. Continue with midodrine 10 mg 3 times daily. Well-controlled. Goal blood pressure less than 140/90 mmHg with mean over 65. (5) Acute renal failure (ARF): Creatinine stated somewhat at 1.5. BUN 35. Continue to hold losartan. IV fluids have been discontinued. Monitor BMP daily now. Hold off on Lasix for now. Nephrology documentation appreciated. Electrolytes stable. Qualifiers: Acute renal failure type: with acute tubular necrosis Qualified Code(s): N17.0 - Acute kidney failure with tubular necrosis (6) Acute hypokalemia: Hypokalemia improved, 3.6 today. Continue to replace hypomagnesemia. Recheck chemistry. Check magnesium. (7) Chronic hyponatremia: Resolved. (8) Oliguria: Resolved. (9) Macrocytic anemia: Baseline hemoglobin around 8.5-9.6. No active site of bleeding for now. Appreciate normal vitamin B12, folate, without evidence of iron deficiency. Possibly ACD. Monitor daily. (10) Thrombocytopenia: Most likely in setting of chronic alcohol abuse with liver cirrhosis. No site of bleeding. Continue to monitor daily. (11) Alcoholic cirrhosis: Qualifiers: Ascites presence: without ascites Qualified Code(s): K70.30 - Alcoholic cirrhosis of liver without ascites (12) Hypertension: Qualifiers: Hypertension type: other secondary hypertension Qualified Code(s): I15.8 - Other secondary hypertension (13) Physical deconditioning: (14) Goals of care, counseling/discussion: Plan Right hip wound: Continue wound care. Foam dressing. Discussed with nursing, jacobo Pavon. Sacral wound: Appears to have moisture damage/shear wound, keep dry. Concern for superimposed cellulitis. Start antibiotics as above. Attestations Medical Necessity Statement*: Continue admission for assessment management of suspected acute but possibly chronic progressive encephalopathy, treatment of severe hypomagnesemia, cellulitis.? Post discharge planning. Diagnoses Acute encephalopathy G93.40 Leukocytosis D72.829 Septic shock A41.9; R65.21 Hypotension I95.9 Acute renal failure (ARF) N17.0 Acute renal failure type: with acute tubular necrosis Acute hypokalemia E87.6 Chronic hyponatremia E87.1 Oliguria R34 Macrocytic anemia D53.9 Thrombocytopenia D69.6 Alcoholic cirrhosis K70.30 Ascites presence: without ascites Hypertension I15.8 Hypertension type: other secondary hypertension Physical deconditioning R53.81 Goals of care, counseling/discussion Z71.89
[2023-05-18 21:59] LABS: E. Chaffeensis AB IGG <1:64; E. Chaffeensis AB IGM <1:20
[2023-05-19] VITALS: BP 118/68; PULSE 90; RESP 18; TEMP 37.2; O2SAT 99
[2023-05-19] MEDS: heparin 5,000 unit/mL INJ 1 mL 5000 UNIT SUBCUT ×2 (01:38→14:34)
[2023-05-19 02:56] LABS: Basophils % 0.3 %; Eosinophils # 0.2 10^3/uL (0.0-0.8); Eosinophils % 1.4 %; Hematocrit 21.9 % (42.0-52.0); Hemoglobin 7.2 g/dL (11.7-16.6); Lymphocytes # 1.9 10^3/uL (0.8-4.8); Lymphocytes % 15.6 %; Mean Corpuscular HGB Conc 32.9 g/dL (30.0-36.0); Mean Corpuscular Hemoglobin 35.8 pg (28.0-34.0); Mean Platelet Volume 9.7 fL (7.4-10.4); Monocytes # 0.6 10^3/uL (0.2-0.9); Monocytes % 4.7 %; Neutrophils # 9.64 10^3/uL (1.8-7.7); Neutrophils % 77.3 %; Nucleated Red Blood Cells % 0 %; Platelet Count 281 10^3/cmm (130-400); Red Blood Count 2.01 10^6/uL (4.1-5.3); Red Cell Distribution Width 16.6 % (12.1-15.1); White Blood Count 12.5 10^3/uL (4.0-10.0)
[2023-05-19 03:17] LABS: Alanine Aminotransferase 9 U/L (0-41); Albumin Level 2.3 g/dL (3.5-5.2); Alkaline Phosphatase 117 U/L (40-130); Anion Gap 14.8 (5-19); Aspartate Amino Transferase 19 U/L (0-40); Blood Urea Nitrogen 35 mg/dL (8-23); Carbon Dioxide 23 mmol/L (22-29); Chloride 104 mmol/L (98-107); Globulin 3.1 g/dL (1.3-4.6); Glomerular Filtration Rate 47.1 mL/min (90-130); Glucose 108 mg/dL (65-115); Magnesium 1.7 mg/dL (1.7-2.3); Osmolality Calculated 297 mOsm/kg (285-295); Sodium 139 mmol/L (136-145); Total Bilirubin 0.5 mg/dL (0.15-1.2); Total Protein 5.4 g/dL (6.6-8.7)
[2023-05-19 03:18] LABS: Potassium 2.8 mmol/L (3.5-5.1)
[2023-05-19] MEDS: potassium chloride ER 20 mEq Tablet 40 MEQ PO (03:30)
[2023-05-19 05:00] VITALS: BP 103/70; PULSE 84; RESP 16; TEMP 37; O2SAT 100
[2023-05-19 08:00] VITALS: BP 98/59; PULSE 86; RESP 16; TEMP 36.5; O2SAT 100
[2023-05-19] MEDS: magnesium oxide 400 mg tablet PO (09:39)
[2023-05-19] MEDS: ciprofloxacin 500 mg Tablet PO ×2 (09:39→21:20)
[2023-05-19] MEDS: midodrine 5 mg TABLET 10 MG PO ×3 (09:39→21:21)
[2023-05-19] MEDS: multivitamin therapeutic Tablet 1 TAB PO (09:40)
[2023-05-19] MEDS: thiamine 100 mg Tablet PO (09:40)
[2023-05-19] MEDS: folic acid 1 mg Tablet PO (09:40)
[2023-05-19] MEDS: linezolid 600 mg Tablet PO ×2 (09:40→21:20)
[2023-05-19] MEDS: pantoprazole DR 40 mg Tablet PO (09:40)
[2023-05-19] MEDS: magnesium lactate 84 mg Tablet PO (09:42)
[2023-05-19 12:00] VITALS: BP 108/67; PULSE 92; RESP 18; TEMP 36.4; O2SAT 95
[2023-05-19 15:40] VITALS: BP 104/74; PULSE 84; RESP 16; TEMP 36.8; O2SAT 100
[2023-05-19 16:09] LABS: RMSF IGG DETECTED; RMSF IGM NOT DETECTED
--- NOTE | 2023-05-19 16:38 | PM.PN ---
Subjective Subjective: He is doing a bit better still today. She knows he is in the hospital, initially gets the year incorrectly but corrects himself to proper year. He seems to be much more aware of post discharge planning, talking about having spoken with his family, considering going to care home facility for rehabilitation, he is wondering if there could be something close to [place] or [facility] where his sister lives. He notably still gets confused at times, starts telling me about his family members and asking me if I remember particular members of his family - you remember León? . Asking him about his medical conditions, tells me he has been thinking overall about his goals of care especially since he remembers being told about having liver disease by a doctor the other day. Medications: Reviewed: Yes Vitals/I&O/Wt Last Vital Signs Temp 98.2 F 05/19/23 15:40 Pulse 84 05/19/23 15:40 Resp 16 05/19/23 15:40 BP 104/74 05/19/23 15:40 Pulse Ox 100 05/19/23 15:40 O2 Del Method Room Air 05/18/23 15:16 O2 Flow Rate 2 05/18/23 08:00 05/19/23 05/19/23 05/19/23 06:59 14:59 22:59 Intake Total 240 / 1060 360 / 360 Balance 240 / 1060 360 / 360 Physical Exam Const: COMMON NORMALS: negative for patient oriented x3 GENERAL APPEARANCE: cooperative ORIENTATION/CONSCIOUSNESS: Yes awake HENMT: COMMON NORMALS: oropharynx normal Neck/C-Spine: COMMON NORMALS: no JVD Resp: COMMON NORMALS: normal respiratory effort and clear to auscultation bilaterally AUSCULTATION: clear to auscultation bilaterally Cardio: COMMON NORMALS: no JVD, regular rhythm, S1 normal heart sound present, S2 normal heart sound present and No murmurs present (Cardio) RHYTHM: regular rhythm HEART SOUNDS: S1 normal heart sound present and S2 normal heart sound present GI: COMMON NORMALS: Normal to inspection, nondistended, normoactive bowel sounds present, Soft to palpation and non-tender PALPATION: Yes Soft to palpation Neuro: COMMON NORMALS: moves all extremities; negative for patient oriented x3 Skin: OTHER: Wound on right lateral hip, about 4 cm in length, no tunneling or undermining, minimal surface discharge, no necrotic slough at base, no significant surrounding erythema. Sacral wound with moisture/shear damage minimal erythema, no surrounding cellulitis. Urinary Catheter Management: Martinez: Cath Placed During This Visit: yes, but has since been removed by the nurse Reason for Continuing Indwelling Catheter: Decision to DC Catheter Urinary Catheter Date of Insertion: 05/09/23 Urinary Catheter Time of Insertion: 19:47 Date Urinary Catheter Removed: 05/15/23 Time Urinary Catheter Discontinued: 10:09 Data 05/19/23 02:38 05/19/23 02:38 Micro: Microbiology 05/18/23 08:40 Enteric Pathogens (PCR) - Final Stool Routine Collection 05/18/23 08:40 Parasite Antigen Panel - Final Stool Routine Collection 05/18/23 08:40 C.difficile Toxin B Gene (PCR) - Final Stool Routine Collection A&P Assessment and plan (1) Acute encephalopathy: Continues to show gradual improvement. He is more lucid, more aware of his whereabouts, considering postdischarge plans. As he is quite deconditioned he is considering seeking placement prior to return home. Discussed with case management. PT note appreciated, noted total dependent bed to chair, chair to bed. Continue thiamine, folic acid, multivitamin replacement. Continue magnesium replacement, will try to see if can give him additional IV magnesium, although he has lost IV access reportedly overnight. Oral magnesium supplements were added. Leukocytosis also continues to improve, today down to 12.5. Continue antibiotic course for cellulitis. 05/18 discussed with his son. Son is considering as per discussion with family if he continues to improve possibly looking into finding placement. Assessment with ultrasound as above to assess for SBP, no ascites noted. Ammonia was not elevated. 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 Continue thiamine supplementation for now. We will continue to reassess mental status to see if showing improvement with treatment. Very deconditioned. Discussed with case management. Continue with PT/OT. Out of bed to chair. Discussed again with case management for now continue to reassess mental status. Continued consideration of post discharge plans. CIWA protocol if needed. Not in alcohol withdrawal currently. So far no further inappropriate behavior or comments with female staff. (2) Leukocytosis: Leukocytosis appears to be showing improvement, down to 12.5. Neutrophilia improving, down to 9.64. Continue antibiotic coverage. Follow-up CBC. He is able to give review of systems, does not appear to have any new source of infection. Possibly secondary to superimposed cellulitis with moisture and shear injury on his bottom. Restart empiric antibiotic coverage, as IV access is unreliable we will start with ciprofloxacin and linezolid by mouth with MRSA coverage given noted positive MRSA carriage on nasal PCR. Abdominal ultrasound obtained to assess for possible ascites/SBP. No ascites noted on US. Previously had received treatment with Zosyn, vancomycin for possible cellulitis. These have since been stopped. Noted transient improvement in leukocytosis, now with worsening again. Leukocytosis with persistence. Continues on doxycycline for possible tickborne illness, tick panel is pending. Liver parameters noted normal. Platelets not worse than usual. Reassess CBC, WBC count. Reassess if any additional symptoms to suggest any persistent infection. He has pulled out his PICC line. (3) Septic shock: Resolved. Stop IV fluid. Was thought to be possibly secondary to cellulitis, had received vancomycin and Zosyn which had since been stopped. Continues on doxycycline for now. Tick panel is pending. Liver parameters are normal. Platelets do not appear to be worse than usual at 97. Abdomen appeared distended, obtained ultrasound to assess for ascites to assess for possible SBP. Discussed with him and his son, results with no ascites noted. Ruled on admission with hypotension, leukocytosis, elevated lactate with endorgan damage of renal failure. MRSA swab positive, blood culture negative, appreciate CT abdomen chest pelvis results. Echocardiogram shows an EF of 70% with no diastolic dysfunction. MRSA positive. Patient does have mild cellulitis of the right hip. Patient has remained hemodynamically stable and afebrile. Does have leukocytosis though. Stop doxycycline to finish a 7-day course. Last dose on 05/17. Tick panel pending. Off normal saline (4) Hypotension: Resolved. Most likely in setting of chronic alcohol abuse. Continue with midodrine 10 mg 3 times daily. Well-controlled. Goal blood pressure less than 140/90 mmHg with mean over 65. (5) Acute renal failure (ARF): Creatinine stated somewhat at 1.5. BUN 35. Continue to hold losartan. Received replacement for hypokalemia. IV fluids have been discontinued. Monitor BMP daily now. Hold off on Lasix for now. Nephrology documentation appreciated. Electrolytes stable. Qualifiers: Acute renal failure type: with acute tubular necrosis Qualified Code(s): N17.0 - Acute kidney failure with tubular necrosis (6) Acute hypokalemia: 2.8 this morning. Received 40 mEq potassium. Continue to replace hypomagnesemia. Recheck chemistry requested. Recheck magnesium. (7) Chronic hyponatremia: Resolved. (8) Oliguria: Resolved. (9) Macrocytic anemia: Acute anemia, hemoglobin with some gradual decrease down to 7.2. Check Hemoccult. Follow-up CBC. No active site of bleeding for now. Appreciate normal vitamin B12, folate, without evidence of iron deficiency. Possibly ACD. Monitor daily. (10) Thrombocytopenia: Resolved. Most likely in setting of chronic alcohol abuse with liver cirrhosis. No site of bleeding. Continue to monitor daily. (11) Alcoholic cirrhosis: Qualifiers: Ascites presence: without ascites Qualified Code(s): K70.30 - Alcoholic cirrhosis of liver without ascites (12) Hypertension: Qualifiers: Hypertension type: other secondary hypertension Qualified Code(s): I15.8 - Other secondary hypertension (13) Physical deconditioning: (14) Goals of care, counseling/discussion: Plan Right hip wound: Continue wound care. Foam dressing. Discussed with nursing, stop Santyl. Sacral wound: Appears to have moisture damage/shear wound, keep dry. Concern for superimposed cellulitis. Start antibiotics as above. Attestations Medical Necessity Statement*: Continue admission for assessment management of acute encephalopathy, treatment of cellulitis, additional assessment of acute anemia, post discharge planning. Diagnoses Acute encephalopathy G93.40 Leukocytosis D72.829 Septic shock A41.9; R65.21 Hypotension I95.9 Acute renal failure (ARF) N17.0 Acute renal failure type: with acute tubular necrosis Acute hypokalemia E87.6 Chronic hyponatremia E87.1 Oliguria R34 Macrocytic anemia D53.9 Thrombocytopenia D69.6 Alcoholic cirrhosis K70.30 Ascites presence: without ascites Hypertension I15.8 Hypertension type: other secondary hypertension Physical deconditioning R53.81 Goals of care, counseling/discussion Z71.89
[2023-05-19] MEDS: magnesium sulfate premix 4 GM/100 ML PREMIX IV (18:06)
[2023-05-19 20:00] VITALS: BP 112/65; PULSE 88; RESP 16; TEMP 36.7; O2SAT 98
[2023-05-20] VITALS: BP 125/73; PULSE 114; RESP 17; TEMP 36.8; O2SAT 99
[2023-05-20] MEDS: heparin 5,000 unit/mL INJ 1 mL 5000 UNIT SUBCUT ×2 (02:38→15:13)
[2023-05-20 03:31] VITALS: BP 114/69; PULSE 94; RESP 16; TEMP 36.8; O2SAT 99
[2023-05-20 04:46] LABS: Basophils % 0.3 %; Eosinophils # 0.1 10^3/uL (0.0-0.8); Eosinophils % 1.4 %; Hematocrit 21.2 % (42.0-52.0); Lymphocytes # 1.5 10^3/uL (0.8-4.8); Lymphocytes % 14.9 %; Mean Corpuscular Hemoglobin 35.7 pg (28.0-34.0); Mean Corpuscular Volume 108.2 fl (80-94); Mean Platelet Volume 9.4 fL (7.4-10.4); Monocytes # 0.4 10^3/uL (0.2-0.9); Monocytes % 3.7 %; Neutrophils # 7.72 10^3/uL (1.8-7.7); Nucleated Red Blood Cells % 0 %; Platelet Count 287 10^3/cmm (130-400); Red Blood Count 1.96 10^6/uL (4.1-5.3); Red Cell Distribution Width 16.7 % (12.1-15.1); White Blood Count 9.8 10^3/uL (4.0-10.0)
[2023-05-20 05:09] LABS: Alanine Aminotransferase 12 U/L (0-41); Albumin Level 2.2 g/dL (3.5-5.2); Alkaline Phosphatase 127 U/L (40-130); Anion Gap 13.7 (5-19); Aspartate Amino Transferase 24 U/L (0-40); Blood Urea Nitrogen 31 mg/dL (8-23); Calcium 8.1 mg/dL (8.5-10.5); Carbon Dioxide 22 mmol/L (22-29); Chloride 105 mmol/L (98-107); Globulin 3.1 g/dL (1.3-4.6); Glucose 95 mg/dL (65-115); Magnesium 2.5 mg/dL (1.7-2.3); Osmolality Calculated 292 mOsm/kg (285-295); Sodium 138 mmol/L (136-145); Total Bilirubin 0.6 mg/dL (0.15-1.2); Total Protein 5.3 g/dL (6.6-8.7)
[2023-05-20 05:37] LABS: Potassium 2.7 mmol/L (3.5-5.1)
[2023-05-20] MEDS: potassium chloride ER 20 mEq Tablet 40 MEQ PO ×2 (06:31→11:43)
[2023-05-20 08:00] VITALS: BP 112/56; PULSE 100; RESP 19; TEMP 36.4; O2SAT 93
[2023-05-20] MEDS: magnesium oxide 400 mg tablet PO (08:21)
[2023-05-20] MEDS: midodrine 5 mg TABLET 10 MG PO ×3 (08:21→20:26)
[2023-05-20] MEDS: thiamine 100 mg Tablet PO (08:22)
[2023-05-20] MEDS: pantoprazole DR 40 mg Tablet PO ×2 (08:22→18:04)
[2023-05-20] MEDS: ciprofloxacin 500 mg Tablet PO ×2 (08:22→20:27)
[2023-05-20] MEDS: magnesium lactate 84 mg Tablet PO ×2 (08:22→18:05)
[2023-05-20] MEDS: linezolid 600 mg Tablet PO ×2 (08:22→20:26)
[2023-05-20] MEDS: folic acid 1 mg Tablet PO (08:23)
[2023-05-20] MEDS: multivitamin therapeutic Tablet 1 TAB PO (08:23)
[2023-05-20 12:00] VITALS: BP 113/70; PULSE 86; RESP 18; TEMP 36.3; O2SAT 100
--- NOTE | 2023-05-20 13:21 | P.PN_ITS ---
Subjective Subjective: He is napping, wakes up briefly to voice. He is doing all right, denies discomfort or any new complaints. Medications: Reviewed: Yes Vitals/I&O/Wt Last Vital Signs Temp 97.5 F L 05/20/23 08:00 Pulse 100 05/20/23 08:00 Resp 19 H 05/20/23 08:00 BP 112/56 05/20/23 08:00 Pulse Ox 93 05/20/23 08:00 O2 Del Method Room Air 05/20/23 08:00 O2 Flow Rate 2 05/18/23 08:00 05/19/23 05/20/23 05/20/23 22:59 06:59 14:59 Intake Total 580 / 940 120 / 1060 360 / 360 Output Total 300 / 300 400 / 700 Balance 280 / 640 -280 / 360 360 / 360 Physical Exam Const: COMMON NORMALS: negative for patient oriented x3 GENERAL APPEARANCE: cooperative ORIENTATION/CONSCIOUSNESS: Yes awake HENMT: COMMON NORMALS: oropharynx normal Neck/C-Spine: COMMON NORMALS: no JVD Resp: COMMON NORMALS: normal respiratory effort and clear to auscultation bilaterally AUSCULTATION: clear to auscultation bilaterally Cardio: COMMON NORMALS: no JVD, regular rhythm, S1 normal heart sound present, S2 normal heart sound present and No murmurs present (Cardio) RHYTHM: regular rhythm HEART SOUNDS: S1 normal heart sound present and S2 normal heart sound present GI: COMMON NORMALS: Normal to inspection, nondistended, normoactive bowel sounds present, Soft to palpation and non-tender PALPATION: Yes Soft to palpation Neuro: COMMON NORMALS: moves all extremities; negative for patient oriented x3 Skin: OTHER: Wound on right lateral hip, about 4 cm in length, no tunneling or undermining, minimal surface discharge, no necrotic slough at base, no significant surrounding erythema. Sacral wound with moisture/shear damage minimal erythema, no surrounding cellulitis. Urinary Catheter Management: Martinez: Cath Placed During This Visit: yes, but has since been removed by the nurse Reason for Continuing Indwelling Catheter: Decision to DC Catheter Urinary Catheter Date of Insertion: 05/09/23 Urinary Catheter Time of Insertion: 19:47 Date Urinary Catheter Removed: 05/15/23 Time Urinary Catheter Discontinued: 10:09 Data 05/20/23 04:24 05/20/23 04:24 Micro: Microbiology 05/19/23 06:00 Occult Blood (FIT) - Final Stool Routine Collection 05/18/23 08:40 Enteric Pathogens (PCR) - Final Stool Routine Collection 05/18/23 08:40 Parasite Antigen Panel - Final Stool Routine Collection A&P Assessment and plan (1) Acute encephalopathy: Encephalopathy has been showing gradual improvement. Today he is napping during my visit, but overall he has been more lucid. Continue thiamine, folic acid, multivitamin replacement. Magnesium appears so far becoming repleted. Hold Mag-Ox. Repeat magnesium level. Continue treatment of cellulitis. Leukocytosis also continues to improve, noted normalizing today. Discussed with case management, with quite significant deconditioning they are working on postdischarge placement. 05/18 discussed with his son. Son is considering as per discussion with family if he continues to improve possibly looking into finding placement. Assessment with ultrasound as above to assess for SBP, no ascites noted. Ammonia was not elevated. 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 Continue thiamine supplementation for now. We will continue to reassess mental status to see if showing improvement with treatment. Very deconditioned. Discussed with case management. Continue with PT/OT. Out of bed to chair. Discussed again with case management for now continue to reassess mental status. Continued consideration of post discharge plans. CIUT protocol if needed. Not in alcohol withdrawal currently. So far no further inappropriate behavior or comments with female staff. (2) Leukocytosis: Continue empiric antibiotic coverage for cellulitis. Add zinc oxide for moisture barrier. Leukocytosis normalized, although still noted some minimal neutrophilia of 7.72. Continue antibiotic coverage. Follow-up CBC. He is able to give review of systems, does not appear to have any new source of infection. Possibly secondary to superimposed cellulitis with moisture and shear injury on his bottom. Restart empiric antibiotic coverage, as IV access is unreliable we will start with ciprofloxacin and linezolid by mouth with MRSA coverage given noted positive MRSA carriage on nasal PCR. Abdominal ultrasound obtained to assess for possible ascites/SBP. No ascites noted on US. Previously had received treatment with Zosyn, vancomycin for possible cellulitis. These have since been stopped. Noted transient improvement in nishi kocytosis, now with worsening again. Leukocytosis previously with persistence. Completed doxycycline, tick panel returned with 1:64 Rickettsia IgG titer, which is just borderline with count of less than 1: 64. Previously had 1:128 back in 2020. IgM is negative. Consider follow-up convalescent titers. Liver parameters noted normal. Platelets not worse than usual. Reassess CBC, WBC count. Continue to monitor for any additional symptoms to suggest any persistent infection. (3) Septic shock: Resolved. Stop IV fluid. Was thought to be possibly secondary to cellulitis, had received vancomycin and Zosyn which had since been stopped. Continues on doxycycline for now. Tick panel is pending. Liver parameters are normal. Platelets do not appear to be worse than usual at 97. Abdomen appeared distended, obtained ultrasound to assess for ascites to assess for possible SBP. Discussed with him and his son, results with no ascites noted. Ruled on admission with hypotension, leukocytosis, elevated lactate with endorgan damage of renal failure. MRSA swab positive, blood culture negative, appreciate CT abdomen chest pelvis results. Echocardiogram shows an EF of 70% with no diastolic dysfunction. MRSA positive. Patient does have mild cellulitis of the right hip. Patient has remained hemodynamically stable and afebrile. Does have leukocytosis though. Stop doxycycline to finish a 7-day course. Last dose on 05/17. Tick panel pending. Off normal saline (4) Hypotension: Resolved. Most likely in setting of chronic alcohol abuse. Continue with midodrine 10 mg 3 times daily. Well-controlled. Goal blood pressure less than 140/90 mmHg with mean over 65. (5) Acute renal failure (ARF): Creatinine stated somewhat at 1.5. BUN 35. Continue to hold losartan. Received replacement for hypokalemia. IV fluids have been discontinued. Monitor BMP daily now. Hold off on Lasix for now. Nephrology documentation appreciated. Electrolytes stable. Qualifiers: Acute renal failure type: with acute tubular necrosis Qualified Code(s): N17.0 - Acute kidney failure with tubular necrosis (6) Acute hypokalemia: Given additional replacement this morning for potassium 2.7. Magnesium noted 2.5. We will add standing potassium supplement for now. Follow-up chemistry. (7) Chronic hyponatremia: Resolved. (8) Oliguria: Resolved. (9) Macrocytic anemia: Some worsening of hemoglobin down to 7. Macrocytic. MCV 108. Suspect anemia combination of suppression secondary to EtOH as well as ACD. Hemoccult noted negative. Follow-up CBC. No active site of bleeding for now. Appreciate normal vitamin B12, folate, without evidence of iron deficiency. Possibly ACD. (10) Thrombocytopenia: Resolved. Most likely in setting of chronic alcohol abuse with liver cirrhosis. No site of bleeding. Continue to monitor daily. (11) Alcoholic cirrhosis: Qualifiers: Ascites presence: without ascites Qualified Code(s): K70.30 - Alcoholic cirrhosis of liver without ascites (12) Hypertension: Qualifiers: Hypertension type: other secondary hypertension Qualified Code(s): I15.8 - Other secondary hypertension (13) Physical deconditioning: (14) Goals of care, counseling/discussion: Plan Right hip wound: Continue wound care. Foam dressing. Discussed with nursing, jacobo Pavon. Sacral wound: Add zinc oxide moisture barrier. Appears to have moisture damage/shear wound, keep dry. Concern for superimposed cellulitis. Start antibiotics as above. Attestations Medical Necessity Statement*: Continue admission for assessment management of acute encephalopathy, treatment of cellulitis, additional assessment of acute anemia, post discharge planning. Diagnoses Acute encephalopathy G93.40 Leukocytosis D72.829 Septic shock A41.9; R65.21 Hypotension I95.9 Acute renal failure (ARF) N17.0 Acute renal failure type: with acute tubular necrosis Acute hypokalemia E87.6 Chronic hyponatremia E87.1 Oliguria R34 Macrocytic anemia D53.9 Thrombocytopenia D69.6 Alcoholic cirrhosis K70.30 Ascites presence: without ascites Hypertension I15.8 Hypertension type: other secondary hypertension Physical deconditioning R53.81 Goals of care, counseling/discussion Z71.89
[2023-05-20 16:00] VITALS: BP 120/72; PULSE 86; RESP 17; TEMP 36.2; O2SAT 100
[2023-05-20] MEDS: zinc oxide oint 30 gm 1 APPLIC TOPICAL (17:05)
--- NOTE | 2023-05-20 18:18 | XRR_ITS ---
PROCEDURE INFORMATION: Exam: XR Left Knee Exam date and time: 05/20/2023 6:43 PM Age: 62 years old Clinical indication: Injury or trauma; Fall; Blunt trauma; Left; Patient HX: Patient lost balance and fell landing directly on both knees. C/O bilateral knee pain. TECHNIQUE: Imaging protocol: Radiologic exam of the left knee. Views: 3 views. COMPARISON: No relevant prior studies available. FINDINGS: Bones/joints: Normal. Soft tissues: Normal. XR/XR knee LT 3V* [id number] IMPRESSION: No acute findings.
--- NOTE | 2023-05-20 18:18 | XRR_ITS ---
PROCEDURE INFORMATION: Exam: XR Right Knee Exam date and time: 05/20/2023 6:50 PM Age: 62 years old Clinical indication: Injury or trauma; Fall; Blunt trauma; Right; Patient HX: Patient lost balance and fell landing directly on both knees. C/O bilateral knee pain. TECHNIQUE: Imaging protocol: Radiologic exam of the right knee. Views: 3 views. COMPARISON: No relevant prior studies available. FINDINGS: Bones/joints: Normal. Soft tissues: Normal. XR/XR knee RT 3V* [id number] IMPRESSION: No acute findings.
[2023-05-20 20:00] VITALS: BP 127/82; PULSE 103; RESP 22; TEMP 36.9; O2SAT 96
[2023-05-21] VITALS (7 sets, daily range): BP systolic 104–129; BP diastolic 64–79; PULSE 71–123; RESP 16–24; TEMP 36.3–37.3; O2SAT 96–100
[2023-05-21] MEDS: heparin 5,000 unit/mL INJ 1 mL 5000 UNIT SUBCUT ×2 (00:46→13:18)
[2023-05-21 04:01] LABS: Basophils % 0.4 %; Eosinophils # 0.2 10^3/uL (0.0-0.8); Eosinophils % 1.8 %; Hematocrit 22.4 % (42.0-52.0); Hemoglobin 7.4 g/dL (11.7-16.6); Lymphocytes # 1.9 10^3/uL (0.8-4.8); Lymphocytes % 19.4 %; Mean Corpuscular Hemoglobin 36.6 pg (28.0-34.0); Mean Corpuscular Volume 110.9 fl (80-94); Mean Platelet Volume 9.6 fL (7.4-10.4); Monocytes # 0.4 10^3/uL (0.2-0.9); Monocytes % 3.6 %; Neutrophils # 7.22 10^3/uL (1.8-7.7); Neutrophils % 74.3 %; Nucleated Red Blood Cells % 0 %; Platelet Count 313 10^3/cmm (130-400); Red Blood Count 2.02 10^6/uL (4.1-5.3); Red Cell Distribution Width 17.1 % (12.1-15.1); White Blood Count 9.7 10^3/uL (4.0-10.0)
[2023-05-21 04:13] LABS: Alanine Aminotransferase 12 U/L (0-41); Albumin Level 2.4 g/dL (3.5-5.2); Alkaline Phosphatase 139 U/L (40-130); Anion Gap 14.5 (5-19); Aspartate Amino Transferase 32 U/L (0-40); Blood Urea Nitrogen 24 mg/dL (8-23); Calcium 8.4 mg/dL (8.5-10.5); Carbon Dioxide 22 mmol/L (22-29); Chloride 109 mmol/L (98-107); Globulin 3.4 g/dL (1.3-4.6); Glucose 102 mg/dL (65-115); Osmolality Calculated 298 mOsm/kg (285-295); Potassium 3.5 mmol/L (3.5-5.1); Sodium 142 mmol/L (136-145); Total Bilirubin 0.4 mg/dL (0.15-1.2); Total Protein 5.8 g/dL (6.6-8.7)
[2023-05-21 04:21] LABS: Magnesium 2.2 mg/dL (1.7-2.3)
[2023-05-21] MEDS: ciprofloxacin 500 mg Tablet PO ×2 (08:10→20:20)
[2023-05-21] MEDS: pantoprazole DR 40 mg Tablet PO ×2 (08:11→17:36)
[2023-05-21] MEDS: potassium chloride ER 20 mEq Tablet 40 MEQ PO (08:11)
[2023-05-21] MEDS: midodrine 5 mg TABLET 10 MG PO ×3 (08:11→20:20)
[2023-05-21] MEDS: multivitamin therapeutic Tablet 1 TAB PO (08:11)
[2023-05-21] MEDS: linezolid 600 mg Tablet PO ×2 (08:11→20:19)
[2023-05-21] MEDS: thiamine 100 mg Tablet PO (08:11)
[2023-05-21] MEDS: folic acid 1 mg Tablet PO (08:12)
[2023-05-21] MEDS: zinc oxide oint 30 gm 1 APPLIC TOPICAL ×2 (08:30→17:36)
[2023-05-21] MEDS: HYDROcodone-acetaminophen 5-325 mg Tablet 1 TAB PO ×2 (13:18→20:20)
[2023-05-21] MEDS: magnesium lactate 84 mg Tablet PO (17:36)
--- NOTE | 2023-05-21 17:43 | P.PN_ITS ---
Subjective Subjective: Yesterday afternoon he was slightly more confused, stood up from the chair, fell down to his knees, states lost traction due to his socks, but discussed with him he is also very weak. Reinforced with him to ask for help in case of try to get up. Today he is doing slightly better again. He knows he is at other self-care. Knows month and the year. However, feels that the event happening yesterday happened several days ago. Later on in the day having some pain in his excoriation/rash and pain in right hip after working with PT. Medications: Reviewed: Yes Vitals/I&O/Wt Last Vital Signs Temp 97.5 F L 05/21/23 16:00 Pulse 86 05/21/23 16:00 Resp 20 H 05/21/23 16:00 BP 116/70 05/21/23 16:00 Pulse Ox 99 05/21/23 16:00 O2 Del Method Room Air 05/21/23 16:00 O2 Flow Rate 2 05/18/23 08:00 05/21/23 05/21/23 05/21/23 06:59 14:59 22:59 Intake Total 400 / 1440 360 / 360 Balance 400 / 1440 360 / 360 Physical Exam Const: COMMON NORMALS: negative for patient oriented x3 GENERAL APPEARANCE: cooperative ORIENTATION/CONSCIOUSNESS: Yes awake HENMT: COMMON NORMALS: oropharynx normal Neck/C-Spine: COMMON NORMALS: no JVD Resp: COMMON NORMALS: normal respiratory effort and clear to auscultation bilaterally AUSCULTATION: clear to auscultation bilaterally Cardio: COMMON NORMALS: no JVD, regular rhythm, S1 normal heart sound present, S2 normal heart sound present and No murmurs present (Cardio) RHYTHM: regular rhythm HEART SOUNDS: S1 normal heart sound present and S2 normal heart sound present GI: COMMON NORMALS: Normal to inspection, nondistended, normoactive bowel sounds present, Soft to palpation and non-tender PALPATION: Yes Soft to palpation Neuro: COMMON NORMALS: moves all extremities; negative for patient oriented x3 Skin: OTHER: Wound on right lateral hip, about 4 cm in length, no tunneling or undermining, minimal surface discharge, no necrotic slough at base, no significant surrounding erythema. Sacral wound with moisture/shear damage minimal erythema, no surrounding cellulitis. Urinary Catheter Management: Martinez: Cath Placed During This Visit: yes, but has since been removed by the nurse Reason for Continuing Indwelling Catheter: Decision to DC Catheter Urinary Catheter Date of Insertion: 05/09/23 Urinary Catheter Time of Insertion: 19:47 Date Urinary Catheter Removed: 05/15/23 Time Urinary Catheter Discontinued: 10:09 Data 05/21/23 02:56 05/21/23 02:56 A&P Assessment and plan (1) Acute encephalopathy: Encephalopathy with some fluctuation. Overall better than previously, however, was still somewhat more confused yesterday afternoon. Today he can tell me the name of the hospital, the year and the month correctly. He does not seem to recall the recent events correctly, however. As well as additional momentary episodes of confusion, per discussion with PT therapist patient was stating that he felt like his throat was just around the corner outside his room door. Today patient played that off as a joke. Recheck ammonia. Magnesium today is looking better, 2.2. Continue thiamine, folic acid, multivitamin replacement. Concern for gradual progression to Wernicke-Korsakoff syndrome. Continue treatment of cellulitis. Leukocytosis is now resolved. He is afebrile. Continue to reorient, continue to mobilize with PT. Maintain fall precautions. Discussed with case management to continue to work on arrangements for placement after discharge. 05/18 discussed with his son. Son is considering as per discussion with family if he continues to improve possibly looking into finding placement rather than hospice at this juncture. Assessment with ultrasound as above to assess for SBP, no ascites noted. Ammonia was not elevated. 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 Continue thiamine supplementation for now. We will continue to reassess mental status to see if showing improvement with treatment. CIWA protocol if needed. Not in alcohol withdrawal currently. So far no further inappropriate behavior or comments with female staff. (2) Fall: Fall on 05/20, dizziness starting at night seems that he had stood up from his chair possibly trying to reach the commode, slumped/fell down to his knees and unable to get up to try to get over to the bed. Today he tells me that it was due to lack of traction in his socks, however, reinforced with him again to request for assistance in case try to get up as he is also deconditioned. Continue fall precautions. Yesterday was evaluated, no pain in knees on passive range of motion. Not noted any other injury or complain of any other sore spots. Knee x-rays obtained due to mild erythema under her kneecaps from kneeling, no fractures noted. Today reported to have some pain in the right hip after working with PT. Possibly unrelated, but given unwitnessed fall yesterday will image with hip x- ray as well. (3) Leukocytosis: Continue empiric antibiotic coverage for cellulitis. Continue zinc oxide for moisture barrier. Leukocytosis normalized, neutrophilia resolved. Continue antibiotic coverage. Follow-up CBC. He is able to give review of systems, does not appear to have any new source of infection. Possibly secondary to superimposed cellulitis with moisture and bashir r injury on his bottom. Restart empiric antibiotic coverage, as IV access is unreliable we will start with ciprofloxacin and linezolid by mouth with MRSA coverage given noted positive MRSA carriage on nasal PCR. Abdominal ultrasound obtained to assess for possible ascites/SBP - No ascites noted on US. Previously had received treatment with Zosyn, vancomycin for possible cellulitis. These have since been stopped. Noted transient improvement in leukocytosis, now with worsening again. Leukocytosis previously with persistence. Completed doxycycline, tick panel returned with 1:64 Rickettsia IgG titer, which is just borderline with count of less than 1: 64. Previously had 1:128 back in 2020. IgM is negative. Consider follow-up convalescent titers. Liver parameters noted normal. Platelets not worse than usual. Reassess CBC, WBC count. Continue to monitor for any additional symptoms to suggest any persistent infection. (4) Septic shock: Resolved. Stop IV fluid. Was thought to be possibly secondary to cellulitis, had received vancomycin and Zosyn which had since been stopped. Continues on doxycycline for now. Tick panel is pending. Liver parameters are normal. Platelets do not appear to be worse than usual at 97. Abdomen appeared distended, obtained ultrasound to assess for ascites to assess for possible SBP. Discussed with him and his son, results with no ascites noted. Ruled on admission with hypotension, leukocytosis, elevated lactate with endorgan damage of renal failure. MRSA swab positive, blood culture negative, appreciate CT abdomen chest pelvis results. Echocardiogram shows an EF of 70% with no diastolic dysfunction. MRSA positive. Patient does have mild cellulitis of the right hip. Patient has remained hemodynamically stable and afebrile. Does have leukocytosis though. Stop doxycycline to finish a 7-day course. Last dose on 05/17. Tick panel pending. Off normal saline (5) Hypotension: Resolved. Most likely in setting of chronic alcohol abuse. Continue with midodrine 10 mg 3 times daily. Well-controlled. Goal blood pressure less than 140/90 mmHg with mean over 65. (6) Acute renal failure (ARF): Improved. Creatinine down to 1.2. BUN down to 24. Continue to hold losartan. Hypokalemia replaced. IV fluids have been discontinued. Monitor BMP daily now. Hold off on Lasix for now. Nephrology documentation appreciated. Electrolytes stable. Qualifiers: Acute renal failure type: with acute tubular necrosis Qualified Code(s): N17.0 - Acute kidney failure with tubular necrosis (7) Acute hypokalemia: Replaced. Magnesium noted doing better at 2.2. Follow-up chemistry. (8) Chronic hyponatremia: Resolved. (9) Oliguria: Resolved. (10) Macrocytic anemia: Some worsening of hemoglobin down to 7. Macrocytic. MCV 108. Suspect anemia combination of suppression secondary to EtOH as well as ACD. Hemoccult noted negative. Follow-up CBC. No active site of bleeding for now. Appreciate normal vitamin B12, folate, without evidence of iron deficiency. Possibly ACD. (11) Thrombocytopenia: Resolved. Most likely in setting of chronic alcohol abuse with liver cirrhosis. No site of bleeding. Continue to monitor daily. (12) Alcoholic cirrhosis: Qualifiers: Ascites presence: without ascites Qualified Code(s): K70.30 - Alcoholic cirrhosis of liver without ascites (13) Hypertension: Qualifiers: Hypertension type: other secondary hypertension Qualified Code(s): I15.8 - Other secondary hypertension (14) Physical deconditioning: (15) Goals of care, counseling/discussion: Plan Right hip wound: Continue wound care. Foam dressing. Discussed with nursing, stop Santyl. Sacral wound: Add zinc oxide moisture barrier. Appears to have moisture damage/shear wound, keep dry. Concern for superimposed cellulitis. Start antibiotics as above. Attestations Medical Necessity Statement*: Continue admission for assessment management of acute encephalopathy, treatment of cellulitis, additional assessment of acute anemia, post discharge planning. Diagnoses Acute encephalopathy G93.40 Fall W19.XXXA Leukocytosis D72.829 Septic shock A41.9; R65.21 Hypotension I95.9 Acute renal failure (ARF) N17.0 Acute renal failure type: with acute tubular necrosis Acute hypokalemia E87.6 Chronic hyponatremia E87.1 Oliguria R34 Macrocytic anemia D53.9 Thrombocytopenia D69.6 Alcoholic cirrhosis K70.30 Ascites presence: without ascites Hypertension I15.8 Hypertension type: other secondary hypertension Physical deconditioning R53.81 Goals of care, counseling/discussion Z71.89
--- NOTE | 2023-05-21 17:45 | XRR_ITS ---
PROCEDURE INFORMATION: Exam: XR Right Hip Exam date and time: 05/21/2023 6:45 PM Age: 62 years old Clinical indication: Injury or trauma; Fall; Other: Pain; Additional info: Pain after exertion, fall yesterday TECHNIQUE: Imaging protocol: Radiologic exam of the right hip. Views: 2 or 3 views hip with pelvis when performed. COMPARISON[place] [id number] 05/10/2023 9:54 AM FINDINGS: Bones/joints: Normal alignment. The joint is well preserved. There is no acute fracture. No aggressive bone lesions are identified. Soft tissues: No radiopaque foreign body. Soft tissue swelling/hematoma along the lateral aspect of the right hip and gluteal muscles. XR/XR hip RT 2-3V wo/w pel* [id number] IMPRESSION: 1. No acute fracture or dislocation. 2. Soft tissue hematoma.
[2023-05-22] VITALS (11 sets, daily range): BP systolic 105–152; BP diastolic 60–90; PULSE 77–109; RESP 16–18; TEMP 36.4–37.7; O2SAT 98–100
[2023-05-22] MEDS: heparin 5,000 unit/mL INJ 1 mL 5000 UNIT SUBCUT ×2 (01:38→13:57)
--- NOTE | 2023-05-22 05:58 | PC.NURSE ---
Behaviors. Patient has refused to use sit to stand multiple times this shift, stating I dont need that damn thing, get that motherfucker away from me Patient states he can walk and will walk right out of the hospital. Patient sets off bed alarm trying to get up on his own instead of using his call light, Patient has been redirected by staff to use call light and sit to stand for safety. When the patient has refused the sit to stand the nurse offered bed johnson and urinal, he refused both. At approx 0545 SEAM STAYER assisted patient to the bedside commode. Patient's knees began to buckle on transfer back to the bed and patient was assisted to his knees by the lieutenant/deputy, no injuries noted on assessment, patient denies pain, Dr. Norman notified.
--- NOTE | 2023-05-22 06:01 | PC.NURSE ---
patient has continued to refuse to use the [id number] to assist with transfers, refuse to wait for help and attempts to get up out of bed alone to potty, refuses to use a urinal and bedpan, and is determined to do everything himself
[2023-05-22 06:03] LABS: Basophils # 0.1 10^3/uL (0.0-0.1); Basophils % 0.5 %; Eosinophils # 0.3 10^3/uL (0.0-0.8); Eosinophils % 3.4 %; Hematocrit 22.9 % (42.0-52.0); Hemoglobin 7.3 g/dL (11.7-16.6); Mean Corpuscular HGB Conc 31.9 g/dL (30.0-36.0); Mean Corpuscular Hemoglobin 36.3 pg (28.0-34.0); Mean Corpuscular Volume 113.9 fl (80-94); Mean Platelet Volume 9.2 fL (7.4-10.4); Monocytes # 0.2 10^3/uL (0.2-0.9); Monocytes % 2.4 %; Neutrophils # 7.24 10^3/uL (1.8-7.7); Neutrophils % 73.4 %; Nucleated Red Blood Cells % 0 %; Platelet Count 277 10^3/cmm (130-400); Red Blood Count 2.01 10^6/uL (4.1-5.3); Red Cell Distribution Width 16.9 % (12.1-15.1); White Blood Count 9.9 10^3/uL (4.0-10.0)
--- NOTE | 2023-05-22 06:06 | PC.NURSE ---
I helped patient sit to the edge of the bed, he refused to use the sit to stand, he started to stand up and got weak and turned face first toward the bed and laid vertically across it, I placed a pillow under his knees and he slid and his knees landed on the pillow.
[2023-05-22 06:25] LABS: Alanine Aminotransferase 14 U/L (0-41); Albumin Level 2.5 g/dL (3.5-5.2); Alkaline Phosphatase 138 U/L (40-130); Anion Gap 13.8 (5-19); Aspartate Amino Transferase 31 U/L (0-40); Blood Urea Nitrogen 17 mg/dL (8-23); Calcium 8.5 mg/dL (8.5-10.5); Carbon Dioxide 20 mmol/L (22-29); Chloride 110 mmol/L (98-107); Globulin 3.3 g/dL (1.3-4.6); Glomerular Filtration Rate 67.4 mL/min (90-130); Glucose 91 mg/dL (65-115); Magnesium 1.9 mg/dL (1.7-2.3); Osmolality Calculated 291 mOsm/kg (285-295); Potassium 3.8 mmol/L (3.5-5.1); Sodium 140 mmol/L (136-145); Total Bilirubin 0.6 mg/dL (0.15-1.2); Total Protein 5.8 g/dL (6.6-8.7)
[2023-05-22 06:46] LABS: Ammonia 20 umol/L (16-60)
[2023-05-22] MEDS: linezolid 600 mg Tablet PO ×2 (07:44→19:13)
[2023-05-22] MEDS: multivitamin therapeutic Tablet 1 TAB PO (07:44)
[2023-05-22] MEDS: ciprofloxacin 500 mg Tablet PO ×2 (07:44→20:10)
[2023-05-22] MEDS: midodrine 5 mg TABLET 10 MG PO ×3 (07:45→20:10)
[2023-05-22] MEDS: potassium chloride ER 20 mEq Tablet 40 MEQ PO (07:45)
[2023-05-22] MEDS: folic acid 1 mg Tablet PO (07:45)
[2023-05-22] MEDS: thiamine 100 mg Tablet PO (07:45)
[2023-05-22] MEDS: pantoprazole DR 40 mg Tablet PO ×2 (07:45→16:56)
[2023-05-22] MEDS: HYDROcodone-acetaminophen 5-325 mg Tablet 1 TAB PO ×2 (07:46→23:49)
[2023-05-22] MEDS: magnesium lactate 84 mg Tablet PO ×2 (07:48→16:56)
[2023-05-22] MEDS: zinc oxide oint 30 gm 1 APPLIC TOPICAL (07:50)
--- NOTE | 2023-05-22 11:20 | P.PN_ITS ---
Subjective Subjective: Hospital course, labs appreciated. On examination patient sleeping in bed with his face covered with the bedsheet though wakes up to verbal stimulus. On waking up able to have complete conversation. He is complaining of pain in his back. Denies any nausea, vomiting, headache. Asking when can he be discharged. Has remained hemodynamically stable and afebrile. No documented urine output in last 24 hours but there have been bowel movements and urine output charted. Blood work shows stable hemoglobin of around 7.3, no leukocytosis, BMP showing creatinine of 1.1 which is improved since admission with a stable CMP. Medications: Reviewed: Yes Vitals/I&O/Wt Last Vital Signs Temp 97.5 F L 05/22/23 07:40 Pulse 77 05/22/23 07:40 Resp 16 05/22/23 07:40 BP 105/70 05/22/23 07:40 Pulse Ox 100 05/22/23 07:40 O2 Del Method Room Air 05/22/23 07:40 O2 Flow Rate 2 05/18/23 08:00 05/21/23 05/22/23 05/22/23 22:59 06:59 14:59 Intake Total 480 / 840 240 / 1080 120 / 120 Balance 480 / 840 240 / 1080 120 / 120 Physical Exam Narrative: General: No acute distress, sleeping on examination but wakes up to be AAO x2-3 HEENT: PERRLA, pupils bilaterally equal and reactive Chest: Bilateral Novosel breath sounds all over lung edwards without any added sounds CVS: S1-S2 regular, no murmurs, no tachycardia, no gallops, no rubs Abdomen: Soft, nontender, no organomegaly, bowel sounds present, morbidly obese Neuro: Moving all limbs, power 3/5 Skin: Does have superficial grade 2 ulcer in the right groin, not foul-smelling or draining Grade 1 to grade 2 erythematous developing decubitus pressure sores with radiation down to groin Urinary Catheter Management: Martinez: Cath Placed During This Visit: yes, but has since been removed by the nurse Reason for Continuing Indwelling Catheter: Decision to DC Catheter Urinary Catheter Date of Insertion: 05/09/23 Urinary Catheter Time of Insertion: 19:47 Date Urinary Catheter Removed: 05/15/23 Time Urinary Catheter Discontinued: 10:09 Data 05/22/23 05:48 05/22/23 05:48 A&P Assessment and plan (1) Acute encephalopathy: Most likely in setting of Warnicke's encephalopathy secondary to chronic alcoholism and liver cirrhosis. Ammonia level stable. Continue to monitor. Frequent reorientation. Patient seems to be at his baseline mentation for now. (2) Fall: In setting of severe physical deconditioning along with Warnicke's encephalopathy. PT/OT. Out of bed to chair. Fall precautions. Appreciate recent knee x-rays. Monitor blood pressures. (3) Leukocytosis: No spike of fever since admission. Blood cultures have remained negative with C. difficile negative. Last blood cultures from 05/09 negative. Continue empiric antibiotic coverage for cellulitis with possible grade 1 to grade 2 decubitus pressure sores. Continue zinc oxide for moisture barrier. Will start on nystatin powder for now to avoid superadded fungal infection as patient has been on antibiotics for a long time and is at a higher risk given baseline liver cirrhosis. Leukocytosis normalized, neutrophilia resolved. History of MRSA positive. Patient had been on Zosyn and vancomycin for possible cellulitis which was stopped and later changed to oral ciprofloxacin and linezolid. Will finish 7- day course of antibiotics which would being 05/23. Abdominal ultrasound obtained to assess for possible ascites/SBP - No ascites noted on US. Completed doxycycline, tick panel returned with 1:64 Rickettsia IgG titer, which is just borderline with count of less than 1: 64. Previously had 1:128 back in 2020. IgM is negative. Consider follow-up convalescent titers. Liver paramete rs noted normal. Platelets not worse than usual. (4) Septic shock: Resolved. (5) Hypotension: Continue with 10 mg of midodrine 3 times daily. Watch orthostatics. (6) Macrocytic anemia: Hemoglobin for last 4 days at around 7. Macrocytic. MCV 108. Suspect anemia combination of suppression secondary to EtOH as well as ACD. Hemoccult noted negative. No active site of bleeding for now. Appreciate normal vitamin B12, folate, without evidence of iron deficiency. Possibly ACD. (7) Acute renal failure (ARF): Qualifiers: Acute renal failure type: with acute tubular necrosis Qualified Code(s): N17.0 - Acute kidney failure with tubular necrosis (8) Chronic hyponatremia: (9) Thrombocytopenia: (10) Alcoholic cirrhosis: Qualifiers: Ascites presence: without ascites Qualified Code(s): K70.30 - Alcoholic cirrhosis of liver without ascites (11) Hypertension: Now with hypotensionOn midodrine. Qualifiers: Hypertension type: other secondary hypertension Qualified Code(s): I15.8 - Other secondary hypertension (12) Physical deconditioning: (13) Goals of care, counseling/discussion: Discussed in detail with patient's son Dheeraj Vázquez over the phone. We discussed unfortunately patient is at his baseline mentation which is poor given possible Warnicke's encephalopathy from chronic alcohol abuse. Also discussed about physical deconditioning because of chronic alcohol abuse as well. Discussed about possible discharge to SNF versus hospice. He states he has spoken to multiple. People and family and they would want to try him at SNF for few weeks and then make a decision of hospice. Plan Right hip wound: Continue wound care. Foam dressing. Discussed with nursing, stop Santyl. Sacral wound: Add zinc oxide moisture barrier. Appears to have moisture damage/shear wound, keep dry. Concern for superimposed cellulitis. Start antibiotics as above. Full code. Regular diet. Protonix for PUD prophylaxis Heparin for DVT prophylaxis. Discharge planning: Plan to discharge to SNF in the next 24 hours once everything from case management ready Attestations Medical Necessity Statement*: Requires further hospitalization for management of metabolic encephalopathy in setting of chronic alcohol abuse leading to Warnicke's, chronic hypotension, sacral wounds given decubitus pressure injury, severe physical deconditioning while safe discharge planning is sought Diagnoses Acute encephalopathy G93.40 Fall W19.XXXA Leukocytosis D72.829 Septic shock A41.9; R65.21 Hypotension I95.9 Macrocytic anemia D53.9 Acute renal failure (ARF) N17.0 Acute renal failure type: with acute tubular necrosis Chronic hyponatremia E87.1 Thrombocytopenia D69.6 Alcoholic cirrhosis K70.30 Ascites presence: without ascites Hypertension I15.8 Hypertension type: other secondary hypertension Physical deconditioning R53.81 Goals of care, counseling/discussion Z71.89
--- NOTE | 2023-05-22 15:18 | PC.OT ---
OT TREATMENT ATTEMPTED; PATIENT SLEEPING SOUNDLY. THIS WAS THE SECOND ATTEMPT TODAY. TREATMENT TO BE ATTEMPTED AGAIN TOMORROW.
[2023-05-22] MEDS: nystatin powder 15 gm Btl 1 APPLIC TOPICAL (16:56)
[2023-05-22] MEDS: sodium chloride 0.9% 100 mL Bag 50 ML IV (18:44)
[2023-05-22 20:29] LABS: Hematocrit 24.5 % (42.0-52.0); Hemoglobin 7.9 g/dL (11.7-16.6)
[2023-05-23] VITALS: BP 127/63; PULSE 117; RESP 16; TEMP 37.1; O2SAT 97
[2023-05-23] MEDS: heparin 5,000 unit/mL INJ 1 mL 5000 UNIT SUBCUT (01:22)
[2023-05-23 04:00] VITALS: BP 119/66; PULSE 92; RESP 16; TEMP 37.1; O2SAT 96
[2023-05-23] MEDS: potassium chloride ER 20 mEq Tablet 40 MEQ PO (07:39)
[2023-05-23] MEDS: thiamine 100 mg Tablet PO (07:40)
[2023-05-23] MEDS: midodrine 5 mg TABLET 10 MG PO (07:40)
[2023-05-23] MEDS: ciprofloxacin 500 mg Tablet PO (07:40)
[2023-05-23] MEDS: HYDROcodone-acetaminophen 5-325 mg Tablet 1 TAB PO (07:41)
[2023-05-23] MEDS: pantoprazole DR 40 mg Tablet PO (07:42)
[2023-05-23] MEDS: multivitamin therapeutic Tablet 1 TAB PO (07:42)
[2023-05-23] MEDS: nystatin powder 15 gm Btl 1 APPLIC TOPICAL (07:42)
[2023-05-23] MEDS: magnesium lactate 84 mg Tablet PO (07:42)
[2023-05-23] MEDS: folic acid 1 mg Tablet PO (07:42)
[2023-05-23] MEDS: linezolid 600 mg Tablet PO (07:42)
[2023-05-23 08:00] VITALS: BP 125/71; PULSE 89; RESP 17; TEMP 36.8; O2SAT 94
--- NOTE | 2023-05-23 09:38 | PM.DCS ---
Discharge Providers Date of Admission: 05/09/23 19:57 Date of Discharge: May 23, 2023 Attending Provider at Admission: Yovana Gambino MD Attending Provider at Discharge: Rishi Christianson MD Primary Care Provider: THEA Smith Diagnoses at Discharge Discharge Diagnosis (1) Acute encephalopathy: Status: Acute (2) Fall: Status: Acute (3) Leukocytosis: Status: Acute (4) Septic shock: Status: Acute (5) Hypotension: Status: Acute (6) Macrocytic anemia: Status: Acute (7) Acute renal failure (ARF): Status: Acute Qualifiers: Acute renal failure type: with acute tubular necrosis Qualified Code(s): N17.0 - Acute kidney failure with tubular necrosis (8) Chronic hyponatremia: Status: Acute (9) Thrombocytopenia: Status: Acute (10) Alcoholic cirrhosis: Status: Chronic Qualifiers: Ascites presence: without ascites Qualified Code(s): K70.30 - Alcoholic cirrhosis of liver without ascites (11) Hypertension: Status: Chronic Qualifiers: Hypertension type: other secondary hypertension Qualified Code(s): I15.8 - Other secondary hypertension (12) Physical deconditioning: Status: Acute (13) Goals of care, counseling/discussion: Status: Acute Reason for Visit Reason for Visit: altered mental status Brief History: History as per HPI: Daniel Vázquez is a 62 year old male with h/o chronic alcoholism, alcoholic cirrhosis, HTN, acute encephalopathy, lumbar spinal stenosis, non compliant behavior, LE edema was BIB EMS after daughter found him unresposive at home and covered with feces. As per the ER, he was unresponsive on arrival and found to be hypotensive, tachycardic and with WBC of 25, Creatinine of 5.1. As per the ER physician he was able to get hold of patient's son (Dheeraj) who tells him that patient is a chronic alcoholic and would occasionally become hyponatremic, become confused and deconditoned.? Son notes that patient has gone through these cycles multiple times in the past.? He does not eat much, drinks all the time and refuses to take care of himself.? He could go for weeks without showering. Because of his history of spinal stenosis, patient has poor ambulation and mostly stays around the house.? The last time Dheeraj saw him was about a week ago and at that time he was not eating much and was not taking care of himself either. On being further evaluated after IV fluids, he was still drowsy, not oriented, hence was unable to obtain history. Hospital Course Hospital Course Patient was admitted to the hospital for further evaluation and management of altered mental status in setting of acute encephalopathy with chronic alcohol abuse leading to intoxication. On admission he was also found to have acute renal failure along with oliguria, uremia with creatinine up to 5.1 and BUN up to 110. He was found to have hyponatremia and hypokalemia. He was started on IV fluids and electrolytes were repleted. During admission he was also found to have hypotension which at first was thought to be secondary to septic shock versus hypovolemic shock. He was transiently started on Levophed which was later transitioned to oral midodrine. With concerns for possible aspiration pneumonia and mild decubitus pressure injury he was also started on broad-spectrum IV antibiotics. Nephrology was consulted given concerns for severe uremia along with anuria. Gradually patient's renal functions improved with IV hydration and has been back to baseline for over a week. Patient's blood pressures also improved after starting midodrine. Patient's mentation continues to remain fluctuating during hospitalization most likely in setting of Warnicke's encephalopathy from chronic alcohol intoxication. Given all of the above safe discharge plan were discussed in detail with patient's family and DPOA. Hospice was even discussed. Family decided for patient to go to SNF for a short while and if he does not improve and get back to his baseline they will consider hospice as an outpatient. His hospitalization was otherwise unremarkable. He has been discharged to SNF for further rehabitation on oral midodrine 10 mg 3 times a day along with oral ciprofloxacin and linezolid for 3 more days. Physical Exam Narrative: General: No acute distress, sleeping on examination but wakes up to be AAO x2-3 HEENT: PERRLA, pupils bilaterally equal and reactive Chest: Bilateral Novosel breath sounds all over lung edwards without any added sounds CVS: S1-S2 regular, no murmurs, no tachycardia, no gallops, no rubs Abdomen: Soft, nontender, no organomegaly, bowel sounds present, morbidly obese Neuro: Moving all limbs, power 3/5 Skin: Does have superficial grade 2 ulcer in the right groin, not foul-smelling or draining Grade 1 to grade 2 erythematous developing decubitus pressure sores with radiation down to groin Urinary Catheter Management: Martinez: Cath Placed During This Visit: yes, but has since been removed by the nurse Reason for Continuing Indwelling Catheter: Decision to DC Catheter Urinary Catheter Date of Insertion: 05/09/23 Urinary Catheter Time of Insertion: 19:47 Date Urinary Catheter Removed: 05/15/23 Time Urinary Catheter Discontinued: 10:09 Discharge Data Studies Completed and Pending Completed Studies During Hospitalization Category [place] [id number] Routine Cat Scan 05/10/23 08:[address] head wo con* [id number] Routine Cat Scan 05/10/23 09:10 Completed CXRP [XR chest 1V portable [id number]] Routine Exams 05/10/23 13:00 Completed XR chest 1V portable [id number] Stat Exams 05/09/23 16:44 Completed XR hip RT 2-3V wo/w pel* [id number] Routine Exams 05/21/23 17:45 Completed XR knee LT 3V* [id number] Routine Exams 05/20/23 18:18 Completed XR knee RT 3V* [id number] Routine Exams 05/20/23 18:18 Completed CV. echo complete* [id number] Routine Ultrasound 05/10/23 18:18 Completed US abdomen lmt fluid [id number] Routine Ultrasound 05/15/23 10:08 Completed Pending at discharge Category Date Time Status SARS Covid-2 Antigen Routine Lab 05/23/23 08:40 Received Radiology Impressions Chest/Abdomen/Pelvis CT 05/10/23 08:50 IMPRESSION: 1. Urinary bladder calcifications. Some these calcifications are closely associated with the distal RIGHT ureter. Possible 2 mm calcification remains in the distal RIGHT ureter but no obstruction. 2. No renal obstruction. 3. Cholelithiasis without acute cholecystitis. 4. No GI tract obstruction. 5. Normal appendix. 6. Stable mesenteric panniculitis. 7. Bilateral femoral head changes of early osteonecrosis. Head CT 05/10/23 09:10 IMPRESSION: 1. Study is compromised by significant motion artifact. 2. No areas of hemorrhage or edema are identified. 3. Moderate atrophy and small vessel ischemic disease. More than expected for a patient of this age. Chest X-Ray 05/10/23 13:00 IMPRESSION: Right arm PICC line with the tip in the superior vena cava. Abdomen Ultrasound 05/15/23 10:08 IMPRESSION: No peritoneal ascites. Knee X-Ray 05/20/23 18:18 IMPRESSION: No acute findings. Hip/Pelvis X-Ray 05/21/23 17:45 IMPRESSION: 1. No acute fracture or dislocation. 2. Soft tissue hematoma. Echocardiogram: CONCLUSIONS ?1.? Normal left ventricular size, systolic function and wall ?thickness, with no regional wall motion abnormalities. Left ?ventricular ejection fraction is estimated at 70 %. Normal ?diastolic function. ?2.? Normal right ventricular size and systolic function. ?3.? No significant valvular abnormality. ?4.? No prior similar studies to compare. ?Miladis Goldman MD ?(Electronically Signed) ?Final Date:? ? ? 11 May 2023 ? 10:55 Laboratory Results WBC 9.9 10^3/uL (4.0-10.0) 05/22/23 05:48 RBC 2.01 10^6/uL (4.1-5.3) L 05/22/23 05:48 Hgb 7.9 g/dL (11.7-16.6) L 05/22/23 20:22 Hct 24.5 % (42.0-52.0) L 05/22/23 20:22 MCV 113.9 fl (80-94) H 05/22/23 05:48 MCH 36.3 pg (28.0-34.0) H 05/22/23 05:48 MCHC 31.9 g/dL (30.0-36.0) 05/22/23 05:48 RDW 16.9 % (12.1-15.1) H 05/22/23 05:48 Plt Count 277 10^3/cmm (130-400) 05/22/23 05:48 MPV 9.2 fL (7.4-10.4) 05/22/23 05:48 Neut % (Auto) 73.4 % 05/22/23 05:48 Lymph % (Auto) 20.0 % 05/22/23 05:48 Emmons % (Auto) 2.4 % 05/22/23 05:48 Eos % (Auto) 3.4 % 05/22/23 05:48 Baso % (Auto) 0.5 % 05/22/23 05:48 Neut # (Auto) 7.24 10^3/uL (1.8-7.7) 05/22/23 05:48 Lymph # (Auto) 2.0 10^3/uL (0.8-4.8) 05/22/23 05:48 Emmons # (Auto) 0.2 10^3/uL (0.2-0.9) 05/22/23 05:48 Eos # (Auto) 0.3 10^3/uL (0.0-0.8) 05/22/23 05:48 Baso # (Auto) 0.1 10^3/uL (0.0-0.1) 05/22/23 05:48 Nucleated RBC % (auto) 0 % 05/22/23 05:48 Nucleated RBCs # 0.0 /100WBC 05/22/23 05:48 PT 12.70 SECONDS (12.1-14.9) 05/09/23 16:21 INR 0.93 (0.8-1.2) 05/09/23 16:21 Sodium 140 mmol/L (136-145) 05/22/23 05:48 Potassium 3.8 mmol/L (3.5-5.1) 05/22/23 05:48 Chloride 110 mmol/L (98-107) H 05/22/23 05:48 Carbon Dioxide 20 mmol/L (22-29) L 05/22/23 05:48 Anion Gap 13.8 (5-19) 05/22/23 05:48 BUN 17 mg/dL (8-23) 05/22/23 05:48 Creatinine 1.1 mg/dL (0.7-1.2) 05/22/23 05:48 GFR Calculation 67.4 mL/min (90-130) L 05/22/23 05:48 Glucose 91 mg/dL (65-115) 05/22/23 05:48 Estimat Average Glucose 117 05/11/23 02:42 Hemoglobin A1c 5.7 % (4.0-6.0) 05/11/23 02:42 Calculated Osmolality 291 mOsm/kg (285-295) 05/22/23 05:48 Lactic Acid 1.0 mmol/L (0.5-2.2) 05/10/23 14:42 Lactic Acid (Sepsis) 1.6 mmol/L (0.5-2.2) 05/09/23 05:30 Calcium 8.5 mg/dL (8.5-10.5) 05/22/23 05:48 Phosphorus 3.2 mg/dL (2.5-4.5) 05/10/23 05:30 Magnesium 1.9 mg/dL (1.7-2.3) 05/22/23 05:48 Iron 102 ug/dL (59-158) 05/10/23 05:30 TIBC 173 mcg/dl 05/10/23 05:30 % Saturation 58.9 % (20-50) H 05/10/23 05:30 Unsat Iron Binding 71 ug/dL (112-347) L 05/10/23 05:30 Total Bilirubin 0.6 mg/dL (0.15-1.2) 05/22/23 05:48 AST 31 U/L (0-40) 05/22/23 05:48 ALT 14 U/L (0-41) 05/22/23 05:48 Alkaline Phosphatase 138 U/L (40-130) H 05/22/23 05:48 Ammonia 20 umol/L (16-60) 05/22/23 05:48 Creatine Kinase 20 U/L (39-308) L 05/10/23 14:42 NT-Pro-B Natriuret Pep 1738 pg/mL (0-125) H 05/10/23 05:30 Total Protein 5.8 g/dL (6.6-8.7) L 05/22/23 05:48 Albumin 2.5 g/dL (3.5-5.2) L 05/22/23 05:48 Globulin 3.3 g/dL (1.3-4.6) 05/22/23 05:48 Triglycerides 131 mg/dL (0-150) 05/11/23 02:42 Cholesterol 121 mg/dL (0-200) 05/11/23 02:42 LDL Cholesterol, Calc 55 mg/dL (50-129) 05/11/23 02:42 Total VLDL Cholesterol 26 mg/dL (0-30) 05/11/23 02:42 HDL Cholesterol 40 mg/dL (60-100) L 05/11/23 02:42 Cholesterol/HDL Ratio 3.03 mg/dL (1.0-5.00) 05/11/23 02:42 Lipase 77 U/L (13-60) H 05/09/23 16:21 Vitamin B12 591 pg/mL (232-1245) 05/10/23 05:30 Folate > 20.0 ng/mL (4.5-32.2) 05/11/23 02:42 TSH 0.85 uIU/mL (0.27-4.20) 05/10/23 05:30 TSH Cancelled 05/10/23 05:30 Urine Color Yellow (Yellow) 05/11/23 15:01 Urine Appearance Sl hazy (CLEAR) A 05/11/23 15:01 Urine pH 5 (5-7) 05/11/23 15:01 Ur Specific [place] 1.010 (1.005-1.030) 05/11/23 15:01 Urine Protein Neg (Negative) 05/11/23 15:01 Urine Glucose (UA) Norm (Normal) 05/11/23 15:01 Urine Ketones Negative (Negative) 05/11/23 15:01 Urine Blood 3+ (Negative) H 05/11/23 15:01 Urine Nitrate Negative (Negative) 05/11/23 15:01 Urine Bilirubin Neg (Negative) 05/11/23 15:01 Urine Urobilinogen Norm mg/dL (Negative) 05/11/23 15:01 Ur Leukocyte Esterase Negative (Negative) 05/11/23 15:01 Urine RBC 5-10 /hpf (0-2) H 05/11/23 15:01 Urine WBC 5-10 /hpf (0-5) H 05/11/23 15:01 Ur Eosinophil Smear 0 (0-0) 05/11/23 15:01 Ur Squamous Epith Cells Rare /hpf (0-5) 05/11/23 15:01 Uric Acid Crystals 0-4 /hpf 05/11/23 15:01 Triple Phos Crystals 0-4 /hpf H 05/11/23 15:01 Amorphous Sediment Not Reportable 05/11/23 15:01 Urine Bacteria R /hpf (NONE) 05/11/23 15:01 Hyaline Casts 0-4 /lpf H 05/11/23 15:01 Fine Granular Casts 0-4 /lpf H 05/11/23 15:01 Urine Mucus 1+ /hpf 05/11/23 15:01 Urine Eosinophils No eosinophils seen 05/11/23 15:01 Ur Random Sodium 104 mmol/L 05/11/23 15:01 Ur Random Potassium 16 mmol/L 05/11/23 15:01 Ur Random Chloride 106 mmol/L 05/11/23 15:01 Urine Creatinine 23 mg/dL (39-259) L 05/11/23 15:01 Random Vancomycin 12.8 ug/mL (20.0-40.0) L 05/11/23 02:42 Urine Opiates Screen Negative ng/mL (Negative) 05/10/23 10:28 Ur Barbiturates Screen Negative ng/mL (Negative) 05/10/23 10:28 Ur Phencyclidine Scrn Negative ng/mL (Negative) 05/10/23 10:28 Ur Amphetamines Screen Negative ng/mL (Negative) 05/10/23 10:28 U Benzodiazepines Scrn Negative ng/mL (Negative) 05/10/23 10:28 Urine Cocaine Screen Negative ng/mL (Negative) 05/10/23 10:28 U Marijuana (THC) Screen Negative ng/mL (Negative) 05/10/23 10:28 Ethyl Alcohol < 10 mg/dL (0-10) 05/09/23 Unknown Lyme Ab (Western Blot) <0.90 index 05/11/23 13:50 E. chaffeensis IgG Ab <1:64 05/11/23 13:50 E. chaffeensis IgM Ab <1:20 05/11/23 13:50 E. chaffeensis Interp See note 05/11/23 13:50 E. chaffeensis Comment Not Reportable 05/11/23 13:50 Hepatitis A IgM Ab Non-reactive (Nonreactive) 05/09/23 16:21 Hep Bs Antigen Non-reactive (Nonreactive) 05/09/23 16:21 Hep Bs Antibody 3.5 (11.5-1000) L 05/09/23 16:21 Hep B Core Total Ab Non-reactive (Nonreactive) 05/09/23 16:21 Hepatitis C Antibody Non-reactive (Nonreactive) 05/09/23 16:21 HIV 1&2 Ab & HIV 1 Ag Non-reactive (Non-Reactiv) 05/09/23 16:21 HIV 1&2 Antibody Non-reactive (Non-Reactiv) 05/09/23 16:21 Rickettsia IgG Titer 1:64 titer H 05/11/23 13:50 Rickettsia IgG Ab Detected A 05/11/23 13:50 Rickettsia IgM Ab Not detected 05/11/23 13:50 Blood Type A Positive 05/22/23 14:02 Rho(D) Type Positive 05/22/23 14:02 Antibody Screen Negative 05/22/23 14:02 Crossmatch See Detail 05/22/23 14:02 Vitals Last Vital Signs Temp 98.2 F 05/23/23 08:00 Pulse 89 05/23/23 08:00 Resp 17 05/23/23 08:00 BP 125/71 05/23/23 08:00 Pulse Ox 94 05/23/23 08:00 O2 Del Method Room Air 05/22/23 15:23 O2 Flow Rate 2 05/22/23 20:00 Discharge Plan Discharge Patient Disposition: Xfer SNF Condition: Stable Prescriptions: New midodrine 5 mg Tablet 10 mg PO TID 30 Days Qty: 180 0RF ciprofloxacin HCl 500 mg Tablet 500 mg PO BID@0900,2100 3 Days Qty: 6 0RF linezolid 600 mg Tablet 600 mg PO Q12H 3 Days Qty: 6 0RF Magtab 84 mg Tablet Extended Release 84 mg PO DAILY 30 Days Qty: 30 0RF Thera 400 mcg Tablet 1 tab PO DAILY 30 Days Qty: 30 0RF Continued folic acid 1 mg Tablet 1 mg PO DAILY Qty: 30 0RF hydrocodone-acetaminophen 5-325 mg tablet 1 - 2 tab PO .Q4-6H Qty: 40 0RF Discontinued losartan 50 mg tablet See Rx Instructions .ROUTE .COMPLEX Qty: 90 0RF Dose Instruction: TAKE 1 TABLET BY MOUTH DAILY Rx Instructions: TAKE 1 TABLET BY MOUTH DAILY Discharge Orders: Discharge Order (Routine); Ordered 05/23/23 Ordered By: Rishi Christianson Referrals: [facility] [Outside] [facility] [Outside] Himanshu Ellis FNP [Primary Care Provider] - Discharge Diet: Regular Discharge Activity: Resume usual activity and Increase activity as tolerated Patient Instructions: Ciprofloxacin (By mouth), Midodrine (By mouth), Linezolid (By mouth) (Zyvox), Leukocytosis (DC), Encephalopathy (DC), Opioid Safety Activity Restrictions/Additional Instructions: Continue taking antibiotics for 3 more days to finish a course of antibiotics. Increase physical activities as able. Regular position changes when dependent in bed or sitting up in chair. Monitor blood pressures daily. Discharge Attestations Time Spent in Discharge Care*: greater than 30 min Specific Discharge Activities: educating patient, educating and/or supporting family/caregiver, discussing with pcp/other providers, discussing with case management coordinator/social workers/dc planners, documenting/other paperwork and evaluating patient/reviewing data Status at Discharge: Cognitive status at discharge: moderately impaired cognition, Behavioral status at discharge: cooperative, Functional status at discharge: other assisted ambulation, Overall status at discharge: patient is back to baseline Quality Metrics Clinical Quality Measures [ No reported AMI, CVA or VTE this stay] Coding Level of Care Code 45129 Total time (in minutes) for Discharge: 60 Diagnoses Acute encephalopathy G93.40 Fall W19.XXXA Leukocytosis D72.829 Septic shock A41.9; R65.21 Hypotension I95.9 Macrocytic anemia D53.9 Acute renal failure (ARF) N17.0 Acute renal failure type: with acute tubular necrosis Chronic hyponatremia E87.1 Thrombocytopenia D69.6 Alcoholic cirrhosis K70.30 Ascites presence: without ascites Hypertension I15.8 Hypertension type: other secondary hypertension Physical deconditioning R53.81 Goals of care, counseling/discussion Z71.89
[2023-05-23 09:46] LABS: SARS Covid-2 Antigen negative (Negative)
--- NOTE | 2023-05-23 11:18 | PC.NURSE ---
This nurse gave report to [facility] via phone at [phone]. Discharge awaiting transport.
== END 2023-05-23 13:37 | disposition skilled nursing facility (03) | DRG 871 ==
LOC: ER 19:44 → CSU 19:57 → ICU 05-10 15:20 → MEDSURG 05-13 13:47
PROVIDERS: Internal Medicine; Admitting Provider Internal Medicine; Emergency Provider Family Medicine; PCP Registered Nurse; Visit Provider Student in an Organized Health Care Education/Training Program
DX: A41.9 Sepsis, unspecified organism (principal); G93.41 Metabolic encephalopathy; R65.21 Severe sepsis with septic shock; N17.0 Acute kidney failure with tubular necrosis; E87.3 Alkalosis; E87.20 Acidosis, unspecified; L03.115 Cellulitis of right lower limb; E51.2 Wernicke's encephalopathy; E87.1 Hypo-osmolality and hyponatremia; I10 Essential (primary) hypertension; M48.061 Spinal stenosis, lumbar region without neurogenic claudication; K70.30 Alcoholic cirrhosis of liver without ascites; F10.229 Alcohol dependence with intoxication, unspecified; D53.9 Nutritional anemia, unspecified; D63.8 Anemia in other chronic diseases classified elsewhere; D69.59 Other secondary thrombocytopenia; Z91.198 Patient's noncompliance with other medical treatment and regimen for other reason; B95.62 Methicillin resistant Staphylococcus aureus infection as the cause of diseases classified elsewhere; D72.829 Elevated white blood cell count, unspecified; L89.892 Pressure ulcer of other site, stage 2; L89.159 Pressure ulcer of sacral region, unspecified stage; E86.0 Dehydration; E87.6 Hypokalemia
CPT/HCPCS: 12345; 36415; 36430; 36569; 36592; 51702; 70450; 71045; 71250; 73502; 73562; 74176; 76705; 80048; 80053; 80061; 80202; 80306; 80307; 81001; 82140; 82274; 82436; 82550; 82570; 82607; 82746; 83036; 83540; 83550; 83605; 83690; 83735; 83880; 84100; 84133; 84300; 84443; 85014; 85018; 85025; 85610; 85999; 86618; 86666; 86705; 86706; 86709; 86757; 86803; 86850; 86900; 86920; 87040; 87340; 87426; 87493; 87506; 87641; 87806; 93306; 96365; 96367; 96372; 96376; 97110; 97162; 97166; 97530; 97535; 99222; 99285; C1751; C9113; J0692; J1644; J1940; J2543; J3370; J3411; J3475; J3480; J3490; J7030; J7050; J7060; P9040

== ENCOUNTER 2023-07-04 17:03 | Inpatient (IN) | payer OTHER, SELFPAY ==
[2023-07-04] VITALS (9 sets, daily range): BP systolic 112–136; BP diastolic 72–98; PULSE 82–117; RESP 16–18; TEMP 36.9; O2SAT 92–98; BMI 22.5
[2023-07-04 17:50] LABS: Basophils # 0.1 10^3/uL (0.0-0.1); Basophils % 0.8 %; Eosinophils # 0.2 10^3/uL (0.0-0.8); Hematocrit 32.4 % (42.0-52.0); Hemoglobin 10.5 g/dL (11.7-16.6); Lymphocytes # 1.9 10^3/uL (0.8-4.8); Lymphocytes % 11.7 %; Mean Corpuscular HGB Conc 32.4 g/dL (30.0-36.0); Mean Corpuscular Hemoglobin 30.1 pg (28.0-34.0); Mean Corpuscular Volume 92.8 fl (80-94); Mean Platelet Volume 10.4 fL (7.4-10.4); Monocytes # 0.4 10^3/uL (0.2-0.9); Monocytes % 2.7 %; Neutrophils # 13.52 10^3/uL (1.8-7.7); Neutrophils % 83.2 %; Nucleated Red Blood Cells % 0 %; Platelet Count 276 10^3/cmm (130-400); Red Blood Count 3.49 10^6/uL (4.1-5.3); Red Cell Distribution Width 17.4 % (12.1-15.1); White Blood Count 16.2 10^3/uL (4.0-10.0)
[2023-07-04] MEDS: sodium chloride 0.9% 1,000 ML 999 ML IV ×2 (17:50→22:44)
--- NOTE | 2023-07-04 17:53 | W.ED.NAVMDI ---
HPI - Nausea/Vomiting/Diarrhea General: Chief complaint: Nausea/Vomiting/Diarrhea Stated complaint: Weakness N/V Time Seen by Provider: 07/04/23 17:07 History of Present Illness: Mass withPresents to the ER complaints of nausea vomiting diarrhea times last 3 days. Patient lives home alone and has difficulty taking care of himself. Patient is very unkempt, dirty, and has a very strong odor of urine. Patient has scabs all over his elbows patient denies any history of recent falls or UTIs. Review of Systems General: Reports: 10 or more systems reviewed and unremarkable except in HPI and below PFSH ED PFSH: Medical History Alcoholic cirrhosis Alcoholism Hypertension Hyponatremia admission 2019 with sodium as low as 114 due to HCTZ and beer potomania Lumbar stenosis with neurogenic claudication Nontraumatic compression fracture of L2 vertebra Spinal stenosis of lumbar region with radiculopathy Surgical History History of back surgery No pertinent past surgical history Family History Other Dementia Hypertension Rheumatoid arthritis Social History Smoking and tobacco status: never smoked Alcohol intake: current Substance/Drug Use: never Adopted: No Caregiver/support person: No Lives independently: No Household members: children Do you think of yourself as: Straight/Heterosexual Current gender identity: Male Physical Exam Const: COMMON NORMALS: no acute distress, average body habitus, patient oriented x3 and alert HENMT: COMMON NORMALS: normocephalic, atraumatic, hearing grossly normal bilaterally, external ears normal, Normal external nose present and moist oral mucous membranes HEAD & SCALP: normocephalic and atraumatic NOSE: Normal external nose present EXTERNAL EAR: Yes external ears normal Neck/C-Spine: COMMON NORMALS: full ROM, no lymphadenopathy, supple, no meningeal signs and no JVD Chest: COMMONS NORMALS: normal inspection of the chest and normal palpation of entire chest wall Resp: COMMON NORMALS: normal respiratory effort, No retractions, No use of accessory muscles and clear to auscultation bilaterally AUSCULTATION: clear to auscultation bilaterally Cardio: COMMON NORMALS: no JVD, regular rhythm, S1 normal heart sound present, S2 normal heart sound present and No murmurs present (Cardio); negative for regular rate (Tachycardic) RATE: abnormal rate (Tachycardic) RHYTHM: regular rhythm HEART SOUNDS: S1 normal heart sound present and S2 normal heart sound present GI: COMMON NORMALS: Normal to inspection, nondistended, normoactive bowel sounds present, Soft to palpation, non-tender, No hepatosplenomegaly present and no masses PALPATION: Yes Soft to palpation and Yes No hepatosplenomegaly present : COMMON NORMALS: Yes no CVA tenderness BLADDER/KIDNEY EXAM: Yes no CVA tenderness Back/Pelvis: COMMON NORMALS: no CVA tenderness Neuro: COMMON NORMALS: patient oriented x3 SENSORIUM/ORIENTATION: Yes alert MENINGEAL SIGNS: Yes no meningeal signs Course Vital Signs: Vital signs: Vital Signs Temperature 98.1 F 07/05/23 19:44 Pulse Rate 100 07/05/23 19:44 Respiratory Rate 16 07/05/23 19:44 Blood Pressure 126/88 07/05/23 19:44 Pulse Oximetry 100 07/05/23 19:44 Oxygen Delivery Me thod Room Air 07/05/23 16:00 MDM - Nausea/Vomiting/Diarrhea Medical Decision Making Patient presented to the ER for weakness and failure to thrive. Patient has also had nausea vomiting diarrhea. Lab work was obtained which showed patient a white count of 17.4 and potassium of 2.5. Chest x-ray showed patient has small right pleural effusion, abdomen pelvis CT showed findings compatible with infectious or inflammatory colitis. Dr. Hill was consulted who agreed for the patient to be placed inpatient for further evaluation and treatment. Differential Diagnosis Likely gastroenteritis and dehydration; Unlikely traveler's diarrhea, food poisoning, clostridium difficile infection or drug-induced nausea and vomiting Medical Records I reviewed the patient's medical records. Lab Data I reviewed the patient's lab results. 07/05/23 04:37 07/05/23 17:57 Radiology Impressions Chest X-Ray 07/04/23 22:02 IMPRESSION: Small right pleural effusion. No evidence of pneumonia. Abdomen/Pelvis CT 07/04/23 22:35 IMPRESSION: 1. Diffuse colonic wall thickening most prominently involving the cecum, ascending colon, and hepatic flexure with loss of the normal haustral folds. Overall findings are compatible with infectious or inflammatory colitis. 2. Wall thickening of the appendix which is not dilated most compatible with contiguous inflammatory change in the setting of colitis. 3. Trace free fluid in the abdomen pelvis. 4. Small right and trace left pleural effusions. 5. Hepatic steatosis. Laboratory Results WBC 16.2 10^3/uL (4.0-10.0) H 07/04/23 17:40 RBC 3.49 10^6/uL (4.1-5.3) L 07/04/23 17:40 Hgb 10.5 g/dL (11.7-16.6) L 07/04/23 17:40 Hct 32.4 % (42.0-52.0) L 07/04/23 17:40 MCV 92.8 fl (80-94) 07/04/23 17:40 MCH 30.1 pg (28.0-34.0) 07/04/23 17:40 MCHC 32.4 g/dL (30.0-36.0) 07/04/23 17:40 RDW 17.4 % (12.1-15.1) H 07/04/23 17:40 Plt Count 276 10^3/cmm (130-400) 07/04/23 17:40 MPV 10.4 fL (7.4-10.4) 07/04/23 17:40 Neut % (Auto) 83.2 % 07/04/23 17:40 Lymph % (Auto) 11.7 % 07/04/23 17:40 Mcdonald % (Auto) 2.7 % 07/04/23 17:40 Eos % (Auto) 1.0 % 07/04/23 17:40 Baso % (Auto) 0.8 % 07/04/23 17:40 Neut # (Auto) 13.52 10^3/uL (1.8-7.7) H 07/04/23 17:40 Lymph # (Auto) 1.9 10^3/uL (0.8-4.8) 07/04/23 17:40 Mcdonald # (Auto) 0.4 10^3/uL (0.2-0.9) 07/04/23 17:40 Eos # (Auto) 0.2 10^3/uL (0.0-0.8) 07/04/23 17:40 Baso # (Auto) 0.1 10^3/uL (0.0-0.1) 07/04/23 17:40 Nucleated RBC % (auto) 0 % 07/04/23 17:40 Nucleated RBCs # 0.0 /100WBC 07/04/23 17:40 Sodium 137 mmol/L (136-145) 07/04/23 17:40 Potassium 2.1 mmol/L (3.5-5.1) L* 07/04/23 17:40 Chloride 97 mmol/L (98-107) L 07/04/23 17:40 Carbon Dioxide 26 mmol/L (22-29) 07/04/23 17:40 Anion Gap 16.1 (5-19) 07/04/23 17:40 BUN 3 mg/dL (8-23) L 07/04/23 17:40 Creatinine 1.1 mg/dL (0.7-1.2) 07/04/23 17:40 GFR Calculation 67.4 mL/min (90-130) L 07/04/23 17:40 Glucose 123 mg/dL (65-115) H 07/04/23 17:40 Calculated Osmolality 282 mOsm/kg (285-295) L 07/04/23 17:40 Calcium 7.8 mg/dL (8.5-10.5) L 07/04/23 17:40 Phosphorus 1.5 mg/dL (2.5-4.5) L 07/04/23 17:40 Magnesium 1.6 mg/dL (1.7-2.3) L 07/04/23 17:40 Total Bilirubin 0.9 mg/dL (0.15-1.2) 07/04/23 17:40 AST 114 U/L (0-40) H 07/04/23 17:40 ALT 46 U/L (0-41) H 07/04/23 17:40 Alkaline Phosphatase 230 U/L (40-130) H 07/04/23 17:40 Total Protein 6.4 g/dL (6.6-8.7) L 07/04/23 17:40 Albumin 2.8 g/dL (3.5-5.2) L 07/04/23 17:40 Globulin 3.6 g/dL (1.3-4.6) 07/04/23 17:40 Procalcitonin 0.52 ng/mL (0-0.5) H 07/04/23 17:10 Urine Color Light yellow (Yellow) 07/04/23 21:55 Urine Appearance Clear (CLEAR) 07/04/23 21:55 Urine pH 6 (5-7) 07/04/23 21:55 Ur Specific [place] 1.010 (1.005-1.030) 07/04/23 21:55 Urine Protein Trace (Negative) 07/04/23 21:55 Urine Glucose (UA) Norm (Normal) 07/04/23 21:55 Urine Ketones Negative (Negative) 07/04/23 21:55 Urine Blood 2+ (Negative) H 07/04/23 21:55 Urine Nitrate Negative (Negative) 07/04/23 21:55 Urine Bilirubin Neg (Negative) 07/04/23 21:55 Urine Urobilinogen Neg mg/dL (Negative) 07/04/23 21:55 Ur Leukocyte Esterase Negative (Negative) 07/04/23 21:55 Urine RBC 5-10 /hpf (0-2) H 07/04/23 21:55 Urine WBC None /hpf (0-5) 07/04/23 21:55 Ur Squamous Epith Cells 0-4 /hpf (0-5) H 07/04/23 21:55 Amorphous Sediment Not Reportable 07/04/23 21:55 Urine Bacteria 1+ /hpf (NONE) H 07/04/23 21:55 Hyaline Casts 0-4 /lpf H 07/04/23 21:55 Urine Mucus 1+ /hpf 07/04/23 21:55 Ethyl Alcohol < 10 mg/dL (0-10) 07/04/23 17:40 Discharge Plan Discharge Patient Disposition: Admitted As Inpatient Admit Provider: Yana Hill Clinical Impression: Acute hypokalemia, Hypomagnesemia, Weakness, Colitis, Malnutrition Condition: Stable Coding Level of Care Code ED Head Control Clerk for Ivett Hennessy
[2023-07-04 18:05] LABS: Alanine Aminotransferase 46 U/L (0-41); Albumin Level 2.8 g/dL (3.5-5.2); Alkaline Phosphatase 230 U/L (40-130); Aspartate Amino Transferase 114 U/L (0-40); Blood Urea Nitrogen 3 mg/dL (8-23); Calcium 7.8 mg/dL (8.5-10.5); Carbon Dioxide 26 mmol/L (22-29); Chloride 97 mmol/L (98-107); Globulin 3.6 g/dL (1.3-4.6); Glomerular Filtration Rate 67.4 mL/min (90-130); Glucose 123 mg/dL (65-115); Magnesium 1.6 mg/dL (1.7-2.3); Osmolality Calculated 282 mOsm/kg (285-295); Phosphorus 1.5 mg/dL (2.5-4.5); Sodium 137 mmol/L (136-145); Total Bilirubin 0.9 mg/dL (0.15-1.2); Total Protein 6.4 g/dL (6.6-8.7)
[2023-07-04 18:11] LABS: Anion Gap 16.1 (5-19); Potassium 2.1 mmol/L (3.5-5.1)
[2023-07-04 18:27] LABS: Alcohol Level < 10 mg/dL (0-10)
[2023-07-04] MEDS: potassium chloride premix 100 ML 50 MEQ IV (18:47)
[2023-07-04] MEDS: potassium chloride ER 20 mEq Tablet 40 MEQ PO (18:47)
--- NOTE | 2023-07-04 19:37 | PC.NURSE ---
REAL FROM PHARMACY INSTRUCTED THAT IT IS ACCEPTABLE TO Y SITE POTASSIUM AND MAGNESIUM. OKAYED Y SITE INFUSION OF MEDICATIONS.
--- NOTE | 2023-07-04 22:02 | XRR_ITS ---
PROCEDURE INFORMATION: Exam: XR Chest Exam date and time: 07/04/2023 10:09 PM Age: 62 years old Clinical indication: Other: Tachycardia; Additional info: Leukocytosis tachycardia TECHNIQUE: Imaging protocol: Radiologic exam of the chest. Views: 1 view. COMPARISON: CR XR chest 1V portable [id number] 05/10/2023 1:18 PM FINDINGS: Lungs: Lungs are clear. Pleural spaces: Small right pleural effusion. No pneumothorax. Heart/Mediastinum: Stable cardiomediastinal silhouette. Bones/joints: No acute osseous abnormality. XR/XR chest 1V portable [id number] IMPRESSION: Small right pleural effusion. No evidence of pneumonia.
[2023-07-04 22:11] LABS: Add Urine Microscopic? YES; Bilirubin Urine Neg (Negative); Blood Urine 2+ (Negative); Glucose Urine UA Norm (Normal); Ketones Urine Negative (Negative); Leukocyte Esterase Urine Negative (Negative); Nitrate Urine Negative (Negative); Protein Urine Trace (Negative); Urine Appearance Clear (CLEAR); Urine Color Light yellow (Yellow); Urobilinogen Urine Neg (Negative); pH Urine 6 (5-7)
[2023-07-04 22:12] LABS: Add Urine Culture? No; Bacteria Urine 1+ /hpf; Hyaline Casts Urine 0-4 /lpf; Mucus Urine 1+ /hpf; Squamous Epithelial Cell Urine 0-4 /hpf (0-5)
--- NOTE | 2023-07-04 22:35 | CTR_ITS ---
PROCEDURE INFORMATION: Exam: CT Abdomen And Pelvis With Contrast Exam date and time: 07/04/2023 10:47 PM Age: 62 years old Clinical indication: Nausea and vomiting; Additional info: N/v/d leukocytosis TECHNIQUE: Imaging protocol: Computed tomography of the abdomen and pelvis with contrast. Radiation optimization: All CT scans at this facility use at least one of these dose optimization techniques: automated exposure control; mA and/or kV adjustment per patient size (includes targeted exams where dose is matched to clinical indication); or iterative reconstruction. Contrast material: OMNIPAQUE 350; Contrast volume: 100 ml; Contrast route: INTRAVENOUS (IV); REPORTING DATA: Count of CT and Cardiac NM exams in prior 12 months: This patient has received 2 known CTs and 0 known cardiac nuclear medicine studies in the 12 months prior to the current study. COMPARISON: [place] [id number] 05/10/2023 9:54 AM RADIATION DOSE METRICS: Total DLP (mGy-cm): 528.25 FINDINGS: Tubes, catheters and devices: Martinez catheter in place. Lungs: Atelectatic changes in lower lobes. Pleural spaces: Small right pleural effusion. Trace left pleural effusion. Liver: Heterogeneous low-density of the liver compatible with fatty deposition. Gallbladder and bile ducts: Contracted gallbladder. Pancreas: Unremarkable. Spleen: Calcified splenic granuloma. Adrenal glands: Unremarkable. Kidneys and ureters: Unremarkable. No hydronephrosis. Stomach and bowel: Diffuse colonic wall thickening most prominent involving the ascending colon and hepatic flexure. Loss of normal haustral folds involving the ascending colon and transverse colon. Appendix: Appendix is thickened but not dilated. Intraperitoneal space: Stable appearance of nonspecific [place] mesentery within the mid mesentery. Increased mesenteric fat stranding towards the mesenteric root compared to prior. Trace free fluid in the pelvis. Vasculature: Mild atherosclerotic disease in the abdomen and pelvis. Lymph nodes: Unremarkable. Urinary bladder: Decompressed bladder. Reproductive: Unremarkable as visualized. Bones/joints: Chronic morphology multilevel height loss of the lumbar spine. Soft tissues: Unremarkable. CT/CT abdomen pelvis w con* [id number] IMPRESSION: 1. Diffuse colonic wall thickening most prominently involving the cecum, ascending colon, and hepatic flexure with loss of the normal haustral folds. Overall findings are compatible with infectious or inflammatory colitis. 2. Wall thickening of the appendix which is not dilated most compatible with contiguous inflammatory change in the setting of colitis. 3. Trace free fluid in the abdomen pelvis. 4. Small right and trace left pleural effusions. 5. Hepatic steatosis.
[2023-07-04] MEDS: iohexol 350 mg/mL 500 mL Btl (per mL) IV (22:41)
[2023-07-05] VITALS (7 sets, daily range): BP systolic 103–130; BP diastolic 41–88; PULSE 100–108; RESP 16–18; TEMP 36–36.8; O2SAT 91–100
--- NOTE | 2023-07-05 00:03 | PM.HP ---
Providers/Chief Complaint Primary Care Provider: THEA Smith Chief Complaint: Weakness N/V History of Present Illness Daniel Vázquez is a 62 year old male presented to hospital for failure to thrive. Patient checked himself out of the prison thinking he would be able to take care of himself, currently patient is living with his family, daughter, patient is stating that 1 daughter left for work, patient felt helpless, he had no strength at all to get up on his feet to go to the bathroom, he saw himself with feces and urine today he started experiencing multiple bouts of loose stools, no one else is sick at home, he has not noticed any chest pain shortness of breath or fever. He is denying urinary incontinence or any issues such as insensate below his waist however stating that for last 3 months his legs are giving up on him and that is why he was sent to a prison. Patient is stating that prison discharge him because he did not need rehab anymore. No family at the bedside In the ER he has been diagnosed with protein calorie malnourishment, severe electrolyte imbalance, he was soiled with urine and feces all over Patient is denying recent alcohol use, Alcohol level undetectable This patient was recently discharged from the hospital after management of altered mental status, renal failure, hyponatremia, hypokalemia hospice was discussed and family wanted to consider SNF/rehab before making their final decision Review of Systems Narrative: Endorsing fatigue and lethargy Lower extremity weakness No active chest pain No shortness of breath No fever Endorsing diarrhea Skin is dry Skin rash present No headache No vision change Positive back pain Medications/Allergies Home Medications Medication Instructions Recorded Confirmed Last Taken Type folic acid 1 mg tablet 1 mg PO DAILY #30 tabs 07/26/21 05/10/23 06/30/22 Rx hydrocodone 5 mg-acetaminophen 325 1 - 2 tab PO .Q4-6H #40 tabs 07/01/22 05/10/23 Unknown Rx mg tablet Allergies Allergy/AdvReac Type Severity Reaction Status Date / Time No Known Allergies Allergy Verified 07/04/23 17:15 PFSH Acute PFSH: Medical History Alcoholic cirrhosis Alcoholism Hypertension Hyponatremia admission 2018 with sodium as low as 114 due to HCTZ and beer potomania Lumbar stenosis with neurogenic claudication Nontraumatic compression fracture of L2 vertebra Spinal stenosis of lumbar region with radiculopathy Surgical History History of back surgery No pertinent past surgical history Family History Other Dementia Hypertension Rheumatoid arthritis Social History Smoking and tobacco status: never smoked Alcohol intake: current Substance/Drug Use: never Adopted: No Caregiver/support person: No Lives independently: No Household members: children Do you think of yourself as: Straight/Heterosexual Current gender identity: Male Vitals/I&O/Wt Last Vital Signs Temp 98.5 F 07/04/23 17:04 Pulse 101 H 07/04/23 23:21 Resp 18 07/04/23 23:21 BP 132/97 07/04/23 23:21 Pulse Ox 96 07/04/23 23:21 O2 Del Method Room Air 07/04/23 23:21 07/04/23 07/04/23 07/05/23 14:59 22:59 06:59 Intake Total 1152 / 1152 Balance 1152 / 1152 Weight last 48 hrs Weight 67.132 kg Physical Exam Narrative: Unkept appearance Patient was soiled with feces and urine Abdomen soft S1, S2 sinus tachycardia, variable S1-S2 Abdomen nontender Currently on room air GCS 15 Patient is able to hold his legs bilaterally Not able to lift legs against gravity, legs fall back to bed Able to follow commands Pupils are equal and reactive Pleasant and cooperative Appears more than stated age Urinary Catheter Management: Martinez: Cath Placed During This Visit: yes Urinary Catheter Date of Insertion: 07/04/23 Urinary Catheter Time of Insertion: 20:30 Data 07/04/23 17:40 07/04/23 17:40 A&P Assessment and plan (1) Acute hypokalemia: (2) Hypomagnesemia: (3) Weakness: (4) Colitis: (5) Malnutrition: (6) Fall: (7) Goals of care, counseling/discussion: (8) Physical deconditioning: (9) Macrocytic anemia: (10) Alcoholism: Plan Failure to thrive Protein calorie malnourishment Hypokalemia, hypomagnesemia Hypophosphatemia Colitis without sepsis Monitor for refeeding syndrome Dietary consultation Start Zosyn Regular diet Continue IV fluids with potassium supplementation No family at the bedside Recheck electrolytes within 4 hours Patient is denying active use of alcohol Check drug screen Check alcohol level Abnormal transaminases could be consistent with recent use of alcohol On last admission patient remained hypotensive however he is normotensive during my evaluation He was given midodrine for his persistent hypotension L2 radiculopathy, no signs of cauda equina does have sensations of lower extremities, patient is denying urine incontinence, however legs are extremely weak Rule out C. difficile Anemia stable I will keep patient full code discussed goals of care with the family the morning I will keep him on DVT prophylaxis platelet count is normal Dehydration related to diarrhea, start IV fluid Attestations Medical Necessity Statement*: Patient may need long-term prison placement, anticipating more than 2 midnights for management of colitis, electrolyte imbalance Diagnoses Acute hypokalemia E87.6 Hypomagnesemia E83.42 Weakness R53.1 Colitis K52.9 Malnutrition E46 Fall W19.XXXA Goals of care, counseling/discussion Z71.89 Physical deconditioning R53.81 Macrocytic anemia D53.9 Alcoholism F10.20
[2023-07-05] MEDS: enoxaparin 30 mg/0.3 mL Syringe SUBCUT (00:33)
[2023-07-05 00:50] LABS: Procalcitonin 0.52 ng/mL (0-0.5)
[2023-07-05] MEDS: heparin 5,000 unit/mL INJ 1 mL 5000 UNIT SUBCUT ×2 (03:04→14:58)
[2023-07-05] MEDS: piperacillin-tazobactam 3.375 GM in sodium chloride 0.9% (plus) 50 ML IV ×3 (03:04→18:04)
[2023-07-05] MEDS: sodium chlor 0.9% + KCl 40 mEq 40 MEQ/1,000 ML BAG 75 MEQ IV (03:04)
[2023-07-05 05:01] LABS: Basophils # 0.2 10^3/uL (0.0-0.1); Eosinophils # 0.5 10^3/uL (0.0-0.8); Eosinophils % 2.9 %; Hematocrit 29.8 % (42.0-52.0); Hemoglobin 9.6 g/dL (11.7-16.6); Lymphocytes # 1.8 10^3/uL (0.8-4.8); Lymphocytes % 10.5 %; Mean Corpuscular HGB Conc 32.2 g/dL (30.0-36.0); Mean Corpuscular Volume 93.1 fl (80-94); Monocytes # 0.5 10^3/uL (0.2-0.9); Monocytes % 3.1 %; Neutrophils # 14.22 10^3/uL (1.8-7.7); Neutrophils % 81.9 %; Nucleated Red Blood Cells % 0 %; Platelet Count 334 10^3/cmm (130-400); Red Cell Distribution Width 17.6 % (12.1-15.1); White Blood Count 17.4 10^3/uL (4.0-10.0)
[2023-07-05 05:15] LABS: Amphetamines Screen Urine Negative (Negative); Barbiturates Screen Urine Negative (Negative); Benzodiazepines Screen Urine Negative (Negative); Cocaine Screen Urine Negative (Negative); Opiate Screen Urine Negative (Negative); PCP Screen Urine Negative (Negative); THC Screen Urine Negative (Negative)
[2023-07-05 05:16] LABS: Alanine Aminotransferase 45 U/L (0-41); Albumin Level 2.7 g/dL (3.5-5.2); Alkaline Phosphatase 222 U/L (40-130); Anion Gap 16.2 (5-19); Aspartate Amino Transferase 95 U/L (0-40); Blood Urea Nitrogen 2 mg/dL (8-23); Calcium 7.3 mg/dL (8.5-10.5); Carbon Dioxide 23 mmol/L (22-29); Chloride 102 mmol/L (98-107); Globulin 2.9 g/dL (1.3-4.6); Glomerular Filtration Rate 67.4 mL/min (90-130); Glucose 137 mg/dL (65-115); Magnesium 1.9 mg/dL (1.7-2.3); Osmolality Calculated 286 mOsm/kg (285-295); Phosphorus 1.7 mg/dL (2.5-4.5); Sodium 139 mmol/L (136-145); Total Bilirubin 0.6 mg/dL (0.15-1.2); Total Protein 5.6 g/dL (6.6-8.7)
[2023-07-05 05:23] LABS: Potassium 2.2 mmol/L (3.5-5.1)
[2023-07-05 05:33] LABS: Vitamin B12 922 pg/mL (232-1245)
--- NOTE | 2023-07-05 05:49 | PC.NURSE ---
CRITICAL POTASSIUM AM LAB REPORTED CRITICAL POTASSIUM OF 2.2 TO [employer]LE[employer]ICATION[employer] FACILITY EXAMINER. DR STUART NOTIFIED BY PHONE OF LAB RESULT. DR STUART GAVE NO NEW ORDERS TO TREAT WITH RESPECT TO PATIENT CURRENTLY RECEIVING IVF OF NS WITH 40MEQ OF POTASSIUM AT 75ML/HR WELL RECEIVING 20 MEQ K RIDER IV AND 40 MEQ PO BEFORE ADMISSION TO THE FLOOR IN THE ER. WILL CONTINUE TO MONITOR.
[2023-07-05] MEDS: magnesium oxide 400 mg tablet PO ×2 (08:33→18:05)
[2023-07-05] MEDS: folic acid 1 mg Tablet PO (08:33)
[2023-07-05] MEDS: phosphorus 250 mg Tablet PO ×2 (08:33→18:05)
[2023-07-05] MEDS: potassium chloride ER 20 mEq Tablet 40 MEQ PO ×2 (09:39→14:51)
[2023-07-05] MEDS: potassium chloride ER 20 mEq Tablet 80 MEQ PO (09:39)
--- NOTE | 2023-07-05 09:53 | PC.NURSE ---
Notified Dr. Christianson of patient recieving 120 mEq of Potassium in which turned around and vomited. Dr. Christianson ordered Potassium 80 mEq oral liquid.
[2023-07-05] MEDS: potassium chloride oral liq 20 mEq/15 mL UDC 80 MEQ PO (10:11)
--- NOTE | 2023-07-05 13:53 | P.EN_ITS ---
Event Note Event Note: Admitted overnight. H&P and labs appreciated. On examination patient lying comfortably in bed, sleeping though wakes up to verbal stimulus. On waking up patient is alert and oriented to self, being in the hospital though is not really sure why he is in the hospital, states he did not eat well. Continues to have diarrhea. He thinks he came [facility] the [facility] this [facility] a [facility] though on confirmation it seems patient is coming from home. Patient was discharged to penitentiary on previous admission from where he discharged himself when he felt better. Still continues to have multiple episodes of diarrhea. Found to be C. difficile positive. Lab work consistent with severe hypokalemia: Plan: Start on oral vancomycin 250 mg 4 times daily. Continue with IV normal saline with 40 mg of potassium. Replace 80 mg stat and 40 mg twice daily. Repeat BMP in evening at 6 PM. Hold off on antihypertensives and midodrine for now. Restart home dose of [place] 1 tablet every 6 hours as needed. Hold off on Eliquis for now. Continue heparin 5000 every 12 hourly. Will discuss with family again regarding further goals of care. On previous admission patient was on hospice for few days. Care discussed in detail with case management. Potentially plan for PT evaluation in next 24 hours if diarrhea and hypokalemia improves
[2023-07-05] MEDS: HYDROcodone-acetaminophen 5-325 mg Tablet 1 TAB PO ×2 (14:51→20:11)
[2023-07-05] MEDS: zinc oxide oint 30 gm 1 APPLIC TOPICAL (18:04)
[2023-07-05 18:50] LABS: Anion Gap 15.5 (5-19); Blood Urea Nitrogen 2 mg/dL (8-23); Calcium 7.3 mg/dL (8.5-10.5); Carbon Dioxide 24 mmol/L (22-29); Chloride 103 mmol/L (98-107); Glomerular Filtration Rate 75.2 mL/min (90-130); Glucose 142 mg/dL (65-115); Osmolality Calculated 289 mOsm/kg (285-295); Sodium 140 mmol/L (136-145)
[2023-07-05 18:55] LABS: Potassium 2.5 mmol/L (3.5-5.1)
[2023-07-05] MEDS: lidocaine 1% 5 ML in potassium chloride premix 100 ML 26.25 ML IV (20:11)
[2023-07-06] VITALS (8 sets, daily range): BP systolic 120–133; BP diastolic 69–80; PULSE 80–104; RESP 15–17; TEMP 36.1–36.7; O2SAT 94–100
[2023-07-06] MEDS: HYDROcodone-acetaminophen 5-325 mg Tablet 1 TAB PO ×4 (02:51→20:06)
[2023-07-06] MEDS: heparin 5,000 unit/mL INJ 1 mL 5000 UNIT SUBCUT ×2 (02:51→14:15)
[2023-07-06] MEDS: piperacillin-tazobactam 3.375 GM in sodium chloride 0.9% (plus) 50 ML IV ×3 (02:52→19:27)
--- NOTE | 2023-07-06 03:14 | PC.NURSE ---
pt vomited meds given around 1999. meds now crushed and given in pudding and pt had no emisis after taking meds.
[2023-07-06 05:17] LABS: Basophils # 0.2 10^3/uL (0.0-0.1); Basophils % 1.8 %; Eosinophils % 7.8 %; Hematocrit 27.4 % (42.0-52.0); Hemoglobin 8.9 g/dL (11.7-16.6); Lymphocytes # 2.2 10^3/uL (0.8-4.8); Lymphocytes % 17.6 %; Mean Corpuscular HGB Conc 32.5 g/dL (30.0-36.0); Mean Corpuscular Hemoglobin 30.6 pg (28.0-34.0); Mean Corpuscular Volume 94.2 fl (80-94); Mean Platelet Volume 10.8 fL (7.4-10.4); Monocytes # 0.4 10^3/uL (0.2-0.9); Monocytes % 3.5 %; Neutrophils # 8.74 10^3/uL (1.8-7.7); Neutrophils % 68.7 %; Nucleated Red Blood Cells % 0 %; Platelet Count 302 10^3/cmm (130-400); Red Blood Count 2.91 10^6/uL (4.1-5.3); Red Cell Distribution Width 18.1 % (12.1-15.1); White Blood Count 12.7 10^3/uL (4.0-10.0)
[2023-07-06 05:37] LABS: Alanine Aminotransferase 38 U/L (0-41); Albumin Level 2.5 g/dL (3.5-5.2); Alkaline Phosphatase 204 U/L (40-130); Aspartate Amino Transferase 75 U/L (0-40); Blood Urea Nitrogen 3 mg/dL (8-23); Calcium 7.4 mg/dL (8.5-10.5); Carbon Dioxide 24 mmol/L (22-29); Chloride 106 mmol/L (98-107); Globulin 2.8 g/dL (1.3-4.6); Glucose 119 mg/dL (65-115); Osmolality Calculated 288 mOsm/kg (285-295); Sodium 140 mmol/L (136-145); Total Bilirubin 0.5 mg/dL (0.15-1.2); Total Protein 5.3 g/dL (6.6-8.7)
[2023-07-06 05:38] LABS: Anion Gap 13.5 (5-19); Potassium 3.5 mmol/L (3.5-5.1)
[2023-07-06] MEDS: phosphorus 250 mg Tablet PO ×2 (09:55→19:27)
[2023-07-06] MEDS: magnesium oxide 400 mg tablet PO ×2 (09:55→19:27)
[2023-07-06] MEDS: zinc oxide oint 30 gm 1 APPLIC TOPICAL (09:56)
[2023-07-06] MEDS: folic acid 1 mg Tablet PO (09:56)
--- NOTE | 2023-07-06 10:25 | PC.CHAP ---
Pastoral Care Encounter/Spiritual Assessment Type of Contact [] Declined fiber worker visit [] Patient/Family/Request visit [] Outpatient visit [] Follow-up visit [] Physician referral [] Code/Alert [] Routine visit [] Staff referral [] Actively dying [] Patient sleeping [] Family support [] [] Out of room [] Palliative care [] [] Receiving care in room [] Pre-surgical visit [] Trauma [] Long length of stay [] ICU visit [x] Other: Isolation Relational/Emotional Strength [] Patient feels connected with others/family/visitors/staff [] Distress [] Loneliness/isolation [] Abandonment Spirituality of Patient [] Person of Lilibeth [] Attends Yarsanism of their Lilibeth [] Believes in Prayer [] Reads Bible or Pentecostalism materials [] There are Spiritual issues to be addressed Hat Checker Interventions [] Prayer [] Active listening [] Non-anxious presence [] Spiritual/emotional support [] Crisis/trauma care [] Spiritual counseling [] Bereavement support [] Provided bereavement packet [] Provided Bible/devotional materials [] Provided toy/stuffed animal, coloring book to patient or family member [] Provided Communion [] Anointing/[place] [] Salvation [] Completed spiritual assessment [] Other: Impact on Illness or Injury [] Angry [] Fearful [] Anxious [] Often cries [] Exhaustion [] Unable to work [] Unable to attend sabianist [] Unable to walk/stand [] Unable to read [] Unable to drive [] Unable to eat/drink [] Unable to sleep [] Unable to be with family [] Patient intubated [] Other: Summary Isolation Time spent with patient 5 mins
--- NOTE | 2023-07-06 14:05 | P.PN_ITS ---
Subjective Subjective: No acute events overnight. Today morning examination patient laying comfortably in bed. More awake and alert. Denies any nausea, vomiting, headache. Less episodes of diarrhea. Patient able to have complete conversation. Denies any pain other than soreness in his bottom. Blood was appreciated for resolving leukocytosis down to 12.7, stable hemoglobin at 8.9, CMP showing improvement in potassium up to 3.5, stable transaminitis Vitals/I&O/Wt Last Vital Signs Temp 97.6 F 07/06/23 12:00 Pulse 87 07/06/23 12:00 Resp 16 07/06/23 12:00 BP 133/72 07/06/23 12:00 Pulse Ox 94 07/06/23 12:00 O2 Del Method Room Air 07/06/23 08:07 07/05/23 07/06/23 07/06/23 22:59 06:59 14:59 Intake Total 1460 / 2110 585 / 2695 530 / 530 Output Total 300 / 500 Balance 1460 / 1910 285 / 2195 530 / 530 Weight last 48 hrs Weight 67.132 kg Physical Exam Narrative: General: No acute distress, AO x3, pallor present, chronically sick appearing, cachectic HEENT: PERRLA, pupils bilaterally equal and reactive Chest: Bilateral bronchial breath sounds all over lung with occasional rhonchi, equal good air entry bilaterally CVS: S1-S2 regular, no murmurs, no tachycardia, no gallops, no rubs Abdomen: Soft, nontender, no organomegaly, bowel sounds present Neuro: No focal deficits, no facial deformity, AO x3, power 5/5 in all limbs Urinary Catheter Management: Martinez: Cath Placed During This Visit: yes Reason for Continuing Indwelling Catheter: Acute Urinary Retention or Obstruction Urinary Catheter Date of Insertion: 07/04/23 Urinary Catheter Time of Insertion: 20:30 Data 07/06/23 04:25 07/06/23 04:25 Micro: Microbiology 07/05/23 07:40 Clostridioides difficile Toxins A&B (PCR) - Final Stool Routine Collection C.difficile Toxin B Gene (PCR) - Final A&P Assessment and plan (1) C. difficile diarrhea: C. difficile positive. Started on vancomycin 250 mg 4 times daily. Monitor bowel movements. (2) Colitis: Stool studies appreciated for C. difficile colitis. Continue Zosyn for 24 more hours. If remains hemodynamically stable we will plan to discontinue Zosyn and continue oral vancomycin. Tolerating regular diet. Stop IV fluids. (3) Acute hypokalemia: Resolving. Potassium was 3.5. Continue with oral potassium supplementation 40 twice daily (4) Hypomagnesemia: (5) Weakness: Chronic in setting of chronic alcohol abuse, malnutrition along with Warnicke's encephalopathy. (6) Malnutrition: (7) Fall: (8) Goals of care, counseling/discussion: (9) Physical deconditioning: (10) Macrocytic anemia: (11) Alcoholism: Plan Abnormal transaminases could be consistent with recent use of alcohol Hypotension: On last admission patient remained hypotensive however he is normotensive during my evaluation He was given midodrine for his persistent hypotension. Continue to monitor blood pressures. Goal 140/90 mmHg with mean over 65. L2 radiculopathy, no signs of cauda equina does have sensations of lower extremities, patient is denying urine incontinence, however legs are extremely weak Anemia: Stable. Monitor hemoglobin daily. Appreciate iron panel, vitamin B12 and folate levels. CODE STATUS: Full code Regular diet SCDs for DVT prophylaxis. Protonix for PUD prophylaxis. Heparin for DVT prophylaxis. Goals of care: Discussed in detail with the patient. We discussed that unfortun ately patient has chronic illness leading to deconditioning along with malnutrition. Discussed about possible long-term placement though [facility]. Discussed about possible hospice. He wants to defer the question to his son and is agreeable to any decision made by his son. Discussed in detail with Dheeraj/patient's DPOA/son over the phone. He verbalized understanding and would want to go ahead with hospice to SNF. Case management alerted. Attestations Medical Necessity Statement*: Requires further hospitalization for management of failure to thrive, severe malnutrition in a patient with chronic alcohol abuse, C. difficile colitis while hospice to SNF is set up Diagnoses C. difficile diarrhea A04.72 Colitis K52.9 Acute hypokalemia E87.6 Hypomagnesemia E83.42 Weakness R53.1 Malnutrition E46 Fall W19.XXXA Goals of care, counseling/discussion Z71.89 Physical deconditioning R53.81 Macrocytic anemia D53.9 Alcoholism F10.20
[2023-07-06] MEDS: pantoprazole 40 mg SDV IVP (14:16)
[2023-07-07 00:52] LABS: SARS Covid-2 Antigen negative (Negative)
[2023-07-07] MEDS: piperacillin-tazobactam 3.375 GM in sodium chloride 0.9% (plus) 50 ML IV (02:01)
[2023-07-07] MEDS: heparin 5,000 unit/mL INJ 1 mL 5000 UNIT SUBCUT (02:01)
[2023-07-07] MEDS: HYDROcodone-acetaminophen 5-325 mg Tablet 1 TAB PO ×2 (02:01→08:39)
[2023-07-07 03:41] VITALS: BP 123/79; PULSE 106; RESP 16; TEMP 36.4; O2SAT 97
[2023-07-07 05:44] LABS: Basophils # 0.1 10^3/uL (0.0-0.1); Basophils % 1.3 %; Eosinophils # 1.1 10^3/uL (0.0-0.8); Eosinophils % 9.6 %; Hematocrit 26.4 % (42.0-52.0); Hemoglobin 8.4 g/dL (11.7-16.6); Lymphocytes # 2.1 10^3/uL (0.8-4.8); Lymphocytes % 18.8 %; Mean Corpuscular HGB Conc 31.8 g/dL (30.0-36.0); Mean Corpuscular Hemoglobin 29.6 pg (28.0-34.0); Mean Platelet Volume 10.5 fL (7.4-10.4); Monocytes # 0.4 10^3/uL (0.2-0.9); Monocytes % 3.8 %; Neutrophils # 7.38 10^3/uL (1.8-7.7); Neutrophils % 65.9 %; Nucleated Red Blood Cells % 0 %; Platelet Count 261 10^3/cmm (130-400); Red Blood Count 2.84 10^6/uL (4.1-5.3); Red Cell Distribution Width 17.8 % (12.1-15.1); White Blood Count 11.2 10^3/uL (4.0-10.0)
[2023-07-07 06:08] LABS: Alanine Aminotransferase 32 U/L (0-41); Albumin Level 2.2 g/dL (3.5-5.2); Alkaline Phosphatase 181 U/L (40-130); Anion Gap 13.9 (5-19); Aspartate Amino Transferase 53 U/L (0-40); Blood Urea Nitrogen 2 mg/dL (8-23); Calcium 7.4 mg/dL (8.5-10.5); Carbon Dioxide 24 mmol/L (22-29); Chloride 101 mmol/L (98-107); Globulin 3.1 g/dL (1.3-4.6); Glomerular Filtration Rate 97.3 mL/min (90-130); Glucose 100 mg/dL (65-115); Osmolality Calculated 278 mOsm/kg (285-295); Sodium 136 mmol/L (136-145); Total Bilirubin 0.5 mg/dL (0.15-1.2); Total Protein 5.3 g/dL (6.6-8.7)
[2023-07-07 06:09] LABS: Magnesium 1.6 mg/dL (1.7-2.3); Phosphorus 2.4 mg/dL (2.5-4.5)
[2023-07-07 06:11] LABS: Potassium 2.9 mmol/L (3.5-5.1)
[2023-07-07] MEDS: lidocaine 1% 5 ML in potassium chloride premix 100 ML 26.25 ML IV (06:32)
[2023-07-07 07:41] VITALS: PULSE 90; RESP 16; O2SAT 98
[2023-07-07 08:11] VITALS: BP 127/84; PULSE 107; RESP 18; TEMP 36.4; O2SAT 99
[2023-07-07] MEDS: magnesium oxide 400 mg tablet PO (08:39)
[2023-07-07] MEDS: folic acid 1 mg Tablet PO (08:39)
[2023-07-07] MEDS: phosphorus 250 mg Tablet PO (08:39)
[2023-07-07] MEDS: pantoprazole 40 mg SDV IVP (08:40)
--- NOTE | 2023-07-07 09:28 | PM.DCS ---
Discharge Providers Date of Admission: 07/05/23 01:00 Date of Discharge: July 07, 2023 Attending Provider at Admission: Yana Hill MD Attending Provider at Discharge: Rishi Christianson MD Primary Care Provider: THEA Smith Diagnoses at Discharge Discharge Diagnosis (1) C. difficile diarrhea: Status: Acute (2) Colitis: Status: Acute (3) Acute hypokalemia: Status: Acute (4) Hypomagnesemia: Status: Acute (5) Weakness: Status: Acute (6) Malnutrition: Status: Acute (7) Fall: Status: Acute (8) Goals of care, counseling/discussion: Status: Acute (9) Physical deconditioning: Status: Acute (10) Macrocytic anemia: Status: Acute (11) Alcoholism: Status: Chronic Reason for Visit Reason for Visit: Weakness N/V Brief History: History as per HPI: Daniel Vázquez is a 62 year old male presented to hospital for failure to thrive.? Patient checked himself out of the group home thinking he would be able to take care of himself, currently patient is living with his family, daughter, patient is stating that 1 daughter left for work, patient felt helpless, he had no strength at all to get up on his feet to go to the bathroom, he saw himself with feces and urine today he started experiencing multiple bouts of loose stools, no one else is sick at home, he has not noticed any chest pain shortness of breath or fever.? He is denying urinary incontinence or any issues such as insensate below his waist however stating that for last 3 months his legs are giving up on him and that is why he was sent to a group home.? Patient is stating that group home discharge him because he did not need rehab anymore.? No family at the bedside In the ER he has been diagnosed with protein calorie malnourishment, severe electrolyte imbalance, he was soiled with urine and feces all over Patient is denying recent alcohol use, Alcohol level undetectable This patient was recently discharged from the hospital after management of altered mental status, renal failure, hyponatremia, hypokalemia hospice was discussed and family wanted to consider SNF/rehab before making their final decision Hospital Course Hospital Course Patient was admitted to the hospital for further evaluation and management of altered mental status along with electrolyte abnormalities. Stool studies were checked and were positive for C. difficile. He was started on oral vancomycin after which he is frequency of diarrhea improved and leukocytosis also improved. During hospitalization he remained hemodynamically stable and afebrile. Electrolytes specially potassium was replaced. Goals of cares were Discussed in detail with the patient and his son/DPOA.? We discussed that unfortunately patient has chronic illness including Warnicke's encephalopathy along with liver cirrhosis due to chronic alcoholism, severe malnourishment leading to deconditioning along with malnutrition.? Discussed about possible long-term placement though patient keeps discharging himself from group home every time he is discharged there.? Discussed about possible hospice. They were both agreeable. He has been discharged to SNF with hospice. He will be on tapered vancomycin dose for recurrent C. difficile along with electrolyte supplementation. Physical Exam Narrative: General: No acute distress, AO x3, pallor present, chronically sick appearing, cachectic HEENT: PERRLA, pupils bilaterally equal and reactive Chest: Bilateral bronchial breath sounds all over lung with occasional rhonchi, equal good air entry bilaterally CVS: S1-S2 regular, no murmurs, no tachycardia, no gallops, no rubs Abdomen: Soft, nontender, no organomegaly, bowel sounds present Neuro: No focal deficits, no facial deformity, AO x3, power 5/5 in all limbs Urinary Catheter Management: Martinez: Cath Placed During This Visit: yes Reason for Continuing Indwelling Catheter: Acute Urinary Retention or Obstruction Urinary Catheter Date of Insertion: 07/04/23 Urinary Catheter Time of Insertion: 20:30 Discharge Data Studies Completed and Pending Completed Studies During Hospitalization Category Date Time Status CT abdomen pelvis w con* [id number] Stat Cat Scan 07/04/23 22:35 Completed XR chest 1V portable [id number] Stat Exams 07/04/23 22:02 Completed Pending at discharge Category Date Time Status MAG [Magnesium] AM LABS Lab 07/08/23 04:00 Ordered MAG [Magnesium] AM LABS Lab 07/09/23 04:00 Ordered PHOS [Phosphorus] AM LABS Lab 07/08/23 04:00 Ordered PHOS [Phosphorus] AM LABS Lab 07/09/23 04:00 Ordered Radiology Impressions Chest X-Ray 07/04/23 22:02 IMPRESSION: Small right pleural effusion. No evidence of pneumonia. Abdomen/Pelvis CT 07/04/23 22:35 IMPRESSION: 1. Diffuse colonic wall thickening most prominently involving the cecum, ascending colon, and hepatic flexure with loss of the normal haustral folds. Overall findings are compatible with infectious or inflammatory colitis. 2. Wall thickening of the appendix which is not dilated most compatible with contiguous inflammatory change in the setting of colitis. 3. Trace free fluid in the abdomen pelvis. 4. Small right and trace left pleural effusions. 5. Hepatic steatosis. Microbiology 07/05/23 07:40 Stool Routine Collection Clostridioides difficile Toxins A&B (PCR) - Final 07/05/23 07:40 Stool Routine Collection C.difficile Toxin B Gene (PCR) - Final Laboratory Results WBC 11.2 10^3/uL (4.0-10.0) H 07/07/23 05:25 RBC 2.84 10^6/uL (4.1-5.3) L 07/07/23 05:25 Hgb 8.4 g/dL (11.7-16.6) L 07/07/23 05:25 Hct 26.4 % (42.0-52.0) L 07/07/23 05:25 MCV 93.0 fl (80-94) 07/07/23 05:25 MCH 29.6 pg (28.0-34.0) 07/07/23 05:25 MCHC 31.8 g/dL (30.0-36.0) 07/07/23 05:25 RDW 17.8 % (12.1-15.1) H 07/07/23 05:25 Plt Count 261 10^3/cmm (130-400) 07/07/23 05:25 MPV 10.5 fL (7.4-10.4) H 07/07/23 05:25 Neut % (Auto) 65.9 % 07/07/23 05:25 Lymph % (Auto) 18.8 % 07/07/23 05:25 [place] % (Auto) 3.8 % 07/07/23 05:25 Eos % (Auto) 9.6 % 07/07/23 05:25 Baso % (Auto) 1.3 % 07/07/23 05:25 Neut # (Auto) 7.38 10^3/uL (1.8-7.7) 07/07/23 05:25 Lymph # (Auto) 2.1 10^3/uL (0.8-4.8) 07/07/23 05:25 [place] # (Auto) 0.4 10^3/uL (0.2-0.9) 07/07/23 05:25 Eos # (Auto) 1.1 10^3/uL (0.0-0.8) H 07/07/23 05:25 Baso # (Auto) 0.1 10^3/uL (0.0-0.1) 07/07/23 05:25 Nucleated RBC % (auto) 0 % 07/07/23 05:25 Nucleated RBCs # 0.0 /100WBC 07/07/23 05:25 Sodium 136 mmol/L (136-145) 07/07/23 05:25 Potassium 2.9 mmol/L (3.5-5.1) L 07/07/23 05:25 Chloride 101 mmol/L (98-107) 07/07/23 05:25 Carbon Dioxide 24 mmol/L (22-29) 07/07/23 05:25 Anion Gap 13.9 (5-19) 07/07/23 05:25 BUN 2 mg/dL (8-23) L 07/07/23 05:25 Creatinine 0.8 mg/dL (0.7-1.2) 07/07/23 05:25 GFR Calculation 97.3 mL/min (90-130) 07/07/23 05:25 Glucose 100 mg/dL (65-115) 07/07/23 05:25 Calculated Osmolality 278 mOsm/kg (285-295) L 07/07/23 05:25 Calcium 7.4 mg/dL (8.5-10.5) L 07/07/23 05:25 Phosphorus 2.4 mg/dL (2.5-4.5) L 07/07/23 05:25 Magnesium 1.6 mg/dL (1.7-2.3) L 07/07/23 05:25 Total Bilirubin 0.5 mg/dL (0.15-1.2) 07/07/23 05:25 AST 53 U/L (0-40) H 07/07/23 05:25 ALT 32 U/L (0-41) 07/07/23 05:25 Alkaline Phosphatase 181 U/L (40-130) H 07/07/23 05:25 C-Reactive Protein 3.0 mg/L (0.0-4.9) 07/05/23 04:37 Total Protein 5.3 g/dL (6.6-8.7) L 07/07/23 05:25 Albumin 2.2 g/dL (3.5-5.2) L 07/07/23 05:25 Globulin 3.1 g/dL (1.3-4.6) 07/07/23 05:25 Vitamin B12 922 pg/mL (232-1245) 07/05/23 04:37 Procalcitonin 0.52 ng/mL (0-0.5) H 07/04/23 17:10 Urine Color Light yellow (Yellow) 07/04/23 21:55 Urine Appearance Clear (CLEAR) 07/04/23 21:55 Urine pH 6 (5-7) 07/04/23 21:55 Ur Specific [place] 1.010 (1.005-1.030) 07/04/23 21:55 Urine Protein Trace (Negative) 07/04/23 21:55 Urine Glucose (UA) Norm (Normal) 07/04/23 21:55 Urine Ketones Negative (Negative) 07/04/23 21:55 Urine Blood 2+ (Negative) H 07/04/23 21:55 Urine Nitrate Negative (Negative) 07/04/23 21:55 Urine Bilirubin Neg (Negative) 07/04/23 21:55 Urine Urobilinogen Neg mg/dL (Negative) 07/04/23 21:55 Ur Leukocyte Esterase Negative (Negative) 07/04/23 21:55 Urine RBC 5-10 /hpf (0-2) H 07/04/23 21:55 Urine WBC None /hpf (0-5) 07/04/23 21:55 Ur Squamous Epith Cells 0-4 /hpf (0-5) H 07/04/23 21:55 Amorphous Sediment Not Reportable 07/04/23 21:55 Urine Bacteria 1+ /hpf (NONE) H 07/04/23 21:55 Hyaline Casts 0-4 /lpf H 07/04/23 21:55 Urine Mucus 1+ /hpf 07/04/23 21:55 Urine Opiates Screen Negative ng/mL (Negative) 07/05/23 05:00 Ur Barbiturates Screen Negative ng/mL (Negative) 07/05/23 05:00 Ur Phencyclidine Scrn Negative ng/mL (Negative) 07/05/23 05:00 Ur Amphetamines Screen Negative ng/mL (Negative) 07/05/23 05:00 U Benzodiazepines Scrn Negative ng/mL (Negative) 07/05/23 05:00 Urine Cocaine Screen Negative ng/mL (Negative) 07/05/23 05:00 U Marijuana (THC) Screen Negative ng/mL (Negative) 07/05/23 05:00 Ethyl Alcohol < 10 mg/dL (0-10) 07/04/23 17:40 SARS-CoV-2 Ag (Rapid) negative (Negative) 07/07/23 00:20 Vitals Last Vital Signs Temp 97.6 F 07/07/23 08:11 Pulse 107 H 07/07/23 08:11 Resp 18 07/07/23 08:11 BP 127/84 07/07/23 08:11 Pulse Ox 99 07/07/23 08:11 O2 Del Method Room Air 07/07/23 08:11 Discharge Plan Discharge Patient Disposition: Hospice - Medical Facility Condition: Stable Prescriptions: New magnesium oxide 400 mg (241.3 mg magnesium) Tablet 400 mg PO BID Qty: 60 0RF Phospha 250 Neutral 250 mg Tablet 250 mg PO BID Qty: 14 0RF potassium chloride 20 mEq tablet extended release 20 meq PO BID Qty: 20 0RF vancomycin 250 mg capsule 250 mg PO Q6H Qty: 120 0RF Rx Instructions: Take 4 times a day for next 2 weeks followed by 2 times a day for 2 weeks followed by 1 times a day for 2 weeks followed by 1 times every other day for next 2 months. Continued ondansetron 4 mg tablet,disintegrating 4 mg translingual Q4H PRN (Reason: nausea) Qty: 5 0RF Rx Instructions: Dissolve 1 tablet under tongue every 4 hours PRN for nausea lorazepam 2 mg/mL concentrate 2 mg sublingual Q4H PRN (Reason: Anxiety/Seizure) Qty: 30 0RF Rx Instructions: 0.25ml-1ml q4H PRN Anxiety/Seizure Start 0.25ml may increase to 0.5ml-1ml q4H bisacodyl 10 mg suppository 10 mg VA DAILY PRN (Reason: constipation) Qty: 5 0RF Rx Instructions: 1 suppository per rectum every day PRN for constipation. morphine concentrate 100 mg/5 mL (20 mg/mL) solution 20 mg sublingual DIRECTED PRN (Reason: Pain/SOB) 14 Days Qty: 30 0RF Rx Instructions: 0.25ml-1ml q1H PRN may increase to 0.5ml-1ml Q1H PRN atropine 1 % drops 4 drp sublingual Q4H PRN (Reason: secretions) Qty: 5 0RF Rx Instructions: 4 drops SL q 4 hours PRN for terminal congestion/excessive secretions. hydrocodone-acetaminophen 5-325 mg tablet 1 - 2 tab PO .Q4-6H Qty: 40 0RF losartan 50 mg tablet 50 mg PO DAILY ondansetron HCl 4 mg tablet 4 mg PO Q8H PRN (Reason: Nausea) colesevelam 625 mg Tablet 625 mg PO BID Rx Instructions: AM AND PM mupirocin 2 % ointment 1 applic TOPICAL BID Eliquis 5 mg tablet 5 mg PO BID Changed midodrine 5 mg tablet 5 mg PO TID PRN (Reason: About less than 100 mmhg) Qty: 10 0RF Discontinued doxycycline hyclate 100 mg tablet 100 mg PO DAILY Discharge Orders: Discharge Order (Routine); Ordered 07/07/23 Ordered By: Rishi Christianson Referrals: Gogo Wright [Outside] Stefan [Outside] Himanshu Ellis FNP [Primary Care Provider] - (We have notified your physician's clinic of the need for a follow-up appointment to be scheduled. If you have not heard from them within the next 2 business days, please call them directly. You may also reach out to our incident manager at [phone] and she can assist you.) Discharge Diet: Cardiac Discharge Activity: Resume usual activity and Increase activity as tolerated Patient Instructions: Opioid Safety Activity Restrictions/Additional Instructions: Continue taking vancomycin taper as described. Take to 50 mg 4 times a day for 2 weeks followed by 250 mg 2 times a day for 2 weeks followed by 250 mg 1 time a day for 2 weeks followed by 250 mg 1 time a day every other day for 2 months. Discharge Attestations Time Spent in Discharge Care*: greater than 30 min Specific Discharge Activities: educating patient, educating and/or supporting family/caregiver, discussing with pcp/other providers, discussing with correctional casework specialist/social workers/dc planners, documenting/other paperwork and evaluating patient/reviewing data Status at Discharge: Cognitive status at discharge: moderately impaired cognition, Behavioral status at discharge: cooperative, Quality Metrics Clinical Quality Measures [ No reported AMI, CVA or VTE this stay] Coding Level of Care Code 77826 Total time (in minutes) for Discharge: 60 Diagnoses C. difficile diarrhea A04.72 Colitis K52.9 Acute hypokalemia E87.6 Hypomagnesemia E83.42 Weakness R53.1 Malnutrition E46 Fall W19.XXXA Goals of care, counseling/discussion Z71.89 Physical deconditioning R53.81 Macrocytic anemia D53.9 Alcoholism F10.20
[2023-07-07] MEDS: potassium chloride ER 20 mEq Tablet 40 MEQ PO (10:45)
== END 2023-07-07 11:29 | disposition hospice, home (50) | DRG 371 ==
LOC: ER 07-05 00:04 → MEDSURG 07-05 01:00
PROVIDERS: Emergency Medicine; Admitting Provider Internal Medicine; Emergency Provider Emergency Medicine; PCP Registered Nurse; Visit Provider Student in an Organized Health Care Education/Training Program
DX: A04.72 Enterocolitis due to Clostridium difficile, not specified as recurrent (principal); E43 Unspecified severe protein-calorie malnutrition; E51.2 Wernicke's encephalopathy; W19.XXXA Unspecified fall, initial encounter; E87.6 Hypokalemia; E83.42 Hypomagnesemia; Z68.22 Body mass index [BMI] 22.0-22.9, adult; D53.9 Nutritional anemia, unspecified; K70.30 Alcoholic cirrhosis of liver without ascites; F10.10 Alcohol abuse, uncomplicated; Z79.891 Long term (current) use of opiate analgesic; Z79.01 Long term (current) use of anticoagulants; I10 Essential (primary) hypertension; M48.062 Spinal stenosis, lumbar region with neurogenic claudication; M54.16 Radiculopathy, lumbar region; I95.9 Hypotension, unspecified
CPT/HCPCS: 36415; 51702; 71045; 74177; 80048; 80053; 80306; 80307; 81001; 82607; 83735; 84100; 84145; 85025; 86140; 87324; 87426; 87493; 96365; 96367; 96372; 99285; C9113; J1644; J1650; J2543; J3370; J3411; J3475; J3480; J7030; Q9967

== ENCOUNTER 2023-08-03 08:17 | Outpatient (CLI) | payer OTHER, SELFPAY ==
--- NOTE | 2023-08-03 08:28 | USCV_ITS ---
Daniel Vázquez Age: 62 Gender: M : 1960 Exam Date: 08/03/2023 08:54 Ordering Phys: Rod Ware MD Technologist: Exam Location: [facility] [place] Indication: ef BP: 110 / 60 HR: 107 Rhythm: Sinus Technical Quality: Adequate MEASUREMENTS (Male / Female) Normal Values 2D ECHO LV Diastolic Diameter PLAX 4.2 cm 4.2 - 5.9 / 3.9 - 5.3 cm LV Systolic Diameter PLAX 2.5 cm IVS Diastolic Thickness 1.1 cm 0.6 - 1.0 / 0.6 - 0.9 cm IVS Systolic Thickness 1.7 cm LVPW Diastolic Thickness 1.5 cm 0.6 - 1.0 / 0.6 - 0.9 cm LVPW Systolic Thickness 1.4 cm LVOT Diameter 2.0 cm LV Ejection Fraction 2D Teich 71.1 % LV Ejection Fraction MOD 2C 52.0 % LV Ejection Fraction 2C AL 52.0 % LA Diameter 2.9 cm IVC Diameter 1.9 cm M-MODE Aortic Annulus Diameter 3.0 cm LA Ao Ratio MM 1.0 MV E Point Septal Separation 0.6 cm DOPPLER AV Peak Velocity 106.0 cm/s LVOT Peak Velocity 96.0 cm/s AV Area Cont Eq vti 3.4 cm squared AV Area Cont Eq pk 3.0 cm squared MV Area PHT 5.0 cm squared Mitral E to A Ratio 0.8 MV E' Velocity 30.5 cm/s Mitral E to MV E' Ratio 7.7 Mitral E to LV E' Lateral Ratio 7.4 Mitral E to LV E' Septal Ratio 8.0 TR Peak Velocity 110.0 cm/s TR Peak Gradient 4.8 mmHg TV Peak E Velocity 81.0 cm/s Right Atrial Pressure 3.0 mmHg Pulmonary Artery Systolic Pressu 7.8 mmHg RV Acceleration Time 0.2 s FINDINGS Left Ventricle Normal left ventricular size and systolic function, EF 59 %. No regional wall motion abnormalities. Mild left ventricular hypertrophy. Right Ventricle Normal right ventricular size and systolic function. Right Atrium Normal right atrial size. Left Atrium The left atrium is normal in size. Mitral Valve Thickened mitral valve. Mild mitral valve regurgitation. Aortic Valve Thickened aortic valve. Tricuspid Valve No gross abnormalities noted Pulmonic Valve Pulmonic valve not well visualized. Pericardium Normal pericardium without effusion. Aorta Normal ascending aorta dimension. IVC Normal inferior vena cava. CONCLUSIONS Normal left ventricular size and systolic function, EF 59 %. No regional wall motion abnormalities. Mild left ventricular hypertrophy. Thickened mitral valve. Mild mitral valve regurgitation. Thickened aortic valve. There is no pericardial effusion. There are no intracardiac masses. Compared to the previous study from 05/10/23, there may not be a significant change Dr Meredith Farrell MD [facility] (Electronically Signed) Final Date: 03 August 2023 17:27 S
== END 2023-08-03 08:18 | disposition home or self-care (01) ==
LOC: RAD 08:21
PROVIDERS: PCP Registered Nurse; Visit Provider Internal Medicine
DX: I49.9 Cardiac arrhythmia, unspecified (principal); I48.11 Longstanding persistent atrial fibrillation
CPT/HCPCS: 93306

== ENCOUNTER → 2023-08-08 10:14 | Outpatient (BNVA) | payer OTHER, SELFPAY | PROVIDERS: PCP Registered Nurse; Visit Provider Internal Medicine Cardiovascular Disease | DX: I10 Essential (primary) hypertension (principal) | CPT/HCPCS: 36415; 80053; 83735; 84443; 85025; 93005 ==

== ENCOUNTER 2023-12-03 16:46 | Emergency (ER) | payer MEDICARE, OTHER, MEDICAID, SELFPAY ==
[2023-12-03 16:49] VITALS: BP 126/51; PULSE 93; RESP 18; TEMP 36.9; O2SAT 93; BMI 27.3
--- NOTE | 2023-12-03 16:55 | XRR_ITS ---
PROCEDURE INFORMATION: Exam: XR Chest Exam date and time: 12/03/2023 5:01 PM Age: 63 years old Clinical indication: Cough and shortness of breath; Patient HX: Cough; SOB TECHNIQUE: Imaging protocol: Radiologic exam of the chest. Views: 1 view. COMPARISON: CR (CHEST, ) 07/04/2023 10:09 PM FINDINGS: Lungs: Unremarkable. No consolidation. Pleural spaces: Unremarkable. No pleural effusion. No pneumothorax. Heart/Mediastinum: Unremarkable. No cardiomegaly. Bones/joints: Unremarkable. XR/XR chest 1V portable [id number] IMPRESSION: No acute findings.
--- NOTE | 2023-12-03 16:57 | W.ED.URI ---
HPI - URI/Sore Throat General: Chief Complaint: Upper Respiratory Infection Stated Complaint: COUGH Time Seen by Provider: 12/03/23 16:49 Source: patient and EMS Mode of arrival: EMS Limitations: no limitations History of Present Illness: 63-year-old male here from care home he has had cough congestion for the last 3 days. Patient had some wheezing as well he is given breathing treatment and route pulse ox here is 95% on room air denies any pain anywhere denies any fevers he has a history of alcoholic cirrhosis [facility] ED PFSH: Medical History (Updated 12/03/23 @ 18:43 by Sherine Li MD) Lumbar stenosis with neurogenic claudication Nontraumatic compression fracture of L2 vertebra Spinal stenosis of lumbar region with radiculopathy Hyponatremia admission 2019 with sodium as low as 114 due to HCTZ and beer potomania Alcoholic cirrhosis Hypertension Alcoholism Surgical History History of back surgery No pertinent past surgical history Family History Other Dementia Hypertension Rheumatoid arthritis Social History Smoking and tobacco/nicotine status: never used tobacco/nicotine Alcohol intake: current Substance/Drug Use: never Adopted: No Caregiver/support person: No Lives independently: No Household members: children Do you think of yourself as: Straight/Heterosexual Current gender identity: Male Physical Exam Const: COMMON NORMALS: no acute distress, patient oriented x3 and healthy appearing HENMT: COMMON NORMALS: normocephalic and atraumatic HEAD & SCALP: normocephalic and atraumatic Eye: COMMON NORMALS: Equal, round and reactive pupils present and EOMs intact bilaterally PUPIL: Yes Equal, round and reactive pupils present Neck/C-Spine: COMMON NORMALS: full ROM and supple Chest: COMMONS NORMALS: normal inspection of the chest and normal palpation of entire chest wall Resp: COMMON NORMALS: normal respiratory effort, No retractions and No use of accessory muscles AUSCULTATION: wheezes Cardio: COMMON NORMALS: regular rate, regular rhythm and No murmurs present (Cardio) RATE: regular rate RHYTHM: regular rhythm GI: COMMON NORMALS: Normal to inspection, nondistended, normoactive bowel sounds present, Soft to palpation, non-tender and no masses PALPATION: Yes Soft to palpation Extremity: COMMON NORMALS: normal to inspection and full ROM Neuro: COMMON NORMALS: patient oriented x3, moves all extremities and no focal motor deficits Psych: COMMON NORMALS: mental status grossly normal, Normal thought process present and cooperative THOUGHT PROCESS: Normal thought process present Skin: COMMON NORMALS: no rashes or lesions noted and no wounds GENERAL SKIN EXAM: no rashes or lesions noted Course Vital Signs: Vital signs: Vital Signs Temperature 98.4 F 12/03/23 16:49 Pulse Rate 95 12/03/23 17:45 Respiratory Rate 16 12/03/23 17:38 Blood Pressure 126/51 12/03/23 16:49 Pulse Oximetry 95 12/03/23 17:38 Oxygen Delivery Me thod Room Air 12/03/23 17:38 MDM - URI/Sore Throat Medical Decision Making Patient presents here with cough congestion likely viral upper respiratory infection. He has no signs of pneumonia blood work here is negative he is stable for discharge we will discharge him with albuterol along with steroid he is to follow-up with PCP and return if worsening. Medical Records I reviewed the patient's medical records. Lab Data I reviewed the patient's lab results. 12/03/23 17:03 12/03/23 17:03 Radiology Impressions Chest X-Ray 12/03/23 16:55 IMPRESSION: No acute findings. Laboratory Results WBC 7.95 10^3/uL (3.29-11.43) 12/03/23 17:03 RBC 3.59 10^6/uL (3.85-5.65) L 12/03/23 17:03 Hgb 11.10 g/dL (11.27-16.99) L 12/03/23 17:03 Hct 33.3 % (37-53) L 12/03/23 17:03 MCV 92.8 fl (82-101) 12/03/23 17:03 MCH 30.9 pg (27-33) 12/03/23 17:03 MCHC 33.3 g/dL (30-55) 12/03/23 17:03 RDW 13.0 % (12.1-15.1) 12/03/23 17:03 Plt Count 263 10^3/cmm (157-399) 12/03/23 17:03 MPV 10.1 fL (7.4-10.4) 12/03/23 17:03 Neut % (Auto) 62.0 % 12/03/23 17:03 Lymph % (Auto) 15.8 % 12/03/23 17:03 [place] % (Auto) 9.6 % 12/03/23 17:03 Eos % (Auto) 11.4 % 12/03/23 17:03 Baso % (Auto) 0.9 % 12/03/23 17:03 Neut # (Auto) 4.93 10^3/uL (1.8-7.7) 12/03/23 17:03 Lymph # (Auto) 1.3 10^3/uL (0.8-4.8) 12/03/23 17:03 [place] # (Auto) 0.8 10^3/uL (0.2-0.9) 12/03/23 17:03 Eos # (Auto) 0.9 10^3/uL (0.0-0.8) H 12/03/23 17:03 Baso # (Auto) 0.1 10^3/uL (0.0-0.1) 12/03/23 17:03 Nucleated RBC % (auto) 0 % 12/03/23 17:03 Nucleated RBCs # 0.0 /100WBC 12/03/23 17:03 Sodium 126 mmol/L (136-145) L 12/03/23 17:03 Potassium 4.4 mmol/L (3.5-5.1) 12/03/23 17:03 Chloride 89 mmol/L (98-107) L 12/03/23 17:03 Carbon Dioxide 27 mmol/L (22-29) 12/03/23 17:03 Anion Gap 14.4 (5-19) 12/03/23 17:03 BUN 14 mg/dL (8-23) 12/03/23 17:03 Creatinine 1.1 mg/dL (0.7-1.2) 12/03/23 17:03 GFR Calculation 67.2 mL/min (90-130) L 12/03/23 17:03 Glucose 138 mg/dL (65-115) H 12/03/23 17:03 Calculated Osmolality 265 mOsm/kg (285-295) L 12/03/23 17:03 Calcium 9.8 mg/dL (8.5-10.5) 12/03/23 17:03 Total Bilirubin 0.2 mg/dL (0.15-1.2) 12/03/23 17:03 AST 19 U/L (0-40) 12/03/23 17:03 ALT 9 U/L (0-41) 12/03/23 17:03 Alkaline Phosphatase 98 U/L (40-130) 12/03/23 17:03 NT-Pro-B Natriuret Pep 451 pg/mL (0-125) H 12/03/23 17:03 Total Protein 7.7 g/dL (6.6-8.7) 12/03/23 17:03 Albumin 4.1 g/dL (3.5-5.2) 12/03/23 17:03 Globulin 3.6 g/dL (1.3-4.6) 12/03/23 17:03 Influenza Type A Ag negative (Negative) 12/03/23 17:21 Influenza Type B Ag negative (Negative) 12/03/23 17:21 SARS-CoV-2 Ag (Rapid) negative (Negative) 12/03/23 17:21 All radiology interpretation(s) finalized by discharge Discharge Plan Discharge Patient Disposition: Home Clinical Impression: Upper respiratory infection Qualifiers: URI type: unspecified URI Qualified Code(s): J06.9 - Acute upper respiratory infection, unspecified Condition: Stable Prescriptions: New prednisone 50 mg tablet 50 mg PO DAILY Qty: 5 0RF albuterol sulfate 90 mcg/actuation HFA aerosol inhaler 2 inh INHALATION Q6H PRN (Reason: shortness of breath or wheezing) Qty: 8 0RF No Action Acidophilus Capsule 10 mg PO DAILY naloxone 2 mg/0.4 mL auto-injector 2 mg SUBCUT Q3M Rx Instructions: until desired response losartan 25 mg tablet 25 mg PO DAILY Qty: 90 1RF ondansetron 4 mg tablet,disintegrating 4 mg translingual Q4H PRN (Reason: nausea) Qty: 5 0RF Rx Instructions: Dissolve 1 tablet under tongue every 4 hours PRN for nausea lorazepam 2 mg/mL concentrate 2 mg sublingual Q4H PRN (Reason: Anxiety/Seizure) Qty: 30 0RF Rx Instructions: 0.25ml-1ml q4H PRN Anxiety/Seizure Start 0.25ml may increase to 0.5ml-1ml q4H bisacodyl 10 mg suppository 10 mg OK DAILY PRN (Reason: constipation) Qty: 5 0RF Rx Instructions: 1 suppository per rectum every day PRN for constipation. morphine concentrate 100 mg/5 mL (20 mg/mL) solution 20 mg sublingual DIRECTED PRN (Reason: Pain/SOB) 14 Days Qty: 30 0RF Rx Instructions: 0.25ml-1ml q1H PRN may increase to 0.5ml-1ml Q1H PRN atropine 1 % drops 4 drp sublingual Q4H PRN (Reason: secretions) Qty: 5 0RF Rx Instructions: 4 drops SL q 4 hours PRN for terminal congestion/excessive secretions. hydrocodone-acetaminophen 5-325 mg tablet 1 - 2 tab PO .Q4-6H Qty: 40 0RF ondansetron HCl 4 mg tablet 4 mg PO Q8H PRN (Reason: Nausea) colesevelam 625 mg Tablet 625 mg PO BID Rx Instructions: AM AND PM mupirocin 2 % ointment 1 applic TOPICAL BID Eliquis 5 mg tablet 5 mg PO BID magnesium oxide 400 mg (241.3 mg magnesium) Tablet 400 mg PO BID Qty: 60 0RF Phospha 250 Neutral 250 mg Tablet 250 mg PO BID Qty: 14 0RF potassium chloride 20 mEq tablet extended release 20 meq PO BID Qty: 20 0RF vancomycin 250 mg capsule 250 mg PO Q6H Qty: 120 0RF Rx Instructions: Take 4 times a day for next 2 weeks followed by 2 times a day for 2 weeks followed by 1 times a day for 2 weeks followed by 1 times every other day for next 2 months. midodrine 5 mg tablet 5 mg PO TID PRN (Reason: About less than 100 mmhg) Qty: 10 0RF Discharge Orders: Discharge ED (Routine); Ordered 12/03/23 Ordered By: Sherine Li Referrals: Himanshu Ellis FNP [Primary Care Provider] - 1-3 days Discharge Diet: Advance as tolerated Discharge Activity: Resume usual activity Patient Instructions: Upper Respiratory Infection (ED) Coding Level of Care Code ED Telephone Diaphragm Assembler for Ivett Hennessy
[2023-12-03 17:07] LABS: Basophils # 0.1 10^3/uL (0.0-0.1); Basophils % 0.9 %; Eosinophils # 0.9 10^3/uL (0.0-0.8); Eosinophils % 11.4 %; Hematocrit 33.3 % (37-53); Lymphocytes # 1.3 10^3/uL (0.8-4.8); Lymphocytes % 15.8 %; Mean Corpuscular HGB Conc 33.3 g/dL (30-55); Mean Corpuscular Hemoglobin 30.9 pg (27-33); Mean Corpuscular Volume 92.8 fl (82-101); Mean Platelet Volume 10.1 fL (7.4-10.4); Monocytes # 0.8 10^3/uL (0.2-0.9); Monocytes % 9.6 %; Neutrophils # 4.93 10^3/uL (1.8-7.7); Nucleated Red Blood Cells % 0 %; Platelet Count 263 10^3/cmm (157-399); Red Blood Count 3.59 10^6/uL (3.85-5.65); White Blood Count 7.95 10^3/uL (3.29-11.43)
[2023-12-03] MEDS: ipratropium-albuterol 3 mL Neb INHALATION (17:35)
[2023-12-03] MEDS: albuterol 2.5 mg/3 mL Neb INHALATION (17:35)
[2023-12-03 17:38] VITALS: PULSE 96; RESP 16; O2SAT 95
[2023-12-03 17:40] LABS: Alanine Aminotransferase 9 U/L (0-41); Albumin Level 4.1 g/dL (3.5-5.2); Alkaline Phosphatase 98 U/L (40-130); Anion Gap 14.4 (5-19); Aspartate Amino Transferase 19 U/L (0-40); Blood Urea Nitrogen 14 mg/dL (8-23); Calcium 9.8 mg/dL (8.5-10.5); Carbon Dioxide 27 mmol/L (22-29); Chloride 89 mmol/L (98-107); Globulin 3.6 g/dL (1.3-4.6); Glomerular Filtration Rate 67.2 mL/min (90-130); Glucose 138 mg/dL (65-115); NT Pro B Type Natriuretic Pept 451 pg/mL (0-125); Osmolality Calculated 265 mOsm/kg (285-295); Potassium 4.4 mmol/L (3.5-5.1); Sodium 126 mmol/L (136-145); Total Bilirubin 0.2 mg/dL (0.15-1.2); Total Protein 7.7 g/dL (6.6-8.7)
[2023-12-03 17:45] VITALS: PULSE 95
[2023-12-03 18:21] LABS: Influenza A by IFA negative (Negative); Influenza B by IFA negative (Negative); SARS Covid-2 Antigen negative (Negative)
[2023-12-03 21:44] VITALS: BP 155/88; PULSE 74; O2SAT 98
== END 2023-12-03 21:00 | disposition home or self-care (01) ==
PROVIDERS: Emergency Provider Emergency Medicine; PCP Registered Nurse
DX: J06.9 Acute upper respiratory infection, unspecified (principal); Z79.01 Long term (current) use of anticoagulants; Z11.52 Encounter for screening for COVID-19; I10 Essential (primary) hypertension
CPT/HCPCS: 71045; 80053; 83880; 85025; 87426; 87804; 94640; 99284; J7613